=== PATIENT | male | born 1965 | race Caucasian/White ===

== ENCOUNTER 2016-10-07 22:48 | Inpatient (IN) | payer OTHER, MEDICAID ==
[~2016-10-07] VITALS: Ht 167.6 cm; Wt 69.9 kg
[2016-10-07 22:48] VITALS: BP 90/61; PULSE 90; RESP 20; TEMP 98; O2SAT 98
[~2016-10-07 22:48] MED LIST: ACET-2165 GT; ACET160O10 PO; ALBU2.5V7 INH; ARIP10TA14 PO; ASA81 GT; ASCO-339 GT; ASCO-339 PO; ASCO120G2 PO; BACL10TA GT; BACL10TA PO; BUDE0.5A IH; CARB-61 GT; CEL20 PO; COL250 PO; COLL100 GT; COPAXI20 SQ; CRAN1TAB5 GT; CRAN450C PO; CYAN100082 SQ; DOCU-144 GT; DULR10 RC; ENOX40DI8 SQ; ENOX80DI8 SQ; FER300L GT; FINA5TAB3 GT; GLAT20KI3 SQ; HYDR-1189 PO; IBUP-1479 GT; LACT-96 GT; LEVA1.2526 IH; LIP20 GT; LOVI40 SQ; MAGN400O4 GT; METO25TA6 GT; MULT-1117 GT; MULT1CAP34 PO; NA P118E RC; POTA20PA4 GT; SENN-153 GT; TAMS-11 PO; TYLL650 GT; UTI STAT GT; ZIN220 GT; [UNRECOGNIZED DRUG - CODE] PO
--- NOTE | 2016-10-07 22:48 | NUR ---
Patient to ER bed 4 to gown for evaluation. Side rails up.
--- NOTE | 2016-10-07 22:50 | NUR ---
PT BIB BLS AMBULANCE FROM [facility] C/O FEVER. PER FACILITY THE PT FEVER IS HIGH 102,6 AND THEY GIVE HIM IBUPROFEN. AT ER, PT BODY TEMP 98.6F. PT HAS G-TUBE AND YODER CATH IN PLACE.
--- NOTE | 2016-10-07 22:50 | NUR ---
ER at bedside examining patient.
--- NOTE | 2016-10-07 23:00 | NUR ---
DR GARZA AT BS EVALUATING PT
[2016-10-07] MEDS ORDERED: NS 1000 ML BAG IV ONE (23:30)
[2016-10-07] MEDS ORDERED: HEPA500014 SUBCUT (23:50)
[2016-10-07 23:56] LABS: BASOPHILS # (AUTO) 0.1 K/uL (0.0-0.2); BASOPHILS % (AUTO) 1.3 % (0.0-2.0); EOSINOPHILS # (AUTO) 0.6 K/uL (0.0-0.4); EOSINOPHILS % (AUTO) 5.3 % (0.0-4.0); HEMATOCRIT 43.7 % (36-54); HEMOGLOBIN 14.2 g/dL (14.0-18.0); LYMPHOCYTES # (AUTO) 2.9 K/uL (1.0-5.5); LYMPHOCYTES % (AUTO) 27.2 % (20.5-51.5); MEAN CORPUSCULAR HEMOGLOBIN 29 pg (27-31); MEAN CORPUSCULAR HGB CONC 33 % (32-36); MEAN CORPUSCULAR VOLUME 90 fL (79.0-98.0); MONOCYTES # (AUTO) 0.8 K/uL (0.0-1.0); MONOCYTES % (AUTO) 7.2 % (1.7-9.3); NEUTROPHILS # (AUTO) 6.3 K/uL (1.8-7.7); PLATELET COUNT (AUTO) 178 K/uL (130-430); RED BLOOD CELL COUNT(AUTO) 4.86 MIL/uL (4.2-6.2); WHITE BLOOD COUNT (AUTO) 10.7 K/uL (4.8-10.8)
[2016-10-08] VITALS (8 sets, daily range): BP systolic 95–130; BP diastolic 50–69; PULSE 76–99; RESP 16–20; TEMP 96.8–99; O2SAT 94–100
--- NOTE | 2016-10-08 | NUR ---
# 16 FR Villalobos catheter with use of sterile technique. Immediate return of 100 cc CLOUDY YELOW urine noted. Bedside drainage bag placed below level of bladder. Urine sample collected and sent to lab. Pt tolerated procedure WELL. Patient arrived with villalobos in place, changed due to standard of practice prior to admission. Patient unable to toilet self.
[2016-10-08 00:10] LABS: CALCIUM 9.4 mg/dL (8.4-11.0); POTASSIUM 4.3 mmol/L (3.5-5.1)
[2016-10-08 00:11] LABS: CREATININE 0.84 mg/dL (0.55-1.30)
[2016-10-08 00:17] LABS: TOTAL BILIRUBIN 0.6 mg/dL (0.0-1.0)
[2016-10-08 00:18] LABS: ALBUMIN 3.2 g/dL (3.4-4.8); TOTAL PROTEIN, SERUM 8.4 g/dL (6.4-8.3)
[2016-10-08] MEDS ORDERED: LEVOFLOXACIN 500 MG/D5W 100 ML IV ONE (00:30)
[2016-10-08 00:34] LABS: CLARITY/URINE CLOUDY (CLEAR); COLOR,URINE YELLOW (YELLOW)
[2016-10-08 00:35] LABS: BILIRUBIN,URINE NEGATIVE (NEGATIVE); BLOOD, URINE 3+ (NEGATIVE); GLUCOSE,URINE NEGATIVE (NEGATIVE); KETONES,URINE NEGATIVE (NEGATIVE); LEUKOCYTE ESTERASE ,URINE 3+ (NEGATIVE); NITRITE, URINE POSITIVE (NEGATIVE); PROTEIN URINE 2+ (NEGATIVE); UROBILINOGEN,URINE 0.2 (0.2-1.0)
[2016-10-08 00:39] LABS: BACTERIA,URINE MANY /HPF (None Seen); MUCUS,URINE None Seen /LPF (None Seen); RBC,URINE >100 /HPF (0-3); WBC,URINE >100 /HPF (0-3)
[2016-10-08 00:48] LABS: PROTHROMBIN TIME 11.2 SECS (9.5-12.5)
--- NOTE | 2016-10-08 00:50 | NUR ---
Patient will be admitted to care of DR FELIPE. Admitted to TELEMETRY unit. Will go to room 129-A. Belongings list completed. Summary report printed. Report given to RHETT BATISTA.
--- NOTE | 2016-10-08 00:55 | NUR ---
ADMISSION: The patient, IONA MCKINLEY, 51 y/o, M admitted by , was given written information regarding hospital policies, unit procedures and contact persons.
--- NOTE | 2016-10-08 01:00 | NUR ---
INITIAL ASSESSMENT PT. AWAKE, NON VERBAL, B/P 95/64, NO DISTRESS NOTED, O2 SAT. IS 95% WITH O2 2L NC, ORAL CARE AND SUCTIONING PROVIDED. NOTED WITH G-TUBE IN PLACE, G-TUBE IS CLAMPED. NOTED WITH YODER CATH IN PLACE, NOTED WITH SMALL AMOUNT OF BM, ASHLEY CARE DONE, Z-GUARD APPLIED, NOTED WITH OLD HEALING SCAR TO BUTTOCKS AREA, SEIZURE PADS IN PLACE, ISOLATION PRECAUTIONS MAINTAINED, AIR MATTRESS PLACED, REPOSITIONED WITH PILLOW SUPPORT, HEELS OFFLOADED. WILL CONTINUE TO MONITOR.
[2016-10-08] MEDS ORDERED: MEROPENEM 500 MG VIAL IV ONE (02:17)
[2016-10-08] MEDS: KCL 20 mEq in D5/0.45NS 1000mL 1,000 ML IV SCH ×3 (02:28→20:39)
[2016-10-08] MEDS: MEROPENEM 500 MG in NS 50 ML IV SCH ×3 (02:28→20:39)
--- NOTE | 2016-10-08 03:00 | NUR ---
RN ROUNDS PT. RESTING QUIETLY, VITAL SIGNS STABLE, NO DISTRESS NOTED, NO S/S OF PAIN OR DISCOMFORT, REPOSITIONED WITH PILLOW SUPPORT, NO SEIZURE ACTIVITY NOTED, WILL CONTINUE TO MONITOR.
[2016-10-08] MEDS ORDERED: FERROUS SULFATE 300 MG/5 ML UDC GT SCH (06:45)
[2016-10-08] MEDS ORDERED: BACLOFEN 10 MG TABLET GT PRN (06:45)
[2016-10-08] MEDS ORDERED: IBUPROFEN 400 MG TABLET GT PRN (06:45)
[2016-10-08] MEDS ORDERED: SENNOSIDES 8.6 MG TABLET GT PRN (06:45)
[2016-10-08] MEDS ORDERED: BUDESONIDE 0.5 MG/2 ML AMPUL.NEB IH PRN (06:45)
[2016-10-08] MEDS ORDERED: BISACODYL 10 MG/SUPPOSITORY RC PRN (06:45)
[2016-10-08] MEDS ORDERED: NA PHOS,M-B/NA PHOS,DI-BA 118 ML (FLEET ENEMA) RC PRN (06:45)
[2016-10-08] MEDS ORDERED: MILK OF MAGNESIA 30 ML UDC GT PRN (06:45)
--- NOTE | 2016-10-08 07:07 | NUR ---
CLOSING NOTES PT. RESTING QUIETLY, VITAL SIGNS STABLE, NO DISTRESS NOTED, NO S/S OF PAIN OR DISCOMFORT, REPOSITIONED WITH PILLOW SUPPORT, NO SEIZURE ACTIVITY NOTED, NO RESIDUALS TO G-TUBE FEEDING.
--- NOTE | 2016-10-08 07:25 | NUR ---
rn notes: patient is awake but non verbal. lungs bilaterally diminished at the bases. abdomen soft and distended but firm.active bowel sounds. has iv access on the rt hand. has bilateral scds on both legs. has villalobos catheter in placed and draining well. on seizure precaution. has g tube with fibersource 70cc/hr infusing on well. padded side rails in placed. call lights within reach. safety measures maintained. has oxygen 2lnc.no pain nor distress noted.
--- NOTE | 2016-10-08 08:11 | NUR ---
CONSULTATION WAS CALLED, SPOKE TO SHELLEY
[2016-10-08] MEDS ORDERED: [UNRECOGNIZED DRUG - OTHER] GT SCH (09:00)
[2016-10-08] MEDS: METOPROLOL TARTRATE 25 MG TABLET GT SCH ×2 (09:00→20:37)
--- NOTE | 2016-10-08 09:00 | NUR ---
oral care done and turn to sides. pillows on the back.
--- NOTE | 2016-10-08 09:34 | NUR ---
Nutrition Update Shane Scale 13 noted. Pt admitted for sepsis. Diet: Fibersource HN at 70 ml/hr, Free Water Flush: 200 via G-tube BMI: 25.1 kg/m2 RD to follow per nutrition care standards.
[2016-10-08] MEDS: POTASSIUM CHLORIDE 20 MEQ/PKT PACKET GT SCH (09:39)
[2016-10-08] MEDS: ASPIRIN 81 MG TAB.CHEW GT SCH (09:39)
[2016-10-08] MEDS: MULTIVITAMINS TAB 1 TABLET GT SCH (09:39)
[2016-10-08] MEDS: HEPARIN SODIUM,PORCINE 5000 UNITS/ML VIAL SUBCUT SCH ×2 (09:41→20:33)
--- NOTE | 2016-10-08 09:48 | NUR ---
due medication given at this time
--- NOTE | 2016-10-08 10:00 | NUR ---
tried to insert iv but failed. informed charge nurse Argelia BATISTA. azalia BATISTA tried and Alona charge Nurse.none.
--- NOTE | 2016-10-08 10:15 | NUR ---
Dr Rowland called for picc line procedure. ok to placed picc line
--- NOTE | 2016-10-08 11:47 | NUR ---
called at this time. juan moore son.awaiting to call back.
--- NOTE | 2016-10-08 12:05 | NUR ---
picc line order given to the supervisor product inspection Oswaldo BATISTA. awaiting to call back the family for consent
--- NOTE | 2016-10-08 13:14 | NUR ---
awaiting for picc line nurse to come
--- NOTE | 2016-10-08 14:43 | NUR ---
awaiting for the picc line nurse to come
--- NOTE | 2016-10-08 15:00 | NUR ---
repositioned to sides. with pillows on back.
--- NOTE | 2016-10-08 16:25 | NUR ---
awaiting for picc line nurse.
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
--- NOTE | 2016-10-08 18:23 | NUR ---
made comfortable. repositioned to sides. to right side.with pillows on the back. and okay to used the left upper picc line.
--- NOTE | 2016-10-08 19:30 | NUR ---
Initial Notes Pt is A/Ox1, to name, non verbal. Pt is able to track with eyes. Unable to discuss poc with pt due to physical and cognitive limitations. VSS. No acute distress or sob noted. Pt is afebrile, 97.2. Pt is on 2L N/C with O2 saturation at 95%. Pt is on g tube feeding with fibersource@70ml/hr, no residual noted, placement checked with 10cc of bolus air. Pt is sinus rhythm on tele monitor, with heart rate at 88bpm. F/C noted, draining well to gravity with yellow urine noted. YOSI picc line noted, with 1/2NS with 20MEQKCL@100ml/hr. Pt re positioned with pillows for comfort. Safety precautions in place, side rails up x3, with bed in lowest, locked position. Aspiration precautions in place, with suctioning at bedside. Head of bed elevated to high fowlers at all times. Pt is on contact isolation for HX of MRSA, precautions maintained. Seizure precautions in place. Call light in reach. Will continue to monitor.
--- NOTE | 2016-10-08 19:35 | NUR ---
sbar report given to incoming nurse Halle CONTRERAS
[2016-10-08] MEDS: ATORVASTATIN 20 MG TABLET GT SCH (20:36)
--- NOTE | 2016-10-08 20:37 | NUR ---
Scheduled medications/Hygiene care CHG Patient given total bed bath with CHG bath at this time. No open wounds noted, scar from old wound noted to sacral area. Z guard applied to sacral area. Pt tolerated well. Pt re positioned with pillows for comfort. All scheduled medications administered as ordered. Call light in reach. Will continue to monitor.
[2016-10-09] VITALS (7 sets, daily range): BP systolic 91–106; BP diastolic 46–70; PULSE 52–110; RESP 18–20; TEMP 96.9–99.2; O2SAT 92–100
--- NOTE | 2016-10-09 00:30 | NUR ---
PATIENT RESTING: Patient resting quietly. No acute distress noted. Vital signs within normal range. Call light in reach. Will continue to monitor.
--- NOTE | 2016-10-09 03:00 | NUR ---
Rounds Pt is sleeping comfortably at this time. No acute distress or sob noted. Call light in reach. Will continue to monitor.
--- NOTE | 2016-10-09 05:52 | NUR ---
Rounds Pt is sleeping comfortably at this time. Pt re positioned with pillows for comfort. All needs met. Call light in reach. Will continue to monitor.
--- NOTE | 2016-10-09 06:37 | NUR ---
Closing Notes Pt is resting comfortably in bed at this time. No acute distress or sob noted. VSS. PICC line intact. All needs met throughout shift. Call light in reach. Will endorse care to am nurse.
[2016-10-09 07:20] LABS: BASOPHILS # (AUTO) 0.1 K/uL (0.0-0.2); BASOPHILS % (AUTO) 0.9 % (0.0-2.0); EOSINOPHILS # (AUTO) 0.6 K/uL (0.0-0.4); EOSINOPHILS % (AUTO) 9.7 % (0.0-4.0); HEMOGLOBIN 11.2 g/dL (14.0-18.0); LYMPHOCYTES # (AUTO) 1.4 K/uL (1.0-5.5); LYMPHOCYTES % (AUTO) 22.4 % (20.5-51.5); MEAN CORPUSCULAR HEMOGLOBIN 30 pg (27-31); MEAN CORPUSCULAR HGB CONC 33 % (32-36); MEAN CORPUSCULAR VOLUME 90 fL (79.0-98.0); MONOCYTES # (AUTO) 0.4 K/uL (0.0-1.0); MONOCYTES % (AUTO) 6.9 % (1.7-9.3); NEUTROPHILS # (AUTO) 3.9 K/uL (1.8-7.7); NEUTROPHILS % (AUTO) 60.1 % (40.0-70.0); PLATELET COUNT (AUTO) 140 K/uL (130-430); RED BLOOD CELL COUNT(AUTO) 3.78 MIL/uL (4.2-6.2); RED CELL DISTRIBUTION WIDTH 16.1 % (9.0-15.0); WHITE BLOOD COUNT (AUTO) 6.4 K/uL (4.8-10.8)
--- NOTE | 2016-10-09 07:25 | NUR ---
rn notes: patient is awake but non verbal. has oxygen 2lnc of oxygen.lungs bilaterally with diminished breath sounds. abdomen soft bit distended but firm with positive bowel sounds. has gastrostomy tube in placed. dressing still intact. has fibersource hn at 70cc/hr infusing on well. has low air matress in placed. has villalobos catheter draining well. call lights within reach. maintained safety measures.
--- NOTE | 2016-10-09 08:00 | NUR ---
turn to sides. hob elevated. no pain nor distress noted.
[2016-10-09 08:08] LABS: CALCIUM 8.5 mg/dL (8.4-11.0); CREATININE 0.53 mg/dL (0.55-1.30); POTASSIUM 3.8 mmol/L (3.5-5.1)
[2016-10-09] MEDS: METOPROLOL TARTRATE 25 MG TABLET GT SCH ×2 (09:00→21:00)
[2016-10-09] MEDS: MULTIVITAMINS TAB 1 TABLET GT SCH (09:11)
[2016-10-09] MEDS: KCL 20 mEq in D5/0.45NS 1000mL 1,000 ML IV SCH (09:11)
[2016-10-09] MEDS: MEROPENEM 500 MG in NS 50 ML IV SCH ×2 (09:11→21:47)
[2016-10-09] MEDS: POTASSIUM CHLORIDE 20 MEQ/PKT PACKET GT SCH (09:11)
[2016-10-09] MEDS: ASPIRIN 81 MG TAB.CHEW GT SCH (09:12)
[2016-10-09] MEDS: HEPARIN SODIUM,PORCINE 5000 UNITS/ML VIAL SUBCUT SCH ×2 (09:14→21:24)
--- NOTE | 2016-10-09 09:16 | NUR ---
due medication given as scheduled. hob elevated.
--- NOTE | 2016-10-09 11:00 | NUR ---
hob of bed elevated. stable. afebrile
--- NOTE | 2016-10-09 12:00 | NUR ---
placed the machine for low air mattress in placed. oral care done.
--- NOTE | 2016-10-09 14:00 | NUR ---
turn to side.no pain nor distress noted.
--- NOTE | 2016-10-09 16:00 | NUR ---
hanged fibersource g tube feeding at this time. no residual noted. flushed 200cc of water.
--- NOTE | 2016-10-09 18:24 | NUR ---
turn to sides. no pain nor distress noted.
--- NOTE | 2016-10-09 19:20 | NUR ---
sbar report given to incoming nurse Halle CONTRERAS
--- NOTE | 2016-10-09 19:30 | NUR ---
Initial Notes Pt is A/Ox1, to name, non verbal. Pt is able to track with eyes. Unable to discuss poc with pt due to physical and cognitive limitations. VSS. No acute distress or sob noted. Pt is afebrile, 98.0. Pt is on 2L N/C with O2 saturation at 94%. Pt is on g tube feeding with fibersource@70ml/hr, no residual noted, placement checked with 10cc of bolus air. F/C noted, draining well to gravity with yellow urine noted. YOSI picc line noted, with 1/2NS with 20MEQKCL@100ml/hr. Pt re positioned with pillows for comfort. Safety precautions in place, side rails up x3, with bed in lowest, locked position. Aspiration precautions in place, with suctioning at bedside. Head of bed elevated to high fowlers at all times. Pt is on contact isolation for HX of MRSA, precautions maintained. Seizure precautions in place. Call light in reach. Will continue to monitor.
--- NOTE | 2016-10-09 20:00 | NUR ---
Opening note Report received from dayshift nurse. Patient is in supine position, sleeping, not signs of acute distress. Bed in low position, call light in reach, frequent visual checks to be made, continue to monitor
[2016-10-09] MEDS: ATORVASTATIN 20 MG TABLET GT SCH (21:20)
--- NOTE | 2016-10-09 22:00 | NUR ---
Rounds All 9 pm meds have been given. Patient continues to sleep comfortably, but he is arousible to verbal stimuli. Bed in low position, no signs of acute distress. Continue to monitor
--- NOTE | 2016-10-09 22:30 | NUR ---
Rounds Pt is resting comfortably in bed. No acute distress or sob noted. Call light in reach. Will continue to monitor.
--- NOTE | 2016-10-10 00:06 | NUR ---
Rounds Patient is in supine position, no pain behaviors noted, no signs of acute distress, bed in low position, call light in reach, urinal at bedside, patient is able to reposition self. frequent visual checks made, continue to monitor
[2016-10-10] MEDS: ACETAMINOPHEN 650 MG/20.3 ML UDC GT PRN (02:59)
--- NOTE | 2016-10-10 03:00 | NUR ---
Low grade fever Temperature checked, 99.4. Cooling measures provided, and Tylenol 650mg PO 650mg given via G tube. Will continue to monitor.
[2016-10-10 03:21] VITALS: BP 113/88; PULSE 119; RESP 20; TEMP 99.6; O2SAT 92
[2016-10-10 03:39] VITALS: PULSE 112; TEMP 98.8
--- NOTE | 2016-10-10 04:00 | NUR ---
Temp re checked Temp re checked, 98.8. Pt is afebrile. No acute distress or sob noted. Call light in reach. Will continue to monitor.
--- NOTE | 2016-10-10 05:28 | NUR ---
Hygiene care/Rounds Pt given jun care, new gown. Pt re positioned with pillows and heels floating for comfort. Pt tolerated well. Call light in reach. Pt is Sinus rhythm on tele monitor, with 97 bpm. All needs met at this time. Will continue to monitor.
[2016-10-10] MEDS: KCL 20 mEq in D5/0.45NS 1000mL 1,000 ML IV SCH ×3 (06:44→17:46)
--- NOTE | 2016-10-10 06:49 | NUR ---
Closing Notes Pt is resting comfortably in bed at this time. No acute distress or sob noted. New feeding tube bag hung as ordered, time and dated. VSS. PICC line intact. All needs met throughout shift. Call light in reach. Will endorse care to am nurse.
[2016-10-10 07:38] VITALS: BP 100/69; PULSE 93; RESP 18; TEMP 98.6; O2SAT 99
--- NOTE | 2016-10-10 07:45 | NUR ---
Initial Note Received pt in bed, no s/s of distress or sob noted, pt has no facial grimacing noted for pain, pt in stable condition, pt alert to name only, provided pt with reality orientation. Bed at lowest position, call light within reach, will continue to monitor pt for any changes, fall, aspiration, seizure and contact precautions in place. pt tolerating g tube feedings as ordered, placement verified, g tube patent, no residual, flushes, dressing clean and dry. Pt has a picc line on left upper arm, dressing non occluded, flushes and has blood return on both ports. F/C draining via gravity. Pt has bilateral scd's in place.
[2016-10-10] MEDS: METOPROLOL TARTRATE 25 MG TABLET GT SCH ×2 (08:13→20:44)
[2016-10-10] MEDS: MULTIVITAMINS TAB 1 TABLET GT SCH (08:20)
[2016-10-10] MEDS: MEROPENEM 500 MG in NS 50 ML IV SCH (08:20)
[2016-10-10] MEDS: POTASSIUM CHLORIDE 20 MEQ/PKT PACKET GT SCH (08:20)
[2016-10-10] MEDS: ASPIRIN 81 MG TAB.CHEW GT SCH (08:20)
[2016-10-10] MEDS: HEPARIN SODIUM,PORCINE 5000 UNITS/ML VIAL SUBCUT SCH ×2 (08:22→20:45)
--- NOTE | 2016-10-10 10:31 | NUR ---
ROUNDS Pt in bed, no s/s of distress or sob noted, pt has no facial grimacing noted for pain, pt in stable condition, pt resting comfortably, will continue to monitor pt for any changes.
--- NOTE | 2016-10-10 12:43 | NUR ---
Wound Evaluation: Wound Consult ordered for low Shane score. Patient evaluated for a low Shane score of 13. Patient was awake, oriented x 1, and received in a [place] [facility] bed with a low air-loss mattress. Patient needs to be turned in bed. Skin is fair (-); Sacral-Coccygeal area has scar tissue; G-Tube jun-site has redness from moisture; Dry scabs on abdomen; Closed bullae on chest. Bilateral lower extremities have dry abrasions. Recommend: Reposition patient side to side only every two hours with pillow support, and off-load heels and pressure areas with pillows for pressure re-distribution. Perform skin care and monitor skin integrity q shift. Use moisture barrier cream on, buttocks, and other moisture susceptible areas qid and as needed for soiling. Maintain patient on a low air-loss mattress. Will continue to follow as a Shane.
--- NOTE | 2016-10-10 12:45 | NUR ---
Consent Attempted to reach brother for consent, left message to call back.
[2016-10-10 12:46] VITALS: BP 118/58; PULSE 109; RESP 20; TEMP 98.5; O2SAT 94
[2016-10-10] MEDS: NS IV SCH (12:54)
[2016-10-10] MEDS: GENTAMICIN SULFATE IV SCH (12:54)
--- NOTE | 2016-10-10 14:18 | NUR ---
Consult: for Dr. Mercedes, regarding poor lines. Dr. Mercedes is here at nurses station, he is aware of consult.
[2016-10-10 15:53] VITALS: Ht 167.6 cm; Wt 69.9 kg
[2016-10-10 16:23] VITALS: BP 106/66; PULSE 99; RESP 18; TEMP 98; O2SAT 93
--- NOTE | 2016-10-10 18:14 | NUR ---
Closing Note Pt in bed, no s/s of distress or sob noted, pt has no facial grimacing noted for pain, pt in stable condition, pt alert to name only, provided pt with reality orientation. Bed at lowest position, call light within reach, will endorse care of pt to incoming nurse, fall, aspiration, seizure and contact precautions in place. Pt tolerating g tube feedings as ordered, dressing clean and dry. Pt has a picc line on left upper arm, dressing non occluded, flushes and has blood return on both ports. F/C draining via gravity. Pt has bilateral scd's in place.
[2016-10-10 20:00] VITALS: BP 104/72; PULSE 105; RESP 18; TEMP 98.2; O2SAT 93
--- NOTE | 2016-10-10 20:00 | NUR ---
OPENING ASSESSMENT PATIENT ALERT. NONVERBAL. NO MOVEMENT TO COMMAND. TRACKS WITH EYES. NO PAIN NOTED. ISOLATION MDRO, ESBL URINE. LUNGS CLEAR BILATERALLY. TELE. SHOWS ST. G-TUBE ISOSOURCE. NO RESIDUAL. HAS YOSI PICC LINE PATENT X2 PORTS AND DRESSING DRY AND INTACT. F.CATH. DRAINING CLEAR YELLOW URINE. CALL LIGHT WITHIN EASY ACCESS. FALL PRECAUTION, ASPIRATION PRECAUTION. SEIZURE PRECAUTIONS, SIDE RAILS PADDED.
[2016-10-10] MEDS: ATORVASTATIN 20 MG TABLET GT SCH (20:43)
--- NOTE | 2016-10-10 22:15 | NUR ---
ROUNDS PATIENT. RESTING QUIETLY WITHOUT DISTRESS.
[2016-10-11] VITALS (7 sets, daily range): BP systolic 108–154; BP diastolic 51–83; PULSE 66–116; RESP 18–20; TEMP 97.8–99.7; O2SAT 93–99
--- NOTE | 2016-10-11 | NUR ---
G-TUBE G-TUBE FEEDINGS OFF @ THIS TIME.
[2016-10-11] MEDS: NS IV SCH ×2 (00:26→13:52)
[2016-10-11] MEDS: GENTAMICIN SULFATE IV SCH ×2 (00:26→13:52)
--- NOTE | 2016-10-11 02:15 | NUR ---
ROUNDS PATIENT IS AWAKE. NO DISTRESS NOTED @ THIS TIME.
--- NOTE | 2016-10-11 04:05 | NUR ---
CHG BATH CHG BATH GIVEN. HAD LARGE BM. LINEN CHANGED. ASHLEY-CARE GIVEN.
[2016-10-11] MEDS: KCL 20 mEq in D5/0.45NS 1000mL 1,000 ML IV SCH ×2 (04:28→13:52)
--- NOTE | 2016-10-11 06:31 | NUR ---
CLOSING NOTES PATIENT NPO FOR PORT-A-CATH PLACEMENT. HAS LT. UPPER ARM PICC LINE 2 LUMEN PATENT. SITE IS CLEAR. G-TUBE CLAMPED @ THIS TIME. F.CATH DRAINING CLEAR YELLOW URINE. HX. OF MDRO AND ESBL URINE, CONTACT ISOLATION. CALL LIGHT WITHIN EASY ACCESS. NONVERBAL, NO RESPONSE TO COMMAND.
[2016-10-11 06:45] LABS: BASOPHILS # (AUTO) 0.1 K/uL (0.0-0.2); BASOPHILS % (AUTO) 0.8 % (0.0-2.0); EOSINOPHILS # (AUTO) 0.6 K/uL (0.0-0.4); EOSINOPHILS % (AUTO) 8.2 % (0.0-4.0); HEMATOCRIT 37.3 % (36-54); HEMOGLOBIN 12.3 g/dL (14.0-18.0); LYMPHOCYTES # (AUTO) 1.7 K/uL (1.0-5.5); LYMPHOCYTES % (AUTO) 23.4 % (20.5-51.5); MEAN CORPUSCULAR HEMOGLOBIN 30 pg (27-31); MEAN CORPUSCULAR HGB CONC 33 % (32-36); MEAN CORPUSCULAR VOLUME 90 fL (79.0-98.0); MONOCYTES # (AUTO) 0.6 K/uL (0.0-1.0); MONOCYTES % (AUTO) 8.3 % (1.7-9.3); NEUTROPHILS # (AUTO) 4.3 K/uL (1.8-7.7); NEUTROPHILS % (AUTO) 59.3 % (40.0-70.0); RED BLOOD CELL COUNT(AUTO) 4.13 MIL/uL (4.2-6.2); RED CELL DISTRIBUTION WIDTH 16.3 % (9.0-15.0); WHITE BLOOD COUNT (AUTO) 7.3 K/uL (4.8-10.8)
--- NOTE | 2016-10-11 07:45 | NUR ---
Initial Note Received pt in bed, no s/s of distress or sob noted, pt has no facial grimacing noted for pain, pt in stable condition, pt alert to name only, provided pt with reality orientation. Bed at lowest position, call light within reach, will continue to monitor pt for any changes, fall, aspiration, seizure and contact precautions in place. G tube placement verified, g tube patent, no residual, flushes, dressing clean and dry, pt npo at this time for procedure this am. Pt has a picc line on left upper arm, dressing non occluded, flushes and has blood return on both ports. F/C draining via gravity. Pt has bilateral scd's in place.
--- NOTE | 2016-10-11 07:45 | NUR ---
Consent Received telephone consent from brother, Jacob Matute for placement of portacath, dr garcia spoke with him and explained the risks and benefits, brother gave consent and it was verified by another RN, charge nurse. Brother had no further questions.
[2016-10-11 08:26] LABS: CALCIUM 8.8 mg/dL (8.4-11.0); CREATININE 0.6 mg/dL (0.55-1.30); POTASSIUM 4.2 mmol/L (3.5-5.1)
[2016-10-11] MEDS: HEPARIN SODIUM,PORCINE 5000 UNITS/ML VIAL SUBCUT SCH ×2 (08:28→21:24)
[2016-10-11 08:29] LABS: PLATELET COUNT (AUTO) 178 K/uL (130-430)
[2016-10-11] MEDS: METOPROLOL TARTRATE 25 MG TABLET GT SCH ×2 (08:35→21:23)
--- NOTE | 2016-10-11 08:40 | NUR ---
Report Report given to Richard from OR, she called and asked for report over the phone, made her aware that we received telephone consent from brother in am and that dr galan came in and signed anesthesia consent witnessed by [facility] shift lead nurse. Dr Jacobson signed consent for pt yesterday because we were unable to reach brother and placed a note for this procedure to be done under progress notes, charge nurse aware. Dr Galan made aware of all this in am.
--- NOTE | 2016-10-11 08:45 | NUR ---
OR Pt left for OR, pt in stable condition, no s/s of distress or sob noted, pt has no facial grimacing noted for pain.
[2016-10-11] MEDS: MULTIVITAMINS TAB 1 TABLET GT SCH (09:00)
[2016-10-11] MEDS: ASPIRIN 81 MG TAB.CHEW GT SCH (09:00)
[2016-10-11] MEDS: POTASSIUM CHLORIDE 20 MEQ/PKT PACKET GT SCH (09:00)
[2016-10-11] MEDS ORDERED: LR 1,000 ML IV SCH (09:36)
--- NOTE | 2016-10-11 10:06 | NUR ---
CALL Spoke with dr Mercedes in regards to pt, gave order to for pt to be on tele and continue feedings as ordered upon arrival to unit from pacu.
--- NOTE | 2016-10-11 10:45 | NUR ---
Back From OR Pt back from OR, no s/s of distress or sob noted, pt has no facial grimacing noted for pain, pt in stable condition, vss, 126/70, 93, 95% on 2 liters via nasal cannula, 18, 98.6. Will continue to monitor pt for any changes. Pt has a portacath on right chest, with dressing clean and dry.
--- NOTE | 2016-10-11 12:00 | NUR ---
G Tube Feedings Started g tube feedings as ordered, placement verified, g tube patent, no residual, flushes, dressing clean and dry. Aspiration precautions in place.
[2016-10-11] MEDS ORDERED: LR 1,000 ML IV.SOLN IV ONE (14:00)
[2016-10-11] MEDS ORDERED: PROPOFOL 200MG/ 20ML VIAL (DIPRIVAN) IV ONE (14:00)
[2016-10-11] MEDS ORDERED: NS 250 ML BAG IV ONE (14:00)
--- NOTE | 2016-10-11 18:21 | NUR ---
Closing Note Pt in bed, no s/s of distress or sob noted, pt has no facial grimacing noted for pain, pt in stable condition, pt alert to name only, provided pt with reality orientation. Bed at lowest position, call light within reach, will endorse care of pt to incoming nurse, fall, aspiration, seizure and contact precautions in place. G tube patent, tolerating feedings as ordered. Pt has a picc line on left upper arm, dressing non occluded, flushes and has blood return on both ports. F/C draining via gravity. Pt has bilateral scd's in place.Pt has a portacath on right chest, dressing clean and dry.
--- NOTE | 2016-10-11 19:50 | NUR ---
INITIAL NOTE Patient resting on the bed. No acute distress. No facial grimacing noted at this time. Skin warn and dry to touch. PICC line intact to YOSI, no redness, no swelling, no drainage. On D5 1/2NS with KCl 20mEq at 100ml/hr, infusing well. F/C intact, drain gravity with yellow urine. SCD and DMITRY mattress in placed. On contact isolation for MDRO and ESBL of urine. Safety measure maintained. Call light within reached. Bed in low position, padded side rails up. Will continue to monitor.
[2016-10-11] MEDS: ATORVASTATIN 20 MG TABLET GT SCH (21:23)
--- NOTE | 2016-10-11 21:30 | NUR ---
ROUND Patient resting on the bed. No acute distress. Continue on O2 2L/min via NC. Safety measure maintained. Call light within reached. Bed in low position, padded side rails up. Continue to monitor.
--- NOTE | 2016-10-11 23:19 | NUR ---
HELPED COTTAGE ATTENDANT TO CLEAN PATIENT Helped COTTAGE ATTENDANT to clean the patient, CHG bath given turned and repositioned with good body alignment. No acute distress. Safety measure maintained. Call light within reached. Continue to monitor.
[2016-10-12 00:38] VITALS: BP 102/67; PULSE 99; RESP 20; TEMP 99.7; O2SAT 95
--- NOTE | 2016-10-12 01:00 | NUR ---
ROUND Patient resting on the bed with eyes closed. No acute distress. Safety measure maintained. Call light within reached. Bed in low position, side rails up. Continue to monitor.
[2016-10-12] MEDS: KCL 20 mEq in D5/0.45NS 1000mL 1,000 ML IV SCH ×2 (01:28→14:23)
[2016-10-12] MEDS: GENTAMICIN SULFATE IV SCH ×2 (01:29→14:22)
[2016-10-12] MEDS: NS IV SCH ×2 (01:29→14:22)
--- NOTE | 2016-10-12 03:25 | NUR ---
ROUND Patient resting on the bed with eyes closed. No acute distress. Continue on O2 via NC. Safety measure maintained. Call light within reached. Bed in low position, side rails up. Continue to monitor.
[2016-10-12 04:17] VITALS: BP 114/68; PULSE 84; RESP 20; TEMP 99.8; O2SAT 95
--- NOTE | 2016-10-12 04:53 | NUR ---
ROUND Patient sleeping in the bed comfortable. No acute distress. HOB elevated. On O2 via NC. Safety measure maintained. Padded side rails up, bed in low position. Continue to monitor.
--- NOTE | 2016-10-12 06:36 | NUR ---
CLOSING NOTE Patient resting on the bed comfortable. No acute distress. Continue on O2 2L/min via NC. No facial grimacing noted at this time. Skin warm and dry to touch. PICC line intact to YOSI, no redness, no swelling, no drainage. On D5 1/2NS with KCl 20mEq at 100ml/hr, infusing well. HOB elevated. On GT feeding of Fibersource at 70ml/hr tolerated well. No N/V or aspiration noted. F/C intact, drain gravity with yellow urine. SCD and DMITRY mattress in placed. On contact isolation for MDRO and ESBL of urine. All needs met. Hourly rounding during shift. No seizure activity noted during shift. Safety measure maintained. Call light within reached. Bed in low position, padded side rails up. Will endorse to morning shift nurse.
--- NOTE | 2016-10-12 08:00 | NUR ---
Patient A/ox1, no s/s of distress or sob noted, no facial grimacing noted at this time. Bed at lowest position, call light within reach, will continue to monitor pt. Pt tolerating g tube feedings, 20ml of residual noted, placement verified, g tube patent Picc line on left upper arm, dressing non occluded, flushes and has blood return on both ports. F/C draining via gravity. Pt has bilateral scd's in place.
[2016-10-12] MEDS: ASPIRIN 81 MG TAB.CHEW GT SCH (09:27)
[2016-10-12] MEDS: POTASSIUM CHLORIDE 20 MEQ/PKT PACKET GT SCH (09:27)
[2016-10-12] MEDS: MULTIVITAMINS TAB 1 TABLET GT SCH (09:27)
[2016-10-12] MEDS: METOPROLOL TARTRATE 25 MG TABLET GT SCH ×2 (09:28→21:56)
[2016-10-12] MEDS: HEPARIN SODIUM,PORCINE 5000 UNITS/ML VIAL SUBCUT SCH ×2 (09:29→21:57)
--- NOTE | 2016-10-12 10:00 | NUR ---
Patient is at rest, turned and repositioned for comfort.
[2016-10-12 12:00] VITALS: BP 119/67; PULSE 107; RESP 21; TEMP 99.1; O2SAT 96
--- NOTE | 2016-10-12 12:16 | NUR ---
DISCHARGE PLANNING Faxed SNF referral to [facility] for possible discharge back. Will follow up on bed availability. Addendum: 10/12/16 at 1736 by Nadia Feliz DP Patient assigned to room 5B at [facility] RN to report , bed available anytime. Any transport can be arranged.
--- NOTE | 2016-10-12 14:42 | NUR ---
Discharge Planning Called Dr Jacobson to discuss POC and he stated that Urine CX needed to be repeated d/t possible contamination.
--- NOTE | 2016-10-12 15:38 | NUR ---
Wound Re-Evaluation: Wound Consult ordered for low Shane score. Patient evaluated for a low Shane score of 13. Patient was awake, oriented x 1, and received in a [facility] bed with a low air-loss mattress. Patient needs to be turned in bed. Skin is fair (-); Sacral-Coccygeal area has scar tissue; G-Tube jun-site has redness from moisture; Dry scabs on abdomen; Closed bullae on chest. Bilateral lower extremities have dry abrasions. Recommend continue: Reposition patient side to side only every two hours with pillow support, and off-load heels and pressure areas with pillows for pressure re-distribution. Perform skin care and monitor skin integrity q shift. Use moisture barrier cream on, buttocks, and other moisture susceptible areas qid and as needed for soiling. Maintain patient on a low air-loss mattress. Will continue to follow as a Shane.
[2016-10-12 16:00] VITALS: BP 109/71; PULSE 105; RESP 21; TEMP 99.1; O2SAT 94
--- NOTE | 2016-10-12 16:28 | NUR ---
patient at rest, no facial grimacing nor SOB nor distress noted. Breathing even and unlabored, will continue to monitor.
--- NOTE | 2016-10-12 18:43 | NUR ---
Dr. Jacobson is called and informed about redness and swelling at the site of flakito-cath, and Dr. Jacobson orders not to access the portacath until further notice.
[2016-10-12 19:45] VITALS: BP 114/77; PULSE 106; RESP 20; TEMP 99.2; O2SAT 96
--- NOTE | 2016-10-12 19:45 | NUR ---
INITIAL NOTE Patient resting on the bed. No acute distress. No facial grimacing noted at this time. On O2 2L/min via NC. Skin warm and dry to touch. PICC line intact to YOSI, no redness, no swelling, no drainage. On D5 1/2NS with KCl 20mEq at 100ml/hr, infusing well. HOB elevated. On GT feeding of Fibersource HN at 70ml/hr, tolerated well. GT intact, patent, no residual. F/C intact, drain gravity with yellow urine. SCD and DMITRY mattress in placed. On contact isolation for MDRO and ESBL of urine. Safety measure maintained. Bed in low position, padded side rails up. Call light within reached. Will continue to monitor.
--- NOTE | 2016-10-12 21:40 | NUR ---
ROUND Patient resting on the bed comfortable. No acute distress. Continue on O2 2L/min via NC. HOB elevated. Safety measure maintained. Call light within reached. Continue to monitor.
[2016-10-12] MEDS: ATORVASTATIN 20 MG TABLET GT SCH (21:55)
--- NOTE | 2016-10-12 23:41 | NUR ---
ROUND Patient resting on the bed comfortable. No acute distress. Safety measure maintained. Call light within reached. HOB elevated. Continue to monitor.
[2016-10-13] VITALS (7 sets, daily range): BP systolic 100–117; BP diastolic 58–73; PULSE 63–105; RESP 15–18; TEMP 97.2–99.1; O2SAT 92–98
[2016-10-13] MEDS: NS IV SCH ×2 (01:05→12:46)
[2016-10-13] MEDS: GENTAMICIN SULFATE IV SCH ×2 (01:05→12:46)
[2016-10-13] MEDS: KCL 20 mEq in D5/0.45NS 1000mL 1,000 ML IV SCH ×3 (01:09→18:01)
--- NOTE | 2016-10-13 01:39 | NUR ---
ROUND Patient sleeping at this time. No acute distress. Respiration even and unlabored noted. On O2 via NC. HOB elevated. Call light within reached. Padded side rails up, bed in low position. Safety measure maintained. Continue to monitor.
--- NOTE | 2016-10-13 03:10 | NUR ---
ROUND Patient resting on the bed with eyes closed. Respiration even and unlabored noted. No acute distress. Continue on O2 2L/min via NC. HOB elevated. Safety measure maintained. Bed in low position, padded side rails up. Call light within reached. Continue to monitor.
--- NOTE | 2016-10-13 05:00 | NUR ---
ASSISTED WEB COMMUNICATIONS SPECIALIST TO CLEAN THE PATIENT Assisted WEB COMMUNICATIONS SPECIALIST to give bed bath to patient. No acute distress. Respiration even and unlabored. Continue on O2 2L/min via NC. Safaety measure maintained. Call light within reached. Continue to monitor.
--- NOTE | 2016-10-13 06:46 | NUR ---
CLOSING NOTE Patient resting on the bed. No acute distress. Respiration even and unlabored noted. On O2 2L/min via NC. PICC line intact to YOSI, no redness, no swelling, no drainage. On D5 1/2NS with KCl 20mEq at 100ml/hr, infusing well. HOB elevated all the time. On GT feeding of Fibersource HN at 70ml/hr, tolerated well. F/C intact, drain gravity with yellow urine. SCD and DMITRY mattress in placed. On contact isolation for MDRO and ESBL of urine. All needs met. Hourly rounding during shift. Safety measure maintained. Bed in low position, padded side rails up. Call light within reached. Will endorse to morning shift nurse.
--- NOTE | 2016-10-13 08:00 | NUR ---
INITIAL NOTE PATIENT LYING IN BED, TRACKS MOVEMENT WITH EYES, NONVERBAL, NO S/S OF DISTRESS OR S/S OF PAIN. NASAL CANULA NOTED AT 2L O2, VSS, PICC NOTED TO YOSI DRESSING CLEAN DRY AND INTACT AND INFUSING, NO S/S OF INFILTRATION NOTED. NOTED PORTACATH ACCESS TO RIGHT UPPER CHEST, WITH BLISTERS AT SURROUNDING AREA, ACCORDING TO PREVIOUS SHIFT, MD AWARE, WILL FOLLOW UP. G TUBE NOTED WITH FIBERSOURCE INFUSING AT 70ML, NO RESIDUAL NOTED, AND FLUSHED WITH 100ML WATER. YODER CATHETER IN PLACE AND DRAINING CLEAR YELLOW URINE. ISOLATION PRECAUTIONS IN PLACE, SAFETY MEASURES IN PLACE, WILL FOLLOW UP.
[2016-10-13] MEDS: POTASSIUM CHLORIDE 20 MEQ/PKT PACKET GT SCH (08:58)
[2016-10-13] MEDS: MULTIVITAMINS TAB 1 TABLET GT SCH (08:58)
[2016-10-13] MEDS: ASPIRIN 81 MG TAB.CHEW GT SCH (08:58)
[2016-10-13] MEDS: HEPARIN SODIUM,PORCINE 5000 UNITS/ML VIAL SUBCUT SCH ×2 (09:02→20:52)
[2016-10-13] MEDS: METOPROLOL TARTRATE 25 MG TABLET GT SCH ×2 (09:05→20:43)
--- NOTE | 2016-10-13 10:00 | NUR ---
ROUNDS PT LYING IN BED, NO S/S OF DISTRESS NOTED, NO S/S OF PAIN, PT CLEANED, LINEN CHANGED, GOWN CHANGED, AND REPOSITIONED WITH PILLOW SUPPORT. SAFETY MEASURES IN PLACE, BED IN LOW POSITION, CALL LIGHT WITHIN REACH, WILL FOLLOW UP.
[2016-10-13] MEDS: ACETAMINOPHEN 650 MG/20.3 ML UDC GT PRN (11:14)
--- NOTE | 2016-10-13 11:19 | NUR ---
DR RUSSELL AT BEDSIDE, AWARE OF BLISTERS SURROUNDING RIGHT CHEST PORTACATH STATED IT IS A REACTION TO TAPE, SHOULD GO AWAY ON ITS OWN.
--- NOTE | 2016-10-13 13:00 | NUR ---
ROUNDS PT LYING IN BED, NO S/S OF DISTRESS NOTED, PT REPOSITIONED WITH PILLOW SUPPORT, SAFETY MEASURES IN PLACE, BED IN LOW POSITION, WILL FOLLOW UP
--- NOTE | 2016-10-13 15:00 | NUR ---
ROUNDS PT REPOSITIONED WITH PILLOW SUPPORT, SO S/S OF DISTRESS NOTED, SAFETY MEASURES IN PLACE, BED IN LOW POSITION, WILL FOLLOW UP.
--- NOTE | 2016-10-13 17:00 | NUR ---
ROUNDS PT LYING IN BED, AWAKE, TRACKS MOVEMENT WITH EYES, NO S/S OF DISTRESS NOTED, EVEN UNLABORED BREATHING NOTED, BED IN LOW POSITION, CALL LIGHT WITHIN REACH, WILL FOLLOW UP.
--- NOTE | 2016-10-13 18:30 | NUR ---
CLOSING NOTE PT LYING IN BED, AWAKE, TRACKS MOVEMENT, NO S/S OF DISTRESS OR PAIN NOTED, IV INFUSING TO LEFT UPPER ARM PICC, PATENT, NO S/S OF INFILTRATION NOTED. G TUBE INFUSING FIBERSOURCE AT 70ML/ HR. YODER CATHETER DRAINING TO GRAVITY CLEAR YELLOW URINE. ISOLATION, SEIZURE AND SAFETY PRECAUTIONS IN PLACE THROUGH SHIFT, BED IN LOW POSITION, CALL LIGHT WITHIN REACH, WILL GIVE REPORT TO ONCOMING SHIFT.
--- NOTE | 2016-10-13 20:00 | NUR ---
PM ASSESSMENT PT. AWAKE, NON VERBAL, MAKES EYE CONTACT TO NAME. VITAL SIGNS STABLE, NO DISTRESS NOTED, NO S/S OF PAIN OR DISCOMFORT, NO S/S OF SEIZURE ACTIVITY. NOTED WITH BLISTERS TO RIGHT CHEST AREA AND SMALL DRESSING IN PLACE TO R. PORT-A-CATH. WITH G-TUBE FEEDING FIBERSOURCE @ 70 CC/HR, NO RESIDUALS NOTED, FLUSHED WITH 200 ML H2O. YODER CATHETER IN PLACE, BILATERAL SCD'S IN PLACE. REPOSITIONED WITH PILLOW SUPPORT, SEIZURE PADS IN PLACE, ISOLATION PRECAUTIONS MAINTAINED. WILL CONTINUE TO MONITOR.
[2016-10-13] MEDS: ATORVASTATIN 20 MG TABLET GT SCH (20:42)
--- NOTE | 2016-10-13 22:00 | NUR ---
RN ROUNDS PT. RESTING QUIETLY, VITAL SIGNS STABLE, NO DISTRESS NOTED, NO SEIZURE ACTIVITY NOTED, REPOSITIONED WITH PILLOW SUPPORT, WILL CONTINUE TO MONITOR.
--- NOTE | 2016-10-14 | NUR ---
RN ROUNDS PT. RESTING QUIETLY, VITAL SIGNS STABLE, NO DISTRESS NOTED, NO SEIZURE ACTIVITY NOTED, REPOSITIONED WITH PILLOW SUPPORT, WILL CONTINUE TO MONITOR.
[2016-10-14 00:18] VITALS: BP 110/70; PULSE 80; RESP 17; TEMP 97.9; O2SAT 96
[2016-10-14] MEDS: NS IV SCH ×2 (01:00→14:32)
[2016-10-14] MEDS: GENTAMICIN SULFATE IV SCH ×2 (01:00→14:32)
--- NOTE | 2016-10-14 02:00 | NUR ---
RN ROUNDS PT. RESTING QUIETLY, VITAL SIGNS STABLE, NO DISTRESS NOTED, NO SEIZURE ACTIVITY NOTED, REPOSITIONED WITH PILLOW SUPPORT, WILL CONTINUE TO MONITOR.
[2016-10-14 04:00] VITALS: BP 115/68; PULSE 76; RESP 17; TEMP 97.6; O2SAT 95
--- NOTE | 2016-10-14 04:00 | NUR ---
RN ROUNDS PT. RESTING QUIETLY, VITAL SIGNS STABLE, NO DISTRESS NOTED, NO SEIZURE ACTIVITY NOTED, REPOSITIONED WITH PILLOW SUPPORT, WILL CONTINUE TO MONITOR.
[2016-10-14] MEDS: KCL 20 mEq in D5/0.45NS 1000mL 1,000 ML IV SCH (05:01)
--- NOTE | 2016-10-14 06:25 | NUR ---
CLOSING NOTES PT. RESTING QUIETLY, VITAL SIGNS STABLE, NO DISTRESS NOTED, NO S/S OF PAIN OR DISCOMFORT. NO SEIZURE ACTIVITY NOTED THROUGHOUT THE NIGHT. KEPT COMFORTABLE.
--- NOTE | 2016-10-14 07:53 | NUR ---
INITIAL ASSESSMENT PT AWAKE, NONVERBAL, TRACKS MOVEMENT, MAKES EYE CONTACT, VSS, NO S/S OF DISTRESS OR PAIN, NASAL CANULA IN [place] WITH O2 AT 2L, IV INFUSING TO LEFT ARM PICC, NO S/S OF INFILTRATION NOTED, SMALL DRESSING OVER RIGHT CHEST PORTCATH WITH SMALL INTACT BLISTERS NOTED. GTUBE FEEDING WITH FIBERSOURCE AT 70CC/HR, NO RESIDUAL NOTED, FLUSHED WITH 200CC WATER. YODER CATHETER IN PLACE DRAINING TO GRAVITY WITH CLEAR YELLOW URINE NOTED. BILATERAL SCDS IN PLACE. ISOLATION, SEIZURE, AND SAFETY MEASURES IN PLACE, BED IN LOW POSITION, CALL LIGHT WITHIN REACH, WILL FOLLOW UP.
[2016-10-14 08:08] VITALS: BP 113/74; PULSE 119; RESP 18; TEMP 99
[2016-10-14 08:14] LABS: BASOPHILS # (AUTO) 0.1 K/uL (0.0-0.2); BASOPHILS % (AUTO) 0.7 % (0.0-2.0); EOSINOPHILS # (AUTO) 0.7 K/uL (0.0-0.4); EOSINOPHILS % (AUTO) 7.5 % (0.0-4.0); HEMATOCRIT 40.2 % (36-54); HEMOGLOBIN 13.2 g/dL (14.0-18.0); LYMPHOCYTES # (AUTO) 1.9 K/uL (1.0-5.5); MEAN CORPUSCULAR HEMOGLOBIN 29 pg (27-31); MEAN CORPUSCULAR HGB CONC 33 % (32-36); MEAN CORPUSCULAR VOLUME 89 fL (79.0-98.0); MONOCYTES # (AUTO) 0.7 K/uL (0.0-1.0); MONOCYTES % (AUTO) 7.8 % (1.7-9.3); NEUTROPHILS # (AUTO) 5.4 K/uL (1.8-7.7); PLATELET COUNT (AUTO) 237 K/uL (130-430); RED BLOOD CELL COUNT(AUTO) 4.54 MIL/uL (4.2-6.2); RED CELL DISTRIBUTION WIDTH 16.5 % (9.0-15.0); WHITE BLOOD COUNT (AUTO) 8.8 K/uL (4.8-10.8)
[2016-10-14 08:29] LABS: CREATININE 0.61 mg/dL (0.55-1.30); POTASSIUM 4.4 mmol/L (3.5-5.1)
[2016-10-14] MEDS: POTASSIUM CHLORIDE 20 MEQ/PKT PACKET GT SCH (09:55)
[2016-10-14] MEDS: MULTIVITAMINS TAB 1 TABLET GT SCH (09:55)
[2016-10-14] MEDS: ASPIRIN 81 MG TAB.CHEW GT SCH (09:55)
[2016-10-14] MEDS: METOPROLOL TARTRATE 25 MG TABLET GT SCH (09:56)
[2016-10-14] MEDS: HEPARIN SODIUM,PORCINE 5000 UNITS/ML VIAL SUBCUT SCH (09:57)
--- NOTE | 2016-10-14 11:20 | NUR ---
DISCHARGE PLANNING Spoke with Mingo in admitting at [facility] room 5B still available for patient discharge. Will follow up with
--- NOTE | 2016-10-14 11:33 | NUR ---
Wound Re-Evaluation: Wound Consult ordered for low Shane score. Patient evaluated for a low Shane score of 12. Patient was awake, oriented x 1, and received in a [facility] bed with a low air-loss mattress. Patient needs to be turned in bed. Skin is fair (-); Sacral-Coccygeal area has scar tissue; G-Tube jun-site has decreased redness from moisture; Dry scabs on abdomen; Closed bullae on right chest. Bilateral lower extremities have dry abrasions. Recommend continue: Reposition patient side to side only every two hours with pillow support, and off-load heels and pressure areas with pillows for pressure re-distribution. Perform skin care and monitor skin integrity q shift. Use moisture barrier cream on, buttocks, and other moisture susceptible areas qid and as needed for soiling. Maintain patient on a low air-loss mattress. Will continue to follow as a Shane.
[2016-10-14 12:43] VITALS: BP 104/76; PULSE 97; RESP 18; TEMP 98.9; O2SAT 96
--- NOTE | 2016-10-14 14:43 | NUR ---
DISCHARGE PLANNING NOTE: Per request of Neuro Psych Sales Specialist, [employer] arranged transportation for pt to return to [facility], room 5B. [employer] called [facility] ( ) and arranged transport for 1700. [employer] updated pt's Nurse, Leandra. Pt's packet is at the nurses station.
[2016-10-14 16:15] VITALS: BP 104/76; PULSE 97; RESP 18; TEMP 98.9; O2SAT 96
--- NOTE | 2016-10-14 16:20 | NUR ---
CALLED FAMILY MEMBER, HUNTER MCKINLEY TO UPDATE ON TRANSFER OF PATIENT BACK TO [facility] AND ROOM PLACEMENT.
--- NOTE | 2016-10-14 16:30 | NUR ---
GAVE REPORT TO RECEIVING NURSE, KALANI, AT [facility]. ANTICIPATED CHIEF CLINICAL OFFICER TIME 1700.
[2016-10-14 17:04] VITALS: BP 110/67; PULSE 57; RESP 17; TEMP 99.4; O2SAT 93
--- NOTE | 2016-10-14 17:30 | NUR ---
PT TRANSFERRED Report given to Pascale at [facility]. Transfer packet with Transfer Orders and Medication Reconciliation form given to EMT with report. Exitcare provided. [facility] ID band removed, replaced with ID band with pt's name and . PICC line to left upper arm intact. Patient left floor via gurney escorted by EMT in no distress.
[2017-03-04] MEDS ORDERED: DOCU-144 GT (23:28)
[2017-03-04] MEDS ORDERED: LEVA1.25 NEB ×2 (23:29→23:30)
[2017-03-04] MEDS ORDERED: MULT-1184 GT (23:31)
[2017-03-04] MEDS ORDERED: PRO40 GT (23:32)
[2017-03-04] MEDS ORDERED: Uti-stat GT (23:38)
[2017-03-08] MEDS ORDERED: CEFE1FRO IV (15:19)
[2017-03-08] MEDS ORDERED: COLI150V10 IV (15:20)
== END 2016-10-14 17:30 | DRG 689 ==
LOC: SED 22:48 → STU 10-08 00:39 → SMU 10-11 16:08
PROVIDERS: ADMIT Family Medicine; ATTEND Family Medicine
PROC: B548ZZA Ultrasonography of Superior Vena Cava, Guidance (ICD-10-PCS; 2016-10-11)
PROC: B5181ZA Fluoroscopy of Superior Vena Cava using Low Osmolar Contrast, Guidance (ICD-10-PCS; 2016-10-11)
PROC: 02HV33Z Insertion of Infusion Device into Superior Vena Cava, Percutaneous Approach (ICD-10-PCS; principal; 2016-10-11 07:30)
DX: N39.0 Urinary tract infection, site not specified (principal); G93.40 Encephalopathy, unspecified; J90 Pleural effusion, not elsewhere classified; I10 Essential (primary) hypertension; G35 Multiple sclerosis; G20 Parkinson's disease; E78.5 Hyperlipidemia, unspecified; K59.09 Other constipation; G83.9 Paralytic syndrome, unspecified; N40.0 Benign prostatic hyperplasia without lower urinary tract symptoms; F02.80 Dementia in other diseases classified elsewhere, unspecified severity, without behavioral disturbance, psychotic disturbance, mood disturbance, and anxiety; Z74.01 Bed confinement status; Z88.0 Allergy status to penicillin; Z93.1 Gastrostomy status; Z78.9 Other specified health status; Z79.82 Long term (current) use of aspirin; Z79.899 Other long term (current) drug therapy
CPT/HCPCS: 36415; 71010; 76000; 80048; 80053; 80170-TC; 81000-TC; 83605; 84484; 85025; 85610-TC; 85730-TC; 87040-TC; 87081; 87086; 93005; 94760; 96361; 96365; 99285; C1751; C1769; C1788; J1580; J1644; J1956; J2185; J2704; J7030; J7050; J7120

== ENCOUNTER 2016-12-03 21:30 | Inpatient (IN) | payer OTHER, MEDICAID ==
[~2016-12-03] VITALS: Ht 177.8 cm; Wt 73.0 kg
[2016-12-03 21:30] VITALS: BP 93/69; PULSE 110; RESP 22; TEMP 98.4; O2SAT 95
[~2016-12-03 21:30] MED LIST changes: +HEPA500014 SUBCUT
--- NOTE | 2016-12-03 21:31 | NUR ---
Patient to ER bed 02 to gown for evaluation. Side rails up. Report given to Rachna.
[2016-12-03] MEDS ORDERED: NACL 0.9% 1,000 ML IV ONE ×3 (21:35→23:15)
--- NOTE | 2016-12-03 21:36 | NUR ---
Patient BIB ALS from [facility], per report, patient was having SOB the en day with oxygen saturation in the 70s. Patient awake but non-verbal, does not follow commands, opens eyes sponstaneously. O2 at 98% in room air. No acute distress or SOB noted at this time.
--- NOTE | 2016-12-03 21:45 | NUR ---
ER Dr. Clemons at bedside examining patient.
[2016-12-03] MEDS ORDERED: MEROPENEM 1 GM in NS 100 ML IV ONE (22:30)
[2016-12-03] MEDS ORDERED: VANCOMYCIN HCL 1,000 MG in NS 250 ML IV ONE (22:30)
[2016-12-03 22:45] LABS: HEMATOCRIT 39.9 % (36-54); HEMOGLOBIN 13.1 g/dL (14.0-18.0); MEAN CORPUSCULAR HEMOGLOBIN 30 pg (27-31); MEAN CORPUSCULAR HGB CONC 33 % (32-36); MEAN CORPUSCULAR VOLUME 93 fL (79.0-98.0); PLATELET COUNT (AUTO) 362 K/uL (130-430); RED BLOOD CELL COUNT(AUTO) 4.31 MIL/uL (4.2-6.2); RED CELL DISTRIBUTION WIDTH 14.6 % (9.0-15.0); WHITE BLOOD COUNT (AUTO) 15.9 K/uL (4.8-10.8)
[2016-12-03 22:53] LABS: CALCIUM 9.2 mg/dL (8.4-11.0); CREATININE 1.33 mg/dL (0.55-1.30); POTASSIUM 3.9 mmol/L (3.5-5.1)
[2016-12-03 22:58] LABS: ALBUMIN 3.2 g/dL (3.4-4.8); TOTAL BILIRUBIN 0.4 mg/dL (0.0-1.0); TOTAL PROTEIN, SERUM 8.6 g/dL (6.4-8.3)
[2016-12-03] MEDS ORDERED: VANCOMYCIN HCL 1000 MG/VIAL IV ONE (23:03)
[2016-12-03 23:11] LABS: BAND % (MANUAL) 1 % (0-6); BASOPHILS % (MANUAL) 0 % (0-2); EOSINOPHILS % (MANUAL) 1 % (0-7); LYMPHOCYTES % (MANUAL) 23 % (20-46); MONOCYTES % (MANUAL) 8 % (0-11)
[2016-12-03] MEDS ORDERED: MEROPENEM 500 MG VIAL IV ONE (23:37)
[2016-12-03 23:38] LABS: BILIRUBIN,URINE NEGATIVE (NEGATIVE); BLOOD, URINE 3+ (NEGATIVE); CLARITY/URINE CLOUDY (CLEAR); COLOR,URINE YELLOW (YELLOW); GLUCOSE,URINE NEGATIVE (NEGATIVE); KETONES,URINE NEGATIVE (NEGATIVE); LEUKOCYTE ESTERASE ,URINE 3+ (NEGATIVE); NITRITE, URINE NEGATIVE (NEGATIVE); PROTEIN URINE 2+ (NEGATIVE)
[2016-12-04] VITALS (14 sets, daily range): BP systolic 107–131; BP diastolic 57–75; PULSE 63–137; RESP 16–22; TEMP 97.2–100.5; O2SAT 90–96
[2016-12-04 00:03] LABS: BACTERIA,URINE MODERATE /HPF (None Seen); MUCUS,URINE None Seen /LPF (None Seen); RBC,URINE 50-80 /HPF (0-3); WBC,URINE >100 /HPF (0-3)
[2016-12-04] MEDS ORDERED: cefTRIAXone 1 GM IVPB PREMIX 50 ML IV ONE (00:15)
[2016-12-04] MEDS ORDERED: ASCO500T20 GT (00:45)
--- NOTE | 2016-12-04 01:05 | NUR ---
ADMISSION NOTE Received patient from ER via [facility], received report from maria a BATISTA. Patient admitted with diagnosis of uti and sepsis. Patient oriented to hospital routine, call light, toileting and safety-patient is confused.
--- NOTE | 2016-12-04 01:06 | NUR ---
INITIAL NOTE PT. RECEIVED AWAKE, NONVERBAL. NO S/S OF SOB OR DISTRESS NOTED. VSS. ON 2LNC. TWO IV ACCESS NOTED, ONE ON LEFT HAND, THE OTHER ON RIGHT HAND. NO REDNESS OR SWELLING TO SITE. G TUBE NOTED. NO REDNESS TO THE SURROUNDING SKIN NOTED. PT HANDS ARE CONTRACTED BILATERALLY, ALONG WITH FEET. SKIN IS INTACT. NOT ABLE TO DISCUSS THE PLAN OF CARE AT THIS TIME, WILL NEED TO FOLLOW UP WITH FAMILY/ CAREGIVER. WILL CARRY OUT ORDERS. SAFETY AND FALL PRECAUTIONS IN PLACE. CALL LIGHT IN REACH, BED IN THE LOWEST LOCKED POSITION WITH THE ALARM ON.
[2016-12-04] MEDS ORDERED: NA PHOS,M-B/NA PHOS,DI-BA 118 ML (FLEET ENEMA) RC PRN (01:15)
[2016-12-04] MEDS ORDERED: SENNOSIDES 8.6 MG TABLET GT PRN (01:15)
[2016-12-04] MEDS ORDERED: MILK OF MAGNESIA 30 ML UDC GT PRN (01:15)
[2016-12-04] MEDS ORDERED: FERROUS SULFATE 300 MG/5 ML UDC GT SCH (01:15)
--- NOTE | 2016-12-04 01:15 | NUR ---
Patient will be admitted under the care of Dr. Rowland . Admitted to Telemetry unit. Will go to room 105B. Transported patient via gurney with 2 RNs without any incident. Summary report printed. Report given to Andrea.
--- NOTE | 2016-12-04 01:21 | NUR ---
Consult Called Reason for consultation: urosepsis Was consult called: yes Person who was notified: Maryse Consulting Physician: Mildred Cartagena MD (Dr. Melvin mason apprentice) Biomedical Scientist Specialty Id: Infectious Disease Biomedical Scientist Order by Danilo Rowland MD
[2016-12-04] MEDS: NACL 0.9% 1,000 ML IV SCH ×3 (01:34→21:26)
--- NOTE | 2016-12-04 02:00 | NUR ---
ROUNDS IV CATHETER ON THE RIGHT HAND IS LEAKING, NO LONGER IN VEIN. REMOVED CATHETER, INTACT. IV ACCESS REMAINS IN PLACE TO LEFT HAND WHERE IV FLUIDS ARE NOW INFUSING WELL ORDERED. G TUBE FEEDING INFUSING WELL ORDERED, HOB IN UPRIGHT POSITION AT ALL TIMES WHILE FEEDING IS INFUSING. YODER CATHETER DRAINING TO GRAVITY. WILL CONTINUE TO MONITOR FOR CHANGES. SAFETY AND FALL PRECAUTIONS IN PLACE. CALL LIGHT IN REACH, ALARM ON.
--- NOTE | 2016-12-04 04:22 | NUR ---
ROUNDS PT. RESTING IN BED WITH EYES CLOSED, CHEST RISE AND FALL NOTED. NO S/S OF SOB OR DISTRESS. NO FACIAL GRIMACING FOR PAIN. IV FLUIDS AND GTUBE FEEDING INFUSING WELL ORDERED. WILL CONTINUE TO MONITOR. SAFETY AND FALL PRECAUTIONS IN PLACE, CALL LIGHT IN REACH.
[2016-12-04] MEDS: ALBUTEROL SULFATE 0.083% 2.5 MG/3 ML VIAL.NEB INH SCH ×6 (05:08→23:06)
--- NOTE | 2016-12-04 07:00 | NUR ---
CLOSING NOTE PT. RESTING QUIETLY IN BED. NO S/S OF SOB OR DISTRESS. NO FACIAL GRIMACING INDICATING PAIN. IV FLUIDS AND G TUBE FEEDING INFUSING WELL. ALL NECESSARY NEEDS WERE MET. SAFETY, FALL AND ASPIRATION PRECAUTIONS MAINTAINED. WILL ENDORSE CARE TO AM NURSE. CALL LIGHT IN REACH, BED ALARM ON.
[2016-12-04 07:04] LABS: BASOPHILS # (AUTO) 0.1 K/uL (0.0-0.2); HEMOGLOBIN 10.7 g/dL (14.0-18.0)
[2016-12-04 07:24] LABS: BASOPHILS % (AUTO) 0.6 % (0.0-2.0); EOSINOPHILS # (AUTO) 0.5 K/uL (0.0-0.4); EOSINOPHILS % (AUTO) 3.5 % (0.0-4.0); HEMATOCRIT 32.2 % (36-54); LYMPHOCYTES # (AUTO) 2.3 K/uL (1.0-5.5); LYMPHOCYTES % (AUTO) 16.7 % (20.5-51.5); MEAN CORPUSCULAR HEMOGLOBIN 31 pg (27-31); MEAN CORPUSCULAR HGB CONC 33 % (32-36); MEAN CORPUSCULAR VOLUME 93 fL (79.0-98.0); MONOCYTES # (AUTO) 1.5 K/uL (0.0-1.0); MONOCYTES % (AUTO) 10.9 % (1.7-9.3); NEUTROPHILS # (AUTO) 9.4 K/uL (1.8-7.7); NEUTROPHILS % (AUTO) 68.3 % (40.0-70.0); PLATELET COUNT (AUTO) 268 K/uL (130-430); RED BLOOD CELL COUNT(AUTO) 3.45 MIL/uL (4.2-6.2); RED CELL DISTRIBUTION WIDTH 14.3 % (9.0-15.0); WHITE BLOOD COUNT (AUTO) 13.8 K/uL (4.8-10.8)
--- NOTE | 2016-12-04 07:25 | NUR ---
RN notes/assessment Patient is nonverbal and awake, stares when spoken to. afebrile vss stable. lungs bilaterally with crackles and diminished at the bases. abdomen is soft and non distended with GT with isosource feeding at 70cc/hr infusing on well. oxygen at 2L via nc. oxygen sat 96%. call light within reach. safety measures maintained. bed at low position. hob elevated. repositioned patient every 2 hours.
[2016-12-04 07:34] LABS: CREATININE 0.99 mg/dL (0.55-1.30); POTASSIUM 3.8 mmol/L (3.5-5.1)
[2016-12-04] MEDS ORDERED: MULTIVITAMINS,THERAPEUTIC 5 ML UDC GT SCH (09:00)
[2016-12-04] MEDS ORDERED: [UNRECOGNIZED DRUG - OTHER] GT SCH (09:00)
[2016-12-04] MEDS: BACLOFEN 10 MG TABLET GT SCH ×3 (09:27→21:24)
[2016-12-04] MEDS: POTASSIUM CHLORIDE 20 MEQ/PKT PACKET GT SCH (09:28)
[2016-12-04] MEDS: MEROPENEM 1 GM IVPB PREMIX 50 ML IV SCH ×3 (09:28→21:25)
[2016-12-04] MEDS: ASCORBIC ACID 500 MG TABLET GT SCH (09:29)
[2016-12-04] MEDS: METOPROLOL TARTRATE 25 MG TABLET GT SCH ×2 (09:29→21:32)
[2016-12-04] MEDS: HEPARIN SODIUM,PORCINE 5000 UNITS/ML VIAL SUBCUT SCH ×2 (09:34→21:27)
--- NOTE | 2016-12-04 09:40 | NUR ---
Due medications given via GT tube with residual of 10cc. made comfortable. hob elevated
--- NOTE | 2016-12-04 10:00 | NUR ---
hob elevated. no pain, sob or distress noted.
--- NOTE | 2016-12-04 11:08 | NUR ---
Turn to side with pillows on the back. hob elevated. no skin breakdown noted.
--- NOTE | 2016-12-04 12:00 | NUR ---
CALLED DR CARMICHAEL FOR MARVA CATH ACCESS. SAID ITS OKAY
--- NOTE | 2016-12-04 12:37 | NUR ---
ABLE TO ACCESS MARVA CATH WITH STUDENT WITH THE INSTRUCTOR AMAYA BATISTA ON THE RIGHT CHEST WALL.
[2016-12-04] MEDS: ACETAMINOPHEN 650 MG/20.3 ML UDC GT PRN (14:31)
[2016-12-04] MEDS: BISACODYL 10 MG/SUPPOSITORY RC PRN (15:04)
--- NOTE | 2016-12-04 15:14 | NUR ---
due medication given as ordered. made comfortable.
--- NOTE | 2016-12-04 15:15 | NUR ---
denise givrn iv
--- NOTE | 2016-12-04 15:30 | NUR ---
HEART RATE IS 120. HOB ELEVATED.
--- NOTE | 2016-12-04 16:00 | NUR ---
LATEST TEMPERATURE 99.1
[2016-12-04] MEDS ORDERED: NS 500 ML IV ONE (16:45)
--- NOTE | 2016-12-04 17:46 | NUR ---
turn to sides. made comfortable. suction x 4. hob elevated.
--- NOTE | 2016-12-04 17:52 | NUR ---
latest temp is 98.6 heart rate is 137. no other ectopy noted. patient is stable.
--- NOTE | 2016-12-04 17:53 | NUR ---
dr yuan is aware of the heart rate increasing.
--- NOTE | 2016-12-04 18:10 | NUR ---
heart rate is 113 noted. temp 98.8. made comfortable. suction at this time.
--- NOTE | 2016-12-04 19:00 | NUR ---
latest HR 108 temp latest 98.6
--- NOTE | 2016-12-04 19:21 | NUR ---
sbar report given to incoming nurse Ching BATISTA
--- NOTE | 2016-12-04 19:40 | NUR ---
OPENING NOTE Pt. and bedside report received from day shift nurse. Pt. is resting quietly in bed with eyes closed, respirations are even and unlabored on 2L o2 nasal cannula. Right chest portacath as access infusing IVF as ordered. Tubefeeding to GT infusing as ordered. Air mattress is present and working well. Safety measures in place. Bed alarm on. Room near nurses station. Call light to right hand. Will continue to monitor. Addendum: 12/05/16 at 0536 by Ching Roberts RN OPENING NOTE Pt. and bedside report received from day shift nurse. Pt. is resting quietly in bed with eyes closed, respirations are even and unlabored on 2L o2 nasal cannula. Right chest portacath as access infusing IVF as ordered. Tubefeeding to GT infusing as ordered. Safety measures in place. Bed alarm on. Room near nurses station. Call light to right hand. Will continue to monitor.
[2016-12-04] MEDS: ATORVASTATIN 20 MG TABLET GT SCH (21:24)
--- NOTE | 2016-12-04 22:00 | NUR ---
DUE MEDS Due meds administered as ordered. Pt. tolerated tubefeeding well as ordered with zero residuals noted. No s/s of acute distress. Safety measures in place. Bed alarm on. Room near nurses station. Will continue to monitor.
--- NOTE | 2016-12-04 23:46 | NUR ---
PATIENT RESTING: Patient resting quietly. No acute distress noted. Safety measures in place. Bed alarm on. Room near nurses station. Call light placed to right hand. Will continue to monitor.
[2016-12-05 00:08] VITALS: BP 114/64; PULSE 103; RESP 16; TEMP 99; O2SAT 99
[2016-12-05 00:25] VITALS: BP 114/64; PULSE 103; RESP 16; TEMP 99; O2SAT 99
[2016-12-05] MEDS: NACL 0.9% 1,000 ML IV SCH ×2 (01:59→13:31)
[2016-12-05] MEDS: ALBUTEROL SULFATE 0.083% 2.5 MG/3 ML VIAL.NEB INH SCH ×5 (02:00→19:37)
--- NOTE | 2016-12-05 02:05 | NUR ---
IVF/TUBEFEEDING IVF infusing as ordered. Tubefeeding bag and tubing changed. Pt. tolerating TF well with 10mls of residual. No s/s of acute distress. Repositioned with pillows as support. Safety measures in place. Bed alarm on. Room near nurses station. Call light to right hand. Will continue to monitor.
[2016-12-05] MEDS: ACETAMINOPHEN 650 MG/20.3 ML UDC GT PRN ×2 (02:43→21:01)
--- NOTE | 2016-12-05 03:00 | NUR ---
PORTACATH DRESSING/TYLENOL Cooling measures implemented. Ice packs applied to bilateral axila and behind pt.'s neck; pt. given tylenol as ordered PRN for fever; temp at 101F temporal artery scan. Dressing to right upper chest portacath changed due to soiling. Sterile technique used. Pt. tolerated well. IVF infusing as ordered. Tubefeeding infusing as ordered. Safety measures in place. Bed alarm on. Will continue to monitor.
[2016-12-05 04:25] VITALS: BP 100/72; PULSE 114; RESP 22; TEMP 98.5; O2SAT 96
--- NOTE | 2016-12-05 04:25 | NUR ---
TEMPERATURE RECHECK Pt. is awake, resting quietly in bed with no s/s of acute distress. Temperature currently 98.5F temporal artery scan. Safety measures in place. Call light to right hand. Bed alarm on. Will continue to monitor.
[2016-12-05] MEDS: MEROPENEM 1 GM IVPB PREMIX 50 ML IV SCH (05:00)
[2016-12-05] MEDS: BACLOFEN 10 MG TABLET GT SCH ×3 (05:00→21:47)
--- NOTE | 2016-12-05 05:42 | NUR ---
Consult Follow-Up Reason for consultation: Urosepsis Was consult called: Yes Person who was notified: Maryse Consulting Physician: Mildred Lu will receive the consult today (12/05/2016) Scientist Immunology Specialty Id: Infectious Disease Scientist Immunology
--- NOTE | 2016-12-05 05:46 | NUR ---
DR. RUSSELL CONSULT Dr. Russell consult was paged for consult follow up per Mohit, manager unit.
--- NOTE | 2016-12-05 06:05 | NUR ---
CLOSING NOTE All needs met throughout shift. Pt. is awake, resting quietly in bed with no s/s of acute distress. Safety precautions in place. Bed alarm on. Repositioned with pillows as support. Call light to right hand. Will endorse care to oncoming day shift nurse.
--- NOTE | 2016-12-05 08:00 | NUR ---
initial notes rec patient awake but non verbally responsive . ivf infusing well on the r flakito cath line. no infiltration noted. resp easy and unlabored.with crackles noted but no sob noted. with gt intact and no residual noted. bed in low position and side rails up and locked. pt is close to the nurses station.will continue to monitor patient.
[2016-12-05] MEDS: POTASSIUM CHLORIDE 20 MEQ/PKT PACKET GT SCH (09:14)
[2016-12-05] MEDS: ASCORBIC ACID 500 MG TABLET GT SCH (09:15)
[2016-12-05] MEDS: METOPROLOL TARTRATE 25 MG TABLET GT SCH ×2 (09:15→21:02)
[2016-12-05] MEDS: HEPARIN SODIUM,PORCINE 5000 UNITS/ML VIAL SUBCUT SCH ×2 (09:18→21:06)
--- NOTE | 2016-12-05 09:20 | NUR ---
Nutrition Update Shane Scale 13 noted. Pt admitted for UTI, sepsis. Diet: Isosource 1.5 at 70 ml/hr, Free Water Flush: 100 via GT BMI: 23.2 kg/m2 RD to follow per nutrition care standards.
--- NOTE | 2016-12-05 10:00 | NUR ---
rounds due meds given as ordered. pt was suctioned with small amount whitish phlegm at intervals done.
[2016-12-05] MEDS ORDERED: MULTIVITAMINS TAB 1 TABLET GT ONE (10:15)
[2016-12-05 12:52] VITALS: BP 116/76; PULSE 110; RESP 30; TEMP 99.2; O2SAT 94
[2016-12-05] MEDS: ERTAPENEM SODIUM 1 GM in NS 50 ML IV SCH (13:30)
--- NOTE | 2016-12-05 13:40 | NUR ---
rounds due meds given . no acute distress noted.
--- NOTE | 2016-12-05 14:00 | NUR ---
rounds seen by dr quispe . no acute distress noted.
[2016-12-05 14:22] LABS: BASOPHILS # (AUTO) 0.3 K/uL (0.0-0.2); BASOPHILS % (AUTO) 2.6 % (0.0-2.0); EOSINOPHILS # (AUTO) 0.6 K/uL (0.0-0.4); EOSINOPHILS % (AUTO) 4.9 % (0.0-4.0); HEMATOCRIT 34.3 % (36-54); HEMOGLOBIN 11.4 g/dL (14.0-18.0); LYMPHOCYTES # (AUTO) 1.5 K/uL (1.0-5.5); LYMPHOCYTES % (AUTO) 11.4 % (20.5-51.5); MEAN CORPUSCULAR HEMOGLOBIN 31 pg (27-31); MEAN CORPUSCULAR HGB CONC 33 % (32-36); MEAN CORPUSCULAR VOLUME 93 fL (79.0-98.0); MONOCYTES % (AUTO) 7.9 % (1.7-9.3); NEUTROPHILS # (AUTO) 9.7 K/uL (1.8-7.7); NEUTROPHILS % (AUTO) 73.2 % (40.0-70.0); RED CELL DISTRIBUTION WIDTH 14.3 % (9.0-15.0); WHITE BLOOD COUNT (AUTO) 13.1 K/uL (4.8-10.8)
[2016-12-05 14:59] LABS: CALCIUM 8.4 mg/dL (8.4-11.0); CREATININE 0.94 mg/dL (0.55-1.30); POTASSIUM 4.3 mmol/L (3.5-5.1)
[2016-12-05 15:18] LABS: PLATELET COUNT (AUTO) 273 K/uL (130-430)
--- NOTE | 2016-12-05 16:30 | NUR ---
rounds dr quispe was called re mrsa of the nares and awaiting to call back. turned repositioned for comfort.
[2016-12-05 18:06] VITALS: BP 138/77; PULSE 127; RESP 26; TEMP 101.7; O2SAT 92
--- NOTE | 2016-12-05 18:30 | NUR ---
closing notes resting quietly. no sob noted. turned repositioned for comfort. bed in low position and side rails up and locked. needs attended and stable.
--- NOTE | 2016-12-05 19:30 | NUR ---
INITIAL NOTE Patient resting on the bed comfortable. Respiration even and unlabored. No acute distress. On O2 2L/min via NC. Skin warm and dry to touch. Ansley cath intact to right upper chest, no redness, no swelling, no drainage. On NS at 100ml/hr, infusing well. HOB elevated. GT intact, patent, no residual. On GT feeding of Isosource at 70ml/hr, tolerated well. F/C intact, drain gravity with yellow urine. On contact isolation for MRSA of nares. Safety measure maintained. Call light within reached. Bed in low position, side rails up,bed alarm on. Will continue to monitor.
[2016-12-05] MEDS: BUDESONIDE 0.5 MG/2 ML AMPUL.NEB IH PRN (19:37)
--- NOTE | 2016-12-05 19:37 | NUR ---
Shane Scale Evaluation: Patient evaluated for a low Shane score of 13. Patient was awake, oriented x 1, non-verbal, and received in a [place] bed with an IsoFlex DMITRY mattress, low air-loss therapy was initiated. Patient needs to be turned in bed. Skin is fair (-); Sacral-Coccygeal area has scar tissue; Right Dorsal hand has a skin tear. Recommend: Reposition patient side to side only every two hours with pillow support, and off-load heels and pressure areas with pillows for pressure re-distribution. Elevate, offload and float heels with pillows at all times. Perform skin care and monitor skin integrity q shift. Use moisture barrier cream on, buttocks, and other moisture susceptible areas qid and as needed for soiling. Maintain patient on a low air-loss mattress.
[2016-12-05 20:00] VITALS: BP 129/82; PULSE 122; RESP 20; TEMP 99.8; O2SAT 98
[2016-12-05] MEDS: ATORVASTATIN 20 MG TABLET GT SCH (21:01)
[2016-12-05] MEDS: LACTOBACILLUS RHAMNOSUS GG 1 CAP CAPSULE PO SCH (21:01)
--- NOTE | 2016-12-05 21:01 | NUR ---
RECHECKED TEMP Nsxp=366.8, cooling measure maintained. No acute distress. On O2 2L/min. HOB elevated. bed in low position, side rails up, bed alarm on. Call light within reached. Will continue to monitor.
--- NOTE | 2016-12-05 21:01 | NUR ---
TYLENOL GIVEN Patient with jcui=786.5, Tylenol 650mg via GT given as ordered. No acute distress. Continue on O2 via NC. Cooling measure maintained. Call light within reached. Bed in low position, side rails up, bed alarm on. Continue to monitor.
[2016-12-05] MEDS: MUPIROCIN 2% TOPICAL OINTMENT 22 GM TP SCH (21:04)
--- NOTE | 2016-12-05 23:26 | NUR ---
ROUND Patient resting on bed. Respiration even and unlabored. No acute distress. On O2 2L/min via NC. Ljeh=991.1, cooling measure maintained. Call light within reached. Bed alarm on, bed in low position, side rails up. Continue to monitor.
[2016-12-06] VITALS: BP 108/75; PULSE 113; RESP 17; TEMP 100; O2SAT 97
[2016-12-06] MEDS: ALBUTEROL SULFATE 0.083% 2.5 MG/3 ML VIAL.NEB INH SCH ×7 (00:37→23:40)
--- NOTE | 2016-12-06 01:10 | NUR ---
ROUND Patient resting on the bed comfortable. No acute distress. Respiration even and unlabored. Continue on O2 via NC. Temp=99.8 at this time. Cooling measure maintained. Call light within reached. Bed in low position, side rails up, bed alarm on. Continue to monitor.
[2016-12-06] MEDS: NACL 0.9% 1,000 ML IV SCH ×2 (01:45→11:20)
[2016-12-06] MEDS: ACETAMINOPHEN 650 MG/20.3 ML UDC GT PRN ×3 (03:27→19:47)
--- NOTE | 2016-12-06 03:28 | NUR ---
TYLENOL GIVEN Dhml=753.9, Tylenol 650mg via GT given as ordered. No acute distress. Cooling measure maintained. Call light within reached. Safety measure maintained. Will continue to monitor.
[2016-12-06 04:00] VITALS: BP 141/97; PULSE 131; RESP 18; TEMP 99.4; O2SAT 97
--- NOTE | 2016-12-06 04:29 | NUR ---
RECHECKED TEMP Awds=879.0, cooling measure maintained. No acute distress. Patient resting on the bed with eyes closed. Bed in low position, bed alarm on, side rails up. Call light within reached. Continue to monitor.
[2016-12-06] MEDS: BACLOFEN 10 MG TABLET GT SCH ×3 (05:52→22:25)
--- NOTE | 2016-12-06 06:37 | NUR ---
CLOSING NOTE Patient resting on the bed comfortable. Respiration even and unlabored. No acute distress. On O2 2L/min via NC. Temp=99.4 at this time. Cooling measure maintained. Skin warm and dry to touch. Ansley cath intact to right upper chest, no redness, no swelling, no drainage. On NS at 100ml/hr, infusing well. HOB elevated all the time. GT intact, patent, no residual. On GT feeding tolerated well. No nausea/vomiting or s/s of aspiration. F/C intact, drain gravity with yellow urine. On contact isolation for MRSA of nares. All needs met. Hourly rounding during shift. Safety measure maintained. Call light within reached. Bed in low position, side rails up,bed alarm on. Will endorse to morning shift nurse.
[2016-12-06 08:00] VITALS: BP 145/90; PULSE 145; RESP 18; TEMP 100.9; O2SAT 100
--- NOTE | 2016-12-06 08:00 | NUR ---
initial notes rec patient awake opens eyes but non verbally responsive with hob elevated.with o2 at 2 liters via nasal cannula. no sob noted. flakito cath to the r upper chest intact and no infiltration noted. bed in low position and side rails up and locked. pt is close to the nurses station and will continue to monitor patient.
[2016-12-06] MEDS: METOPROLOL TARTRATE 25 MG TABLET GT SCH ×2 (09:06→21:16)
[2016-12-06] MEDS: MULTIVITAMINS TAB 1 TABLET GT SCH (09:06)
[2016-12-06] MEDS: ASCORBIC ACID 500 MG TABLET GT SCH (09:06)
[2016-12-06] MEDS: MUPIROCIN 2% TOPICAL OINTMENT 22 GM TP SCH ×2 (09:07→21:18)
[2016-12-06] MEDS: LACTOBACILLUS RHAMNOSUS GG 1 CAP CAPSULE PO SCH ×2 (09:07→21:16)
[2016-12-06] MEDS: POTASSIUM CHLORIDE 20 MEQ/PKT PACKET GT SCH (09:08)
[2016-12-06] MEDS: HEPARIN SODIUM,PORCINE 5000 UNITS/ML VIAL SUBCUT SCH ×2 (09:10→21:20)
--- NOTE | 2016-12-06 10:00 | NUR ---
rounds due meds given as ordered , gt is intact and no residual noted. flushed with 100 cc h2o and orion well. suctioned and obtained small amount of whitish phlegm.
--- NOTE | 2016-12-06 11:17 | NUR ---
edna nieto was made aware of the urine culture result.
[2016-12-06] MEDS: ERTAPENEM SODIUM 1 GM in NS 50 ML IV SCH (11:19)
[2016-12-06] MEDS: BUDESONIDE 0.5 MG/2 ML AMPUL.NEB IH PRN (11:29)
[2016-12-06 12:41] VITALS: BP 98/49; PULSE 127; RESP 17; TEMP 100.4; O2SAT 98
[2016-12-06 13:30] VITALS: Ht 177.8 cm; Wt 73.0 kg
--- NOTE | 2016-12-06 13:30 | NUR ---
rounds dr quispe came and notified re urine culture report and elevated heart rate/
[2016-12-06] MEDS ORDERED: POTASSIUM CHLORIDE 10 MEQ in NACL 0.9% 1,000 ML IV SCH (14:00)
--- NOTE | 2016-12-06 14:00 | NUR ---
rounds suctioned otaining small amount of whitsh phlegm. flushed gt with a 100 of h20 and orion well.
--- NOTE | 2016-12-06 16:00 | NUR ---
rounds sleeps at intervals. turned repositioned for comfort. no acte distress noted.
[2016-12-06 17:13] VITALS: BP 86/46; PULSE 123; RESP 16; TEMP 98.4; O2SAT 98
[2016-12-06] MEDS: POTASSIUM CHLORIDE 10 MEQ in NACL 0.9% 1,000 ML IV SCH (18:47)
[2016-12-06 19:40] VITALS: BP 129/79; PULSE 144; RESP 20; TEMP 101.1; O2SAT 96
--- NOTE | 2016-12-06 19:40 | NUR ---
INITIAL NOTE Patient resting on the bed. Respiration even and unlabored. No acute distress. On O2 2L/min via NC. Gosi=182.1, will give Tylenol as ordered. Skin warm and dry to touch. Ansley cath intact to right upper chest, no redness, no swelling, no drainage. On KCl 10mEq with NS at 150ml/hr, infusing well. HOB elevated. GT intact, patent, no residual. On GT feeding of Isosource at 70ml/hr, tolerated well. F/C intact, drain gravity with yellow urine. On contact isolation for MRSA of nares and MDRO of urine. DMITRY mattress in placed. Safety measure maintained. Call light within reached. Bed in low position, side rails up, bed alarm on. Will continue to monitor.
--- NOTE | 2016-12-06 20:47 | NUR ---
RECHECKED TEMP Frtr=141.5 at this time. Cooling measure maintained. No acute distress. Safety measure maintained. Call light within reached. Will continue to monitor.
[2016-12-06] MEDS: ATORVASTATIN 20 MG TABLET GT SCH (21:15)
--- NOTE | 2016-12-06 21:45 | NUR ---
ROUND Patient resting on the bed. No acute distress. Continue on O2 via NC. Temp=99.4. Cooling measure maintained. Bed in low position, side rails up, bed alarm on. Call light within reached. Continue to monitor.
--- NOTE | 2016-12-06 23:40 | NUR ---
ROUND Patient resting on the bed with eyes closed. Respiration even and unlabored. No acute distress. Continue on O2 2L/min via NC. HOB elevated. Bed in low position, side rails up, bed alarm on. Call light within reached. Will continue to monitor.
[2016-12-07] VITALS (7 sets, daily range): BP systolic 91–118; BP diastolic 55–74; PULSE 64–153; RESP 17–22; TEMP 97.8–100.4; O2SAT 92–98
--- NOTE | 2016-12-07 02:02 | NUR ---
ROUND Patient sleeping comfortable. No acute distress. Continue on O2 via NC. Bed in low position, bed alarm on, side rails up. Call light within reached. Continue to monitor.
[2016-12-07] MEDS: POTASSIUM CHLORIDE 10 MEQ in NACL 0.9% 1,000 ML IV SCH ×3 (02:17→18:30)
--- NOTE | 2016-12-07 03:24 | NUR ---
ROUND Patient sleeping comfortable. Respiration even and unlabored. On O2 2L/min via NC. Safety measure maintained. Bed in low position, side rails up, bed alarm on. Call light within reached. Continue to monitor.
[2016-12-07] MEDS: ALBUTEROL SULFATE 0.083% 2.5 MG/3 ML VIAL.NEB INH SCH ×5 (03:27→19:51)
--- NOTE | 2016-12-07 04:45 | NUR ---
ASSISTED NURSE EDUCATOR TO CLEAN PATIENT Assisted NURSE EDUCATOR to give CHG bath to patient. Linen and hospital gown changed. No acute distress. Safety measure maintained. Call light within reached. Continue to monitor.
[2016-12-07] MEDS: BACLOFEN 10 MG TABLET GT SCH ×3 (05:56→22:04)
--- NOTE | 2016-12-07 06:52 | NUR ---
CLOSING NOTE Patient resting on the bed. Respiration even and unlabored. No acute distress. On O2 2L/min via NC. Temp=98.9 at this time. Skin warm and dry to touch. Ansley cath intact to right upper chest, no redness, no swelling, no drainage. On KCl 10mEq with NS at 150ml/hr, infusing well. HOB elevated. On GT feeding tolerated well. F/C intact, drain gravity with yellowish/orange color urine. On contact isolation for MRSA of nares and MDRO of urine. DMITRY mattress in placed. Safety measure maintained. Call light within reached. Bed in low position, side rails up, bed alarm on. Will endorse to morning shift nurse.
[2016-12-07 07:19] LABS: BASOPHILS # (AUTO) 0.1 K/uL (0.0-0.2); BASOPHILS % (AUTO) 0.3 % (0.0-2.0); EOSINOPHILS % (AUTO) 0.2 % (0.0-4.0); HEMATOCRIT 29.7 % (36-54); HEMOGLOBIN 9.6 g/dL (14.0-18.0); LYMPHOCYTES # (AUTO) 1.7 K/uL (1.0-5.5); LYMPHOCYTES % (AUTO) 8.7 % (20.5-51.5); MEAN CORPUSCULAR HEMOGLOBIN 30 pg (27-31); MEAN CORPUSCULAR HGB CONC 33 % (32-36); MEAN CORPUSCULAR VOLUME 93 fL (79.0-98.0); MONOCYTES # (AUTO) 0.9 K/uL (0.0-1.0); MONOCYTES % (AUTO) 4.8 % (1.7-9.3); NEUTROPHILS # (AUTO) 16.6 K/uL (1.8-7.7); PLATELET COUNT (AUTO) 167 K/uL (130-430); RED BLOOD CELL COUNT(AUTO) 3.19 MIL/uL (4.2-6.2); RED CELL DISTRIBUTION WIDTH 14.5 % (9.0-15.0); WHITE BLOOD COUNT (AUTO) 19.3 K/uL (4.8-10.8)
[2016-12-07] MEDS: BUDESONIDE 0.5 MG/2 ML AMPUL.NEB IH PRN (07:33)
[2016-12-07 07:47] LABS: CALCIUM 8.2 mg/dL (8.4-11.0); CREATININE 0.93 mg/dL (0.55-1.30); POTASSIUM 3.8 mmol/L (3.5-5.1)
--- NOTE | 2016-12-07 08:00 | NUR ---
NOTE PT RESTING IN BED, HAVING A BREATHING TREATMENT AT THIS TIME. NO SOB/RESP DISTRESS OR PAIN/DISCOMFORT NOTED AT THIS TIME. IV IN LEFT HAND INTACT AND INFUSING IVF'S AT THIS TIME. TELE UNIT ATTACHED AND TRANSMITTING WELL. PT HAS TEMP OF 100.1' AT THIS TIME. TYLENOL PO THROUGH GT TO BE GIVEN AT THIS TIME WELL. PT NEXT TO NURSES'S STATION FOR CLOSE OBSERVATION. PT'S GT INFUSING FEEDINGS WELL AT THIS TIME WELL. CALL LIGHT WITHIN REACH.
[2016-12-07] MEDS: METOPROLOL TARTRATE 25 MG TABLET GT SCH ×2 (08:14→22:03)
[2016-12-07] MEDS: ASCORBIC ACID 500 MG TABLET GT SCH (08:16)
[2016-12-07] MEDS: POTASSIUM CHLORIDE 20 MEQ/PKT PACKET GT SCH (08:16)
[2016-12-07] MEDS: LACTOBACILLUS RHAMNOSUS GG 1 CAP CAPSULE PO SCH ×2 (08:16→22:09)
[2016-12-07] MEDS: MULTIVITAMINS TAB 1 TABLET GT SCH (08:16)
[2016-12-07] MEDS: ACETAMINOPHEN 650 MG/20.3 ML UDC GT PRN ×2 (08:16→14:49)
[2016-12-07] MEDS: HEPARIN SODIUM,PORCINE 5000 UNITS/ML VIAL SUBCUT SCH ×2 (08:18→22:07)
[2016-12-07] MEDS: MUPIROCIN 2% TOPICAL OINTMENT 22 GM TP SCH ×2 (08:18→22:02)
--- NOTE | 2016-12-07 10:05 | NUR ---
NOTE TEMP DOWN TO 99.2' WITH TYLENOL PO GIVEN AND COOL WASHCLOTHS ON FOREHEAD AND NECK REGION. DR GARZA ON THE FLOOR AND UPDATE ON PT'S STATUS GIVEN. NO NEEDS NOTED. CALL LIGHT WITHIN REACH.
[2016-12-07] MEDS: ERTAPENEM SODIUM 1 GM in NS 50 ML IV SCH (10:45)
--- NOTE | 2016-12-07 12:00 | NUR ---
NOTE PT WAS SEEN AND ASSESSED BY DR RUSSELL AND ORDERS WRITTEN AND CARRIED OUT AT THIS TIME. PT RESTING IN BED WITH O2 ON AT THIS TIME. CALL LIGHT WITHIN REACH.
[2016-12-07] MEDS: VANCOMYCIN HCL 1,250 MG in NS 250 ML IV SCH (13:59)
--- NOTE | 2016-12-07 15:10 | NUR ---
NOTE PT RESTING IN BED. HYGIENE AND BED BATH GIVEN TO PT AT THIS TIME. GT FEEDINGS INFUSING WELL AT THIS TIME. PT WAS ALSO GIVEN TYLENOL LIQUID THROUGH GT FEEDING TUBE AT THIS TIME WELL FOR TEMP OF 10.5. O2 AT 2L/NC STILL ON AND RIGHT SHERRON CATH INFUSING IVF'S ALL SHIFT. CALL LIGHT WITHIN REACH.
--- NOTE | 2016-12-07 18:00 | NUR ---
NOTE PT RESTING IN BED. NO SOB/RESP DISTRESS OR PAIN/DISCOMFORT NOTED. IVF'S INFUSING WELL THROUGH RIGHT SHERRON CATH ALL SHIFT. GT FEEDINGS INFUSING WELL. GT SITE CDI AT THIS TIME. NO REDNESS OR DRAINAGE NOTED AT THIS TIME. TELE UNIT INTACT. PT WAS CHECKED Q1' AND PRN FOR NEEDS AND CARE. PT WAS MAINTAINED WITH SAFETY PRECAUTIONS ALL SHIFT. PT HAS FAN TO KEEP COOL AND TEMPERATURE HAS BEEN 98'-99' AFTER FAN BROUGHT IN FOR PT'S COMFORT. CALL LIGHT WITHIN REACH.
--- NOTE | 2016-12-07 19:30 | NUR ---
INITIAL NOTE PT. RECEIVED RESTING IN BED WITH EYES CLOSED. EASILY AWAKENS TO NAME. NONVERBAL. NO S/S OF SOB OR DISTRESS. NO FACIAL GRIMACING INDICATING PAIN. VSS. SATING WELL ON 2L NC. COOLING MEASURES ARE IN PLACE, TEMPERATURE STABLE. R CHEST PORTACATH NOTED, NO REDNESS OR SWELLING SURROUNDING THE ACCESS SITE. IV FLUIDS INFUSING WELL ORDERED. G TUBE NOTED, WITH DRESSING DRY AND INTACT. FEEDING INFUSING WELL. HOB ELEVATED AT ALL TIMES TO PREVENT ASPIRATION. YODER CATHETER DRAINING TO GRAVITY. YELLOW OUTPUT NOTED. PT. ON AIRLOSS MATTRESS. WILL TURN AND REPOSITION Q2 THIS SHIFT TO PREVENT SKIN BREAKDOWN. NOT ABLE TO DISCUSS PLAN OF CARE DUE TO MENTAL STATE, BUT WILL FREQUENTLY MONITOR PATIENT FOR ANY CHANGES. SAFETY AND FALL PRECAUTIONS IN PLACE, CALL LIGHT IN REACH. BED ALARM ON.
--- NOTE | 2016-12-07 19:30 | NUR ---
NOTE REGARDING SEPSIS SCREEN PT. MEETS SEPSIS CRITERIA DUE TO ELEVATED HEART RATE AND WBC. MD WAS NOTIFIED ON 12/03 AND SEPSIS PROTOCOL WAS FOLLOWED. ORDERS WERE CARRIED OUT AND BOLUS OF FLUIDS WERE GIVEN. BLOOD CULTURES CAME BACK NEGATIVE. CURRENTLY PT. TEMPERATURE IS STABLE. WILL CONTINUE TO MONITOR FOR ANY CHANGES AND FOLLOW UP IF NECESSARY.
--- NOTE | 2016-12-07 22:00 | NUR ---
ROUNDS PT. RESTING IN BED WITH EYES OPEN. NO S/S OF SOB OR DISTRESS NOTED. NO FACIAL GRIMACING INDICATING PAIN. G TUBE FLUSHED WITH 100 CC FREE WATER, NO RESISTANCE NOTED. PT. REPOSITIONED AND SUPPORTED WELL WITH PILLOWS FOR COMFORT AND TO REDUCE PRESSURE ON BONY PROMINENCES. HOB IN UPRIGHT POSITION TO PREVENT ASPIRATION. FEEDING INFUSING WELL ORDERED. WILL CONTINUE TO MONITOR FOR ANY CHANGES. SAFETY AND FALL PRECAUTIONS IN PLACE. CALL LIGHT IN REACH, BED ALARM ON.
[2016-12-07] MEDS: ATORVASTATIN 20 MG TABLET GT SCH (22:03)
--- NOTE | 2016-12-08 00:05 | NUR ---
ROUNDS PT. RESTING IN BED WITH EYES OPEN. NO S/S OF SOB OR DISTRESS NOTED. NO FACIAL GRIMACING INDICATING PAIN. IV FLUIDS INFUSING WELL. G TUBE FEEDING INFUSING ORDERED. WILL CONTINUE TO MONITOR FOR CHANGES. SAFETY, FALL, AND CONTACT PRECAUTIONS IN PLACE. CALL LIGHT IN REACH.
[2016-12-08 01:04] VITALS: BP 124/76; PULSE 94; RESP 19; TEMP 98.8; O2SAT 91
[2016-12-08] MEDS: VANCOMYCIN HCL 1,250 MG in NS 250 ML IV SCH ×2 (01:21→13:54)
--- NOTE | 2016-12-08 02:30 | NUR ---
ROUNDS PT. RESTING IN BED WITH EYES OPEN. NO FACIAL GRIMACING INDICATING PAIN. IV ANTIBIOTIC INFUSING WELL WITH NO ADVERSE REACTIONS NOTED. PT. REPOSITIONED AND SUPPORTED WELL WITH PILLOWS. WILL CONTINUE TO MONITOR FOR CHANGES. CALL LIGHT IN REACH, BED ALARM ON.
[2016-12-08] MEDS: ALBUTEROL SULFATE 0.083% 2.5 MG/3 ML VIAL.NEB INH SCH ×6 (03:19→21:09)
--- NOTE | 2016-12-08 04:00 | NUR ---
ROUNDS PT. JUST FINISHED BREATHING TX. PROVIDED PT. WITH BED BATH, HE HAD ONE BM. WAS CLEANED, CHANGED, AND REPOSITIONED. SUPPORTED WELL WITH PILLOWS. G TUBE FEEDING RE STARTED ONCE PT. WAS BACK IN UPRIGHT POSITION. INFUSING WELL ORDERED. WILL CONTINUE TO MONITOR FOR ANY CHANGES. SAFETY, FALL, AND CONTACT PRECAUTIONS IN PLACE. CALL LIGHT IN REACH, BED ALARM ON.
[2016-12-08 04:06] VITALS: BP 113/71; PULSE 60; RESP 17; TEMP 98.2; O2SAT 96
[2016-12-08] MEDS: POTASSIUM CHLORIDE 10 MEQ in NACL 0.9% 1,000 ML IV SCH ×4 (04:18→20:47)
[2016-12-08] MEDS: BACLOFEN 10 MG TABLET GT SCH ×3 (05:50→21:45)
--- NOTE | 2016-12-08 06:32 | NUR ---
CLOSING NOTE PT. RESTING WITH EYES OPEN. NO S/S OF SOB OR DISTRESS. NO FACIAL GRIMACING INDICATING ANY PAIN. IV FLUIDS AND G TUBE FEEDING INFUSING WELL. PT. REPOSITIONED FOR COMFORT AND SUPPORTED WELL WITH PILLOWS. ALL NECESSARY NEEDS WERE MET. SAFETY AND FALL PRECAUTIONS WERE MAINTAINED. WILL ENDORSE CARE TO AM NURSE. CALL LIGHT IN REACH, BED ALARM ON.
[2016-12-08 07:03] LABS: BASOPHILS % (AUTO) 0.4 % (0.0-2.0); EOSINOPHILS # (AUTO) 0.3 K/uL (0.0-0.4); EOSINOPHILS % (AUTO) 2.4 % (0.0-4.0); HEMATOCRIT 27.8 % (36-54); HEMOGLOBIN 9.5 g/dL (14.0-18.0); LYMPHOCYTES # (AUTO) 1.2 K/uL (1.0-5.5); LYMPHOCYTES % (AUTO) 9.3 % (20.5-51.5); MEAN CORPUSCULAR HEMOGLOBIN 31 pg (27-31); MEAN CORPUSCULAR HGB CONC 34 % (32-36); MEAN CORPUSCULAR VOLUME 89 fL (79.0-98.0); MONOCYTES # (AUTO) 0.8 K/uL (0.0-1.0); MONOCYTES % (AUTO) 6.5 % (1.7-9.3); NEUTROPHILS # (AUTO) 10.2 K/uL (1.8-7.7); NEUTROPHILS % (AUTO) 81.4 % (40.0-70.0); PLATELET COUNT (AUTO) 170 K/uL (130-430); RED BLOOD CELL COUNT(AUTO) 3.12 MIL/uL (4.2-6.2); RED CELL DISTRIBUTION WIDTH 14.5 % (9.0-15.0); WHITE BLOOD COUNT (AUTO) 12.5 K/uL (4.8-10.8)
[2016-12-08 07:17] LABS: CREATININE 0.85 mg/dL (0.55-1.30); POTASSIUM 3.7 mmol/L (3.5-5.1)
[2016-12-08 07:55] VITALS: BP 117/71; PULSE 116; RESP 18; TEMP 97.2; O2SAT 95
--- NOTE | 2016-12-08 08:00 | NUR ---
NOTE PT RESTING IN BED WITH HIS EYES OPEN AT THIS TIME. NO SOB/RESP DISTRESS OR PAIN/DISCOMFORT NOTED AT THIS TIME. PT HAS HIS O2 ON AT 2L/NC. IV IN RIGHT SHERRON CATH INTACT, PATENT AND INFUSING IVF'S WELL AT THIS TIME. TELE UNIT ATTACHED AND TRANSMITTING. YODER CATHETER INTACT AND DRAINING WELL. CALL LIGHT WITHIN REACH.
[2016-12-08] MEDS: METOPROLOL TARTRATE 25 MG TABLET GT SCH ×2 (09:00→20:46)
[2016-12-08] MEDS: POTASSIUM CHLORIDE 20 MEQ/PKT PACKET GT SCH (09:49)
[2016-12-08] MEDS: MULTIVITAMINS TAB 1 TABLET GT SCH (09:50)
[2016-12-08] MEDS: LACTOBACILLUS RHAMNOSUS GG 1 CAP CAPSULE PO SCH ×2 (09:50→20:46)
[2016-12-08] MEDS: ASCORBIC ACID 500 MG TABLET GT SCH (09:50)
[2016-12-08] MEDS: MUPIROCIN 2% TOPICAL OINTMENT 22 GM TP SCH ×2 (09:51→20:46)
[2016-12-08] MEDS: HEPARIN SODIUM,PORCINE 5000 UNITS/ML VIAL SUBCUT SCH ×2 (09:52→20:45)
--- NOTE | 2016-12-08 10:00 | NUR ---
NOTE PT RESTING IN BED. NO NEEDS NOTED.
[2016-12-08 12:20] VITALS: BP 143/91; PULSE 116; RESP 20; TEMP 98.1; O2SAT 96
--- NOTE | 2016-12-08 12:30 | NUR ---
NOTE REC'D CALL FROM LAB, SPUTUM SPECIMEN SENT TO LAB 12/07/16 IS NOT ACCEPTABLE, NEEDS NEW SAMPLE - DR GARZA AND DR RUSSELL TO BE NOTIFIED. PT RESTING IN BED. NO NEEDS NOTED. PT HAS FAN NEAR BEDSIDE TO KEEP HIM COOL/COMFORTABLE AND KEEP TEMPERATURE NORMAL AT THIS TIME. PT CHECKED ON Q1' AND PRN FOR NEEDS AND CARE. PT NEXT TO NURSES' STATION.
--- NOTE | 2016-12-08 14:15 | NUR ---
note pt turned q2' for comfort and promotion of circulation for back and coccyx. no needs noted at this time. pt quiet and calm at this time. call light within reach.
[2016-12-08 16:12] VITALS: BP 121/77; PULSE 113; RESP 20; TEMP 97.2; O2SAT 99
--- NOTE | 2016-12-08 18:15 | NUR ---
NOTE PT HAS BEEN CHECKED ON Q1' AND PRN FOR NEEDS AND CARE. NO SOB/RESP DISTRESS OR PAIN/DISCOMFORT NOTED. PT IS NEXT TO NURSES' STATION. GT FEEDINGS AND IVF'S INFUSING WELL. PT WAS MAINTAINED WITH SAFETY PRECAUTIONS ALL SHIFT. NO NEEDS NOTED AT THIS TIME. VS HAVE BEEN STABLE ALL SHIFT.
[2016-12-08 19:41] VITALS: BP 145/79; PULSE 123; RESP 21; TEMP 98.6; O2SAT 92
--- NOTE | 2016-12-08 19:45 | NUR ---
PM SHIFT ASSESSMENT Received patient awake in bed, no sob noted, on 02 2l NC. Vitals stable, no temperature noted. Ansley cath to right upper chest noted with IVF infusing at 150 ml/hr. Patient has bilateral upper extremity rash, will monitor for any changes. G tube feeding infusing at 70 ml/hr. No residual noted. Patient has villalobos catheter secured and draining yellow urine to gravity. Patient repositioned and turned with pillow support. Seizure pads in place. Fall and isolation precautions maintained. Will closely monitor.
[2016-12-08] MEDS: ATORVASTATIN 20 MG TABLET GT SCH (20:46)
--- NOTE | 2016-12-08 21:29 | NUR ---
RN ROUNDS Patient awake, no sob noted, remains on 02 2l NC, due medications administered via g tube. No residual noted. Hob up at 45 degrees. Safety measures in place, will closely monitor.
--- NOTE | 2016-12-08 22:12 | NUR ---
RN ROUNDS Patient resting quietly, due medications administered via GT. Repositioned and turned with pillow support, bilateral heels elevated with pillow support. Safety measures in place, will closely monitor.
[2016-12-09] VITALS (7 sets, daily range): BP systolic 108–137; BP diastolic 73–82; PULSE 105–120; RESP 16–20; TEMP 96.2–98; O2SAT 95–97
[2016-12-09] MEDS: ALBUTEROL SULFATE 0.083% 2.5 MG/3 ML VIAL.NEB INH SCH ×7 (00:03→22:53)
--- NOTE | 2016-12-09 00:07 | NUR ---
RN ROUNDS Patient resting quietly, in no distress, vital signs stable. Repositioned and turned with pillow support, bilateral heels elevated with pillow support. Safety measures in place, will closely monitor.
[2016-12-09] MEDS: VANCOMYCIN HCL 1,250 MG in NS 250 ML IV SCH ×2 (00:20→13:39)
[2016-12-09] MEDS: POTASSIUM CHLORIDE 10 MEQ in NACL 0.9% 1,000 ML IV SCH ×5 (00:21→22:09)
--- NOTE | 2016-12-09 02:02 | NUR ---
RN ROUNDS Patient resting quietly, in no distress, remains on 02 2l NC. Repositioned and turned with pillow support, bilateral heels elevated with pillow support. Safety measures maintained, will closely monitor.
--- NOTE | 2016-12-09 04:13 | NUR ---
RN ROUNDS Patient asleep, respirations even and unlabored. Vitals stable. Repositioned and turned with pillow support, bilateral heels elevated with pillow support. Safety measures maintained, will closely monitor.
[2016-12-09] MEDS: BACLOFEN 10 MG TABLET GT SCH ×3 (05:11→21:56)
--- NOTE | 2016-12-09 06:18 | NUR ---
RN ROUNDS Patient resting quietly, respirations even and unlabored. Remains on 02 2l NC. IVF and GT feeding ongoing. Repositioned patient and turned with pillow support, bilateral heels elevated with pillow support. Safety and isolation measures maintained through out shift. Will continue to monitor until report given to am nurse.
--- NOTE | 2016-12-09 08:28 | NUR ---
OPENING ROUNDS RECEIVED REPORT FROM CONCRETE FOREMAN NURSE. PATIENT RESTING AT THIS TIME. PATIENT HAS NO NOTABLE SIGNS OF DISTRESS AT THIS TIME. PATIENT REPOSITIONED, HEELS FLOATED. PATIENTS BED IS IN LOWEST POSITION, CALL LIGHT WITHIN REACH, AND BED ALARM IS ON. WILL CONTINUE TO MONITOR FOR CHANGES IN STATUS.
[2016-12-09] MEDS: POTASSIUM CHLORIDE 20 MEQ/PKT PACKET GT SCH (09:47)
[2016-12-09] MEDS: LACTOBACILLUS RHAMNOSUS GG 1 CAP CAPSULE PO SCH ×2 (09:47→20:42)
[2016-12-09] MEDS: MULTIVITAMINS TAB 1 TABLET GT SCH (09:47)
[2016-12-09] MEDS: METOPROLOL TARTRATE 25 MG TABLET GT SCH ×2 (09:48→20:42)
[2016-12-09] MEDS: ASCORBIC ACID 500 MG TABLET GT SCH (09:49)
[2016-12-09] MEDS: HEPARIN SODIUM,PORCINE 5000 UNITS/ML VIAL SUBCUT SCH ×2 (09:52→20:44)
[2016-12-09] MEDS: MUPIROCIN 2% TOPICAL OINTMENT 22 GM TP SCH ×2 (09:54→20:43)
--- NOTE | 2016-12-09 10:00 | NUR ---
PATIENT RESTING AT THIS TIME. PATIENT HAS NO NOTABLE SIGNS OF DISTRESS AT THIS TIME. PATIENT REPOSITIONED, HEELS FLOATED. PATIENTS BED IS IN LOWEST POSITION, CALL LIGHT WITHIN REACH, AND BED ALARM IS ON. WILL CONTINUE TO MONITOR FOR CHANGES IN STATUS. Addendum: 12/09/16 at 1459 by Mariana Cyr RN 1000 ROUNDS
--- NOTE | 2016-12-09 12:00 | NUR ---
1200 ROUNDS PATIENT RESTING AT THIS TIME. PATIENT HAS NO NOTABLE SIGNS OF DISTRESS AT THIS TIME. PATIENT REPOSITIONED, HEELS FLOATED. PATIENTS BED IS IN LOWEST POSITION, CALL LIGHT WITHIN REACH, AND BED ALARM IS ON. WILL CONTINUE TO MONITOR FOR CHANGES IN STATUS.
--- NOTE | 2016-12-09 14:37 | NUR ---
Shane Re-Evaluation: Patient re-evaluated for a low Shane score of now a 15. Patient was awake, oriented x 1, non-verbal, and received in a Aure bed with an IsoFlex DMITRY mattress with low air-loss therapy. Patient needs to be turned in bed. Skin is fair (-); Sacral-Coccygeal area has scar tissue; Right Dorsal hand has a skin tear; [place] discoloration to all extremities. Recommend: Reposition patient side to side only every two hours with pillow support, and off-load heels and pressure areas with pillows for pressure re-distribution. Elevate, offload and float heels with pillows at all times. Perform skin care and monitor skin integrity q shift. Use moisture barrier cream on, buttocks, and other moisture susceptible areas qid and as needed for soiling. Maintain patient on low air-loss therapy.
--- NOTE | 2016-12-09 15:34 | NUR ---
TEMPERATURE/FREE WATER PATIENT GIVEN FREE WATER VIA G TUBE. PATIENT HAD A SMALL AMOUNT OF SWEAT AND WAS LOOKING MORE FLUSHED. PATIENT TEMPERATURE WAS 99.3F, ICE PACKS WERE PLACED IN BILATERAL AXILLA. WILL CONTINUE TO MONITOR.
--- NOTE | 2016-12-09 16:00 | NUR ---
TEMPERATURE RECHECKED TEMPERATURE, 97.7. WILL CONTINUE TO MONITOR FOR CHANGES IN STATUS.
--- NOTE | 2016-12-09 16:00 | NUR ---
1600 ROUNDS PATIENT RESTING COMFORTABLY, TURNED, REPOSITIONED, AND HEELS FLOATED. NO SIGNS OF DISTRESS NOTED. PATIENTS BED IN LOWEST POSITION, SIDE RAILS UP, SEIZURE PADS APPLIED TO RAILS, AND CALL LIGHT WITHIN REACH. WILL CONTINUE TO MONITOR FOR CHANGES IN STATUS.
--- NOTE | 2016-12-09 18:24 | NUR ---
1800 ROUNDS PATIENT TEMPERATURE RECHECKED 98.1. PATIENT RESTING COMFORTABLY, HEELS FLOATED, AND REPOSITIONED ON PILLOWS. PATIENT CALL LIGHT WITHIN REACH, BED IN LOWEST POSITION, AND BED ALARM IS ON. SEIZURE PADS APPLIED TO 2 SIDE RAILS. PATIENT IS AAOX0, NON VERBAL. WAITING TO GIVE NIGHT NURSE REPORT ON PATIENT.
--- NOTE | 2016-12-09 18:35 | NUR ---
FREE WATER FLUSH FREE WATER FLUSH OF 100ML GIVEN, 10ML RESIDUAL. PATIENT TOLERATED WELL.
--- NOTE | 2016-12-09 19:15 | NUR ---
change of shift.initial pt.assessment.pt.presents awake;calm,affect,non-verbal:eyes track nsg. g-tube:patent,iv fluids infusing via flakito cath:location:rt.svc.pt.suctioned;oral.villalobos cath patent. call light w/in pt's reach.
[2016-12-09] MEDS: BUDESONIDE 0.5 MG/2 ML AMPUL.NEB IH PRN (19:46)
--- NOTE | 2016-12-09 20:00 | NUR ---
pt.assessed.v/s assessed.values w/in normal limits:exc:hr:s.tach:110.pt.suctioned;oral. no temp manifested.villalobos cath patent;functional.iv fluids infusing via flakito cath;location: rt.svc.dsg dry/intact clean.pt.repositioned.call light placed w/in pt's reach.
[2016-12-09] MEDS: ATORVASTATIN 20 MG TABLET GT SCH (20:40)
--- NOTE | 2016-12-09 21:00 | NUR ---
2100p medications administered via g-tube:patent.iv fluids infusing.villalobos cath emptied. pt.suctioned;oral.call light w/in pt's reach.
--- NOTE | 2016-12-09 22:00 | NUR ---
pt.assessed.pt.repositioned.pt.suctioned;oral,g-tube assessed. call ligth placed w/in pt's reach.
[2016-12-10] VITALS (8 sets, daily range): BP systolic 101–147; BP diastolic 51–84; PULSE 110–128; RESP 16–18; TEMP 98.2–100.7; O2SAT 91–98
--- NOTE | 2016-12-10 | NUR ---
pt.assessed.v/s assessed:values w/in normal limits.ex:hr:s.tach:105bpm.pt.repositioned. pt.suctioned,g-tube flushed;100ml.villalobos cath emtied.
[2016-12-10] MEDS: VANCOMYCIN HCL 1,250 MG in NS 250 ML IV SCH ×2 (01:08→16:24)
--- NOTE | 2016-12-10 02:00 | NUR ---
pt.assessed.pt.repositioned.g-tube assessed.pt.suctioned;oral. call light placed w/in pt's reach.
[2016-12-10] MEDS: ALBUTEROL SULFATE 0.083% 2.5 MG/3 ML VIAL.NEB INH SCH ×5 (03:51→20:15)
--- NOTE | 2016-12-10 04:00 | NUR ---
pt.assess,v/s assessed:values w/in normal limits:ex:hr;s.tach.pt.suctioned;oral.g-tube assessed. pt.repositioned.call light placed w/in pt's reach.
--- NOTE | 2016-12-10 06:00 | NUR ---
pt.assessed.pt.repositioned.g-tube flushed;100ml,villalobos cath emptied.pt.suctioned;oral, call light placed w/in pt's reach.
[2016-12-10] MEDS: BACLOFEN 10 MG TABLET GT SCH ×3 (06:12→22:15)
--- NOTE | 2016-12-10 07:25 | NUR ---
HANDOFF ROUNDS WITH [facility] NURSE. IV ALARMING. NOTED TO [facility] NURSE GAS SYSTEM OPERATOR WILL CHANGE TUBING. PATIENT HISTORY OF CEREBRAL PALSY REVIEWED. SEIZURE PADS IN PLACE. DOWN TRENDING WBC. TEMPERATURE 100.4 2 DAYS AGO.
--- NOTE | 2016-12-10 07:56 | NUR ---
ASSESSMENT. IVF TUBING CHANGE. ALARM RESOLVED. RUNNING FLUIDS ORDERED ON RIGHT UPPER CHEST PORTACATH. REPOSITIONED PATIENT. SAFETY OF BED AND SKIN CHECK. NO AREAS OF CONCERN. RASH PATTERN NOTED ON PATIENT BODY DURING PREVIOUS ADMISSION.
--- NOTE | 2016-12-10 08:50 | NUR ---
CALL FROM CAMP GUARD FOR REPOSITION ASSISTANCE.
[2016-12-10] MEDS: LACTOBACILLUS RHAMNOSUS GG 1 CAP CAPSULE PO SCH ×2 (09:26→21:25)
[2016-12-10] MEDS: MULTIVITAMINS TAB 1 TABLET GT SCH (09:26)
[2016-12-10] MEDS: ASCORBIC ACID 500 MG TABLET GT SCH (09:26)
[2016-12-10] MEDS: POTASSIUM CHLORIDE 20 MEQ/PKT PACKET GT SCH (09:26)
[2016-12-10] MEDS: METOPROLOL TARTRATE 25 MG TABLET GT SCH ×2 (09:27→21:25)
[2016-12-10] MEDS: MUPIROCIN 2% TOPICAL OINTMENT 22 GM TP SCH ×2 (09:27→21:26)
[2016-12-10] MEDS: HEPARIN SODIUM,PORCINE 5000 UNITS/ML VIAL SUBCUT SCH ×2 (09:29→21:29)
--- NOTE | 2016-12-10 09:30 | NUR ---
AM MED PASS. GTUBE RESIDUAL CHECK. H20 FLUSHING WELL. IV FLUID AND TUBE FEEDING REPLACEMENT.
[2016-12-10] MEDS: POTASSIUM CHLORIDE 10 MEQ in NACL 0.9% 1,000 ML IV SCH ×2 (09:31→17:00)
--- NOTE | 2016-12-10 10:32 | NUR ---
REQUEST FAUSTINA CLEMENTE, TO NOTIFY BUZZSAW OPERATOR NEED FOR DISPOSABLE STETHOSCOPE. PUT URINARY CATHETER SECUREMENT DEVICE ON RIGHT UPPER LEG. SECURED YODER CATHETER.
--- NOTE | 2016-12-10 11:22 | NUR ---
PROVIDED ORAL CARE FOR PATIENT. REPOSITIONED. CHECK OF RESIDUAL ON G-TUBE NOT MORE THAN 10ML. PATIENT HEART MONITOR CHECK. FEET ELEVATED OFF OF BED. SUCTIONED PATIENT MOUTH. LIPS ARE MOIST.
--- NOTE | 2016-12-10 12:57 | NUR ---
ROUNDS AND REPOSITION. YODER CATHETER 1400ML OUT. NO BM. WILL ADMIN FLEET ENEMA/SUPPOSITORY.
--- NOTE | 2016-12-10 16:16 | NUR ---
PATIENT REPOSITION WITH HEELS FLOATING AND TUBE FEEDING CHECK. PATIENT ORAL CARE PROVIDED.
--- NOTE | 2016-12-10 16:37 | NUR ---
MD FOWLERIUM AWARE OF SEPSIS RISK. WILL DRAW LABS IN AM.
--- NOTE | 2016-12-10 17:33 | NUR ---
REPLACED BATTERIES IN TELEMETRY BOX.
--- NOTE | 2016-12-10 19:34 | NUR ---
HANDOFF REPORT WITH NOC NURSE AT BEDSIDE. PATIENT LABS FOR AM. NURSE AWARE OF ISOLATION PRECAUTION.
--- NOTE | 2016-12-10 19:50 | NUR ---
INITIAL NOTE Patient resting on the bed. Respiration even and unlabored. No acute distress. On O2 2L/min via NC. Skin warm and dry to touch. Ansley cath intact to right upper chest, no redness, no swelling, no drainage. On KCl 10mEq with NS at 150ml/hr, infusing well. HOB elevated. GT intact, patent, no residual. On GT feeding of Isosource at 70ml/hr, tolerated well. F/C intact, drain gravity with yellow urine. On contact isolation for MRSA of nares and MDRO of urine. DMITRY mattress in placed. Safety measure maintained. Call light within reached. Bed in low position, side rails up, bed alarm on. Will continue to monitor.
[2016-12-10] MEDS: ATORVASTATIN 20 MG TABLET GT SCH (21:25)
--- NOTE | 2016-12-10 21:35 | NUR ---
ROUND Patient resting on the bed. Respiration even and unlabored. No acute distress. On O2 2L/min via NC. Safety measure maintained. Call light within reached. Will continue to monitor.
--- NOTE | 2016-12-10 23:43 | NUR ---
ROUND Patient sleeping comfortable. No acute distress. Respiration even and unlabored. Bed in low position, bed alarm on, side rails up. Call light within reached. Will continue to monitor.
[2016-12-11 00:07] VITALS: BP 127/69; PULSE 74; RESP 20; TEMP 97.9; O2SAT 98
[2016-12-11] MEDS: ALBUTEROL SULFATE 0.083% 2.5 MG/3 ML VIAL.NEB INH SCH ×6 (00:47→23:38)
--- NOTE | 2016-12-11 01:18 | NUR ---
ROUND Patient sleeping comfortable. No acute distress. Continue on O2 via NC. Safety measure maintained. Call light within reached. Will continue to monitor.
[2016-12-11] MEDS: POTASSIUM CHLORIDE 10 MEQ in NACL 0.9% 1,000 ML IV SCH ×3 (01:50→17:37)
[2016-12-11] MEDS: VANCOMYCIN HCL 1,250 MG in NS 250 ML IV SCH ×2 (01:50→17:36)
--- NOTE | 2016-12-11 03:00 | NUR ---
ROUND Patient sleeping comfortable. No acute distress. Continue on O2 via NC. Safety measure maintained. Bed in low position, side rails up, bed alarm on. Call light within reached. Will continue to monitor.
--- NOTE | 2016-12-11 04:50 | NUR ---
ROUND Patient resting on the bed comfortable. No acute distress. Respiration even and unlabored. Continue on O2 2L/min via NC. HOB elevated. Call light within reached. Bed in low position, side rails up, bed alarm on. Will continue to monitor.
[2016-12-11 04:58] VITALS: BP 125/62; PULSE 60; RESP 18; TEMP 98.4; O2SAT 96
[2016-12-11] MEDS: BACLOFEN 10 MG TABLET GT SCH ×3 (05:07→22:21)
--- NOTE | 2016-12-11 06:50 | NUR ---
CLOSING NOTE Patient resting on the bed. Respiration even and unlabored. No acute distress. On O2 2L/min via NC. Skin warm and dry to touch. Ansley cath intact to right upper chest, no redness, no swelling, no drainage. IVF infusing well. HOB elevated. On GT feeding tolerated well. F/C intact, drain gravity with yellow urine. On contact isolation for MRSA of nares and MDRO of urine. DMITRY mattress in placed. Safety measure maintained. Call light within reached. Bed in low position, side rails up, bed alarm on. Will endorse to morning shift nurse.
--- NOTE | 2016-12-11 07:10 | NUR ---
Handoff rounds from noc nurse. Patient had uneventful noc shift.
[2016-12-11 07:25] LABS: CALCIUM 8.5 mg/dL (8.4-11.0); CREATININE 0.91 mg/dL (0.55-1.30); POTASSIUM 4.4 mmol/L (3.5-5.1)
[2016-12-11 07:45] LABS: BASOPHILS % (AUTO) 0.6 % (0.0-2.0); EOSINOPHILS # (AUTO) 0.3 K/uL (0.0-0.4); EOSINOPHILS % (AUTO) 4.2 % (0.0-4.0); HEMOGLOBIN 11.3 g/dL (14.0-18.0); LYMPHOCYTES # (AUTO) 1.6 K/uL (1.0-5.5); LYMPHOCYTES % (AUTO) 21.6 % (20.5-51.5); MEAN CORPUSCULAR HEMOGLOBIN 30 pg (27-31); MEAN CORPUSCULAR HGB CONC 33 % (32-36); MEAN CORPUSCULAR VOLUME 92 fL (79.0-98.0); MONOCYTES # (AUTO) 0.8 K/uL (0.0-1.0); NEUTROPHILS # (AUTO) 4.7 K/uL (1.8-7.7); NEUTROPHILS % (AUTO) 62.6 % (40.0-70.0); PLATELET COUNT (AUTO) 265 K/uL (130-430); RED CELL DISTRIBUTION WIDTH 13.9 % (9.0-15.0); WHITE BLOOD COUNT (AUTO) 7.4 K/uL (4.8-10.8)
[2016-12-11 08:20] VITALS: BP 122/75; PULSE 113; RESP 20; TEMP 97.7; O2SAT 91
--- NOTE | 2016-12-11 08:21 | NUR ---
Suppository placed for patient. Vital signs and assessment complete.
[2016-12-11] MEDS: ASCORBIC ACID 500 MG TABLET GT SCH (10:17)
[2016-12-11] MEDS: LACTOBACILLUS RHAMNOSUS GG 1 CAP CAPSULE PO SCH ×2 (10:17→20:35)
[2016-12-11] MEDS: HEPARIN SODIUM,PORCINE 5000 UNITS/ML VIAL SUBCUT SCH ×2 (10:20→20:37)
[2016-12-11] MEDS: BISACODYL 10 MG/SUPPOSITORY RC PRN (10:21)
[2016-12-11] MEDS: MULTIVITAMINS TAB 1 TABLET GT SCH (10:23)
[2016-12-11] MEDS: POTASSIUM CHLORIDE 20 MEQ/PKT PACKET GT SCH (10:23)
[2016-12-11] MEDS: METOPROLOL TARTRATE 25 MG TABLET GT SCH ×2 (10:24→20:35)
--- NOTE | 2016-12-11 10:24 | NUR ---
CENTRAL OFFICE EQUIPMENT ENGINEER present for adl's with patient. Med pass complete. Patient tolerated g-tube feeding. Residual 0. Flushing with h20 100ml well. No bm. Will put enema.
[2016-12-11] MEDS: MUPIROCIN 2% TOPICAL OINTMENT 22 GM TP SCH ×2 (10:26→20:35)
[2016-12-11 12:47] VITALS: BP 119/82; PULSE 58; RESP 19; TEMP 98.3; O2SAT 87
--- NOTE | 2016-12-11 12:54 | NUR ---
Assist of RESIDENTIAL BUILDER to clean up patient large bowel movement at this time. Patient repositioning. Heels floating. Tube feeding resumed.
--- NOTE | 2016-12-11 14:37 | NUR ---
Med pass. Check on patient sleeping at this time.
--- NOTE | 2016-12-11 14:59 | NUR ---
DC PLANNING: RECEIVED A DC ORDER FROM DR. GARZA TO DC PT BACK TO SNF . CALLED/FAXED TO [facility] T[facility]# [phone]; FAX# [phone]. S/W NITESH RN RADIO NEWS ANCHOR, HE SAID HE HAS TO ASK THE CURING ROOM WORKER FIRST AND REQUEST CM TO CALL [facility]-ADMISSION COORDINATOR. TO F/U. CALLED AND LEFT A VOICE MAIL MESSAGE TO [facility] REGARDING DISCHARGE.
--- NOTE | 2016-12-11 16:40 | NUR ---
IV ANTIBIOTIC RUNNING WELL. SAFETY CHECK ON PATIENT AT THIS TIME.
[2016-12-11 17:13] VITALS: BP 128/91; PULSE 122; RESP 21; TEMP 100.5; O2SAT 96
--- NOTE | 2016-12-11 19:20 | NUR ---
INITIAL NOTE Patient resting on the bed. Respiration even and unlabored. No acute distress. On O2 2L/min via NC. Skin warm and dry to touch. Ansley cath intact to right upper chest, no redness, no swelling, no drainage. On KCl 10mEq with NS at 150ml/hr, infusing well. GT intact, patent, no residual. On GT feeding of Isosource at 70ml/hr, tolerated well. HOB elevated. F/C intact, drain gravity with yellow urine. On contact isolation for MRSA of nares and Proteus Mirabilis/MDRO of urine. SCD and DMITRY mattress in placed. Safety measure maintained. Call light within reached. Bed in low position, padded side rails up, bed alarm on. Will continue to monitor.
--- NOTE | 2016-12-11 19:28 | NUR ---
HANDOFF REPORT WITH NOC NURSE.
[2016-12-11 19:54] VITALS: BP 130/84; PULSE 110; RESP 20; TEMP 99.1; O2SAT 94
[2016-12-11] MEDS: ATORVASTATIN 20 MG TABLET GT SCH (20:35)
--- NOTE | 2016-12-11 21:15 | NUR ---
ROUND Patient resting on the bed comfortable. Respiration even and unlabored. No acute distress. Continue on O2 2L/min via NC. Safety measure maintained. Call light within reached. Will continue to monitor.
--- NOTE | 2016-12-11 23:05 | NUR ---
ROUND Patient resting on the bed with eyes closed. Respiration even and unlabored. No acute distress. Continue on O2 2L/min via NC. Safety measure maintained. Bed n low position, padded side rails up, bed alarm on. Call light within reached. Will continue to monitor.
[2016-12-12 00:10] VITALS: BP 107/74; PULSE 95; RESP 16; TEMP 97.3; O2SAT 94
[2016-12-12] MEDS: POTASSIUM CHLORIDE 10 MEQ in NACL 0.9% 1,000 ML IV SCH ×4 (00:42→17:59)
--- NOTE | 2016-12-12 01:15 | NUR ---
ROUND Patient sleeping at this time. Respiration even and unlabored. No acute distress. Continue on O2 2L/min via NC. Safety measure maintained. Call light within reached. Will continue to monitor.
[2016-12-12] MEDS: VANCOMYCIN HCL 1,250 MG in NS 250 ML IV SCH ×2 (01:59→12:49)
--- NOTE | 2016-12-12 03:24 | NUR ---
ROUND Patient resting on the bed with eyes closed. Respiration even and unlabored. No acute distress. Continue on O2 2L/min via NC. Safety measure maintained. Call light within reached. Bed n low position, padded side rails up, bed alarm on. Will continue to monitor.
[2016-12-12 04:41] VITALS: BP 102/61; PULSE 77; RESP 18; TEMP 97.6; O2SAT 93
[2016-12-12] MEDS: ALBUTEROL SULFATE 0.083% 2.5 MG/3 ML VIAL.NEB INH SCH ×5 (05:12→23:24)
--- NOTE | 2016-12-12 05:12 | NUR ---
SHERRON CATH DRESSING CHANGED Sherron cath dressing changed using aseptic technique. No redness or swelling noted on the site. Procedure tolerated well. Will continue to monitor.
[2016-12-12] MEDS: BACLOFEN 10 MG TABLET GT SCH ×3 (06:19→22:04)
--- NOTE | 2016-12-12 06:40 | NUR ---
CLOSING NOTE Patient resting on the bed. Respiration even and unlabored. No acute distress. On O2 2L/min via NC. Skin warm and dry to touch. Ansley cath intact to right upper chest, no redness, no swelling, no drainage. IVF infusing well. HOB elevated. On GT feeding tolerated well. HOB elevated all time. No s/s of aspiration. F/C intact, drain gravity with yellow urine. On contact isolation for MRSA of nares and MDRO of urine. SCD and DMITRY mattress in placed. Safety measure maintained. Call light within reached. Bed in low position, side rails up, bed alarm on. Will endorse to morning shift nurse.
--- NOTE | 2016-12-12 07:05 | NUR ---
Handoff rounds with noc nurse. No change in patient status per noc nurse.
[2016-12-12 08:09] VITALS: BP 119/76; PULSE 111; RESP 18; TEMP 98.1; O2SAT 94
--- NOTE | 2016-12-12 08:10 | NUR ---
Repositioned during patient rounds. BM last shift. Will monitor for bowel regimen. BM yesterday required suppository and enema. Assessment complete. Dressing of portacath change last shift intact, clean, and dry. Sediments noted in urine.
[2016-12-12] MEDS: METOPROLOL TARTRATE 25 MG TABLET GT SCH ×2 (10:03→21:00)
[2016-12-12] MEDS: POTASSIUM CHLORIDE 20 MEQ/PKT PACKET GT SCH (10:04)
[2016-12-12] MEDS: HEPARIN SODIUM,PORCINE 5000 UNITS/ML VIAL SUBCUT SCH ×2 (10:04→22:05)
[2016-12-12] MEDS: MULTIVITAMINS TAB 1 TABLET GT SCH (10:04)
[2016-12-12] MEDS: LACTOBACILLUS RHAMNOSUS GG 1 CAP CAPSULE PO SCH ×2 (10:04→22:04)
[2016-12-12] MEDS: ASCORBIC ACID 500 MG TABLET GT SCH (10:04)
[2016-12-12] MEDS: MUPIROCIN 2% TOPICAL OINTMENT 22 GM TP SCH ×2 (10:08→22:14)
--- NOTE | 2016-12-12 10:30 | NUR ---
Rounds with reposition and med pass. Needs met at this time.
[2016-12-12 12:13] VITALS: BP 113/74; PULSE 109; RESP 18; TEMP 99.8; O2SAT 98
--- NOTE | 2016-12-12 15:40 | NUR ---
DISCHARGE PLANNING DC Planning order for [facility] evaluation and transfer. Faxed DC Planning order to [place] [facility] [phone]. Notified [facility] Liaison Will follow up.
[2016-12-12 16:10] VITALS: BP 110/75; PULSE 115; RESP 18; TEMP 98.5; O2SAT 91
--- NOTE | 2016-12-12 17:47 | NUR ---
PATIENT ROUNDS. IV BAG CHANGE. G-TUBE FEEDING VERIFIED. NEW BAG OF FEEDING UP. NEW GTUBE FEEDING. PATIENT NEEDS MET.
--- NOTE | 2016-12-12 19:29 | NUR ---
Handoff rounds with noc nurse.
[2016-12-12] MEDS: BUDESONIDE 0.5 MG/2 ML AMPUL.NEB IH PRN (19:42)
--- NOTE | 2016-12-12 20:00 | NUR ---
Initial note A/O x 1, no SOB, no chest pain, no grimacing. Fast heart rate 115. Diminished breathing sounds lower lobes. Continued 2 L O2 via NC. Skin warm to touch, Port-A-cath at R upper check. GT at Upper ABD, continued Isosource 1.5 @ 70 ml/hr, 0 ml residual. F/C in place, about 50 ml clear yellow urine in the collecting bag. SCD in place. Reposition patient Q2H. Bed at lowest, call light within reach, will continue to monitor patient.
[2016-12-12 20:28] VITALS: BP 99/63; PULSE 115; RESP 20; TEMP 99
--- NOTE | 2016-12-12 22:00 | NUR ---
Initial note resting/sleeping in bed. No SOB, no chest pain, no grimacing. 2 L O2 via NC. Isosource 1.5 @ 70 ml/hr via GT. F/C in place. SCD in place. Reposition patient Q2H. Bed at lowest, call light within reach, will continue to monitor patient.
[2016-12-12] MEDS: ATORVASTATIN 20 MG TABLET GT SCH (22:04)
[2016-12-13] VITALS: BP 124/77; PULSE 115; RESP 17; TEMP 99.4; O2SAT 93
--- NOTE | 2016-12-13 | NUR ---
Rounds Resting/sleeping in bed. No SOB, no chest pain, no grimacing. 2 L O2 via NC. Isosource 1.5 @ 70 ml/hr via GT. F/C in place. SCD in place. Reposition patient Q2H. Bed at lowest, call light within reach, will continue to monitor patient.
[2016-12-13] MEDS: POTASSIUM CHLORIDE 10 MEQ in NACL 0.9% 1,000 ML IV SCH ×4 (01:16→14:01)
[2016-12-13] MEDS: VANCOMYCIN HCL 1,250 MG in NS 250 ML IV SCH ×2 (01:16→14:01)
--- NOTE | 2016-12-13 02:00 | NUR ---
Rounds Resting/sleeping in bed. No SOB, no chest pain, no grimacing. IV Vanco ongoing via Port-A-Cath. 2 L O2 via NC. Isosource 1.5 @ 70 ml/hr via GT. F/C in place. SCD in place. Reposition patient Q2H. Bed at lowest, call light within reach, will continue to monitor patient.
[2016-12-13] MEDS: ALBUTEROL SULFATE 0.083% 2.5 MG/3 ML VIAL.NEB INH SCH ×4 (02:37→15:07)
[2016-12-13 04:00] VITALS: BP 116/78; PULSE 108; RESP 17; TEMP 98.8; O2SAT 97
[2016-12-13] MEDS: BACLOFEN 10 MG TABLET GT SCH ×2 (06:18→14:01)
--- NOTE | 2016-12-13 06:30 | NUR ---
Closing note Resting in bed. No SOB, no chest pain, no grimacing. 2 L O2 via NC. Isosource 1.5 @ 70 ml/hr via GT. F/C in place. SCD in place. Reposition patient Q2H. Continued IVF. Bed at lowest, call light within reach, will give report to incoming nurse.
--- NOTE | 2016-12-13 07:20 | NUR ---
Initial Note Received patient from gauge inspector nurse, patient is currently resting in bed, no signs of distress or discomfort noted, patient is alert and oriented x 1, assessment complete, patient is currently on 2l of o2, sating at 97%, patient has a right chest port-a-cath, g-tube noted with feedings running, 0ml residual, patient also has villalobos catheter in place draining clear yellow urine, patient also has scds in place, skin tear noted on patient's right hand, call martin is within reach of patient's hand, bed in lowest position, bed alarm on, hob elevated, fall, aspiration precautions in place, will continue to monitor patient.
[2016-12-13] MEDS: BUDESONIDE 0.5 MG/2 ML AMPUL.NEB IH PRN (07:37)
[2016-12-13 08:00] VITALS: BP 140/90; PULSE 110; RESP 16; TEMP 98; O2SAT 96
[2016-12-13] MEDS: POTASSIUM CHLORIDE 20 MEQ/PKT PACKET GT SCH (08:26)
[2016-12-13] MEDS: MULTIVITAMINS TAB 1 TABLET GT SCH (08:27)
[2016-12-13] MEDS: METOPROLOL TARTRATE 25 MG TABLET GT SCH (08:27)
[2016-12-13] MEDS: ASCORBIC ACID 500 MG TABLET GT SCH (08:27)
[2016-12-13] MEDS: LACTOBACILLUS RHAMNOSUS GG 1 CAP CAPSULE PO SCH (08:27)
[2016-12-13] MEDS: MUPIROCIN 2% TOPICAL OINTMENT 22 GM TP SCH (08:28)
[2016-12-13] MEDS: HEPARIN SODIUM,PORCINE 5000 UNITS/ML VIAL SUBCUT SCH (08:29)
--- NOTE | 2016-12-13 08:30 | NUR ---
Medications Morning medications was given to patient; patient tolerated well, 0ml residuals; no other needs at this time, will continue to monitor patient
--- NOTE | 2016-12-13 09:55 | NUR ---
DISCHARGE PLANNING Faxed order was faxed to [facility]. Called and left voice message for Mingo to return call with [facility] bed assignment for patient discharge back to [facility] today. DCP will follow up. Placed transportation packet in nurses station. Pending bed assignment. Addendum: 12/13/16 at 1256 by Nadia Feliz DP Spoke with Mingo at [facility] patient assigned to [facility] room 5B RN to report [phone] bed available anytime. LESTER Peck made aware. Called [facility] [phone] spoke with Lamin davila BLS (O2) transport cotton picker 3:30pm. Called patient brother Jacob Matute [phone] recording stated voice mailbox not set up.
--- NOTE | 2016-12-13 10:45 | NUR ---
RN ROUNDS PATIENT IS CURRENTLY RESTING IN BED WITH EYES CLOSED, NO SIGNS OF DISTRESS NOTED, BREATHING IS EVEN AND UNLABORED, WILL CONTINUE TO MONITOR PATIENT, FALL, ASPIRATION AND SEIZURE PRECAUTIONS IN PLACE.
[2016-12-13 12:31] VITALS: BP 120/95; PULSE 108; RESP 18; TEMP 98.6; O2SAT 98
--- NOTE | 2016-12-13 12:40 | NUR ---
RN ROUNDS PATIENT IS CURRENTLY RESTING IN BED, NO SIGNS OF DISTRESS OR DISCOMFORT, CHANGED PATIENT'S TUBE FEEDINGS FOR A NEW BAG, PATIENT IS TOLERATING WELL, 0ML OF RESIDUAL AT THIS TIME, WILL CONTINUE TO MONITOR PATIENT. FALL, ASPIRATION, SEIZURE PRECAUTIONS IN PLACE.
--- NOTE | 2016-12-13 14:02 | NUR ---
RN ROUNDS PATIENT IS CURRENTLY LYING IN BED WITH EYES CLOSED, AFTERNOON MEDICATIONS GIVEN TO PATIENT; PATIENT TOLERATED WELL, NO OTHER NEEDS AT THIS TIME, WILL CONTINUE TO MONITOR PATIENT, FALL, ASPIRATION,SEIZURE PRECAUTIONS IN PLACE.
--- NOTE | 2016-12-13 14:27 | NUR ---
Nutrition F/U Admitting Diagnosis UTI, sepsis, ARF likely 2/2 acute tubular necrosis Reviewed Pertinent Medical/Surgical Hx Medical Record Medical History Comment: MS, BPH w/ recurrent UTI, Parkinson's Dz, dysphagia s/p GT placement, HLD, chronic constipation, malnutrition per MD notes Subjective Information Pt seen resting in bed w/ TF infusing as per MD orders. Per MD orders, D/C planning for [place] eval and transfer if bed available. Per EMR, TF Intakes: 1300 ml 12/12/16. Residuals: 0 ml 12/12/16. I/O: 2300/1800 (+500 ml) per 12 hours. Current diet is appropriate at this time. Pt is not appropriate for nutrition education. Current Diet Order/Nutrition Support Isosource 1.5 at 70 ml/hr, Free Water Flush: 100 q 4hours via GT x7 days Patient/Significant Other Unable To Verbalize Education Provided Not Indicated Pertinent Medications Reviewed ceftriaxone/D5% IV at 200 ml/hr, vancomycin/NaCl IV, MVI, culturelle, lipitor, lopressor, VIT C, senna, fleet enema, MOM, dulcolax suppository Pertinent Labs 12/11/16: WBC 7.4 WNL (improved), Lactic acid 2.3 H (12/04/16) Height (Feet) 5 feet Height (Inches) 10.00 inches Weight (Pounds) 161 pounds (admission) BEDSCALE WT: 165 lb, 75 kg (12/13/16) Weight (Calculated Kilograms) 73.445274 kilograms Patient Weight 73.028 kg Body Mass Index 23.10 kg/m2 Usual Weight 156 lbs %UBW 103 %IBW 97 [place]/Adjusted Body Weight IBW: 166 lb, 75 kg Recent Weight Change No Weight Status Appropriate Gastrointestinal Symptoms None Last BM Dec 11, 2016 Difficulty With: Swallowing Chewing Food Allergies Unknown Skin Integrity Comment: Shane scale: 13; per Billing Auditor note 12/09/16: skin is fair (-); Sacral-Coccygeal area has scar tissue; Right Dorsal hand has a skin tear; [place] discoloration to all extremities Estimated Energy Expenditure (kcals/day) 4840-9371 kcal/day (BEE x 1-1.2 CBW for maintenance) Estimated Protein Required (g/day) 73-88 gm/day (1-1.2 gm/kg CBW for maintenance) Estimated Fluid Required (l/day) 1.6-2 L/day (1 ml/kcal/day for maintenance) Problem/Etiology/Signs/Symptoms Increased nutritional needs related to metabolic demands as evidenced by estimated nutritional requirements, and elevated WBC and lactic acid lab values. *ongoing Expected Outcomes/Goals - Monitor tolerance of EN w/ goal of pt meeting at least 100% of estimated nutritional needs, labs trending WNL, normal GI function, and skin integrity/wt maintenance Dietitian Recommendations * Recommend continuing Isosource 1.5 at 70 ml/hr, Free Water Flush: 100 q 4hours via GT Provides: 2520 kcal/day, 114 gm protein/day, and 1884 ml free water/day Meets: 129% of upper end of estimated caloric needs and 130% of lower end of estimated protein needs * Consider decreasing TF regimen if pt has s/s of intolerance Follow Up Mod Risk: F/U in 3-5 days
[2016-12-13 14:59] VITALS: BP 120/95; PULSE 108; RESP 18; TEMP 98.6; O2SAT 96
--- NOTE | 2016-12-13 15:37 | NUR ---
PT TRANSFERRED Report given to Jeannette at [facility]. Transfer packet with Transfer Orders and Medication Reconciliation form given to EMT with report. Exitcare provided. [facility] ID band removed, replaced with ID band with pt's name and . Port-a-cath is intact, kept in to use for iv antibiotics. All belongings sent with patient. Patient left floor via gurney escorted by EMT in no distress.
[2016-12-13 16:34] VITALS: BP 141/88; PULSE 115; RESP 19; TEMP 98.5; O2SAT 96
[2017-03-04] MEDS ORDERED: DOCU-144 GT (23:28)
[2017-03-04] MEDS ORDERED: LEVA1.25 NEB ×2 (23:29→23:30)
[2017-03-04] MEDS ORDERED: MULT-1184 GT (23:31)
[2017-03-04] MEDS ORDERED: PRO40 GT (23:32)
[2017-03-04] MEDS ORDERED: Uti-stat GT (23:38)
[2017-03-08] MEDS ORDERED: CEFE1FRO IV (15:19)
[2017-03-08] MEDS ORDERED: COLI150V10 IV (15:20)
== END 2016-12-13 15:37 | DRG 871 ==
LOC: SED 21:30 → STU 12-04 00:42 → SMU 12-12 17:43
PROVIDERS: ADMIT Family Medicine; ATTEND Family Medicine
DX: A41.9 Sepsis, unspecified organism (principal); N17.0 Acute kidney failure with tubular necrosis; J69.0 Pneumonitis due to inhalation of food and vomit; N39.0 Urinary tract infection, site not specified; E44.0 Moderate protein-calorie malnutrition; G35 Multiple sclerosis; N40.0 Benign prostatic hyperplasia without lower urinary tract symptoms; E78.5 Hyperlipidemia, unspecified; G20 Parkinson's disease; Z16.24 Resistance to multiple antibiotics; F02.80 Dementia in other diseases classified elsewhere, unspecified severity, without behavioral disturbance, psychotic disturbance, mood disturbance, and anxiety; B96.4 Proteus (mirabilis) (morganii) as the cause of diseases classified elsewhere; G40.909 Epilepsy, unspecified, not intractable, without status epilepticus; Z93.1 Gastrostomy status; Z79.899 Other long term (current) drug therapy; Z88.0 Allergy status to penicillin; Z68.23 Body mass index [BMI] 23.0-23.9, adult
CPT/HCPCS: 36415; 71010; 80048; 80053; 80202-TC; 81000-TC; 83605; 85007; 85025; 85027; 87040-TC; 87081; 87086; 87186-TC; 87205-TC; 93005; 94640; 94760; 99285; J0696; J1335; J1644; J2185; J3370; J3480; J7030; J7040; J7050; J7060

== ENCOUNTER 2016-12-26 19:33 | Inpatient (IN) | payer OTHER, MEDICAID ==
[~2016-12-26] VITALS: Ht 160 cm; Wt 72.6 kg
[~2016-12-26 19:33] MED LIST changes: +ASCO500T20 GT
--- NOTE | 2016-12-26 19:35 | NUR ---
Placed in room 01 . Placed on personnel monitor, blood pressure machine and pulse oximeter. To gown for exam. Side rails up. Report given to Rachna Solomon
[2016-12-26 19:36] VITALS: BP 129/75; PULSE 121; RESP 18; TEMP 98.8; O2SAT 95
--- NOTE | 2016-12-26 19:48 | NUR ---
Patient BIB ambulance from [facility] with a complaint of fever 100.1 degrees Fahrenheit. Patient's temp at this time is 98.8 degrees F. No n/v/d reported. No acute distress or SOB noted. Pt has reji cath on the right upper chest, no blood return noted. Patient on G-tube. Extremities contracted. On villalobos cath draining cloudy pinkish yellow urine.
--- NOTE | 2016-12-26 19:50 | NUR ---
bright red urine noted inside villalobos catheter drainage tube. MD Graff aware.
--- NOTE | 2016-12-26 19:56 | NUR ---
Pt was brought to ED with catheter in place from senior living facility. During change of villalobos catheter per standard policy, balloon was deflated and obtained 10 cc of fluid, catheter was noted to be extracted from penis without any force, and oozing of blood occurred. Catheter tip and balloon appeared intact, however balloon was not flat and appeared with a sharp edge, bleeding from the tip of penis noted. electromechanical technologist morgan and notified for evaluation
--- NOTE | 2016-12-26 20:02 | NUR ---
MD Graff at bedside for evaluation
--- NOTE | 2016-12-26 20:05 | NUR ---
MD Graff stated pt will need a villalobos catheter in place
[2016-12-26] MEDS ORDERED: NS 500 ML IV SCH (20:20)
--- NOTE | 2016-12-26 20:20 | NUR ---
MD Graff at bedside performing villalobos catheter with Rachna BATISTA assistance
--- NOTE | 2016-12-26 20:30 | NUR ---
XR taken at bedside by radiologist
[2016-12-26 21:15] LABS: MEAN CORPUSCULAR HEMOGLOBIN 30 pg (27-31); MEAN CORPUSCULAR HGB CONC 32 % (32-36); MEAN CORPUSCULAR VOLUME 92 fL (79.0-98.0)
[2016-12-26 21:24] LABS: BASOPHILS % (AUTO) 1.5 % (0.0-2.0); EOSINOPHILS % (AUTO) 2.3 % (0.0-4.0); HEMATOCRIT 39.1 % (36-54); HEMOGLOBIN 12.6 g/dL (14.0-18.0); LYMPHOCYTES % (AUTO) 11.5 % (20.5-51.5); MONOCYTES % (AUTO) 5.7 % (1.7-9.3); NEUTROPHILS # (AUTO) 17.4 K/uL (1.8-7.7); PLATELET COUNT (AUTO) 269 K/uL (130-430); RED BLOOD CELL COUNT(AUTO) 4.26 MIL/uL (4.2-6.2); RED CELL DISTRIBUTION WIDTH 14.5 % (9.0-15.0)
[2016-12-26 21:25] LABS: BASOPHILS # (AUTO) 0.3 K/uL (0.0-0.2); EOSINOPHILS # (AUTO) 0.5 K/uL (0.0-0.4); LYMPHOCYTES # (AUTO) 2.5 K/uL (1.0-5.5); MONOCYTES # (AUTO) 1.3 K/uL (0.0-1.0)
[2016-12-26 21:26] LABS: PROTHROMBIN TIME 10.6 SECS (9.5-12.5)
[2016-12-26 21:27] LABS: ALBUMIN 2.9 g/dL (3.4-4.8); CALCIUM 8.9 mg/dL (8.4-11.0); CREATININE 1.38 mg/dL (0.55-1.30); POTASSIUM 4.3 mmol/L (3.5-5.1); TOTAL BILIRUBIN 0.5 mg/dL (0.0-1.0); TOTAL PROTEIN, SERUM 8.4 g/dL (6.4-8.3)
[2016-12-26] MEDS ORDERED: ALBU1.256 IH (21:50)
[2016-12-26] MEDS ORDERED: HEPA500014 SUBCUT (21:50)
[2016-12-26] MEDS ORDERED: LACT1CAP61 GT (21:50)
[2016-12-26] MEDS ORDERED: IBUP-1479 PO (21:51)
[2016-12-26] MEDS ORDERED: BUDE180A3 INH (21:51)
[2016-12-26] MEDS ORDERED: ACET-73 PO (21:53)
[2016-12-26] MEDS ORDERED: DULR10 RC (21:53)
[2016-12-26] MEDS ORDERED: ACET325T53 PO (21:53)
[2016-12-26] MEDS ORDERED: ZIN220 GT (21:56)
--- NOTE | 2016-12-26 21:59 | NUR ---
Medication reconciliation completed with information provided by facility. Any prior medication reconciliation on file was reviewed and corrected. Pt did not come to ED with bag of medication
[2016-12-26] MEDS ORDERED: LEVOFLOXACIN 500 MG/D5W 100 ML IV ONE (22:00)
[2016-12-26] MEDS ORDERED: LIDOCAINE VISCOUS 2%, 15 ML UDC MM ONE ×2 (22:15→22:30)
[2016-12-26] MEDS ORDERED: D5/0.45 NS 1,000 ML IV SCH (22:30)
--- NOTE | 2016-12-26 22:45 | NUR ---
Patient will be admitted under the care of Dr. Jacobson. Admitted to telemetry unit. Will go to room 132. Summary report printed. Report will be given at bedside.
[2016-12-26] MEDS: cefTRIAXone 1 GM in D5W 50 ML IV SCH (23:00)
[2016-12-26] MEDS ORDERED: LevALBUTEROL HCL 1.25 MG/0.5 ML *CONC.* VIAL.NEB (XOPENEX CONC.) INH PRN (23:00)
[2016-12-26] MEDS ORDERED: HYDROmorphone 1 MG INJ. 1 MG/ML AMPUL IVP PRN (23:00)
[2016-12-26 23:10] VITALS: BP 123/80; PULSE 127; RESP 20; TEMP 99.5; O2SAT 91
--- NOTE | 2016-12-26 23:12 | NUR ---
ADMISSION NOTE Received patient from ER via [facility], received report from ANTONIA BATISTA. Patient admitted with diagnosis of UTI WITH SEPSIS. Patient oriented to hospital routine, call light, toileting and safety-patient. PT IS CONFUSED.
--- NOTE | 2016-12-26 23:20 | NUR ---
Patient was transported to tele unit via gurney accompanied by 1 RN and 1 EMT without incident. Report given to LESTER Mendez.
--- NOTE | 2016-12-26 23:26 | NUR ---
CONSULTATION PAGED REASON FOR CONSULTATION:HEMATURIA, DIFFICULT CATH WAS CONSULT CALLED?Y PERSON WHO WAS NOTIFIED:RENETTA CONSULTING PHYSICIAN:DUNIA CARDOZO [employer] MARKER SPECIALTY:UROLOGY COMPANY MARKER PHONE NUMBER:[phone]
--- NOTE | 2016-12-26 23:30 | NUR ---
No urine sample obtained. Dr. Graff tried inserting coude x [address] Jacobson at bedside and aware. Addendum: 12/27/16 at 0028 by ORTEGANSAHARAJ Time of note is 2230 not 2330.
[2016-12-27] VITALS (8 sets, daily range): BP systolic 116–132; BP diastolic 77–86; PULSE 109–130; RESP 16–20; TEMP 97.6–100.3; O2SAT 91–97; Ht 160 cm; Wt 72.6 kg
[2016-12-27] MEDS ORDERED: VANCOMYCIN HCL 1 GM/NS PREMIX 250 ML IV ONE
[2016-12-27] MEDS: VANCOMYCIN HCL 1,250 MG in NS 250 ML IV SCH ×2
[2016-12-27] MEDS: cefTRIAXone 1 GM in D5W 50 ML IV SCH ×2
[2016-12-27] MEDS ORDERED: cefTRIAXone 1 GM IVPB PREMIX 50 ML IV ONE (00:36)
[2016-12-27] MEDS ORDERED: VANCOMYCIN HCL 1000 MG/VIAL IV ONE (00:36)
--- NOTE | 2016-12-27 02:28 | NUR ---
PAGED: PAGED DR. GARZA 8 TIMES THIS MORNING 0228, 0230, 0235, 0240, [id number], 0350, [id number], WE ALWAYS PAGED ON HIS PAGER [phone]. NO ANSWER, SO GODFREY CALLED EXCHANGE @ [phone] # [phone] THEN LESTER SU FINALLY SPOKE WITH DR. GARZA
--- NOTE | 2016-12-27 02:41 | NUR ---
BLADDER SCAN-[id number], NO YODER CATH ACCESS. CLAYTON LOMELI MD.
--- NOTE | 2016-12-27 02:42 | NUR ---
INITIAL NOTES FOR 2330 PT IS AWAKE, ALERT. EYES AND HEAD FOLLOW WITH CALLED BY NAME. NOT DISTRESS. NO SIGN OF PAIN. VITAL SIGN ARE WITH NORMAL LIMIT. NO SKIN BREAKDOWN AT THE BACK. PT HAS PORTHA CATH ACCESS TO LEFT CHEST WITH ONGOING D5 1/2 NS AT 100CC/HR.PT HAS GTUBE CLAMPED. PT HAS BLOOD AND BLOOD CLOTS ON HIS PENIS DUE TO ATTEMPT INSERTION OF YODER. PCP IS AWARE UNSUCCESSFUL YODER INSERTION. CLEAN PT. CHANGE GOWN. REPOSITION. NEEDS ATTENDED. SAFETY ON. WILL MONITOR.
--- NOTE | 2016-12-27 02:46 | NUR ---
ROUND NOTES: PT IS STILL AWAKE, NO SIGN OF DISTRESS. PT IS CLEAN AND DRY. NO SIGN OF URINE INCONTINENCE.NEEDS ATTENDED. WILL MONITOR.
--- NOTE | 2016-12-27 03:48 | NUR ---
PAGE DR. GARZA 6X NO CALL BACK YET. WILL ASK MD IF HE WANTS TO LOWER DOWN IVF AND HOLD TUBE FEEDING UNTIL UROLOGIST INSERT THE YODER CATHETER.
--- NOTE | 2016-12-27 04:06 | NUR ---
DR. FOWLERIUM CALL BACK- REPORT TO PT BLADDER SCAN RESULT. MD ORDER TO HOLD GTUBE FEEDING AND IVF FLUIDS AT 50 CC/HR.
--- NOTE | 2016-12-27 04:07 | NUR ---
ROUND NOTES: PT IS AWAKE, NO PAIN. NOT DISTRESS. SAFETY ON. WILL MONITOR.
[2016-12-27] MEDS ORDERED: D5/0.45 NS 1,000 ML IV SCH (04:15)
[2016-12-27] MEDS: ACETAMINOPHEN 325 MG TABLET PO PRN ×2 (05:39→14:43)
--- NOTE | 2016-12-27 06:44 | NUR ---
CLOSING: PT IS NOW RESTING, EYES CLOSE. NO FERNANDEZ,NOT DISTRESS. TEMP-98.4. IVF INFUSING WELL. NEEDS ATTENDED. SAFETY ON. WILL GIVE BEDSIDE REPORT TO AM RN.
[2016-12-27] MEDS: LevALBUTEROL HCL 1.25 MG/0.5 ML *CONC.* VIAL.NEB (XOPENEX CONC.) INH SCH ×3 (07:00→23:45)
[2016-12-27 07:43] LABS: BASOPHILS # (AUTO) 0.1 K/uL (0.0-0.2); BASOPHILS % (AUTO) 0.6 % (0.0-2.0); EOSINOPHILS # (AUTO) 0.5 K/uL (0.0-0.4); EOSINOPHILS % (AUTO) 2.4 % (0.0-4.0); HEMATOCRIT 35.2 % (36-54); HEMOGLOBIN 11.7 g/dL (14.0-18.0); LYMPHOCYTES # (AUTO) 1.7 K/uL (1.0-5.5); LYMPHOCYTES % (AUTO) 8.4 % (20.5-51.5); MEAN CORPUSCULAR HEMOGLOBIN 31 pg (27-31); MEAN CORPUSCULAR HGB CONC 33 % (32-36); MEAN CORPUSCULAR VOLUME 92 fL (79.0-98.0); MONOCYTES # (AUTO) 1.4 K/uL (0.0-1.0); NEUTROPHILS # (AUTO) 16.6 K/uL (1.8-7.7); NEUTROPHILS % (AUTO) 81.6 % (40.0-70.0); PLATELET COUNT (AUTO) 228 K/uL (130-430); RED BLOOD CELL COUNT(AUTO) 3.81 MIL/uL (4.2-6.2); RED CELL DISTRIBUTION WIDTH 14.5 % (9.0-15.0); WHITE BLOOD COUNT (AUTO) 20.3 K/uL (4.8-10.8)
[2016-12-27 07:50] LABS: CALCIUM 8.7 mg/dL (8.4-11.0); CREATININE 1.26 mg/dL (0.55-1.30); POTASSIUM 3.7 mmol/L (3.5-5.1)
--- NOTE | 2016-12-27 09:00 | NUR ---
OPENING NOTE PT CONTRACTED, DIPHASIC, AND UNABLE TO SLEEP. PT VOIDED, HEMATURIA PRESENT AND A SMALL AMOUNT OF URINE CONSTANTLY DRAINING. FEEDING IS CURRENTLY STOPPED PER DR GUZMAN AND DR MAUREEN JONES'S MEDICAID NURSE, STATED HE WILL COME IN AND ASSESS AND INSERT A NEW YODER. GTUBE PLACEMENT CONFIRMED, LESS THAN 10 mL RESIDUAL
[2016-12-27] MEDS: PANTOPRAZOLE GRANULES PACKET 40 MG GT SCH (09:13)
[2016-12-27] MEDS: BACLOFEN 10 MG TABLET GT SCH ×3 (09:13→21:25)
[2016-12-27] MEDS: METOPROLOL SUCCINATE 25 MG TAB.SR.24H (TOPROL XL) PO SCH ×2 (09:13→21:26)
--- NOTE | 2016-12-27 09:46 | NUR ---
Nutrition Update Shane Scale 14 noted. Pt admitted for UTI w/ sepsis. Diet: Fibersource HN at 100 Q6 HRS via GT BMI: 31.2 kg/m2 RD to follow per nutrition care standards.
--- NOTE | 2016-12-27 10:00 | NUR ---
PATIENT CLEANED AND REPOSITIONED, AIR MATTRESS INITIATED, HEELS ELEVATED ON PILLOW AND SCD'S TO LALA CALF. PATIENT NOTED WITH HEMATURIA, AND CONSTANTLY LEAKING URINE. PLACED AN INCONTINENCE PAD TO MONITOR THE URINE AND COLOR WELL APPROX AMOUNT. ABDOMEN IS DISTENDED WELL.
--- NOTE | 2016-12-27 10:51 | NUR ---
ROUNDS PT SLEEPING IN BED AND APPEARS COMFORTABLE.
--- NOTE | 2016-12-27 13:30 | NUR ---
Bladder Scan 977ml highest amount noted. Shaquille RESENDEZ notified.
--- NOTE | 2016-12-27 14:00 | NUR ---
Shaquille hernandez Urology PA at bedside Unable to insert the catheter, he stated he is going to meet dr Wong and will inform him, to see the next plan of action. He suggest to change the fluids to TKO if ok with dr Jacobson. Dr Jacobson paged.
--- NOTE | 2016-12-27 14:02 | NUR ---
MD HORTON SPOKE WITH TAYLOR TO PAGE DR GARZA PER LESTER MCCALL.
--- NOTE | 2016-12-27 14:07 | NUR ---
Dr Jacobson called back, I informed him that MAL Patiño had tried to insert Luna and was unable to, and that he is going to speak to dr Wong immediately to notify him. Dr Jacobson asked me to call dr Wong myself and tell him its an emergency to come see the patient stat. Also asked Dr Jacobson if we should TKO the IV fluids since bladder scan is at [address] Jacobson stated to continue the fluids and call dr Wong immediately.
--- NOTE | 2016-12-27 14:13 | NUR ---
Dr Marvin steve
--- NOTE | 2016-12-27 14:22 | NUR ---
Shane Scale Evaluation: Patient evaluated for a low Shane score of 14. Patient was awake, non-verbal, nods to "yes/no" questions, and received in a Aure bed with an IsoFlex DMITRY mattress with low air-loss therapy. Patient needs to be turned in bed. Skin is fair (-); Sacral-Coccygeal area has scar tissue; Dry scabs present on chest and Abdomen; G-Tube jun-site pink. Recommend: Reposition patient side to side only every two hours with pillow support, and off-load heels and pressure areas with pillows for pressure re-distribution. Elevate, offload and float heels with pillows at all times. Perform skin care and monitor skin integrity q shift. Use moisture barrier cream on, buttocks, and other moisture susceptible areas qid and as needed for soiling. Maintain patient on a low air-loss mattress.
--- NOTE | 2016-12-27 15:36 | NUR ---
Patient resting eyes closed but wakes up to touch. Temp is 99.8 at this time, placed some new ice packs
--- NOTE | 2016-12-27 17:21 | NUR ---
call from MAL montalvo Scheduled surgery (cystoscopy, with suprapubic tube placement)for today, orders placed
--- NOTE | 2016-12-27 18:15 | NUR ---
Gave [place] sup order for surgery, also Paged Shaquille RESENDEZ, per [place] sup advise to have him speak to the warehouse distribution associate to schedule the rn production staff.
--- NOTE | 2016-12-27 18:30 | NUR ---
Call from Dr Jacobson Asked if Dr Wong had seen patient yet, informed him not yet, but that the PA, Shaquille Patiño had called and ordered for Cystoscopy with suprapubic tube placement consent and Labs for today.
--- NOTE | 2016-12-27 19:00 | NUR ---
closing note pt prepped for surgery, checklist completed and in chart. report provided at bedside
--- NOTE | 2016-12-27 19:13 | NUR ---
PAGED DR MAUREEN MONDRAGON, KAREN RESENDEZ COVERING. LEFT A MESSAGE WITH EXCHANGE FOR HIM TO CALL JERO PARKER TO COMMUNICATE WITH [place] KE[facility] RE SCHEDULING OF THE PROCEDURE.
--- NOTE | 2016-12-27 19:45 | NUR ---
opening note received report from LESTER Saavedra. pt resting in bed. alert non- verbal. awaiting call back from dr romero for surgery time. pt has been npo. gt feeding has been held. no villalobos cath after multiple attempts today.blood noted on penis. no drainage or leakage at this time. pt with right chest portacath. d5 1/2ns at tko. scds in place. contact isolation mrsa nares.pt is sinus tach at 110. air mattress and scds noted. safety precautions in place.
--- NOTE | 2016-12-27 22:01 | NUR ---
SPOKE WITH DR REDDY'S PA DR REDDY WILL BE COMING TONIGHT FOR FOELY CATH INSERTION. WILL HAVE UROLOGY TRAY READY FOR HIM. HOUSE SUP AWARE.
--- NOTE | 2016-12-27 23:30 | NUR ---
DR REDDY AT BEDSIDE
[2016-12-28] VITALS (8 sets, daily range): BP systolic 99–143; BP diastolic 68–84; PULSE 94–110; RESP 18–24; TEMP 97–99.2; O2SAT 93–100
--- NOTE | 2016-12-28 | NUR ---
PT TO GO TO OR CONSENT AND OR CHECKLIST COMPLETED
[2016-12-28] MEDS ORDERED: PROPOFOL 200MG/ 20ML VIAL (DIPRIVAN) IV ONE (00:16)
[2016-12-28] MEDS ORDERED: NS 1000 ML BAG IV ONE (00:16)
[2016-12-28] MEDS ORDERED: NS IRRIG SOLN 1000 ML IR ONE (00:16)
[2016-12-28] MEDS ORDERED: SEVOFLURANE 15 MIN GAS INH ONE (00:16)
[2016-12-28] MEDS ORDERED: WATER FOR IRRIGATION,STERILE 1,000 ML IRRIG.SOLN IR ONE (00:16)
[2016-12-28] MEDS ORDERED: fentaNYL CITRATE/PF 100 MCG/2 ML AMP IVP ONE (00:16)
[2016-12-28] MEDS ORDERED: ONDANSETRON HCL 4 MG/2 ML VIAL IVP ONE (00:16)
[2016-12-28] MEDS ORDERED: LR 1,000 ML IV ONE (01:11)
[2016-12-28] MEDS ORDERED: NALOXONE HCL 0.4 MG/ML AMP (NARCAN) IVP PRN (01:15)
[2016-12-28] MEDS ORDERED: fentaNYL CITRATE/PF 100 MCG/2 ML AMP IVP PRN (01:15)
[2016-12-28] MEDS ORDERED: DIPHENHYDRAMINE INJ 50 MG/ML VIAL IVP PRN (01:15)
[2016-12-28] MEDS ORDERED: NALBUPHINE HCL 10 MG/ML AMP IVP PRN (01:15)
[2016-12-28] MEDS ORDERED: ePHEDrine sulfate 50 MG/ML VIAL IVP PRN (01:15)
[2016-12-28] MEDS ORDERED: ONDANSETRON HCL 4 MG/2 ML VIAL IVP PRN ×2 (01:15)
--- NOTE | 2016-12-28 02:35 | NUR ---
Transfer from PACU Received from PACU on hospital bed. Awake, alert, non-verbal. Vital signs BP 122/87, Temp 98.9, HR 101, RR 18. O2 sat 100% on O2 5l via facemask. 16 fr urethral catheter in place capped with slight amount of blood around meatus noted. Suprapubic cath [address] with bloody urine draining. Dressing clean, dry and intact.
--- NOTE | 2016-12-28 03:00 | NUR ---
NOTES PT RETURNED FROM PACU AT 0240 RECEIVED BY JHONATHAN GONZALEZ WHILE I WAS AT LUNCH. PT RESTING WITH EYES OPEN. NO MOANING OR FACIAL GRIMACING NOTED FOR PAIN. SUPRAPUBIC TUBE TO GRAVITY WITH YODER IN PENIS CAPPED. RED URINE OUTPUT. PT WITH FACE MASK AT 5L.O2 SAT 100%
--- NOTE | 2016-12-28 03:30 | NUR ---
NOTES PT CONTINUES TO REST COMFORTABLY. NO S/S DISTRESS. VS STABLE. REPOSITIONED FOR COMFORT AND SAFETY.
--- NOTE | 2016-12-28 05:30 | NUR ---
NOTES PT RESTING WITH EYES CLOSED . APPEARS TO BE SLEEPING. RESPIRATIONS EVEN AND UNLABORED. WILL CONTINUE TO MONITOR FOR ANY CHANGES.
--- NOTE | 2016-12-28 06:30 | NUR ---
NOTES PT CONTINUES TO REST. SUPRAPUBIC DRESSING CLEAN,DRY AND INTACT. DRAINING BLOOD TINGED URINE. YODER IN PENIS REMAINS CAPPED. PT SHOWING NO S/S DISTRESS. VS HAVE BEEN STABLE. WILL ENDORSE CARE TO MORNING NURSE.
[2016-12-28 07:34] LABS: HEMOGLOBIN 10.6 g/dL (14.0-18.0); MEAN CORPUSCULAR HEMOGLOBIN 31 pg (27-31); MEAN CORPUSCULAR HGB CONC 33 % (32-36); MEAN CORPUSCULAR VOLUME 93 fL (79.0-98.0); PLATELET COUNT (AUTO) 213 K/uL (130-430); RED BLOOD CELL COUNT(AUTO) 3.47 MIL/uL (4.2-6.2); RED CELL DISTRIBUTION WIDTH 14.3 % (9.0-15.0)
[2016-12-28 07:47] LABS: WHITE BLOOD COUNT (AUTO) 15.9 K/uL (4.8-10.8)
--- NOTE | 2016-12-28 08:00 | NUR ---
AWAKE, GTUBE HELD. SUPRAPUBIC CATHETER NOTED, DRAINING RED URINE. NO LEAKAGE AT THIS TIME. DR GARZA CALLED ABOUT RESUMING DIET ORDER. ON SCDS. CALL LIGHT IN PLACE, BED LOCKED AT LOWEST POSITION, WILL CONTINUE TO MONITOR.
[2016-12-28 08:01] LABS: CALCIUM 8.2 mg/dL (8.4-11.0); CREATININE 1.11 mg/dL (0.55-1.30); POTASSIUM 3.6 mmol/L (3.5-5.1)
[2016-12-28] MEDS: LevALBUTEROL HCL 1.25 MG/0.5 ML *CONC.* VIAL.NEB (XOPENEX CONC.) INH SCH ×3 (08:10→23:54)
[2016-12-28] MEDS: PANTOPRAZOLE GRANULES PACKET 40 MG GT SCH (09:09)
[2016-12-28] MEDS: BACLOFEN 10 MG TABLET GT SCH ×3 (09:09→21:32)
[2016-12-28] MEDS: METOPROLOL SUCCINATE 25 MG TAB.SR.24H (TOPROL XL) PO SCH ×2 (09:10→21:32)
[2016-12-28 10:50] LABS: ATYPICAL LYMPHOCYTES % 0 % (0-0); BAND % (MANUAL) 0 % (0-6); BASOPHILS % (MANUAL) 0 % (0-2); EOSINOPHILS % (MANUAL) 5 % (0-7); LYMPHOCYTES % (MANUAL) 11 % (20-46); MONOCYTES % (MANUAL) 7 % (0-11)
--- NOTE | 2016-12-28 11:00 | NUR ---
RT NOTES Pt cont. to tolerate 2L NC. SPO2 97%. No SOB noted.
--- NOTE | 2016-12-28 13:30 | NUR ---
PATIENT TRANSFERRED TO ROOM 134A
--- NOTE | 2016-12-28 15:58 | NUR ---
PATIENT IS RESTING, NO SIGNS OF DISTRESS NOTED. WILL CONTINUE MONITOR.
--- NOTE | 2016-12-28 18:15 | NUR ---
PATIENT IS TURNED AND REPOSITIONED . STILL DRAINING RED URINE. ST ON MONITOR. WILL CONTINUE TO MONITOR.
--- NOTE | 2016-12-28 19:30 | NUR ---
Initial Notes Pt is alert to name, non verbal and unable to make needs known. No acute distress or sob noted. Pt is able to track with eyes. Unable to fully discuss plan of care with pt due to physical and cognitive limitations. Suprapubic catheter noted to lower abdomen with tea colored urine, draining well to gravity. G tube noted, patent, flushed well with 100cc of free water, infusing well with Fibersource@75ml/hr. Port a cath noted to right upper chest, with no s/s of infection noted. Pt is on contact isolation precautions, precautions maintained. Pt is afebrile. Sinus Tachy at 107 on monitor. Blood pressure stable, 143/69. Bilateral scd's in place for dvt prophylaxis. Safety precautions in place, side rails up x3 with bed in lowest, locked position. All needs met at this time. Will continue to monitor.
[2016-12-28] MEDS: cefTRIAXone 1 GM in D5W 50 ML IV SCH (23:22)
[2016-12-29] MEDS: VANCOMYCIN HCL 1,250 MG in NS 250 ML IV SCH (00:11)
[2016-12-29 00:25] VITALS: BP 123/60; PULSE 109; RESP 20; TEMP 97.2; O2SAT 95
--- NOTE | 2016-12-29 00:30 | NUR ---
Rounds Pt is sleeping comfortably at this time. VSS. No acute distress or sob noted. Call light in reach. Will continue to monitor.
--- NOTE | 2016-12-29 02:01 | NUR ---
Hygiene care Pt given total bed bath with CHG bath at this time. Skin and oral care provided. Pt provided with oral suctioning. Z guard applied to buttocks, no skin breakdown noted. Some redness noted to left leg. Pt repositioned with pillows for comfort and heels floating. Pt is on air mattress. Pt in stable condition. No acute distress noted. Call light in reach. Will continue to monitor.
[2016-12-29 04:22] VITALS: BP 119/63; PULSE 108; RESP 20; TEMP 98.6; O2SAT 95
--- NOTE | 2016-12-29 04:35 | NUR ---
Rounds Pt is resting in bed. No acute distress or sob noted. Aspiration precautions in place. Call light in reach. Will continue to monitor.
--- NOTE | 2016-12-29 06:31 | NUR ---
Closing Notes Pt is resting in bed with no acute distress or sob noted. Port a cath in place, with no s/s of infection noted. G tube intact. Suprapubic cath in place, patent with dk yellow urine noted in collection bag. F/C in place, clamped as ordered. Dressing to suprapubic, cdi, no active bleeding noted. VSS. Aspiration precautions in place, with head of bed elevated to 35 degrees at all times. All needs met throughout shift. Will endorse care to am nurse. Call light in reach. Will continue to monitor.
[2016-12-29] MEDS: LevALBUTEROL HCL 1.25 MG/0.5 ML *CONC.* VIAL.NEB (XOPENEX CONC.) INH SCH ×2 (07:17→17:27)
[2016-12-29 07:23] LABS: BASOPHILS % (AUTO) 0.6 % (0.0-2.0); EOSINOPHILS # (AUTO) 0.7 K/uL (0.0-0.4); EOSINOPHILS % (AUTO) 8.6 % (0.0-4.0); HEMATOCRIT 29.4 % (36-54); HEMOGLOBIN 9.7 g/dL (14.0-18.0); LYMPHOCYTES # (AUTO) 1.4 K/uL (1.0-5.5); LYMPHOCYTES % (AUTO) 17.4 % (20.5-51.5); MEAN CORPUSCULAR HEMOGLOBIN 30 pg (27-31); MEAN CORPUSCULAR HGB CONC 33 % (32-36); MEAN CORPUSCULAR VOLUME 91 fL (79.0-98.0); MONOCYTES % (AUTO) 11.9 % (1.7-9.3); NEUTROPHILS # (AUTO) 5.1 K/uL (1.8-7.7); NEUTROPHILS % (AUTO) 61.5 % (40.0-70.0); PLATELET COUNT (AUTO) 179 K/uL (130-430); RED BLOOD CELL COUNT(AUTO) 3.22 MIL/uL (4.2-6.2); RED CELL DISTRIBUTION WIDTH 14.4 % (9.0-15.0); WHITE BLOOD COUNT (AUTO) 8.2 K/uL (4.8-10.8)
--- NOTE | 2016-12-29 07:47 | NUR ---
AWAKE, GTUBE HELD. SUPRAPUBIC CATHETER NOTED, DRAINING STRAW COLOR URINE. NO LEAKAGE AT THIS TIME. ST ON MONITOR. ON SCDS. CALL LIGHT IN PLACE, BED LOCKED AT LOWEST POSITION, WILL CONTINUE TO MONITOR.
[2016-12-29 07:53] LABS: CALCIUM 8.2 mg/dL (8.4-11.0); CREATININE 0.96 mg/dL (0.55-1.30); PHOSPHORUS 3.2 mg/dL (2.7-4.5); POTASSIUM 3.3 mmol/L (3.5-5.1)
[2016-12-29 08:00] VITALS: BP 121/77; PULSE 110; RESP 16; TEMP 98.2; O2SAT 96
[2016-12-29] MEDS: BACLOFEN 10 MG TABLET GT SCH ×3 (08:16→21:06)
[2016-12-29] MEDS: PANTOPRAZOLE GRANULES PACKET 40 MG GT SCH (08:16)
[2016-12-29] MEDS: METOPROLOL SUCCINATE 25 MG TAB.SR.24H (TOPROL XL) PO SCH ×2 (08:18→21:06)
--- NOTE | 2016-12-29 10:00 | NUR ---
PATIENT IS AT REST, NO SIGNS OF DISTRESS NOTED. ST ON MONITOR.
[2016-12-29 12:08] VITALS: BP 114/77; PULSE 108; RESP 16; TEMP 98; O2SAT 96
--- NOTE | 2016-12-29 12:25 | NUR ---
DR. REDDY ASSESSED PATIENT. NO NEW ORDERS GIVEN.
--- NOTE | 2016-12-29 15:00 | NUR ---
PATIENT IS TURNED AND REPOSITIONED FOR COMFORT. NO SIGNS OF DISTRESS NOTED. F/C DRAINING YELLOW CLOUDY URINE, WITH NO CLOTS VISIBLE
[2016-12-29 16:53] VITALS: BP 110/70; PULSE 101; RESP 17; TEMP 97.8; O2SAT 97
--- NOTE | 2016-12-29 17:20 | NUR ---
PATIENT IS AT REST, TURNED AND REPOSITIONED FOR COMFORT. NO SIGNS OF DISTRESS NOTED.
[2016-12-29 19:30] VITALS: BP 127/86; PULSE 108; RESP 19; TEMP 99.3; O2SAT 95
--- NOTE | 2016-12-29 19:30 | NUR ---
INITIAL NOTE Patient resting on the bed. No acute distress. Respiration even and unlabored. On O2 2L/min via NC. Skin warm and dry to touch. [place] cath intact to right upper chest, cover with dressing. HOB is elevated. On GTF of Fibersource HN at 75ml/hr, tolerated well. No s/s of aspiration. Suprapubic catheter intact, drain gravity with polly color of urine. On contact isolation for ESBL of urine. Safety measure maintained. Call light within reached. Bed in low position, side rails up, bed alarm on. DMITRY mattress and SCD in placed. Will continue to monitor.
--- NOTE | 2016-12-29 21:25 | NUR ---
ROUND Patient resting on the bed comfortable. No acute distress. Continue on O2 via NC. Safety measure maintained. Call light within reached. Will continue to monitor.
--- NOTE | 2016-12-29 23:15 | NUR ---
ROUND Patient resting on the bed comfortable. No acute distress. Continue on O2 via NC. Safety measure maintained. Bed in low position, side rails up, bed alarm on. Call light within reached. Continue to monitor.
[2016-12-30 00:57] VITALS: BP 127/81; PULSE 73; RESP 19; TEMP 98.7; O2SAT 90
[2016-12-30] MEDS: cefTRIAXone 1 GM in D5W 50 ML IV SCH (01:18)
--- NOTE | 2016-12-30 01:24 | NUR ---
ROUND Patient receiving breathing treatment at this time. No acute distress. Safety measure maintained. Call light within reached. Continue to monitor.
[2016-12-30] MEDS: VANCOMYCIN HCL 1,250 MG in NS 250 ML IV SCH (01:36)
[2016-12-30] MEDS: LevALBUTEROL HCL 1.25 MG/0.5 ML *CONC.* VIAL.NEB (XOPENEX CONC.) INH SCH ×3 (01:53→15:57)
--- NOTE | 2016-12-30 03:40 | NUR ---
ROUND Patient sleeping at this time. No acute distress. Continue on O2 2L/min via NC. Safety measure maintained. Call light within reached. Will continue to monitor.
[2016-12-30 04:45] VITALS: BP 135/89; PULSE 106; RESP 20; TEMP 98.3; O2SAT 96
--- NOTE | 2016-12-30 05:12 | NUR ---
ROUND Patient resting on the bed with eyes closed. No acute distress. Respiration even and unlabored. Continue on O2 2L/min via NC. Safety measure maintained. Call light within reached. Will continue to monitor.
--- NOTE | 2016-12-30 06:40 | NUR ---
CLOSING NOTE Patient resting on the bed. No acute distress. Respiration even and unlabored. On O2 2L/min via NC. Skin warm and dry to touch. Ansley cath intact to right upper chest, cover with dressing. HOB is elevated. On GTF of Fibersource HN at 75ml/hr, tolerated well. No s/s of aspiration. Suprapubic catheter intact, drain gravity with polly color of urine. On contact isolation for ESBL of urine. All needs met. Hourly rounding during shift. Safety measure maintained. Call light within reached. Bed in low position, side rails up, bed alarm on. DMITRY mattress and SCD in placed. Will endorse to morning shift nurse
[2016-12-30] MEDS: METOPROLOL SUCCINATE 25 MG TAB.SR.24H (TOPROL XL) PO SCH (09:52)
[2016-12-30] MEDS: BACLOFEN 10 MG TABLET GT SCH ×2 (09:52→16:36)
[2016-12-30] MEDS: PANTOPRAZOLE GRANULES PACKET 40 MG GT SCH (09:52)
--- NOTE | 2016-12-30 10:03 | NUR ---
Rounds to patient. Reposition. site of left hand and leg have open skin wound and irritation, respectively. Put gauze cover on hand.
--- NOTE | 2016-12-30 11:23 | NUR ---
DISCHARGE PLANNING Faxed referral to [phone] for possible discharge back to [facility] today. Will follow up on bed availability. Addendum: 12/30/16 at 1419 by Nadia Feliz DP spoke with Asim in admitting at [facility] patient assigned to room 5B RN to report [phone] bed available anytime. Asim requested to be notified time ambulance will be arranged. [place] Workman made aware. Placed transportation packet in nurses station. Any ambulance can be arranged.
[2016-12-30 11:24] VITALS: BP 114/77; PULSE 105; RESP 18; TEMP 98.8; O2SAT 92
--- NOTE | 2016-12-30 12:28 | NUR ---
REPOSITIONED PATIENT. NEW FEEDING UP AT THIS TIME WITH TUBING CHANGE.
--- NOTE | 2016-12-30 14:57 | NUR ---
Rounds with students at this time. Reposition and needs met at this time. Oral moisture kit at bedside.
[2016-12-30 16:13] VITALS: BP 116/78; PULSE 109; RESP 22; TEMP 98.2; O2SAT 91
--- NOTE | 2016-12-30 16:14 | NUR ---
Nutrition F/U Admitting Diagnosis Urinary tract infection, sepsis, moderate malnutrition Reviewed Pertinent Medical/Surgical Hx Medical Record Medical History Comment: MS, BPH, recurrent urinary tract infection, dementia per MD notes Subjective Information Pt seen resting in bed, +aphasic w/ TF infusing as per MD orders. Per most recent MD progress notes, plan is to continue current IV Abx and meds. Per nursing report, possible D/C to SNF. RN also reported that pt has been tolerating TF well w/ no residuals. Per EMR, TF Intakes: 875 ml 12/30/16. Abd is soft w/ active bowel sounds, Last BM x1 12/27/16. I/O: 0/450 (-450 ml) per 12 hours. Current TF regimen is appropriate and adequate. Pt is not appropriate for nutrition education. Current Diet Order/Nutrition Support Fibersource HN at 75 ml/hr, Free Water Flush: 100 ml Q6 HRS via GT x3 days Patient/Significant Other Unable To Verbalize Education Provided Not Indicated Pertinent Medications dextrose/NaCl at 50 ml/hr (204 kcal/day), vancomycin/NaCl IV, zinc sulfate Pertinent Labs 12/29/16: WBC 8.2 WNL, 12/26/16: ALB 2.9 H Height (Feet) 5 feet Height (Inches) 3.00 inches Weight (Pounds) 160 pounds (admission) Weight (Calculated Kilograms) 72.434271 kilograms Patient Weight 72.575 kg Body Mass Index 28.34 kg/m2 %IBW 129 [place]/Adjusted Body Weight IBW: 124 lb/56 kg; Adjusted IBW (obesity class I): 133 lb/60 kg Recent Weight Change No - Per past admission records up until August 2016 Weight Status Obese Gastrointestinal Symptoms None Last BM Dec 27, 2016 -- RN denied any BM during his shift today Difficulty With: Swallowing Chewing Food Allergies No - Per past admission records Usual Diet At Home [facility]: Jevity 1.2 at 70 cc/hr x20 hrs; free water flush: 200 cc q6h via GT Skin Integrity Comment: Shane scale: 15; per Director Equipment note 12/27/16: Skin is fair (-); Sacral-Coccygeal area has scar tissue; Dry scabs present on chest and Abdomen; G-Tube jun-site pink. Current % PO N/A Estimated Energy Expenditure (kcals/day) 0277-7775 kcal/day (BEE x 1.2-1.5 for sepsis) Estimated Protein Required (g/day) 84-112 gm/day (1.5-2 gm/kg IBW for sepsis) Estimated Fluid Required (l/day) 1.4-1.7 L/day (25-30 ml/kg IBW for maintenance) Problem/Etiology/Signs/Symptoms Inadequate nutritional intakes related to MD order to hold feedings d/t excessive fluid retention as evidenced by tube feedings seen not infusing. *resolved, pt now meeting optimal nutritional needs Expected Outcomes/Goals 1. Meet at least 75% of estimated needs with acceptable tolerance 2. Labs trending within normal limits 3. Maintain weight status 4. Improved skin integrity, improved Shane score 5. Maintain normal GI function Dietitian Recommendations * Recommend continuing Fibersource HN at 75 ml/hr, Free Water Flush: 100 Q6 HRS via GT Provides: 2364 kcal/day, 97 gm protein/day, and 1854 ml free water/day Meets: 106% of upper end of estimated caloric needs and 87% of upper end of estimated protein needs Follow Up Moderate Risk: F/U in 3-5 days
--- NOTE | 2016-12-30 16:46 | NUR ---
No residual in g-tube, provide oral care with Yankauer suction, and repositioned patient with heels floating off mattress.
[2016-12-30 17:38] VITALS: BP 116/78; PULSE 108
--- NOTE | 2016-12-30 19:42 | NUR ---
DR FOWLERIUM here to see patient New orders obtained for discharge back to [facility] ROOM 5 , B .
[2016-12-30 19:58] VITALS: BP 119/71; PULSE 102; RESP 20; TEMP 97.8; O2SAT 94
--- NOTE | 2016-12-30 20:00 | NUR ---
Phoned YOLANDA Whitten Report via Telephone given to LESTER DOWLING regarding Transfer orders from DR Indira RIOS ,Medication Report printed out & put in packet for transfer , patient awake this hour skin dry warm procedures explained respirations regular also unlabored villalobos catheter intact & clamp , supra pubic catheter intact to BSDB with clear yellow urine out put no blood clots noted / .
--- NOTE | 2016-12-30 21:00 | NUR ---
Photo of blister to Right chest wall taken & put in medical Record .
--- NOTE | 2016-12-30 21:01 | NUR ---
Photo of open skin area to left anterior hand taken & put in medical Record .
--- NOTE | 2016-12-30 21:01 | NUR ---
notes: call pt's brother juan [phone], spoke to garrett, inform her that pt will be transfer tonight to [facility]. will rely to his juan.
--- NOTE | 2016-12-30 21:02 | NUR ---
Photo of redness to left lateral thigh / leg area taken & put in medical Record .
--- NOTE | 2016-12-30 21:50 | NUR ---
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
[2017-03-04] MEDS ORDERED: DOCU-144 GT (23:28)
[2017-03-04] MEDS ORDERED: LEVA1.25 NEB ×2 (23:29→23:30)
[2017-03-04] MEDS ORDERED: MULT-1184 GT (23:31)
[2017-03-04] MEDS ORDERED: PRO40 GT (23:32)
[2017-03-04] MEDS ORDERED: Uti-stat GT (23:38)
[2017-03-08] MEDS ORDERED: CEFE1FRO IV (15:19)
[2017-03-08] MEDS ORDERED: COLI150V10 IV (15:20)
== END 2016-12-30 22:22 | DRG 853 ==
LOC: SED 19:33 → STU 22:30
PROVIDERS: ADMIT Family Medicine; ATTEND Family Medicine
PROC: 0T9B00Z Drainage of Bladder with Drainage Device, Open Approach (ICD-10-PCS; 2016-12-28)
PROC: 0TJB8ZZ Inspection of Bladder, Via Natural or Artificial Opening Endoscopic (ICD-10-PCS; principal; 2016-12-28 01:00)
DX: A41.9 Sepsis, unspecified organism (principal); G82.50 Quadriplegia, unspecified; N39.0 Urinary tract infection, site not specified; E44.0 Moderate protein-calorie malnutrition; R31.0 Gross hematuria; G35 Multiple sclerosis; E86.0 Dehydration; F03.90 Unspecified dementia, unspecified severity, without behavioral disturbance, psychotic disturbance, mood disturbance, and anxiety; N40.1 Benign prostatic hyperplasia with lower urinary tract symptoms; N31.9 Neuromuscular dysfunction of bladder, unspecified; N35.8 Other urethral stricture; F32.9 Major depressive disorder, single episode, unspecified; I10 Essential (primary) hypertension; D64.9 Anemia, unspecified; Z88.0 Allergy status to penicillin; Z87.440 Personal history of urinary (tract) infections; Z74.01 Bed confinement status
CPT/HCPCS: 36415; 71010; 76857; 80048; 80053; 83605; 83735-TC; 84100-TC; 85007; 85025; 85027; 85610-TC; 85730-TC; 87040-TC; 87081; 93005; 94640; 94760; 99285; C1769; J0696; J1170; J1956; J2001; J2405; J2704; J3010; J3370; J7030; J7040; J7050; J7060

== ENCOUNTER 2017-01-27 16:20 | Emergency (ER) | payer OTHER, MEDICAID ==
[2016-12-27 12:31] VITALS: Ht 167.6 cm; Wt 81.6 kg
[~2017-01-27] VITALS: Ht 167.6 cm; Wt 81.6 kg
[~2017-01-27 16:20] MED LIST changes: +ACET-73 PO; +ACET325T53 PO; +ALBU1.256 IH; +BUDE180A3 INH; +IBUP-1479 PO; +LACT1CAP61 GT
[2017-01-27 17:03] LABS: BILIRUBIN,URINE NEGATIVE (NEGATIVE); BLOOD, URINE 3+ (NEGATIVE); CLARITY/URINE CLOUDY (CLEAR); COLOR,URINE YELLOW (YELLOW); GLUCOSE,URINE NEGATIVE (NEGATIVE); KETONES,URINE NEGATIVE (NEGATIVE); LEUKOCYTE ESTERASE ,URINE 3+ (NEGATIVE); NITRITE, URINE NEGATIVE (NEGATIVE); PROTEIN URINE 3+ (NEGATIVE)
[2017-01-27 17:11] LABS: BACTERIA,URINE MANY /HPF (None Seen); MUCUS,URINE None Seen /LPF (None Seen); WBC,URINE >100 /HPF (0-3)
[2017-01-27 17:14] VITALS: BP 111/70; PULSE 70; RESP 18; TEMP 97.9; O2SAT 99
--- NOTE | 2017-01-27 17:14 | NUR ---
Pt BIB BLS, placed to ER bed 02. Pt from Tamir Sommer r/t clogged and leaking suprapubic cath. Gauze dsg to site soaked in yellow urine. Dsg removed, area cleaned with NS.
[2017-01-27 17:22] LABS: HEMATOCRIT 40.1 % (36-54); HEMOGLOBIN 12.6 g/dL (14.0-18.0); MEAN CORPUSCULAR HEMOGLOBIN 28 pg (27-31); MEAN CORPUSCULAR HGB CONC 31 % (32-36); MEAN CORPUSCULAR VOLUME 88 fL (79.0-98.0); PLATELET COUNT (AUTO) 647 K/uL (130-430); RED BLOOD CELL COUNT(AUTO) 4.56 MIL/uL (4.2-6.2); WHITE BLOOD COUNT (AUTO) 16.3 K/uL (4.8-10.8)
--- NOTE | 2017-01-27 17:25 | NUR ---
Dr. Catherine at bedside, Old suprapubic cath removed. 18 FR. Luna cath inserted, yellow and sedimented urine, approx 100mL to bag.
[2017-01-27 17:26] LABS: CALCIUM 9.7 mg/dL (8.4-11.0); CREATININE 1.06 mg/dL (0.55-1.30); POTASSIUM 4.8 mmol/L (3.5-5.1)
[2017-01-27 17:32] LABS: ALBUMIN 2.9 g/dL (3.4-4.8); TOTAL BILIRUBIN 0.4 mg/dL (0.0-1.0); TOTAL PROTEIN, SERUM 10.1 g/dL (6.4-8.3)
[2017-01-27 17:39] LABS: BAND % (MANUAL) 1 % (0-6); BASOPHILS % (MANUAL) 0 % (0-2); EOSINOPHILS % (MANUAL) 2 % (0-7); LYMPHOCYTES % (MANUAL) 11 % (20-46); METAMYELOCYTES % 1 % (0-0); MONOCYTES % (MANUAL) 3 % (0-11)
--- NOTE | 2017-01-27 17:42 | NUR ---
Pt report given to LESTER Daniels.
--- NOTE | 2017-01-27 17:45 | NUR ---
PT RESTING IN BED. NONVERBAL. NO SIGN OF PAIN. ON 2L OXYGEN VIA NASAL CANULA. NO SOB. WILL CONTINUE TO MONITOR.
[2017-01-27] MEDS ORDERED: cefTRIAXone 1 GM in LIDOCAINE 1%, 20 ML MDV 2.1 ML IM ONE (18:15)
[2017-01-27] MEDS ORDERED: DIPHENHYDRAMINE HCL 25 MG CAPSULE PO ONE (18:15)
--- NOTE | 2017-01-27 19:12 | NUR ---
REPORT GIVEN TO LESTER VARELA AND ENDORSED ALL CARE.
--- NOTE | 2017-01-27 19:22 | NUR ---
Called Tamir Sommer and gave report to Pascale BATISTA who was made aware of the care received, abnormal labs and prescriptions.
[2017-01-27 19:32] VITALS: BP 115/71; PULSE 72; RESP 18; TEMP 98.2; O2SAT 99
--- NOTE | 2017-01-27 19:32 | NUR ---
Patient given written and verbal discharge instructions and verbalizes understanding. ER MD Catherine discussed results and treatment provided. Patient in stable condition. ID arm band removed. Rx of tylenol & keflex given. Patient educated on pain management and to follow up with PMD. Pain Scale 0/10. Opportunity for questions provided and answered. Transport back to [facility] by ambulance.
--- NOTE | 2017-01-30 14:22 | NUR ---
Final C & S report reviewed, shows a multi-drug resistant organism. Culture report faxed to [facility], they will follow up with Dr. Jacobson.
[2017-03-04] MEDS ORDERED: DOCU-144 GT (23:28)
[2017-03-04] MEDS ORDERED: LEVA1.25 NEB ×2 (23:29→23:30)
[2017-03-04] MEDS ORDERED: MULT-1184 GT (23:31)
[2017-03-04] MEDS ORDERED: PRO40 GT (23:32)
[2017-03-04] MEDS ORDERED: Uti-stat GT (23:38)
[2017-03-08] MEDS ORDERED: CEFE1FRO IV (15:19)
[2017-03-08] MEDS ORDERED: COLI150V10 IV (15:20)
== END 2017-01-27 19:32 ==
LOC: SED 16:20
DX: Z46.6 Encounter for fitting and adjustment of urinary device (principal); N30.90 Cystitis, unspecified without hematuria; I10 Essential (primary) hypertension; G20 Parkinson's disease; F02.80 Dementia in other diseases classified elsewhere, unspecified severity, without behavioral disturbance, psychotic disturbance, mood disturbance, and anxiety; N40.0 Benign prostatic hyperplasia without lower urinary tract symptoms; Z88.0 Allergy status to penicillin; Z79.899 Other long term (current) drug therapy
CPT/HCPCS: 36415; 51702; 80053; 81000; 85007; 85027; 87086; 87186; 96372; 99284; J0696; J2001

== ENCOUNTER 2017-05-30 22:52 | Inpatient (IN) | payer OTHER, MEDICAID ==
[~2017-05-30] VITALS: Ht 167.6 cm; Wt 80.7 kg
[~2017-05-30 22:52] MED LIST changes: +CEFE1FRO IV; +COLI150V10 IV; +LACT1CAP GT; +LEVA1.25 NEB; +MULT-1184 GT; +PRO40 GT; +Uti-stat GT
[2017-05-30 22:53] VITALS: BP 100/58; PULSE 129; RESP 25; TEMP 100.4; O2SAT 96
--- NOTE | 2017-05-30 22:56 | NUR ---
Placed in room 06 . Placed on cardiac exercise specialist, blood pressure machine and pulse oximeter. To gown for exam. Side rails up. Report given to LESTER Goldstein.
[2017-05-30] MEDS ORDERED: NACL 0.9% 1,000 ML IV ONE (23:00)
--- NOTE | 2017-05-30 23:00 | NUR ---
ER Dr. Catherine at bedside examining patient.
--- NOTE | 2017-05-30 23:00 | NUR ---
Pt was brought in by BLS. EMS states that patient has had low urine output, fever, and tachycardia. Pt is non verbal and unable to move extremities. This is the patient's baseline per EMS. Upon assessment, pt is hot, normal, and diaphoretic. Pt has existing suprapubic catheter with no urine output. Pt is alert and oriented times zero. Will continue to monitor via manager social. No other injuries or complaints mentioned/noted.
[2017-05-30] MEDS ORDERED: LOVI40 SQ (23:14)
[2017-05-30] MEDS ORDERED: CRAN450C GT (23:14)
[2017-05-30] MEDS ORDERED: DOXY100T2 GT (23:14)
[2017-05-30] MEDS ORDERED: MICA100V IV (23:14)
--- NOTE | 2017-05-30 23:14 | NUR ---
Medication reconciliation completed with information provided by [facility]. Any prior medication reconciliation on file was reviewed and corrected.
[2017-05-30] MEDS ORDERED: ACETAMINOPHEN 120 MG SUPP.RECT RC ONE (23:15)
--- NOTE | 2017-05-30 23:15 | NUR ---
Note undone in EDM - 05/31/17 at 0427 by JAVI # 22 gauge angiocath placed to R foot. Use of asceptic technique. Opsite placed over site. Blood return noted. Blood for lab drawn from site. Flushed with 10 cc of normal saline. No evidence of infiltration noted. Patient tolerated well. Dr. Florin rinaldied IV access in foot.
--- NOTE | 2017-05-30 23:15 | NUR ---
Medication would not scan. Full name, , and allergies confirmed before administration.
[2017-05-30 23:28] LABS: HEMATOCRIT 43.3 % (36-54); HEMOGLOBIN 13.5 g/dL (14.0-18.0); MEAN CORPUSCULAR HEMOGLOBIN 26 pg (27-31); MEAN CORPUSCULAR HGB CONC 31 % (32-36); MEAN CORPUSCULAR VOLUME 82 fL (79.0-98.0); RED BLOOD CELL COUNT(AUTO) 5.26 MIL/uL (4.2-6.2); RED CELL DISTRIBUTION WIDTH 17.3 % (9.0-15.0); WHITE BLOOD COUNT (AUTO) 20.3 K/uL (4.8-10.8)
[2017-05-30] MEDS ORDERED: ACETAMINOPHEN 650 MG SUPP.RECT RC ONE (23:31)
[2017-05-30 23:39] LABS: ANION GAP 11 (5-15); CALCIUM 9.7 mg/dL (8.4-11.0); CHLORIDE 100 mmol/L (98-107); CREATININE 1.66 mg/dL (0.55-1.30); GFR AFRICAN AMERICAN 57 mL/min (>90); GLUCOSE 147 mg/dL (70-99); POTASSIUM 4.1 mmol/L (3.5-5.1); SODIUM SERUM 137 mmol/L (136-145); UREA NITROGEN, BLOOD 32 mg/dL (8-21)
--- NOTE | 2017-05-30 23:40 | NUR ---
# 22 gauge angiocath placed to R foot. Use of asceptic technique. Opsite placed over site. Blood return noted. Blood for lab drawn from site. Flushed with 10 cc of normal saline. No evidence of infiltration noted. Patient tolerated well. Dr. Florin rinaldied IV access in foot.
[2017-05-30 23:43] LABS: ALANINE AMINOTRANSFERASE 74 U/L (12-78); ALBUMIN 3.3 g/dL (3.4-4.8); ASPARTATE AMINOTRANSFERASE 41 U/L (10-37); TOTAL BILIRUBIN 0.7 mg/dL (0.0-1.0)
[2017-05-30 23:45] LABS: ACETAMINOPHEN < 1 ug/mL (1-30); ALCOHOL, BLOOD < 3 mg/dL (<10); PROTHROMBIN TIME 10.9 SECS (9.5-12.5)
--- NOTE | 2017-05-30 23:53 | NUR ---
Medication would not scan. Full name, , and allergies confirmed before administration.
[2017-05-31] VITALS (21 sets, daily range): BP systolic 90–160; BP diastolic 52–97; PULSE 98–147; RESP 18–30; TEMP 97.4–100.2; O2SAT 9–99
[2017-05-31] LABS: ATYPICAL LYMPHOCYTES % 0 % (0-0); BAND % (MANUAL) 4 % (0-6); BASOPHILS % (MANUAL) 0 % (0-2); EOSINOPHILS % (MANUAL) 0 % (0-7); LYMPHOCYTES % (MANUAL) 8 % (20-46); MONOCYTES % (MANUAL) 3 % (0-11); PLATELET COUNT (AUTO) 276 K/uL (130-430)
[2017-05-31] MEDS ORDERED: ACETAMINOPHEN 650 MG SUPP.RECT RC ONE (00:15)
[2017-05-31] MEDS ORDERED: CEFEPIME 1 GM in D5W 50 ML IV ONE (00:30)
[2017-05-31] MEDS ORDERED: NACL 0.9% 1,000 ML IV ONE (00:30)
[2017-05-31 00:49] LABS: BILIRUBIN,URINE NEGATIVE (NEGATIVE); BLOOD, URINE 3+ (NEGATIVE); CLARITY/URINE CLOUDY (CLEAR); COLOR,URINE YELLOW (YELLOW); GLUCOSE,URINE NEGATIVE (NEGATIVE); KETONES,URINE NEGATIVE (NEGATIVE); LEUKOCYTE ESTERASE ,URINE 3+ (NEGATIVE); NITRITE, URINE POSITIVE (NEGATIVE); PH,URINE 7.5 (5.0-8.0); PROTEIN URINE 2+ (NEGATIVE); UROBILINOGEN,URINE 0.2 (0.2-1.0)
[2017-05-31 00:50] LABS: WBC,URINE >100 /HPF (0-3)
[2017-05-31 00:51] LABS: BACTERIA,URINE MANY /HPF (None Seen)
[2017-05-31 00:52] LABS: BARBITURATE, URINE NEGATIVE (NEG <=200); BENZODIAZEPINE, URINE NEGATIVE (NEG <=150); CANNABINOID, URINE NEGATIVE (NEG <=50); COCAINE, URINE NEGATIVE (NEG <=150); METHAMPHETAMINES SCREEN,URINE NEGATIVE (NEG <=500); OPIATE, URINE NEGATIVE (NEG <=100); PHENCYCLIDINE SCREEN,URINE NEGATIVE (NEG <=25); UR TRICYCLIC ANTIDEPRESSANTS NEGATIVE (NEG <=300); URINE AMPHETAMINE NEGATIVE (NEG <=500); URINE METHADONE NEGATIVE (NEG <=200); URINE OXYCODONE SCREEN NEGATIVE (NEG <=100); URINE PROPOXYPHENE SCREEN NEGATIVE (NEG <=300)
[2017-05-31] MEDS ORDERED: LEVOFLOXACIN 500 MG/D5W 100 ML IV ONE (01:15)
--- NOTE | 2017-05-31 01:29 | NUR ---
Medication would not scan. Full name, , and allergies confirmed before administration.
[2017-05-31] MEDS ORDERED: MEROPENEM 500 MG in NS 50 ML IV ONE (01:30)
[2017-05-31] MEDS ORDERED: MEROPENEM 500 MG VIAL IV ONE (01:33)
--- NOTE | 2017-05-31 01:45 | NUR ---
Admission Pt eye open, nonverbal. Pt on o2 nasal cannula tolerating well. spo2 98%. Breathing symmetrically. IV on the right foot. Was infusing Merrem antibiotic when transferred from emergency room. patent. Old scar noted on the sacrum. will reposition every two hours. small scratches/ scabs. noted on the lower extrimites. Safety precaution in place. Bed in the lowest positioned, locked. HOB aspiration precaution, side rails padded for seizure precaution. call light with in reach. will continue to monitor Addendum: 05/31/17 at 0648 by Ghassan Noel RN Pt under the care of Dr. huertas, Dx of sepsis and pneumonia. Pt was transferred via gurney. to room ICU 8. Report received by Triston BATISTA at bedside.
--- NOTE | 2017-05-31 01:45 | NUR ---
Patient will be admitted to care of Dr. Jacobson. Admitted to ICU unit. Will go to room ICU 8. Belongings list completed. Summary report printed. Report will be given at bedside. No adverse reaction noted.
[2017-05-31] MEDS: KCL 20 mEq in D5NS 1000 mL 1,000 ML IV SCH ×5 (02:43→17:22)
--- NOTE | 2017-05-31 06:49 | NUR ---
closing note will endorse to the day shift nurse to administer 0600 merrem IV antibiotic. Per nursing shift supervisor film processing too early to administer the second dose. Repositioned pt every two hours. oral care provided for comfort. will endorse to the shift nurse to continue care.
--- NOTE | 2017-05-31 08:00 | NUR ---
AWAKE AND ALERT, NON VERBAL, NOT IN ACUTE DISTRESS, O2 AT 2L/MIN VIA NC. SCOPE SHOWS SINUS TACHYCARDIA. IV FLUID INFUSING VIA SHERRON CATH ON THE SUBCLAVIAN AREA. WITH SUPRAPUBIC CATHETER INTACT, CLEAR YELLOW URINE OUTPUT NOTED, CATHETER IRRIGATED ORDERED.
--- NOTE | 2017-05-31 08:15 | NUR ---
FEBRILE, TEMP 100.2, COOLING MEASURES DONE, MEDICATED FOR COMFORT.
--- NOTE | 2017-05-31 08:23 | NUR ---
Nutrition Update Shane Scale 11 noted. Pt admitted for sepsis, pneumonia. Diet: Fibersource HN at 50 ml/hr via GT BMI: 29 kg/m2 RD to follow per nutrition care standards.
[2017-05-31] MEDS: MEROPENEM 500 MG in NS 50 ML IV SCH ×3 (09:08→21:19)
[2017-05-31] MEDS: ACETAMINOPHEN 650 MG/20.3 ML UDC GT PRN ×2 (09:08→14:42)
--- NOTE | 2017-05-31 10:00 | NUR ---
AM CARE DONE, PATIENT REPOSITIONED FOR COMFORT. ORAL CARE RENDERED.
--- NOTE | 2017-05-31 10:10 | NUR ---
FIBERSOURCE FEEDING STARTED AT 50 ML/HR, HOB UP TO PREVENT ASPIRATION,
--- NOTE | 2017-05-31 13:50 | NUR ---
MD ROUNDS: DR. GREG GARZA HERE TO SEE PATIENT, MADE AWARE OF PATIENT'S ADEQUATE URINE OUTPUT. WILL RE SEND URINE SPECIMEN FOR CULTURE.
--- NOTE | 2017-05-31 14:09 | NUR ---
CONSULTATION CALLED REASON FOR CONSULTATION: SEPSIS WAS CONSULT CALLED? Y PERSON WHO WAS NOTIFIED: DEVEN CONSULTING PHYSICIAN: ROSEMARY EDWARDS CONSULTING SPECIALTY: INFECTIOUS DISEASE MEDICAL RECORDS ASSISTANT PHONE NUMBER: [phone] ORDERING PHYSICIAN: RICKY SAAVEDRA
[2017-05-31] MEDS ORDERED: DILTIAZEM HCL 25 MG/5 ML VIAL IVP ONE (14:30)
[2017-05-31] MEDS ORDERED: METOPROLOL SUCCINATE 25 MG TAB.SR.24H (TOPROL XL) PO SCH (14:30)
[2017-05-31] MEDS ORDERED: DILTIAZEM HCL 25 MG/5 ML VIAL ONE (14:30)
[2017-05-31] MEDS ORDERED: METOPROLOL TARTRATE 25 MG TABLET GT ONE (14:45)
--- NOTE | 2017-05-31 15:00 | NUR ---
COOLING MEASURES DONE.
--- NOTE | 2017-05-31 18:28 | NUR ---
MD ROUNDS: DR. GREG GARZA HERE TO SEE PATIENT, KUB RESULTS RELAYED, WITH ORDERS.
[2017-05-31] MEDS ORDERED: MILK OF MAGNESIA 30 ML UDC PO PRN ×2 (18:30)
[2017-05-31] MEDS ORDERED: ACETAMINOPHEN 650 MG/20.3 ML UDC PO PRN (18:30)
[2017-05-31] MEDS ORDERED: MINERAL OIL 133 ML ENEMA RC ONE (18:45)
--- NOTE | 2017-05-31 19:35 | NUR ---
Start of shift assessment Received patient asleep. Sinus tachy on cardiac exercise specialist. IV site: subclavian port-a-cath, infusing Potassium CHL D5NS at 75cc/hr, no redness or infection noted. Diminished anterior lung sounds heard upon auscultation. Pt. on 2L nasal cannula. Patient on tube feeding via GTube, tolerating well. Patient on villalobos, urine draining to gravity. Bed locked, HOB elevated to 45 degrees, side rails up. Will continue to monitor.
[2017-05-31] MEDS: DOXYCYCLINE HYCLATE 100 MG CAPSULE GT SCH (20:43)
[2017-05-31] MEDS: BACLOFEN 10 MG TABLET GT SCH (20:43)
[2017-05-31] MEDS: METOPROLOL TARTRATE 25 MG TABLET GT SCH (20:43)
[2017-05-31] MEDS: LUBIPROSTONE 8 MCG CAPSULE PO SCH (20:43)
[2017-05-31] MEDS ORDERED: METOPROLOL TARTRATE 25 MG TABLET GT SCH (21:00)
[2017-06-01] VITALS (24 sets, daily range): BP systolic 92–147; BP diastolic 49–94; PULSE 100–132; RESP 18–30; TEMP 97.2–101.1; O2SAT 87–100
--- NOTE | 2017-06-01 | NUR ---
RN Rounds: Patient is sinus tachy on drum maker. Febrile, cooling measures done. Will continue to monitor
--- NOTE | 2017-06-01 00:15 | NUR ---
RN Rounds: Patient asleep, sinus tachy on the monitor. Bed locked, villalobos draining to gravity, padded side rails x 2 up. Will continue to monitor.
[2017-06-01] MEDS: ACETAMINOPHEN 650 MG/20.3 ML UDC GT PRN (01:17)
--- NOTE | 2017-06-01 04:00 | NUR ---
CHG bath done. Patient tolerated procedure. VSS. Will continue to monitor.
[2017-06-01] MEDS: MEROPENEM 500 MG in NS 50 ML IV SCH ×3 (05:41→21:33)
[2017-06-01] MEDS: KCL 20 mEq in D5NS 1000 mL 1,000 ML IV SCH ×2 (05:41→18:01)
[2017-06-01 06:53] LABS: CALCIUM 9.3 mg/dL (8.4-11.0); CREATININE 1.94 mg/dL (0.55-1.30); POTASSIUM 4.2 mmol/L (3.5-5.1)
--- NOTE | 2017-06-01 07:30 | NUR ---
End of shift Patient's needs met. Endorsed care to day shift nurse including changing of port-a-cath dressing. RN acknowledged.
--- NOTE | 2017-06-01 07:32 | NUR ---
RECEIVED PATIENT ON BED ASLEEP.BREATHING EVEN AND UNLABORED WITH 02 AT 2L/M VIA NASAL CANNULA.IVF INFUSING WELL;GTF INFUSING WELL;TOLERATING WELL.NO SIGNS AND SYMPTOMS OF ACUTE DISTRESS.SAFETY AND FALL PRECAUTIONS IN PLACE.CALL LIGHT WITHIN REACH
[2017-06-01 07:58] LABS: BASOPHILS # (AUTO) 0.1 K/uL (0.0-0.2); BASOPHILS % (AUTO) 0.4 % (0.0-2.0); EOSINOPHILS # (AUTO) 0.1 K/uL (0.0-0.4); EOSINOPHILS % (AUTO) 0.7 % (0.0-4.0); HEMATOCRIT 35.8 % (36-54); HEMOGLOBIN 11.5 g/dL (14.0-18.0); LYMPHOCYTES # (AUTO) 1.6 K/uL (1.0-5.5); MEAN CORPUSCULAR HEMOGLOBIN 27 pg (27-31); MEAN CORPUSCULAR HGB CONC 32 % (32-36); MEAN CORPUSCULAR VOLUME 83 fL (79.0-98.0); MONOCYTES # (AUTO) 1.2 K/uL (0.0-1.0); MONOCYTES % (AUTO) 6.2 % (1.7-9.3); NEUTROPHILS # (AUTO) 16.5 K/uL (1.8-7.7); PLATELET COUNT (AUTO) 210 K/uL (130-430); RED BLOOD CELL COUNT(AUTO) 4.31 MIL/uL (4.2-6.2); RED CELL DISTRIBUTION WIDTH 17.5 % (9.0-15.0); WHITE BLOOD COUNT (AUTO) 19.5 K/uL (4.8-10.8)
[2017-06-01] MEDS: LACTOBACILLUS RHAMNOSUS GG 1 CAP CAPSULE GT SCH (08:29)
[2017-06-01] MEDS: METOPROLOL TARTRATE 25 MG TABLET GT SCH ×2 (08:29→21:33)
[2017-06-01] MEDS: DOXYCYCLINE HYCLATE 100 MG CAPSULE GT SCH (08:29)
[2017-06-01] MEDS: BACLOFEN 10 MG TABLET GT SCH ×3 (08:29→21:33)
[2017-06-01] MEDS: PANTOPRAZOLE GRANULES PACKET 40 MG GT SCH (08:29)
[2017-06-01] MEDS: LUBIPROSTONE 8 MCG CAPSULE PO SCH ×2 (08:29→21:32)
[2017-06-01] MEDS: DOCUSATE SODIUM 100 MG CAPSULE PO SCH (08:29)
[2017-06-01] MEDS: ASCORBIC ACID 500 MG TABLET GT SCH (08:29)
[2017-06-01] MEDS: ENOXAPARIN SODIUM 40 MG/0.4 ML SYRINGE SUBCUT SCH (08:30)
--- NOTE | 2017-06-01 10:00 | NUR ---
CHECKED PATIENT;REPOSITIONED AND KEPT COMFORTABLE IN BED
[2017-06-01 11:09] LABS: NEUTROPHILS % (AUTO) 84.7 % (40.0-70.0)
--- NOTE | 2017-06-01 12:30 | NUR ---
PATIENT ON BED AWAKE;NO ACUTE DISTRESS
--- NOTE | 2017-06-01 15:22 | NUR ---
Wound Evaluation: Wound Consult ordered for Low Shane Score. Patient evaluated for a low Shane score of 10. Patient was awake, alert, non verbal and received in a [place] Bed with an IsoFlex DMITRY mattress with low air-loss therapy initiated. Patient needs to be turned in bed. Skin is fair (-). Bilateral lower extremities have contractures; Sacral and buttocks areas have pink scar tissue; G-tube jun-site is pink, intact. Also recommend reposition patient side to side only every 2 hours with pillow support. Elevate, off-load and float bilateral heels with pillows lengthwise at all times. Offload pressure areas with pillows for pressure re-distribution. Perform skin care and monitor skin integrity Q shift. Use moisture barrier cream on moisture susceptible areas QID and PRN for soiling. Place moisture barrier cream on G-tube jun-site followed by drain sponge daily, and PRN. Maintain patient on a low air-loss mattress. Skin assessment: 1. Right medial ankle: Wound, possibly skin tear, present on admission. Wound bed is 100% red tissue. No odor, scant serous drainage. Periwound intact. Measures 2.5 cm x 3.0 cm. Recommend: Cleanse wound with normal saline. Pat dry around wound. Apply sure prep to periwound. Place oil emulsion dressing onto wound bed, then foam dressing. Form wound care daily, and as needed for dressing soiling or dislodgment. Will continue to follow as a Shane.
--- NOTE | 2017-06-01 17:00 | NUR ---
CENTRAL LINE DRESSING CHANGED;ASEPTIC TECHNIQUE USED;TOLERATED PROCEDURE WELL
[2017-06-01] MEDS ORDERED: MINERAL OIL 133 ML ENEMA RC ONE (18:30)
--- NOTE | 2017-06-01 18:31 | NUR ---
DR. GARZA CAME AND EXAMINED THE PATIENT;WAITING FOR ORDERS
--- NOTE | 2017-06-01 18:44 | NUR ---
PATIENT ON BED ASLEEP.BREATHING EVEN AND UNLABORED WITH O2 AT 2L/M VIA NASAL CANNULA.NO SIGNS AND SYMPTOMS OF ACUTE DISTRESS.IVF INFUSING WELL AT 75 ML/HR;GTF INFUSING WELL AT 50 ML/HR;TOLERATING WELL.SUPRAPUBIC CATHETER INTACT AND PATENT DRAINING YELLOW URINE WITH SEDIMENTS.SAFETY AND FALL PRECAUTIONS IN PLACE.CALL LIGHT WITHIN REACH.WILL ENDORSE TO NEXT SHIFT ACCORDINGLY
--- NOTE | 2017-06-01 19:30 | NUR ---
PM SHIFT ASSESSMENT Pt nonverbal and unable to make needs known. NC @ 2L, SPO2 above 94%. No signs of acute distress noted. ST on monitor. Port-a-cath to right subclavian, IVF infusing no signs of infiltration noted. Supra pubic catheter intact and draining to gravity. Gtube noted, auscultated to verify correct placement, tube feeding noted at 50ml/hr, residual of 3ml. Dressing in place to right interior side of foot. Safety precautions in place, will continue to monitor.
--- NOTE | 2017-06-01 20:00 | NUR ---
Fleet mineral enema given. Pt tolerated care well. Will continue to monitor.
[2017-06-01] MEDS: MUPIROCIN 2% TOPICAL OINTMENT 22 GM NS SCH (21:32)
[2017-06-01] MEDS: LACTULOSE 20 GM/30 ML UDC GT SCH (21:34)
[2017-06-01] MEDS ORDERED: LACTULOSE 20 GM/30 ML UDC ONE (22:15)
--- NOTE | 2017-06-01 22:40 | NUR ---
Pt resting in bed. VS stable. No BM from fleet enema. Will continue to monitor.
[2017-06-02] VITALS (20 sets, daily range): BP systolic 90–161; BP diastolic 54–94; PULSE 97–125; RESP 20–27; TEMP 98.8–101.3; O2SAT 98–100; Ht 167.6 cm; Wt 80.7 kg
--- NOTE | 2017-06-02 03:00 | NUR ---
Temp of 100.4 PRN fever medication to be given per MD order. Will continue to monitor.
[2017-06-02] MEDS: ACETAMINOPHEN 650 MG/20.3 ML UDC GT PRN ×2 (03:02→20:49)
--- NOTE | 2017-06-02 04:00 | NUR ---
Temp 99.1 F VS stable. Will continue to monitor.
[2017-06-02] MEDS: MEROPENEM 500 MG in NS 50 ML IV SCH ×3 (06:05→21:04)
[2017-06-02 06:39] LABS: CALCIUM 9.3 mg/dL (8.4-11.0); CREATININE 1.97 mg/dL (0.55-1.30); POTASSIUM 4.2 mmol/L (3.5-5.1)
[2017-06-02 06:40] LABS: BASOPHILS # (AUTO) 0.1 K/uL (0.0-0.2); BASOPHILS % (AUTO) 0.4 % (0.0-2.0); EOSINOPHILS # (AUTO) 0.3 K/uL (0.0-0.4); EOSINOPHILS % (AUTO) 2.2 % (0.0-4.0); HEMATOCRIT 33.4 % (36-54); HEMOGLOBIN 10.6 g/dL (14.0-18.0); LYMPHOCYTES # (AUTO) 1.4 K/uL (1.0-5.5); LYMPHOCYTES % (AUTO) 10.4 % (20.5-51.5); MEAN CORPUSCULAR HEMOGLOBIN 27 pg (27-31); MEAN CORPUSCULAR HGB CONC 32 % (32-36); MEAN CORPUSCULAR VOLUME 84 fL (79.0-98.0); MONOCYTES # (AUTO) 0.8 K/uL (0.0-1.0); NEUTROPHILS # (AUTO) 11.2 K/uL (1.8-7.7); PLATELET COUNT (AUTO) 227 K/uL (130-430); RED BLOOD CELL COUNT(AUTO) 3.98 MIL/uL (4.2-6.2); RED CELL DISTRIBUTION WIDTH 17.8 % (9.0-15.0); WHITE BLOOD COUNT (AUTO) 13.8 K/uL (4.8-10.8)
--- NOTE | 2017-06-02 07:25 | NUR ---
ENDORSEMENT Pt care endorsed to LESTER Olivas at bedside using nursing sbar.
--- NOTE | 2017-06-02 07:30 | NUR ---
OPENING NOTE: RECEIVED REPORT FROM NIGHT NURSE. PATIENT IS RESTING COMFORTABLY IN BED. NO S/S OF DISTRESS OR SOB. PATIENT IS AWAKE BUT NOT ALERT AND NOT RESPONSIVE. IV IS PATENT AND INFUSING. G-TUBE DRESSING INTACT. TUBE-FEEDING IN PLACE. YODER IS DRAINING TO GRAVITY. BED IN LOWEST POSITION, AND WILL CONTINUE TO MONITOR.
[2017-06-02] MEDS: KCL 20 mEq in D5NS 1000 mL 1,000 ML IV SCH (08:51)
[2017-06-02] MEDS: BACLOFEN 10 MG TABLET GT SCH ×3 (08:52→20:47)
[2017-06-02] MEDS: LACTULOSE 20 GM/30 ML UDC GT SCH (08:52)
[2017-06-02] MEDS: DOCUSATE SODIUM 100 MG CAPSULE PO SCH (08:52)
[2017-06-02] MEDS: ENOXAPARIN SODIUM 40 MG/0.4 ML SYRINGE SUBCUT SCH (08:52)
[2017-06-02] MEDS: ASCORBIC ACID 500 MG TABLET GT SCH (08:52)
[2017-06-02] MEDS: LACTOBACILLUS RHAMNOSUS GG 1 CAP CAPSULE GT SCH (08:52)
[2017-06-02] MEDS: LUBIPROSTONE 8 MCG CAPSULE PO SCH (08:53)
[2017-06-02] MEDS: PANTOPRAZOLE GRANULES PACKET 40 MG GT SCH (08:53)
[2017-06-02] MEDS: MUPIROCIN 2% TOPICAL OINTMENT 22 GM NS SCH ×2 (08:54→20:48)
[2017-06-02] MEDS: METOPROLOL TARTRATE 25 MG TABLET GT SCH ×2 (08:54→20:48)
--- NOTE | 2017-06-02 12:00 | NUR ---
NOTE: PATIENT IS RESTING COMFORTABLY IN BED. NO S/S OF DISTRESS OR SOB. PATIENT ON 2L 02. SATURATING WELL. ALL NEEDS BEING MET. WILL CONTINUE TO MONITOR.
--- NOTE | 2017-06-02 13:23 | NUR ---
Dietitian Recommendations * Recommend Fibersource HN at 65 ml/hr, Prosource TID, Free Water Flush: 200 ml Q6h via GT Provides: 2052 kcal/day, 129 gm protein/day, and 2064 ml free water/day Meets: 102% of lower end of estimated caloric needs and 99% of upper end of estimated protein needs LP, RD Please refer to Nutrition Assessment for details.
--- NOTE | 2017-06-02 15:00 | NUR ---
CHG GIVEN AND WOUND CARE DONE. DRESSING REMOVED, CLEANED WITH NORMAL SALINE. OIL EMULSION DRESSING PLACED AND COVERED WITH FOAM DRESSING. WILL CONTINUE TO MONITOR.
--- NOTE | 2017-06-02 18:30 | NUR ---
TRANSFER REPORT GIVEN TO LESTER HASKINS. PATIENT TRANSFERRED TO ROOM 119 A. PATIENT TRANSFERRED IN STABLE CONDITIONS. ALL MEDICATIONS TAKEN. PATIENT CONNECTED TO TELEMETRY BOX AND OXYGEN 2 L.
--- NOTE | 2017-06-02 18:45 | NUR ---
RECEIVED PT FROM ICU: RECEIVED REPORT FROM LUPE/ RN.
--- NOTE | 2017-06-02 19:15 | NUR ---
CLOSING: PT WAS TRANSFERRED FROM ICU, STILL HAVING FEVER, AND HR 128/MINT. ENDORSED TO MUSIC COMPOSITION TEACHER RN/RACHEL.FOR CONTINUE CARE.
--- NOTE | 2017-06-02 20:00 | NUR ---
Opening Notes Received patient lying in bed awake. Patient is non verbal and does not respond to his name. Transfered from ICU for monitoring. On GT feeding, Fibersource and is patent. Dressing is dry and clean. Right upper chest portacath with D5 NS with 20KCL infusing. No s/s of infection or infiltration. Right inner heal wound covered with dressing dry and clean. Temperature elevated at 101.3 and Pulse 125. Call light within reach and safety and seizure precaution in place. Will give medication and monitor.
[2017-06-02] MEDS: LUBIPROSTONE 24 MCG CAPSULE PO SCH (21:37)
--- NOTE | 2017-06-02 22:00 | NUR ---
Rounds Patient lying in bed with eyes open. HR at 105 and temperature at 98.6. No signs of pain or respiratory distress. O2 Saturation at 99% on 2L NC. Call light within reach. Seizure precautions in place and safety precautions being observed. Will continue to monitor.
[2017-06-03] VITALS (8 sets, daily range): BP systolic 105–152; BP diastolic 64–93; PULSE 73–115; RESP 18–20; TEMP 98.6–101; O2SAT 95–100
--- NOTE | 2017-06-03 00:26 | NUR ---
Patient lying in bed sleeping. Eyes are closed with no signs of pain or acute respiratory distress. Call light within reach and safety precautions are being observed. Will continue to monitor.
[2017-06-03] MEDS: KCL 20 mEq in D5NS 1000 mL 1,000 ML IV SCH ×3 (01:23→17:28)
--- NOTE | 2017-06-03 02:18 | NUR ---
Rounds Patient is asleep in bed. No change in condition from previous rounds. Call light within reach and safety precautions are being observed. Will continue to monitor.
--- NOTE | 2017-06-03 04:30 | NUR ---
Rounds Patient asleep in bed. no change in condition. Will continue to monitor.
[2017-06-03] MEDS: ACETAMINOPHEN 650 MG/20.3 ML UDC GT PRN ×4 (05:29→20:58)
[2017-06-03] MEDS: MEROPENEM 500 MG in NS 50 ML IV SCH ×3 (05:48→20:57)
[2017-06-03 06:51] LABS: BASOPHILS # (AUTO) 0.1 K/uL (0.0-0.2); BASOPHILS % (AUTO) 0.5 % (0.0-2.0); EOSINOPHILS # (AUTO) 0.4 K/uL (0.0-0.4); EOSINOPHILS % (AUTO) 3.3 % (0.0-4.0); HEMATOCRIT 32.8 % (36-54); HEMOGLOBIN 10.1 g/dL (14.0-18.0); LYMPHOCYTES % (AUTO) 7.9 % (20.5-51.5); MEAN CORPUSCULAR HEMOGLOBIN 26 pg (27-31); MEAN CORPUSCULAR HGB CONC 31 % (32-36); MEAN CORPUSCULAR VOLUME 84 fL (79.0-98.0); MONOCYTES # (AUTO) 0.9 K/uL (0.0-1.0); MONOCYTES % (AUTO) 6.8 % (1.7-9.3); NEUTROPHILS # (AUTO) 10.2 K/uL (1.8-7.7); NEUTROPHILS % (AUTO) 81.5 % (40.0-70.0); PLATELET COUNT (AUTO) 238 K/uL (130-430); RED CELL DISTRIBUTION WIDTH 17.7 % (9.0-15.0); WHITE BLOOD COUNT (AUTO) 12.6 K/uL (4.8-10.8)
--- NOTE | 2017-06-03 07:05 | NUR ---
Closing Notes Patient is resting in bed. No pain or distress noted. Patient is clean and dry. Gtube is patent, clean and dry. Temp is 99.6 from last reading. HR at 102. call light within reach and will endorse to morning shift.
[2017-06-03 07:11] LABS: CALCIUM 9.1 mg/dL (8.4-11.0); CREATININE 2.08 mg/dL (0.55-1.30); POTASSIUM 4.2 mmol/L (3.5-5.1)
--- NOTE | 2017-06-03 08:00 | NUR ---
Am notes- pt in bed awake, non verbal. no signs and sypmtoms of pain or discomfort. ivf infusing well on the rt chest flakito cath. tolerating feeding at 65cc/hr. temperature at 99.5. ice compress applied. safety precaution observed. repositioned. will monitor.
[2017-06-03] MEDS: ENOXAPARIN SODIUM 40 MG/0.4 ML SYRINGE SUBCUT SCH (09:33)
[2017-06-03] MEDS: LACTULOSE 20 GM/30 ML UDC GT SCH (09:33)
[2017-06-03] MEDS: MUPIROCIN 2% TOPICAL OINTMENT 22 GM NS SCH ×2 (09:33→22:55)
[2017-06-03] MEDS: PANTOPRAZOLE GRANULES PACKET 40 MG GT SCH (09:34)
[2017-06-03] MEDS: BACLOFEN 10 MG TABLET GT SCH ×3 (09:34→20:58)
[2017-06-03] MEDS: LUBIPROSTONE 24 MCG CAPSULE PO SCH ×2 (09:34→20:58)
[2017-06-03] MEDS: LACTOBACILLUS RHAMNOSUS GG 1 CAP CAPSULE GT SCH (09:34)
[2017-06-03] MEDS: METOPROLOL TARTRATE 25 MG TABLET GT SCH ×2 (09:35→20:58)
[2017-06-03] MEDS: ASCORBIC ACID 500 MG TABLET GT SCH (09:35)
[2017-06-03] MEDS ORDERED: COMMUNICATION ORDER XX ONE (09:45)
--- NOTE | 2017-06-03 09:45 | NUR ---
notes- morning meds given. pt tolerating feeding, with 5cc residual. repositioned for comfort. will continue to monitor.
[2017-06-03] MEDS ORDERED: FLUCONAZOLE 400 mg/ NS 200 ML IV ONE (11:30)
[2017-06-03] MEDS: DOCUSATE SODIUM 100 MG/10 ML UDC GT SCH (11:52)
--- NOTE | 2017-06-03 11:59 | NUR ---
notes- in bed awake, repositioned. no acute distress noted. will monitor.
--- NOTE | 2017-06-03 13:58 | NUR ---
notes- tried to do oral care but patient keep closing her mouth. refused sunctioning also. will try again later.
--- NOTE | 2017-06-03 16:03 | NUR ---
NOTES- turned and repositioned. temperature 101.0 mild distress noted. will give tylenol.
--- NOTE | 2017-06-03 18:23 | NUR ---
closing notes Resting at this time. no signs and symptoms of pain or discomfort. Temp. went down to 99.7 . cold compress continue at this time. tolerating feeding. dressing change done on the right foot. will endorse
--- NOTE | 2017-06-03 20:00 | NUR ---
Initial note: Received pt awake, O2 2L via NC satting at 96%, Temp 99.9. Replaced ice packs and Tyelenol given via GT. Sinus Tach on the monitor. Residual checked 5ml. R. portacath in place, dressing C/D/I. Suprapubic cathether in place with clear dark yellow urine. Pt on low air loss mattress. Dressing to R. ankle abrasion C/D/I. Seizure precaution and contact isolation in place. Will continue to monitor.
--- NOTE | 2017-06-03 23:00 | NUR ---
Rounding Pt asleep, no s/s of acute distress noted. HOB elevated. Continuous GT feeding running at 65cc/hr. Will continue to monitor.
[2017-06-04] VITALS (9 sets, daily range): BP systolic 130–153; BP diastolic 71–97; PULSE 101–118; RESP 16–20; TEMP 98.6–101.6; O2SAT 93–97
[2017-06-04] MEDS: ACETAMINOPHEN 650 MG/20.3 ML UDC GT PRN ×3 (01:17→14:42)
--- NOTE | 2017-06-04 01:20 | NUR ---
Rounding Pt asleep. No s/s of distress noted. Tylenol 650mg given via GT as needed for fever. Cooling measures in place. Repositioning. Will continue to monitor.
[2017-06-04] MEDS ORDERED: FLU VACC QS 2017-18(36MOS+)/PF 0.5 ML/SYR SYRINGE I.M. PRN (04:30)
--- NOTE | 2017-06-04 05:00 | NUR ---
Rounding Pt asleep, arousable. Pt had a small BM. Pericare provided with RESEARCH SCHOLAR assist. Repositioned. To monitor.
[2017-06-04] MEDS: MEROPENEM 500 MG in NS 50 ML IV SCH ×3 (06:38→21:03)
[2017-06-04] MEDS: KCL 20 mEq in D5NS 1000 mL 1,000 ML IV SCH ×2 (06:39→22:59)
--- NOTE | 2017-06-04 06:45 | NUR ---
Closing notes: Pt asleep. No s/s of distress noted. IV abx infusing on R. Portacath. GT feeding Fibersourse infusing at 65cc/hr. HOB elevated, repositioning. Safety measures in place. To endorse to am nurse.
--- NOTE | 2017-06-04 08:00 | NUR ---
AM NOTES- IN BED AWAKE, TURNED AND REPOSITIONED. PT HAS A LOT OF SECRETIONS. CALLED RESPIRATORY AND DO OROPHARYNGEAL SUNCTIONING. PT TOLERATED WELL. PT DOES NOT HAVE BREATHING TREATMENT ORDERED. WILL ASK MD. SAFETY PRECAUTION OBSERVED. WILL MONITOR.
[2017-06-04] MEDS: ASCORBIC ACID 500 MG TABLET GT SCH (10:06)
[2017-06-04] MEDS: LACTULOSE 20 GM/30 ML UDC GT SCH (10:06)
[2017-06-04] MEDS: METOPROLOL TARTRATE 25 MG TABLET GT SCH ×2 (10:06→21:04)
[2017-06-04] MEDS: DOCUSATE SODIUM 100 MG/10 ML UDC GT SCH (10:06)
[2017-06-04] MEDS: BACLOFEN 10 MG TABLET GT SCH ×3 (10:06→21:03)
[2017-06-04] MEDS: PANTOPRAZOLE GRANULES PACKET 40 MG GT SCH (10:06)
[2017-06-04] MEDS: ENOXAPARIN SODIUM 40 MG/0.4 ML SYRINGE SUBCUT SCH (10:06)
[2017-06-04] MEDS: LACTOBACILLUS RHAMNOSUS GG 1 CAP CAPSULE GT SCH (10:06)
[2017-06-04] MEDS: LUBIPROSTONE 24 MCG CAPSULE PO SCH ×2 (10:06→21:03)
[2017-06-04] MEDS: MUPIROCIN 2% TOPICAL OINTMENT 22 GM NS SCH ×2 (10:07→21:04)
--- NOTE | 2017-06-04 11:00 | NUR ---
notes- turned and repositioned. no signs of distress noted. still has low grade fever. cold compress applied. will continue to monitor.
--- NOTE | 2017-06-04 11:12 | NUR ---
MO DC PLANNING: RE DC TO [facility] SPOKE WITH DEBRA SOLO TO DISCUSS WITH ABOUT WHETHER Pt IS STABLE FOR DC RETURN BACK TO [facility]. 1140: SPOKE WITH EVETTE AT [facility] WHO WILL CHECK ON BED AVAILABILITY IF Pt IS STABLE FOR DC BACK TODAY; PROVIDED WITH [facility] CM CONTACT #.
--- NOTE | 2017-06-04 11:40 | NUR ---
CM DC PLANNING: [facility] ASCERTAIN BED AVAILABILITY TODAY IF Pt WERE TO DC BACK TO FACILITY. PER EVETTE, Pt's BED REMAINS AVAILABLE PENDING MD DECISION. 1345: PER RN/JOEY, Pt HAD A FEVER TODAY AND IS NOT STABLE TO TRANSFER TODAY. T-MAX AT 101.4.
--- NOTE | 2017-06-04 12:38 | NUR ---
ROUNDS SEEN BY DR. FELIX AND MADE AWARE OF PATIENTS HAVING ON AND OFF FEVER. MD OKAYED TO REPEAT CHEST XRAY.
--- NOTE | 2017-06-04 14:45 | NUR ---
notes- temp. 101.4. tylenol given. cooling measures in place.no distress noted. repositioned for comfort. will monitor.
--- NOTE | 2017-06-04 16:40 | NUR ---
notes- spoke to DR. yuan and informed him that Patient does not have order for breathing treatment.
[2017-06-04] MEDS ORDERED: ALBUTEROL SULFATE 0.083% 2.5 MG/3 ML VIAL.NEB INH PRN (16:45)
--- NOTE | 2017-06-04 18:48 | NUR ---
closing notes resting comfortably in bed. no distress noted. tolerated feeding. will endorse
--- NOTE | 2017-06-04 21:45 | NUR ---
Initial note Pt awake, non verbal. O2 2L on via NC. Pt temp 99.8. CHG bath given and suctioned pt, large thick beige secretions noted. Pt tolerated well. Repositioned. IV fluids to R. subclavian portacath infusing as orders. GT feeding at 65cc, no residual noted. Pt on low air loss mattress. Contact and seizure precaution in place. To monitor.
--- NOTE | 2017-06-05 01:00 | NUR ---
Fever Pt had a fever 101.6, medicated with Tylenol 650mg via GT, cooling measures provided. Repositioned. To monitor.
[2017-06-05] MEDS: ACETAMINOPHEN 650 MG/20.3 ML UDC GT PRN ×2 (01:01→20:30)
[2017-06-05 03:32] VITALS: BP 133/87; PULSE 114; RESP 20; TEMP 100.6; O2SAT 94
[2017-06-05] MEDS: MEROPENEM 500 MG in NS 50 ML IV SCH (05:32)
--- NOTE | 2017-06-05 05:45 | NUR ---
Closing notes Dressing change to R. medial ankle per order and changed suprapubic cath dressing. Water flush of 200 cc given this am. Temp is 99.7. Tolerating feeding well. To endorse to am nurse.
[2017-06-05 06:45] LABS: BASOPHILS # (AUTO) 0.1 K/uL (0.0-0.2); BASOPHILS % (AUTO) 0.9 % (0.0-2.0); EOSINOPHILS # (AUTO) 0.4 K/uL (0.0-0.4); EOSINOPHILS % (AUTO) 3.1 % (0.0-4.0); HEMOGLOBIN 10.6 g/dL (14.0-18.0); LYMPHOCYTES # (AUTO) 1.9 K/uL (1.0-5.5); LYMPHOCYTES % (AUTO) 16.8 % (20.5-51.5); MEAN CORPUSCULAR HEMOGLOBIN 26 pg (27-31); MEAN CORPUSCULAR HGB CONC 31 % (32-36); MEAN CORPUSCULAR VOLUME 83 fL (79.0-98.0); MONOCYTES # (AUTO) 0.8 K/uL (0.0-1.0); MONOCYTES % (AUTO) 6.9 % (1.7-9.3); NEUTROPHILS # (AUTO) 8.2 K/uL (1.8-7.7); NEUTROPHILS % (AUTO) 72.3 % (40.0-70.0); PLATELET COUNT (AUTO) 274 K/uL (130-430); RED BLOOD CELL COUNT(AUTO) 4.07 MIL/uL (4.2-6.2); RED CELL DISTRIBUTION WIDTH 17.8 % (9.0-15.0); WHITE BLOOD COUNT (AUTO) 11.4 K/uL (4.8-10.8)
--- NOTE | 2017-06-05 07:55 | NUR ---
INITIAL NOTE RECEIVED PT IN BED, NO S/S OF DISTRESS OR SOB NOTED, PT HAS NO FACIAL GRIMACING NOTED FOR PAIN, PT IN STABLE CONDITION. PT AWAKE, ALERT ORIENTED X1, NONVERBAL, TRACKS WITH EYES. PT HAS A G TUBE, PATENT, FLUSHES, PLACEMENT VERIFIED, DRESSING CLEAN AND DRY, CHANGES, SKIN INTACT, PT TOLERATING FEEDINGS ORDERED. PT ON OXYGEN 2 LITERS VIA NASAL CANNULA. PT HAS A SUPRAPUBIC CATHETER DRAINING VIA GRAVITY. PT ON AIR MATTRESS, SEIZURE, FALL AND ASPIRATION PRECAUTIONS IN PLACE.
[2017-06-05 08:04] LABS: CALCIUM 9.3 mg/dL (8.4-11.0); CREATININE 2.22 mg/dL (0.55-1.30); POTASSIUM 4.6 mmol/L (3.5-5.1)
[2017-06-05] MEDS: PANTOPRAZOLE GRANULES PACKET 40 MG GT SCH (08:13)
[2017-06-05] MEDS: LACTULOSE 20 GM/30 ML UDC GT SCH (08:13)
[2017-06-05] MEDS: ASCORBIC ACID 500 MG TABLET GT SCH (08:14)
[2017-06-05] MEDS: ENOXAPARIN SODIUM 40 MG/0.4 ML SYRINGE SUBCUT SCH (08:14)
[2017-06-05] MEDS: BACLOFEN 10 MG TABLET GT SCH ×3 (08:14→20:29)
[2017-06-05] MEDS: DOCUSATE SODIUM 100 MG/10 ML UDC GT SCH (08:14)
[2017-06-05] MEDS: LACTOBACILLUS RHAMNOSUS GG 1 CAP CAPSULE GT SCH (08:14)
[2017-06-05] MEDS: LUBIPROSTONE 24 MCG CAPSULE PO SCH ×2 (08:15→20:29)
[2017-06-05] MEDS: MUPIROCIN 2% TOPICAL OINTMENT 22 GM NS SCH ×2 (08:15→20:31)
[2017-06-05] MEDS: METOPROLOL TARTRATE 25 MG TABLET GT SCH ×2 (08:18→20:30)
[2017-06-05 08:35] VITALS: BP 146/85; PULSE 115; RESP 19; TEMP 99.1; O2SAT 95
--- NOTE | 2017-06-05 08:35 | NUR ---
FEVER PT HAS A LOW GRADE TEMPERATURE OF 99.1, COOLING MEASURES IN PLACE, WILL CONTINUE TO MONITOR PT FOR ANY CHANGES.
--- NOTE | 2017-06-05 10:06 | NUR ---
ROUNDS PT IN BED, NO S/S OF DISTRESS OR SOB NOTED, PT HAS NO FACIAL GRIMACING NOTED FOR PAIN, PT IN STABLE CONDITION, WILL CONTINUE TO MONITOR PT FOR ANY CHANGES.
--- NOTE | 2017-06-05 11:49 | NUR ---
Wound Evaluation: Wound Consult ordered for Low Shane Score. Patient evaluated for a low Shane score of 10. Patient was awake, alert, non verbal and received in a [place] Bed with an IsoFlex DMITRY mattress with low air-loss therapy initiated. Patient needs to be turned in bed. Skin is fair (-). Bilateral lower extremities have contractures; Sacral and buttocks areas have pink scar tissue; G-tube jun-site is pink, intact. No open wounds other than right medial ankle, scar tissue areas still intact (assessment provided by LESTER Machado). Recommend continue: Reposition patient side to side only every 2 hours with pillow support. Elevate, off-load and float bilateral heels with pillows lengthwise at all times. Offload pressure areas with pillows for pressure re-distribution. Perform skin care and monitor skin integrity Q shift. Use moisture barrier cream on moisture susceptible areas QID and PRN for soiling. Place moisture barrier cream on G-tube jun-site followed by drain sponge daily, and PRN. Maintain patient on a low air-loss mattress. Skin assessment: 1. Right medial ankle: Wound, possibly skin tear, present on admission. Wound care performed by night patrol inspector nurse this morning. Dressing not removed for assessment secondary to doing so would decrease wound temperature and retard wound healing rate. Recommend continue: Cleanse wound with normal saline. Pat dry around wound. Apply sure prep to periwound. Place oil emulsion dressing onto wound bed, then foam dressing. Form wound care daily, and as needed for dressing soiling or dislodgment. Will continue to follow as a Shane.
--- NOTE | 2017-06-05 11:54 | NUR ---
Nutrition F/U Admitting Diagnosis Sepsis, pneumonia, mild protein malnutrition Reviewed Pertinent Medical/Surgical Hx Medical Record Primary RN Patient Medical History Comment: MS, neurogenic bladder per MD notes Subjective Information Pt seen resting in bed at time of RD visit. TF hung and infusing. Per RN, pt is tolerating TF well, no residual this morning. TF at 65 ml/hr. Pt had low grade fever this morning. Per EMR, TF intake: 780 ml, 0 residual (06/04/17), abd is soft and distended w/ active bowel sounds. I/O: 1680/1700 -20ml, IV total intake: 900ml per 12 hrs. Current TF prescription provides: 2052 kcal/day, 129 gm Protein/day and 2064 ml free water/day. Pt is meeting optimal nutrition w/ current TF prescription. Pt is not appropriate for nutrition education. Current Diet Order/Nutrition Support Fibersource HN at 65ml/hr, Prosource TID, FWF 200ml Q6H via GT Patient/Significant Other Unable To Verbalize Education Provided Not Indicated Pertinent Medications lactulose, culturelle, colace, VIT C, KCl/D5%/NaCl IV @ 75 ml/hr (306 kcal), lovenox Pertinent Labs BG 150 H, BUN 34 H, CRE 2.22 H, ALB 3.3 L (05/30/17), WBC 11.4 H, H/H 10.6 L/34 L, RBC 4.07 L, Na 146 H Height (Feet) 5 feet Height (Inches) 6.00 inches Weight (Pounds) 178 pounds Weight (Calculated Kilograms) 80.969702 kilograms Patient Weight 80.739 kg Body Mass Index 28.73 kg/m2 %IBW 125 Stafford/Adjusted Body Weight IBW: 142 lb, 65 kg. Adj IBW (obesity): 151 lb, 69 kg Weight Status Overweight Gastrointestinal Symptoms Constipation Last Bowel Movement Jun 04, 2017 x1 Skin Integrity Comment: Shane scale: 13; per nursing notes, lateral R ankle w/ abrasion. Estimated Energy Expenditure (kcals/day) 5690-1935 kcal/day (BEE x 1.2-1.5 CBW for sepsis) Estimated Protein Required (g/day) 98-130 gm/day (1.5-2 gmkg IBW for sepsis) Estimated Fluid Required (l/day) 2-2.5 L/day (1 ml/kcal/day for maintenance) Problem/Etiology/Signs/Symptoms Increased nutritional intakes related to metabolic demands as evidenced by elevated WBC lab value, and estimated nutritional requirements for sepsis. *ongoing Increased risk for malnutrition related to acute illness as evidenced by elevated WBC levels and fever. Expected Outcomes/Goals - Monitor tolerance of EN w/ goal of pt meeting at least 80% of estimated nutritional needs, labs trending WNL, normal GI function, and skin integrity/wt maintenance Dietitian Recommendations * Recommend continuing Fibersource HN at 65 ml/hr, Prosource TID, Free Water Flush: 200 ml Q6h via GT Provides: 2052 kcal/day, 129 gm protein/day, and 2064 ml free water/day Meets: 102% of lower end of estimated caloric needs and 99% of upper end of estimated protein needs Follow Up Mod Risk: F/U in 3-5 days
[2017-06-05 12:25] VITALS: BP 138/83; PULSE 110; RESP 20; TEMP 99.5; O2SAT 94
--- NOTE | 2017-06-05 12:30 | NUR ---
ROUNDS PT IN BED, NO S/S OF DISTRESS OR SOB NOTED, PT HAS NO FACIAL GRIMACING NOTED FOR PAIN, PT IN STABLE CONDITION, WILL CONTINUE TO MONITOR PT FOR ANY CHANGES. Addendum: 06/05/17 at 1321 by Jeannette Nunez RN PT HAS A LOW GRADE FEVER, COOLING MEASURES IN PLACE, WILL CONTINUE TO MONITOR PT FOR ANY CHANGES.
[2017-06-05] MEDS: KCL 20 mEq in D5NS 1000 mL 1,000 ML IV SCH (13:07)
[2017-06-05] MEDS: CEFEPIME 1 GM in D5W 50 ML IV SCH (13:07)
--- NOTE | 2017-06-05 13:46 | NUR ---
DISCHARGE PLANNING Faxed DC Planning order to [facility]a [place] office [phone]. Notified Faina Vera Will follow up. Meanwhile; Faxed referral to Tamir Sommer [facility] [phone]. Will follow up. Addendum: 06/05/17 at 1547 by Nadia WU Spoke with Faina Vera who stated pending central office financial clearance prior to evaluating patient. Jody will return call with update. IDP will follow up.
[2017-06-05] MEDS: metroNIDAZOLE 250 mg/NS 50 ML IV SCH ×2 (14:56→22:41)
[2017-06-05] MEDS ORDERED: MINERAL OIL 133 ML ENEMA RC ONE (15:00)
--- NOTE | 2017-06-05 15:00 | NUR ---
MD ROUNDS DR GARZA ROUNDING, AWARE OF PATIENTS CONDITION AND HEART RATE, LOW GRADE FEVERS AND PATIENT NOT ABLE TO HAVE A BOWEL MOVEMENT SINCE MONDAY.
[2017-06-05 17:34] VITALS: BP 135/72; PULSE 106; RESP 18; TEMP 99.8; O2SAT 99
--- NOTE | 2017-06-05 18:12 | NUR ---
CLOSING NOTE PT IN BED, NO S/S OF DISTRESS OR SOB NOTED, PT HAS NO FACIAL GRIMACING NOTED FOR PAIN, PT IN STABLE CONDITION. PT AWAKE, ALERT ORIENTED X1, NONVERBAL, TRACKS WITH EYES. PT HAS A G TUBE, PATENT, FLUSHES, PT TOLERATING FEEDINGS ORDERED. PT ON OXYGEN 2 LITERS VIA NASAL CANNULA. PT HAS A SUPRAPUBIC CATHETER DRAINING VIA GRAVITY. PT ON AIR MATTRESS, SEIZURE, FALL AND ASPIRATION PRECAUTIONS IN PLACE. BED AT LOWEST POSITION, CALL LIGHT WITHIN REACH, WILL ENDORSE CARE OF PT TO INCOMING NURSE.
[2017-06-05 20:00] VITALS: PULSE 124; RESP 18; TEMP 101.8; O2SAT 96
--- NOTE | 2017-06-05 20:00 | NUR ---
Opening Notes Received patient lying in bed. Patient responds to his name but is non verbal. Subclavian portacath infusing D5 NS KCL 20meq @ 75 ml/hr. Dressing is clean and dry. GT feeding fibersource at 65mL/hr and is patent, clean and dry. He is bed rest. Supra pubic catheter noted with yellow urine. No pain or acute respiratory distress noted. Temp at 101.1 and HR at 124. Cooling measures initiated with cold packs placed on back of neck and underarms. Wound noted on right inner foot. Seizure and isolation precautions in place. Call light within reach and safety measures will be monitored on rounds.
--- NOTE | 2017-06-05 22:11 | NUR ---
Rounds Patient is lying in bed asleep. No pain or distress noted. Call light within reach, seizure precautions in place, and bed alarm is active. Will continue to monitor.
[2017-06-06 00:05] VITALS: BP 115/75; PULSE 101; RESP 18; TEMP 99.3; O2SAT 96
--- NOTE | 2017-06-06 00:05 | NUR ---
Rounds Patient is asleep with eyes closed. Temperature at 99.7. Continued with Cooling measures. No pain or distress noted. Call light within reach and safety precautions are being observed.
--- NOTE | 2017-06-06 02:35 | NUR ---
Rounds No change in the patients status. No s/s of pain or distress. Will continue to monitor.
--- NOTE | 2017-06-06 04:40 | NUR ---
Rounds Patient is sleeping comfortably. Temperature is at 99.1. Replaced with new ice packs to continue cooling measures. call light within reach and seizure precautions in place. Will continue to monitor.
[2017-06-06 04:49] VITALS: BP 144/93; PULSE 107; RESP 18; TEMP 101.1; O2SAT 99
[2017-06-06] MEDS: metroNIDAZOLE 250 mg/NS 50 ML IV SCH ×3 (05:22→21:29)
[2017-06-06] MEDS: KCL 20 mEq in D5NS 1000 mL 1,000 ML IV SCH (05:51)
--- NOTE | 2017-06-06 06:53 | NUR ---
Closing Notes Patient is lying in bed with eyes. Temperature is at 98.9 and heart rate at 108. No s/s of pain or respiratory distress. All needs have been met this shift. call light within reach and safety precautions are being observed. Will endorse to the morning shift.
[2017-06-06 08:00] VITALS: BP 128/82; PULSE 111; RESP 18; TEMP 99.8; O2SAT 96
--- NOTE | 2017-06-06 08:00 | NUR ---
Opening Note Pt received from [facility] shift nurse, reports of fluctuating temperature requiring monitoring and cooling methods overnight. Pt current Temp of 99.8, Rt subclavian portocath present/infusing, GTube feeding at 65ml/hr and suprapubic cateter in place and draining to gravity. Pt has no signs of SOB or distress, no grimacing or indications of pain or discomfort. Pt ALOC x1 and responds to voice. O2 administered at 2L via NC. Safety, fall and seizure precautions are in place with the bed at the lowest position, bed alarm and padding applied to side rails
[2017-06-06] MEDS: LACTULOSE 20 GM/30 ML UDC GT SCH (09:00)
[2017-06-06] MEDS: PANTOPRAZOLE GRANULES PACKET 40 MG GT SCH (09:44)
[2017-06-06] MEDS: LACTOBACILLUS RHAMNOSUS GG 1 CAP CAPSULE GT SCH (09:44)
[2017-06-06] MEDS: BACLOFEN 10 MG TABLET GT SCH ×3 (09:44→21:29)
[2017-06-06] MEDS: LUBIPROSTONE 24 MCG CAPSULE PO SCH ×2 (09:44→21:29)
[2017-06-06] MEDS: DOCUSATE SODIUM 100 MG/10 ML UDC GT SCH (09:45)
[2017-06-06] MEDS: ASCORBIC ACID 500 MG TABLET GT SCH (09:45)
[2017-06-06] MEDS: ENOXAPARIN SODIUM 40 MG/0.4 ML SYRINGE SUBCUT SCH (09:45)
[2017-06-06] MEDS: METOPROLOL TARTRATE 25 MG TABLET GT SCH ×2 (09:45→21:29)
--- NOTE | 2017-06-06 09:53 | NUR ---
DISCHARGE PLANNING Spoke with Faina Vera who stated still pending central office financial approval. Once approved will come and evaluate patient. Meanwhile; Called Tamir Sommer [facility] who stated are able to accept patient back should patient be denied by LTAC. DCP will follow up. Addendum: 06/06/17 at 1158 by Nadia Feliz DP Spoke with Faina Vera who stated central office financially approved and will come evaluate patient for bed assignment. DCP will continue to follow up.
--- NOTE | 2017-06-06 10:05 | NUR ---
Rounding note Pt turned and found to have elevated temp of 101.5, cooling measures applied, no s/s of SOB or distress, no pain indicated or grimacing present. Safety, fall and seizure precautions in place will reassess temperature.
[2017-06-06] MEDS: MUPIROCIN 2% TOPICAL OINTMENT 22 GM NS SCH ×2 (11:25→21:30)
[2017-06-06 11:35] VITALS: BP 135/90; PULSE 111; RESP 16; TEMP 99.5; O2SAT 97
--- NOTE | 2017-06-06 11:56 | NUR ---
Social Service Note: LIQUOR RUNNER placed call to pt's brother, Jacob ([phone]); Jacob states that pt has been a assisted resident at [facility]; pt's brother would like pt to return to [facility] unless pt needs LTAC at [place]. Pt's brother is open to either DC plans; [facility] vs LTAC. Pt's brother states that he has not yet spoken to the physician about current plan of care. Pt's brother states that he is currently happy with the plan of care. LIQUOR RUNNER will follow up as needed.
[2017-06-06] MEDS: CEFEPIME 1 GM in D5W 50 ML IV SCH (12:01)
--- NOTE | 2017-06-06 12:05 | NUR ---
Rounding note Pt resting in bed with no s/s of SOB or distress, no facial grimacing or pain noted. Pt had slight cough and I suctioned thick clear sputum from his oral cavity. Safety, fall, aspiration and seizure precautions left in place.
[2017-06-06] MEDS: ACETAMINOPHEN 650 MG/20.3 ML UDC GT PRN (13:38)
--- NOTE | 2017-06-06 13:46 | NUR ---
Pt Care/Rounding Note Pt cleaned, turned and changed, tylenol administered for fever. Will reassess. PASTRY SOUS CHEF found pt to have copious secretions so I suctioned his oral cavity removing clear thick secretions. Safety, fall and aspiration precautions left in place with HOB elevated, bed in lowest position and bed alarm on. Addendum: 06/06/17 at 1601 by Rafia Salas RN Pt Temp was reassessed 45 minutes later and was 99.0
[2017-06-06 15:09] VITALS: BP 141/87; PULSE 107; RESP 16; TEMP 99.3; O2SAT 96
--- NOTE | 2017-06-06 15:58 | NUR ---
Rounding note Pt resting in bed, no s/s of SOB or distress, no grimacing or pain indicated. Pt arousable to voice. HOB elevated, bed in lowest position, bed alarm on.
--- NOTE | 2017-06-06 17:53 | NUR ---
Rounding Note/Temperature Check Pt found resting in bed, aroused by voice, temp of 99.4. No s/s of SOB or distress, no signs of pain or grimacing. IVF fluids infusing via portacath and tube feedings continue at 65ml/hr. Safety, fall, aspiration and seizure precautions in place.
--- NOTE | 2017-06-06 18:54 | NUR ---
Closing note pt aloc x 1, aroused by voice but unable to follow commands and nonverbal. Pt has intermittent low grade fevers which can be controlled by administration of tylenol and cooling measures. G tube is patent and running at 65 ml/hr, IV fluids infusing at 75ml/hr and suprapubic catheter draining to gravity. Aspiration, safety, fall and seizure precautions are in place with the bed left in the lowest position, and bed alarm on. HOB is elevated. Will endorse care to NOC shift nurse
[2017-06-06 20:00] VITALS: BP 141/97; PULSE 119; RESP 20; TEMP 99.5; O2SAT 96
--- NOTE | 2017-06-06 20:00 | NUR ---
Initial PM Notes Pt was received lying in bed awake and non-verbal. No eye tracking or acute distress or seizure activity noted. Side rails are padded. media monitor is showing ST with HR ranging between 117 and 119. IVF of D5NS + 20meq KCL is infusing well via Rt Subclavian Cath at 75ml/hr with the subclavian site dressing dry and intact. GT Feeding of FiberSource HN is in progress at 65ml/hr with residual of 5ml. HOB is elevated 45 degrees to prevent aspiration. Suprapubic cath to gravity drainage is draining clear yellowish urine. Fall and safety precautions are in place. Three side rails are up, bed alarm is on and bed is in the lowest and locked positions. Will continue to monitor pt.
--- NOTE | 2017-06-06 21:30 | NUR ---
HS Medications HS medications given. Pt's condition remains unchanged. Pt is tolerating GT feeding well. Will continue to monitor pt.
--- NOTE | 2017-06-06 23:00 | NUR ---
New G Tube feeding Bag New G Tube feeding bag hung with new G Tube feeding tubing. Pt is tolerating GT Feeding well. HOB remains elevated 45 degrees. G Tube Residual 5ml. No acute distress or seizure activity noted. IVF is infusing well via right Subclavian line. Will continue to monitor pt.
[2017-06-07] VITALS (7 sets, daily range): BP systolic 136–148; BP diastolic 88–98; PULSE 111–119; RESP 18–21; TEMP 97.6–99.3; O2SAT 96–98
[2017-06-07] MEDS: KCL 20 mEq in D5NS 1000 mL 1,000 ML IV SCH ×2 (00:39→18:41)
--- NOTE | 2017-06-07 01:00 | NUR ---
Rounds Pt is sleeping without any distress noted. Pt is tolerating GT Feeding well. IVF is infusing well via right Subclavian central line.Fall and safety precautions are in place. Will continue to monitor pt.
--- NOTE | 2017-06-07 03:00 | NUR ---
Rounds Pt is sleeping comfortably in bed. IVF and GT feeding are infusing well. Will continue to monitor pt.
--- NOTE | 2017-06-07 05:00 | NUR ---
Rounds Pt is tolerating GT feeding well. No acute distress noted at this time. IVF is infusing well.
[2017-06-07] MEDS: metroNIDAZOLE 250 mg/NS 50 ML IV SCH ×3 (05:22→22:39)
--- NOTE | 2017-06-07 06:00 | NUR ---
Wound Care Rt ankle wound was cleansed with normal saline and pat dried around the wound. Sure prep was applied to periwound. Oil emulsion dressing was applied onto wound bed, followed by foam dressing. No drainage or odor noted.
--- NOTE | 2017-06-07 07:00 | NUR ---
Closing Note Pt is awake and resting comfortably in bed. No acute distress noted at this time. All pt's needs were attended to. No fall or injury noted this shift. Will endorse to day shift nurse.
--- NOTE | 2017-06-07 08:00 | NUR ---
AM Initial Notes Pt aaox1, non verbal and sometimes follows with eyes. No signs of facial grimacing for pain or discomfort. No sob, difficulty breathing or distress noted. O2 via nasal canula @ 2L in place. solution analyst in place. Left subclavian flakito cath with IV fluid infusing noted. G-tube in place with no residual noted. Tube feeding Fibersource @ 65ml/hr infusing. Supra pubic catheter in place with clear yellow urine draining to bag. Healing wound to right ankle covered with dressing. Seizure, fall and safety precautions enforced with padded rails, bed alarm armed, 3 rails up and close to nurse's station. Repositioned and kept comfortable. Will monitor.
--- NOTE | 2017-06-07 09:35 | NUR ---
Wound Re-Evaluation: Wound Consult ordered for Low Shane Score. Patient re-evaluated for a low Shane score of 11. Patient was awake, alert, non verbal and received in a [place] Bed with an IsoFlex DMITRY mattress with low air-loss therapy initiated. Patient needs to be turned in bed. Skin is fair (-). Bilateral lower extremities have contractures; Sacral and buttocks areas have pink scar tissue; G-tube jun-site is pink, intact. No open wounds other than right medial ankle, scar tissue areas still intact. Recommend continue: Reposition patient side to side only every 2 hours with pillow support. Elevate, off-load and float bilateral heels with pillows lengthwise at all times. Offload pressure areas with pillows for pressure re-distribution. Perform skin care and monitor skin integrity Q shift. Use moisture barrier cream on moisture susceptible areas QID and PRN for soiling. Place moisture barrier cream on G-tube jun-site followed by drain sponge daily, and PRN. Maintain patient on a low air-loss mattress. Skin assessment: 1. Right medial ankle: Wound, possibly skin tear, present on admission. Wound care performed by shift boss nurse this morning. Dressing not removed for assessment secondary to doing so would decrease wound temperature and retard wound healing rate. Recommend continue: Cleanse wound with normal saline. Pat dry around wound. Apply sure prep to periwound. Apply Hydrogel onto wound bed. Place foam dressing onto wound bed. Form wound care daily, and as needed for dressing soiling or dislodgment. Will continue to follow as a Shane.
--- NOTE | 2017-06-07 10:03 | NUR ---
DISCHARGE PLANNING Called [facility] Vera liaison left voice message requesting return call back with update. DCP will follow up. Addendum: 06/07/17 at 1353 by Ji Yu RN >> Per Faina Gold denied acceptance after Ltac evaluation. Dr. Jacobson made aware.
[2017-06-07] MEDS: LACTULOSE 20 GM/30 ML UDC GT SCH (10:18)
[2017-06-07] MEDS: DOCUSATE SODIUM 100 MG/10 ML UDC GT SCH (10:18)
[2017-06-07] MEDS: METOPROLOL TARTRATE 25 MG TABLET GT SCH ×2 (10:22→22:40)
[2017-06-07] MEDS: LACTOBACILLUS RHAMNOSUS GG 1 CAP CAPSULE GT SCH (10:23)
[2017-06-07] MEDS: ASCORBIC ACID 500 MG TABLET GT SCH (10:23)
[2017-06-07] MEDS: PANTOPRAZOLE GRANULES PACKET 40 MG GT SCH (10:23)
[2017-06-07] MEDS: BACLOFEN 10 MG TABLET GT SCH ×3 (10:23→22:40)
[2017-06-07] MEDS: LUBIPROSTONE 24 MCG CAPSULE PO SCH ×2 (10:23→22:40)
[2017-06-07] MEDS: MUPIROCIN 2% TOPICAL OINTMENT 22 GM NS SCH ×2 (10:24→22:40)
[2017-06-07] MEDS: ENOXAPARIN SODIUM 40 MG/0.4 ML SYRINGE SUBCUT SCH (10:24)
--- NOTE | 2017-06-07 11:00 | NUR ---
Rounds Pt awake with no signs of facial grimacing for pain or discomfort. No distress noted. Repositioned and kept comfortable. Will monitor.
[2017-06-07] MEDS: CEFEPIME 1 GM in D5W 50 ML IV SCH (12:58)
--- NOTE | 2017-06-07 13:30 | NUR ---
Rounds Pt asleep. No signs of facial grimacing for pain or discomfort. No sob, difficulty breathing or distress noted. Repositioned and kept comfortable. Will continue to monitor.
--- NOTE | 2017-06-07 13:35 | NUR ---
Dr. Indira RIOS doing rounds.
--- NOTE | 2017-06-07 13:45 | NUR ---
DC Planning: Notified dr. Jacobson that [facility] denied acceptance and also asking dcplanning for pt. returning to [facility]. stated " to call [facility] for bed and to call dr. Cornell for IV ABX. He will come back later to dc pt. if there is bed at [facility]" -- Meghann, Charge nurse made aware.
--- NOTE | 2017-06-07 14:42 | NUR ---
DISCHARGE PLANNING Spoke with Asim in admitting at [facility] patient assigned to room 5C RN to report [phone] bed available anytime. Any ambulance can be arranged. Placed transportation packet in nurse station. Pending DC order. Addendum: 06/07/17 at 1605 by Ji Yu RN >> Late entry: Notified dr. Jacobson that pt. has bed available at [facility] room # 5C and Meghann, charge nurse is calling dr. Cornell for iv ABX.
--- NOTE | 2017-06-07 15:30 | NUR ---
Rounds Pt asleep. No significant changes noted. Repositioned and kept comfortable. Will monitor.
--- NOTE | 2017-06-07 17:37 | NUR ---
Rounds Pt asleep. No signs of facial grimacing for pain or discomfort. No distress noted. Vital signs stable. Repositioned and will continue to monitor.
--- NOTE | 2017-06-07 18:30 | NUR ---
Closing notes Pt asleep. No significant changes noted. Kept comfortable. Will endorse care to incoming nurse.
--- NOTE | 2017-06-07 20:00 | NUR ---
Initial PM Notes Pt was received lying in bed awake and non-verbal. No eye tracking or acute distress or seizure activity noted. Side rails are padded. library monitor is showing ST. IVF of D5NS + 20meq KCL is infusing well via Rt Subclavian Cath at 75ml/hr with the subclavian site dressing dry and intact. GT Feeding of FiberSource HN is in progress at 65ml/hr with residual of 0ml. HOB is elevated 45 degrees to prevent aspiration. Suprapubic cath to gravity drainage is draining clear yellowish urine. Fall and safety precautions are in place. Three side rails are up, bed alarm is on and bed is in the lowest and locked positions. Will continue to monitor pt.
--- NOTE | 2017-06-07 20:35 | NUR ---
Report RN called [facility] to give report and spoke with Val. Per Val, [facility] does not have Isolation Room and room 5C that was previously assigned to pt is not an Isolation Room. Val stated she would call their chick sexer and then call back. Charge Nurse Hemal was notified.
--- NOTE | 2017-06-07 20:50 | NUR ---
Report Val called back from [facility] to obtain report. While giving her report, she placed RN on hold to verify with her DON why pt needs to continue IV antibiotic until 06/12/17. After informing Val the IV antibiotics order is per Infectious Disease MD, she obtained report and stated pt has been assigned to Room 27A.
--- NOTE | 2017-06-07 23:21 | NUR ---
Discharge Note Pt was transferred to [facility] via [facility] in stable condition. Prior to discharge, the following were performed: 1. Picture of Rt Ankle wound was taken by Admitting Nurse Teresa and given to Store Administrator for MD to review and sign. 2. Skin Audit tool was updated. 3. Receptionist Scheduler was removed and given to unit educator. 4. GT Feeding was stopped. G Tube was flushed with 50ml water and clamped. 5. Wrist ID band was removed and placed in the shredder. Plain wrist ID band with pt's name and was placed on pt's wrist. 6. IVF was discontinued and Rt Subclavian Portacath was flushed with 10ml Normal Saline and saline locked. 7. Suprapubic Catheter's drainage bag was emptied.
== END 2017-06-07 23:21 | DRG 871 ==
LOC: SED 22:52 → SIC 05-31 00:45 → STU 06-02 19:06
PROVIDERS: ADMIT Family Medicine; ATTEND Family Medicine
PROC: 0T2BX0Z Change Drainage Device in Bladder, External Approach (ICD-10-PCS; principal; 2017-05-31)
DX: A41.9 Sepsis, unspecified organism (principal); R65.21 Severe sepsis with septic shock; N17.9 Acute kidney failure, unspecified; E44.1 Mild protein-calorie malnutrition; N39.0 Urinary tract infection, site not specified; T83.090A Other mechanical complication of cystostomy catheter, initial encounter; G20 Parkinson's disease; K59.00 Constipation, unspecified; E86.0 Dehydration; F03.90 Unspecified dementia, unspecified severity, without behavioral disturbance, psychotic disturbance, mood disturbance, and anxiety; I10 Essential (primary) hypertension; G35 Multiple sclerosis; N31.9 Neuromuscular dysfunction of bladder, unspecified; E11.9 Type 2 diabetes mellitus without complications; N40.0 Benign prostatic hyperplasia without lower urinary tract symptoms; Z16.24 Resistance to multiple antibiotics; Z78.9 Other specified health status; Z87.440 Personal history of urinary (tract) infections; Z74.01 Bed confinement status; Z22.322 Carrier or suspected carrier of Methicillin resistant Staphylococcus aureus; Z88.0 Allergy status to penicillin; Z88.1 Allergy status to other antibiotic agents; Z93.1 Gastrostomy status; Z68.28 Body mass index [BMI] 28.0-28.9, adult; Z79.899 Other long term (current) drug therapy; Y83.8 Other surgical procedures as the cause of abnormal reaction of the patient, or of later complication, without mention of misadventure at the time of the procedure; Y92.89 Other specified places as the place of occurrence of the external cause
CPT/HCPCS: 36415; 71010; 74000-TC; 76770; 80048; 80053; 80307; 81000-TC; 82550-TC; 83605; 84484; 85007; 85025; 85027; 85610-TC; 85730-TC; 86710; 87040-TC; 87081; 87086; 93005; 94760; 96361; 96365; 96367; 99291; A6209; G0480; G0481; G0482; J0692; J1450; J1650; J1956; J2185; J3490; J7030; J7060

== ENCOUNTER 2018-04-20 18:09 | Inpatient (IN) | payer MEDICAID, OTHER ==
[~2018-04-20] VITALS: Ht 167.6 cm; Wt 69.9 kg
[~2018-04-20 18:09] MED LIST changes: -ACET-2165 GT; -ACET-73 PO; -ACET160O10 PO; +ACET325T53 GT; -ACET325T53 PO; +ACIDOPHILUS PROB1 MG GT; -ALBU1.256 IH; -ALBU2.5V7 INH; -ARIP10TA14 PO; -ASA81 GT; -ASCO-339 GT; -ASCO-339 PO; -ASCO120G2 PO; -BACL10TA PO; -BUDE0.5A IH; -BUDE180A3 INH; -CARB-61 GT; -CEFE1FRO IV; -CEL20 PO; -COL250 PO; -COLI150V10 IV; -COLL100 GT; -COPAXI20 SQ; -CRAN1TAB5 GT; +CRAN450C GT; -CRAN450C PO; -CYAN100082 SQ; -DULR10 RC; -ENOX40DI8 SQ; -ENOX80DI8 SQ; -FER300L GT; -FINA5TAB3 GT; -GLAT20KI3 SQ; -HEPA500014 SUBCUT; -HYDR-1189 PO; -IBUP-1479 GT; -IBUP-1479 PO; -LACT-96 GT; -LACT1CAP GT; -LACT1CAP61 GT; -LEVA1.25 NEB; -LEVA1.2526 IH; +LEVA1.2527 NEB; -LIP20 GT; -MAGN400O4 GT; -MULT-1117 GT; -MULT1CAP34 PO; -NA P118E RC; -POTA20PA4 GT; -SENN-153 GT; -TAMS-11 PO; -TYLL650 GT; -UTI STAT GT; -ZIN220 GT; -[UNRECOGNIZED DRUG - CODE] PO
--- NOTE | 2018-04-20 18:16 | NUR ---
Pt was brought in by ALS from [facility]. Placed in room 6 . Placed on chief librarian branch, blood pressure machine and pulse oximeter. To gown for exam. Side rails up. Pt came in via vent, and villalobos in place.
[2018-04-20 18:17] VITALS: BP_SYST 105
--- NOTE | 2018-04-20 18:22 | NUR ---
Pt was brought in by ALS from [facility], complaining of altered mental status from baseline and fever. Per paramedics, last normal baseline mentation was yesterday. Per facility, pt "usually bites down when being suctioned, but today pt did not bite down." Pt also had fever of 101 and was given Tylenol 640mg. Upon arrival, temperature was at 99.0. Pt came in with ventilation and has villalobos in place. Pt is Full code. No other injuries/complaints per patient or noted.
--- NOTE | 2018-04-20 18:29 | NUR ---
ER Dr. Becker at bedside examining patient.
--- NOTE | 2018-04-20 19:00 | NUR ---
Verbal order received from Dr. Becker to access port-a-cath. Site is intact, skin is warm to touch no drainage noted. Cleansed site with betadine using sterile technique, no bleeding, erythema, or infiltration. Flushed with 5cc for patency, wasted 15cc of blood obtained bloodwork. Flushed with 10cc. Pt tolerated well.
[2018-04-20 19:01] LABS: BILIRUBIN,URINE 1+ (NEGATIVE); BLOOD, URINE 2+ (NEGATIVE); CLARITY/URINE CLOUDY (CLEAR); COLOR,URINE YELLOW (YELLOW); GLUCOSE,URINE NEGATIVE (NEGATIVE); KETONES,URINE NEGATIVE (NEGATIVE); LEUKOCYTE ESTERASE ,URINE 2+ (NEGATIVE); NITRITE, URINE POSITIVE (NEGATIVE); PROTEIN URINE 3+ (NEGATIVE)
[2018-04-20 19:03] LABS: BACTERIA,URINE MODERATE /HPF (None Seen); WBC,URINE >100 /HPF (0-3)
[2018-04-20 19:09] LABS: BARBITURATE, URINE POSITIVE (NEG <=200); BENZODIAZEPINE, URINE NEGATIVE (NEG <=150); CANNABINOID, URINE NEGATIVE (NEG <=50); COCAINE, URINE NEGATIVE (NEG <=150); METHAMPHETAMINES SCREEN,URINE NEGATIVE (NEG <=500); OPIATE, URINE NEGATIVE (NEG <=100); PHENCYCLIDINE SCREEN,URINE NEGATIVE (NEG <=25); UR TRICYCLIC ANTIDEPRESSANTS NEGATIVE (NEG <=300); URINE AMPHETAMINE NEGATIVE (NEG <=500); URINE METHADONE NEGATIVE (NEG <=200); URINE OXYCODONE SCREEN NEGATIVE (NEG <=100); URINE PROPOXYPHENE SCREEN NEGATIVE (NEG <=300)
[2018-04-20 19:12] LABS: BASOPHILS # (AUTO) 0.2 K/uL (0.0-0.2); BASOPHILS % (AUTO) 1.4 % (0.0-2.0); EOSINOPHILS # (AUTO) 0.1 K/uL (0.0-0.4); EOSINOPHILS % (AUTO) 0.7 % (0.0-4.0); HEMATOCRIT 32.9 % (36-54); HEMOGLOBIN 10.6 g/dL (14.0-18.0); LYMPHOCYTES # (AUTO) 0.8 K/uL (1.0-5.5); MEAN CORPUSCULAR HEMOGLOBIN 29 pg (27-31); MEAN CORPUSCULAR HGB CONC 32 % (32-36); MEAN CORPUSCULAR VOLUME 91 fL (79.0-98.0); MONOCYTES # (AUTO) 0.9 K/uL (0.0-1.0); MONOCYTES % (AUTO) 5.6 % (1.7-9.3); NEUTROPHILS # (AUTO) 13.3 K/uL (1.8-7.7); NEUTROPHILS % (AUTO) 87.3 % (40.0-70.0); PLATELET COUNT (AUTO) 239 K/uL (130-430); RED BLOOD CELL COUNT(AUTO) 3.62 MIL/uL (4.2-6.2); RED CELL DISTRIBUTION WIDTH 14.3 % (9.0-15.0); WHITE BLOOD COUNT (AUTO) 15.3 K/uL (4.8-10.8)
[2018-04-20] MEDS ORDERED: LEVOFLOXACIN 500 MG/D5W 100 ML IV ONE (19:15)
[2018-04-20 19:24] LABS: PROTHROMBIN TIME 9.9 SECS (9.5-12.5)
[2018-04-20 19:26] LABS: ANION GAP 9 (5-15); CALCIUM 8.8 mg/dL (8.4-11.0); CHLORIDE 102 mmol/L (98-107); CREATININE 1.73 mg/dL (0.55-1.30); GLUCOSE 177 mg/dL (70-99); POTASSIUM 3.7 mmol/L (3.5-5.1); SODIUM SERUM 137 mmol/L (136-145); UREA NITROGEN, BLOOD 42 mg/dL (8-21)
[2018-04-20 19:27] LABS: GFR AFRICAN AMERICAN 54 mL/min (>90)
[2018-04-20] MEDS ORDERED: ALBU2.5V7 INH ×2 (19:31→19:32)
[2018-04-20] MEDS ORDERED: ATRMDI INH ×2 (19:33→19:34)
[2018-04-20] MEDS ORDERED: PHEN125O3 GT (19:36)
[2018-04-20] MEDS ORDERED: LACO100T2 GT (19:37)
[2018-04-20] MEDS ORDERED: LANS30CA56 GT (19:38)
[2018-04-20] MEDS ORDERED: LEVE100S2 GT (19:39)
[2018-04-20] MEDS ORDERED: PHEN97.22 GT (19:41)
[2018-04-20 19:43] LABS: ALANINE AMINOTRANSFERASE 35 U/L (12-78); ALBUMIN 2.1 g/dL (3.4-4.8); ASPARTATE AMINOTRANSFERASE 17 U/L (10-37); FREE T4 (FREE THYROXINE) 0.4 ng/dL (0.6-1.6); TOTAL BILIRUBIN 1.2 mg/dL (0.0-1.0)
[2018-04-20] MEDS ORDERED: POTA20LI4 GT (19:43)
[2018-04-20 19:44] LABS: ALCOHOL, BLOOD < 3 mg/dL (<10)
[2018-04-20] MEDS ORDERED: CHOL100038 GT (19:45)
--- NOTE | 2018-04-20 19:47 | NUR ---
report given to LESTER Morrissey. All care endorsed
[2018-04-20] MEDS ORDERED: TYLL650 GT ×2 (19:48→19:54)
[2018-04-20] MEDS ORDERED: [UNRECOGNIZED DRUG - CODE] TP (19:49)
--- NOTE | 2018-04-20 19:55 | NUR ---
Medication reconciliation completed with information provided by [facility]. Any prior medication reconciliation on file was reviewed and corrected.
--- NOTE | 2018-04-20 20:42 | NUR ---
Pt returned from radiology via [facility] in stable condition
--- NOTE | 2018-04-20 21:31 | NUR ---
Pt resting comfortably in bed with no signs of distress
[2018-04-20] MEDS ORDERED: ACETAMINOPHEN 650 MG SUPP.RECT RC ONE (22:15)
[2018-04-20] MEDS ORDERED: NACL 0.9% 2,000 ML IV ONE (22:15)
[2018-04-20] MEDS ORDERED: VANCOMYCIN HCL 1 GM/NS PREMIX 250 ML IV ONE (22:15)
--- NOTE | 2018-04-20 22:33 | NUR ---
Patient will be admitted to [facility]. Admitted to ICU. Will go to room 4. Belongings list completed. Summary report printed. Report will be given at bedside.
[2018-04-20 23:10] VITALS: BP_SYST 98
--- NOTE | 2018-04-20 23:10 | NUR ---
ICU ADMIT Pt is obtunded, reacts only to painful stimuli. Pt is trached, Portex size 7. RR even and unlabored, SPO2 97%. ST noted on monitor. Supra pubic catheter in place/intact from Tamir oSmmer. Port-a-cath to right subclavian with IVF infusing. multiple scratches noted to bilateral lower extremities, and discoloration noted to sacrum. No belongings noted. Safety precautions in place. Will continue to monitor.
[2018-04-20 23:15] VITALS: BP_SYST 98
--- NOTE | 2018-04-20 23:20 | NUR ---
Dr. Jacobson at bedside examining patient.
[2018-04-20 23:30] VITALS: BP_SYST 98
[2018-04-20] MEDS ORDERED: ALBUTEROL SULFATE 0.083% 2.5 MG/3 ML VIAL.NEB INH PRN ×2 (23:30)
[2018-04-20] MEDS ORDERED: ACETAMINOPHEN 650 MG/20.3 ML UDC GT PRN ×2 (23:30)
[2018-04-20] MEDS ORDERED: IPRATROPIUM BROMIDE 17 mCg/ACTUATION, 12.9 GM AER.W.ADAP INH PRN (23:30)
--- NOTE | 2018-04-20 23:30 | NUR ---
Sepsis protocol in process per Dr. Jacobson. 3L of NS, broad spectrum ATBX, blood cultures and lactic acid in process. Will continue to monitor.
[2018-04-20] MEDS ORDERED: COMMUNICATION ORDER XX ONE (23:45)
[2018-04-21] VITALS (33 sets, daily range): BP systolic 85–147
[2018-04-21] MEDS ORDERED: NACL 0.9% 2,000 ML IV SCH
[2018-04-21] MEDS ORDERED: MEROPENEM 500 MG in NS 50 ML IV SCH ×2
[2018-04-21] MEDS ORDERED: IPRATROPIUM BROM 0.5 MG/2.5 ML VIAL.NEB (ATROVENT) INH PRN (00:15)
[2018-04-21] MEDS ORDERED: MEROPENEM 500 MG VIAL IV ONE ×2 (00:19→06:40)
[2018-04-21] MEDS: KCL 20 mEq in D5/0.45NS 1000mL 1,000 ML IV SCH ×2 (01:45→12:31)
[2018-04-21] MEDS: IPRATROPIUM BROM 0.5 MG/2.5 ML VIAL.NEB (ATROVENT) INH SCH ×6 (03:54→23:16)
[2018-04-21] MEDS: ALBUTEROL SULFATE 0.083% 2.5 MG/3 ML VIAL.NEB INH SCH ×6 (03:55→23:16)
--- NOTE | 2018-04-21 04:28 | NUR ---
Pt resting in bed. VSS. No signs of SOB or acute distress noted. Will continue to monitor.
--- NOTE | 2018-04-21 06:20 | NUR ---
DR LICEA EXCHANGE NOTIFIED OF CONSULT.TALKED TO SISI
[2018-04-21] MEDS: MEROPENEM 500 MG in NS 50 ML IV SCH ×3 (06:46→21:15)
--- NOTE | 2018-04-21 07:06 | NUR ---
DR SCHWARTZ EXCHANGE NOTIFIED OF CONSULT.TALKED TO BRENDA
--- NOTE | 2018-04-21 07:07 | NUR ---
RT NOTES Spare trach & ambubag at bedside. Alarms set and audible. Will monitor pt. Addendum: 04/21/18 at 0823 by Smiley Sims RT Amended: Links added.
[2018-04-21 07:13] LABS: CALCIUM 8.1 mg/dL (8.4-11.0); CREATININE 1.93 mg/dL (0.55-1.30); POTASSIUM 3.8 mmol/L (3.5-5.1)
--- NOTE | 2018-04-21 07:20 | NUR ---
ENDORSEMENT Pt care endorsed to LESTER Saavedra using nursing SBAR.
--- NOTE | 2018-04-21 07:32 | NUR ---
PAGE OUT FOR DR GARZA REGARDING PT'S LOW BP, SPOKE TO ORION, AWAITING RETURN CALL.
--- NOTE | 2018-04-21 07:59 | NUR ---
RN OPENING NOTE Pt presented with uro-sepsis and is a chronic trach to vent" Portex 7, AC 12, TV 550, FIO2 50%, Peep 05. RR even and unlabored, breath sounds clear, SPO2 99%. Pt is obtunded, only reacts only to painful stimuli. Supra-pubic catheter in place/intact from [place], draining to gravity, polly urine output noted. Port-a-cath to right subclavian with IVF infusing. No belongings noted. seizure and Fall precautions. Will continue to monitor.
--- NOTE | 2018-04-21 08:07 | NUR ---
SPOKE TO DR CARMICHAEL (DATA COMMUNICATIONS SOFTWARE CONSULTANT FOR DR GARZA) REGARDING PT'S DECREASED PT. MADE AWARE THAT CURRENT BP IS 91/51 W/ MAP 66 AND BP AT 0730 WAS 83/38 W/ MAP 56. ASKED IF HE WANTED TO ORDER PRN LEVOPHED DRIP BUT DECLINED, WANTS US TO CALL HIM BACK IF BP/MAP DECREASES AGAIN.
--- NOTE | 2018-04-21 08:45 | NUR ---
RT NOTES Vent changed to AC 14 500 40% by Dr Saul MD also aware no ABG order/drawn since admission. Addendum: 04/21/18 at 0900 by Smiley Sims RT Amended: Links added.
--- NOTE | 2018-04-21 08:48 | NUR ---
PT APPEARED TO HAVE 60 [address]ILE [address] SCHWARTZ AND RT WAS AT BEDSIDE. O2 SAT DECREASED TO 75% FOR APPROX 10 SECONDS, HR INCREASED TO 103/SINUS TACHYCARDIA. DR SCHWARTZ ORDERED TO GIVE 1MG IVP ATIVAN NOW. ORDERS CARRIED OUT.
[2018-04-21] MEDS ORDERED: LORazepam 2 MG/ML VIAL ONE (08:53)
[2018-04-21] MEDS: LORazepam 2 MG/ML VIAL IVP PRN ×2 (08:58→17:01)
[2018-04-21] MEDS: METOPROLOL TARTRATE 25 MG TABLET GT SCH ×2 (09:00→20:57)
--- NOTE | 2018-04-21 09:00 | NUR ---
0900 METOPROLOL HELD DUE TO HYPOTENSION: BP 91/41 PT REPOSITIONED AND AROUSED, MAP INCREASED TO 67. AKOSUA MONTEIRO NOTIFIED OF HYPOTENSION, WILL CONTINUE TO ADVISE DIRECTED BY
[2018-04-21] MEDS: LACOSAMIDE 100 MG TABLET GT SCH ×2 (09:31→20:56)
[2018-04-21] MEDS: DOCUSATE SODIUM 100 MG CAPSULE PO SCH (09:31)
[2018-04-21] MEDS: BACLOFEN 10 MG TABLET GT SCH ×3 (09:31→20:57)
[2018-04-21] MEDS: ASCORBIC ACID 500 MG TABLET GT SCH ×2 (09:31→20:56)
[2018-04-21] MEDS: ENOXAPARIN SODIUM 30 MG/0.3 ML SYRINGE SUBCUT SCH (09:32)
--- NOTE | 2018-04-21 09:40 | NUR ---
PAGE OUT FOR DR LICEA REGARDING POSITIVE BLOOD CULTURES, AWAITING RETURN CALL.
--- NOTE | 2018-04-21 09:45 | NUR ---
Nutrition Update Shane Scale 13 noted. Pt admitted for UTI, sepsis. Diet: Pivot 1.5 at 50 ml/hr, Free Water Flush: 150 Q8H via GT BMI: 25 kg/m2 RD to follow per nutrition care standards.
--- NOTE | 2018-04-21 09:50 | NUR ---
NEURO-DIAGNOSTIC TEAM AT BEDSIDE, PREFORMING EEG
--- NOTE | 2018-04-21 11:15 | NUR ---
SEIZURE OCCURRENCE: 15 SECONDS MILD SEIZURE NOTED. ONE RN MOVED TO [facility] TO RETRIEVE ATIVAN, BUT SEIZURE STOPPED BEFORE ATIVAN WAS ADMINISTERED. VS STABLE AND NEURO BACK TO BASELINE, NO S/S OF TRAUMA.
--- NOTE | 2018-04-21 11:25 | NUR ---
RT NOTES Sputum collected.Per LESTER Saavedra, previous sample was not enough. Sputum delivered and endorsed to LAB dept.
--- NOTE | 2018-04-21 11:39 | NUR ---
PAGE OUT FOR DR CARMICHAEL REGARDING DECREASED BP 80/42 MAP 55. SPOKE TO ORION. AWAITING RETURN CALL.
--- NOTE | 2018-04-21 13:00 | NUR ---
DR. GUO (HOSPITALIST) AT BEDSIDE NEW ORDERS RECEIVED, INCLUDING NEURO CONSULT REQUEST
--- NOTE | 2018-04-21 13:14 | NUR ---
CONSULT CALLED TO DR SEQUEIRA, SPOKE TO KALANI, AWAITING RETURN CALL.
[2018-04-21] MEDS ORDERED: NS 500 ML IV ONE (13:15)
--- NOTE | 2018-04-21 13:20 | NUR ---
DR. SEQUEIRA AGREED TO NEURO CONSULT, PLANS TO ASSESS PATIENT THIS AFTERNOON
--- NOTE | 2018-04-21 13:57 | NUR ---
Dietitian Recommendations * Recommend continuing Pivot 1.5 at 50 ml/hr, Free Water Flush: 150 Q8H via GT per MD Provides: 1800 kcal/day, 113 gm protein/day, and 1361 ml free water/day Meets: 86% of lower end of estimated caloric needs and 108% of lower end of estimated protein needs LP, RD Please refer to Nutrition Assessment for details.
[2018-04-21] MEDS: NACL 0.9% 1,000 ML IV SCH ×2 (14:08→22:22)
[2018-04-21] MEDS ORDERED: NOREPINEPHRINE 4 MG/4 ML VIAL IV ONE (14:51)
--- NOTE | 2018-04-21 15:00 | NUR ---
NIKOLAI GONZALEZ RN INITIATE LEVOPHED DRIP AT 2MCG/MIN.
[2018-04-21] MEDS: NOREPINEPHRINE BITARTRATE 4 MG in NS 246 ML IV PRN (15:08)
[2018-04-21] MEDS: GENTAMICIN 120 MG/ ISO-OSM 100 ML PREMIX IV SCH (15:08)
--- NOTE | 2018-04-21 15:42 | NUR ---
NIKOLAI GONZALEZ RN TITRATE LEVOPHED DRIP TO 4MCG/MIN.
[2018-04-21] MEDS ORDERED: CHLO473M5 MM (16:31)
--- NOTE | 2018-04-21 16:50 | NUR ---
SEIZURE OCCURRENCE, 45 SECONDS MILD SEIZURE LASTING 45 SECONDS. ATIVAN ADMINISTERED AT APPROXIMATELY 30 SECONDS. VS AND SPO2 REMAINED WNL DURING OCCURRENCE, PT RETURNED TO BASELINE WITH NO SIGN OF TRAUMA.
[2018-04-21 16:54] LABS: HEMATOCRIT 31.5 % (36-54); HEMOGLOBIN 10.4 g/dL (14.0-18.0); MEAN CORPUSCULAR HEMOGLOBIN 30 pg (27-31); MEAN CORPUSCULAR HGB CONC 33 % (32-36); MEAN CORPUSCULAR VOLUME 91 fL (79.0-98.0); PLATELET COUNT (AUTO) 187 K/uL (130-430); RED BLOOD CELL COUNT(AUTO) 3.46 MIL/uL (4.2-6.2); RED CELL DISTRIBUTION WIDTH 15.1 % (9.0-15.0); WHITE BLOOD COUNT (AUTO) 20.6 K/uL (4.8-10.8)
--- NOTE | 2018-04-21 17:17 | NUR ---
NIKOLAI GONZALEZ RN TITRATE LEVOPHED DRIP TO 2MCG/MIN.
[2018-04-21 18:10] LABS: BAND % (MANUAL) 1 % (0-6); BASOPHILS % (MANUAL) 0 % (0-2); EOSINOPHILS % (MANUAL) 0 % (0-7); LYMPHOCYTES % (MANUAL) 6 % (20-46); MONOCYTES % (MANUAL) 3 % (0-11)
--- NOTE | 2018-04-21 18:30 | NUR ---
FINAL PRESENTATION REPOSITIONED PT FOR COMFORT. PT IS CLEAN, DRY, WITH NO S/S OF DISCOMFORT.
--- NOTE | 2018-04-21 20:00 | NUR ---
OBTUNDED. OPENS EYES SPONTANEOUSLY, DOES NOT FOLLOW COMMANDS. TRACHE TO VENT. SUCTIONED WITH SMALL AMOUNT OF THIN WHITE MUCUS OBTAINED. ORAL CARE GIVEN. GT FEEDING WITH PIVOT 1.5 INFUSING AT 50CC/HR. RESIDUAL CHECK 0. HOB UP 30 DEGREES. EXTREMITIES SLIGHTLY CONTRACTED. RIGHT SUBCLAVIAN SHERRON-CATH DRSG D/I. LEVOPHED AT 2 MCG/MIN. SIDE RAILS PADDED. SUPRAPUBIC CATHETER WITH CLEAR YELLOW URINE WITH SEDIMENTS TO GRAVITY. SR. TURNED AND REPOSITIONED. CONTACT ISOLATION OBSERVED.
[2018-04-21] MEDS: PHENobarbital 30 MG TABLET GT SCH (20:58)
[2018-04-21] MEDS: levETIRAcetam 500 MG TABLET GT SCH (20:58)
[2018-04-21] MEDS: PHENYTOIN 100 MG/4 ML UDC (DILANTIN) GT SCH (20:59)
[2018-04-21] MEDS ORDERED: CHLORHEXIDINE GLUCONATE TP SCH (21:00)
[2018-04-21] MEDS: CHLORHEXIDINE GLUCONATE 15 ML/DOSE, 480 ML MM SCH (21:00)
--- NOTE | 2018-04-21 22:00 | NUR ---
HS CARE. MICKY WELL. SUCTIONED. TURNED. GT FLUSHED WITH 150CC H2O. UO GOOD.
[2018-04-22] VITALS (43 sets, daily range): BP systolic 62–151
--- NOTE | 2018-04-22 | NUR ---
DOZES ON AND OFF. GRIMACES ON NOXIOUS STIMULI. CLENCHES TEETH UPON ORAL CARE. SUCTIONED TRACHE WITH SAME RESULTS. RESIDUAL CHECK 0. BP 118/65, LEVOPHED TITRATED DOWN TO 1 MCG/MIN. TURNED.
--- NOTE | 2018-04-22 02:00 | NUR ---
SUCTIONED. REPOSITIONED.
--- NOTE | 2018-04-22 02:30 | NUR ---
1 MODERATE PASTY BROWN STOOL DEFECATED. ASHLEY-CARE GIVEN. CHG BATH RENDERED. BACK CARE, SUPRA-PUBIC CATHETER CARE, Z-GUARD APPLIED TO PERINEUM, SKIN CARE DONE. DOES NOT ASSIST WITH TURNING. MICKY PROC WELL.
--- NOTE | 2018-04-22 03:00 | NUR ---
BP 141/76, LEVOPHED OFF.
[2018-04-22] MEDS: IPRATROPIUM BROM 0.5 MG/2.5 ML VIAL.NEB (ATROVENT) INH SCH ×6 (03:03→23:14)
[2018-04-22] MEDS: ALBUTEROL SULFATE 0.083% 2.5 MG/3 ML VIAL.NEB INH SCH ×6 (03:03→23:14)
--- NOTE | 2018-04-22 04:00 | NUR ---
SUCTIONED WITH SAME RESULTS. ORAL CARE GIVEN. RESIDUAL CHECK 0. TYLENOL GR 10 GT GIVEN FOR TEMP 100.4, TEMPORAL ARTERY SCAN. REPOSITIONED.
[2018-04-22] MEDS: ACETAMINOPHEN 325 MG TABLET GT PRN ×3 (04:19→20:22)
--- NOTE | 2018-04-22 06:00 | NUR ---
SLEPT INTERMITTENTLY. TEMP 99.2 , TEMPORAL ARTERY SCAN. SUCTIONED. TURNED. UO 2000CC CLOUDY SOHA URINE WITH SEDIMENTS OUT. GT FLUSHED WITH 150CC H2O. NO SEIZURES NOTED. REMAINS IN GUARDED CONDITION.
[2018-04-22] MEDS: MEROPENEM 500 MG in NS 50 ML IV SCH ×2 (06:01→13:05)
[2018-04-22] MEDS: NACL 0.9% 1,000 ML IV SCH ×3 (06:02→18:56)
[2018-04-22 06:40] LABS: CALCIUM 8.2 mg/dL (8.4-11.0); CREATININE 1.68 mg/dL (0.55-1.30); POTASSIUM 3.4 mmol/L (3.5-5.1)
[2018-04-22 06:51] LABS: BASOPHILS % (AUTO) 0.3 % (0.0-2.0); EOSINOPHILS # (AUTO) 0.2 K/uL (0.0-0.4); EOSINOPHILS % (AUTO) 1.5 % (0.0-4.0); HEMATOCRIT 28.4 % (36-54); HEMOGLOBIN 9.4 g/dL (14.0-18.0); LYMPHOCYTES # (AUTO) 0.7 K/uL (1.0-5.5); LYMPHOCYTES % (AUTO) 6.9 % (20.5-51.5); MEAN CORPUSCULAR HEMOGLOBIN 30 pg (27-31); MEAN CORPUSCULAR HGB CONC 33 % (32-36); MEAN CORPUSCULAR VOLUME 91 fL (79.0-98.0); MONOCYTES # (AUTO) 0.6 K/uL (0.0-1.0); MONOCYTES % (AUTO) 6.1 % (1.7-9.3); NEUTROPHILS # (AUTO) 8.8 K/uL (1.8-7.7); NEUTROPHILS % (AUTO) 85.2 % (40.0-70.0); PLATELET COUNT (AUTO) 142 K/uL (130-430); RED BLOOD CELL COUNT(AUTO) 3.12 MIL/uL (4.2-6.2); RED CELL DISTRIBUTION WIDTH 14.9 % (9.0-15.0); WHITE BLOOD COUNT (AUTO) 10.3 K/uL (4.8-10.8)
--- NOTE | 2018-04-22 07:20 | NUR ---
Report Report received from slot shift manager nurse, LESTER Saavedra.
--- NOTE | 2018-04-22 08:10 | NUR ---
Opening note: Patient resting comfortably. No indications of pain, patient stable at this time, no notable signs of distress at this time. Patient on trach to vent, settings: AC 14; TV 500; FiO2 40%; PEEP 5. Patient tube feeding, pivot 1.5 at rate of 50ml/hr. Patient ST on monitor currently. IV access, portacath to right upper chest. IVF NS 125ml/hr. Patient to have breathing treatments Q4H. Patient has suprapubic catheter, cloudy, polly, sediments. Lovenox for DVT prophylaxis. Patient here for Sepsis, currently on Gentamycin and Merrem for antibiotic therapy. GI prophylaxis of Protonix via GT. Reported no seizure activity during PM shift, 3 seizures during AM shift 04/21/18. Will continue to monitor for changes in status, and changes in orders.
--- NOTE | 2018-04-22 08:40 | NUR ---
SPC/GT site/Wound care/BM/Linen Change/Oral Care Suprapubic catheter leaking, irrigated with sterile water 50ml, prior to irrigation output was 30ml, after irrigation returned 650ml of urine, yellow, cloudy, sediment. GT site has open excoriated area, measures: 0.6x0.7cm. Picture in chart. Cleansed with normal saline and gauze. Changed wound dressing and secured with paper tape. Wound care: blanchable redness to sacrum. Cleansed with normal saline and gauze. Applied z-guard, and covered with foam dressing for added protection. Patient turned q2h, patient on low air loss mattress. Patient already has dietary consult and wound consult. Blanchable redness noted to bilateral heels, floated upon pillow support. Patient has x1 BM, soft brown. Linen change and bath wipes completed. CHG bath completed during PM shift. Oral care provided with Peridex solution. Patient tolerated well. RT at bedside for tracheal suctioning and oral suctioning as well.
[2018-04-22] MEDS ORDERED: NON-FORMULARY MEDICATION (Lansoprazole 30 MG) GT SCH (09:00)
--- NOTE | 2018-04-22 09:10 | NUR ---
Pharmacy Called pharmacy regarding dilantin not available in [facility], will bring to ICU unit.
[2018-04-22] MEDS: ENOXAPARIN SODIUM 30 MG/0.3 ML SYRINGE SUBCUT SCH (09:35)
[2018-04-22] MEDS: MULTIVITS,CA,MINERALS/IRON/FA 1 TABLET GT SCH (09:36)
[2018-04-22] MEDS: levETIRAcetam 500 MG TABLET GT SCH ×2 (09:36→20:21)
[2018-04-22] MEDS: ASCORBIC ACID 500 MG TABLET GT SCH ×2 (09:36→20:20)
[2018-04-22] MEDS: DOCUSATE SODIUM 100 MG CAPSULE PO SCH (09:36)
[2018-04-22] MEDS: CHOLECALCIFEROL (VITAMIN D3) 2,000 UNIT TABLET GT SCH (09:36)
[2018-04-22] MEDS: LACOSAMIDE 100 MG TABLET GT SCH ×2 (09:36→20:20)
[2018-04-22] MEDS: PANTOPRAZOLE GRANULES PACKET 40 MG GT SCH (09:36)
[2018-04-22] MEDS: PHENobarbital 30 MG TABLET GT SCH ×2 (09:37→20:21)
[2018-04-22] MEDS: BACLOFEN 10 MG TABLET GT SCH ×3 (09:37→20:20)
[2018-04-22] MEDS: CHLORHEXIDINE GLUCONATE 15 ML/DOSE, 480 ML MM SCH ×2 (09:37→21:27)
[2018-04-22] MEDS: METOPROLOL TARTRATE 25 MG TABLET GT SCH ×2 (09:38→20:21)
--- NOTE | 2018-04-22 10:21 | NUR ---
Dr. Saul RIOS at bedside evaluating patient. Made aware of elevated glucose trend and potassium level of 3.4. Will follow up regarding changes in orders or additional orders.
[2018-04-22] MEDS ORDERED: GLUCOSE 15 GM GEL (in 37.5 GM TUBE) PO PRN ×2 (10:30)
[2018-04-22] MEDS ORDERED: DEXTROSE 50%-WATER 50 ML DISP.SYRIN IVP PRN ×2 (10:30)
--- NOTE | 2018-04-22 11:10 | NUR ---
ICU DIRECTOR JOSE MARX RN CONTACTED UNIT REGARDING PT CONDITION. MADE JOSE AWARE PT HAS BEEN OFF LEVOPHED SINCE 299, NO LONGER MEETS ICU CRITERIA, AND WILL CONTACT DR CARMICHAEL TO ASK IF PT IS STABLE FOR TRANSFER TO TELE.
--- NOTE | 2018-04-22 11:15 | NUR ---
Dr. Rowland Spoke with Dr. Rowland on unit regarding low potassium level, urine irrigation need, and request for transfer to the floor by director due to patient no longer meeting ICU criteria. Per MD patient's levophed was discontinued at 0300, and has only been discontinued for 8 hours. Informed of new order to decrease IVF from 125ml/hr to 50ml/hr. Per MD patient needs are for close monitoring of blood pressure and heart rate, see note. Patient unable to transfer to tele per MD. Order to be entered for potassium supplement.
[2018-04-22] MEDS ORDERED: POTASSIUM CHLORIDE 20 MEQ TAB.PRT.SR GT ONE (11:30)
[2018-04-22] MEDS: PHENYTOIN 100 MG/4 ML UDC (DILANTIN) GT SCH ×2 (11:32→20:20)
[2018-04-22] MEDS: INSULIN REGULAR, HUMAN 100 UNITS/ML, 10 ML VIAL (novoLIN R) SUBCUT PRN ×2 (11:35→17:11)
--- NOTE | 2018-04-22 12:40 | NUR ---
Oral care/Turn/Tylenol Tylenol given for temperature 101.6. Ice pack therapy to bilateral groin and bilateral axilla. Oral care given patient tolerated, patient trach suctioned, oral suctioning provided. Moderate amount of white sputum. Patient turned upon pillow support, heels floated upon pillow support.
[2018-04-22] MEDS: LORazepam 2 MG/ML VIAL IVP PRN (13:06)
--- NOTE | 2018-04-22 13:10 | NUR ---
Seizure Seizure activity reported, Ativan given. Patient sinus tachycardic, will continue to monitor and follow up with MD as needed.
--- NOTE | 2018-04-22 13:35 | NUR ---
Seizure Seizure activity reported, patient sinus tach on the monitor. Patient afebrile at this time 98.9 with temporal scan.
--- NOTE | 2018-04-22 13:39 | NUR ---
PAGE OUT FOR DR CARMICHAEL REGARDING PT'S HR IN 140s, SPOKE WITH TAYLOR, AWAITING CALL BACK.
[2018-04-22] MEDS ORDERED: ONDANSETRON HCL 4 MG/2 ML VIAL IVP PRN (14:00)
[2018-04-22] MEDS ORDERED: MORPHINE 2 MG/ML INJ. SYRINGE IVP PRN (14:00)
--- NOTE | 2018-04-22 14:35 | NUR ---
Change in status Patient febrile at 103.9 oral temperature, patient remains sinus tach at 148. Patient blood pressure has decreased 115/91 to 75/46. Patient covered with ice packs at bilateral axilla, bilateral groin, posterior neck, and cooling cloths applied to forehead. Patient dusky/pale. Warm to touch. Pale tongue and lips noted. Patient RR at 23. Patient receiving IVF at rate of 50ml/hr. Patient receiving merrem and gentamicin for antibiotic therapy. MD Cabrera paged regarding status. Spoke with Juany at answering service.
[2018-04-22] MEDS ORDERED: NOREPINEPHRINE 4 MG/4 ML VIAL IV ONE (14:48)
--- NOTE | 2018-04-22 14:48 | NUR ---
Levophed Levophed started at rate of 2mcg/min. LESTER Ibarra witnessed start of infusion.
--- NOTE | 2018-04-22 15:00 | NUR ---
NIKOLAI MEDINA RN TITRATE LEVOPHED DRIP TO 4MCG/MIN.
--- NOTE | 2018-04-22 15:01 | NUR ---
Dr. Deborah Cornell paged regarding change in status. Awaiting return call, spoke with:
--- NOTE | 2018-04-22 15:10 | NUR ---
NIKOLAI MEDINA RN TITRATE LEVOPHED DRIP TO 6MCG/MIN.
--- NOTE | 2018-04-22 15:20 | NUR ---
NIKOLAI MEDINA RN TITRATE LEVOPHED DRIP TO 8MCG/MIN.
--- NOTE | 2018-04-22 15:30 | NUR ---
NIKOLAI MEDINA RN TITRATE LEVOPHED DRIP TO 10MCG/MIN.
--- NOTE | 2018-04-22 15:40 | NUR ---
NIKOLAI MEDINA RN TITRATE LEVOPHED DRIP TO 12MCG/MIN.
--- NOTE | 2018-04-22 15:47 | NUR ---
Dr. Rowland Spoke with Dr. Rowland regarding patient status change. Will implement the sepsis protocol again. Orders to be entered: lab redraw, lactic acids, blood cultures, and 1L bolus x2. Levophed for blood pressure maintenance. Orders to be entered by RN.
--- NOTE | 2018-04-22 15:59 | NUR ---
Lab Lab at bedside to draw labs ordered by .
[2018-04-22] MEDS ORDERED: NACL 0.9% 1,000 ML IV ONE ×2 (16:00)
--- NOTE | 2018-04-22 16:00 | NUR ---
NIKOLAI MEDINA RN TITRATE LEVOPHED DRIP TO 14MCG/MIN.
--- NOTE | 2018-04-22 16:20 | NUR ---
Dr. Deborah Cornell returned call, no additional antibiotics at this time. Aware of sepsis protocol to begin today. Aware of patient status.
[2018-04-22] MEDS: GENTAMICIN 120 MG/ ISO-OSM 100 ML PREMIX IV SCH (16:37)
--- NOTE | 2018-04-22 16:41 | NUR ---
Forgotten save Patient given baclofen and gentamicin at 1525, forgotten save on medication administration.
[2018-04-22 16:47] LABS: MEAN CORPUSCULAR HEMOGLOBIN 30 pg (27-31); MEAN CORPUSCULAR HGB CONC 32 % (32-36); MEAN CORPUSCULAR VOLUME 91 fL (79.0-98.0); PLATELET COUNT (AUTO) 162 K/uL (130-430); RED BLOOD CELL COUNT(AUTO) 2.32 MIL/uL (4.2-6.2); RED CELL DISTRIBUTION WIDTH 14.6 % (9.0-15.0); WHITE BLOOD COUNT (AUTO) 20.7 K/uL (4.8-10.8)
[2018-04-22 16:55] LABS: CREATININE 1.88 mg/dL (0.55-1.30); POTASSIUM 4.3 mmol/L (3.5-5.1)
[2018-04-22 17:01] LABS: ALBUMIN 1.4 g/dL (3.4-4.8); TOTAL BILIRUBIN 1.5 mg/dL (0.0-1.0)
[2018-04-22 17:05] LABS: HEMATOCRIT 21.2 % (36-54); HEMOGLOBIN 6.9 g/dL (14.0-18.0)
--- NOTE | 2018-04-22 17:18 | NUR ---
PAGE OUT FOR DR CARMICHAEL REGARDING CRITICAL LAB RESULTS. SPOKE TO TAYLOR. AWAITING RETURN CALL.
[2018-04-22 17:33] LABS: BAND % (MANUAL) 7 % (0-6); BASOPHILS % (MANUAL) 0 % (0-2); EOSINOPHILS % (MANUAL) 1 % (0-7); LYMPHOCYTES % (MANUAL) 3 % (20-46); MONOCYTES % (MANUAL) 4 % (0-11)
--- NOTE | 2018-04-22 17:33 | NUR ---
Dr. Rowland Spoke with Dr. Rowland regarding critical values and update of status. Orders to transfuse 2 units of PRBC, premedicate with tylenol. Type and screen. Discontinue lovenox. Orders to be entered by nurse.
--- NOTE | 2018-04-22 18:03 | NUR ---
PAGE OUT FOR DR CARMICHAEL. SPOKE TO TAYLOR. AWAITING RETURN CALL.
--- NOTE | 2018-04-22 18:10 | NUR ---
Dr. Rowland Spoke with Dr. Rowland regarding findings of asymmetrical abdomen, more distended than this morning/afternoon, hypoactive bowel sounds present. Requested an abdomen and pelvis CT. Orders to be entered by nurse.
[2018-04-22] MEDS: NOREPINEPHRINE BITARTRATE 4 MG in NS 246 ML IV PRN (18:57)
--- NOTE | 2018-04-22 19:05 | NUR ---
Opening Note: Received patient A/O x 1. Pt nonverbal. Pt sinus tachy on monitor. Pt trached to vent, settings: AC 14, TV 500, FIO2 40%, PEEP 5, saturating @ 99%. RU chest port-a-cath infusing Levophed @ 14mcg/min, NS @ 125mls/hr. Patient on tube-feeding via G-Tube, Pivot 1.5 @ 50mls/hr, no residual noted. Asymmetrical ABD distention noted. Suprapubic catheter in place, urine draining to gravity. Heels floating. Seizure precautions in place. Safety, aspiration and isolation precautions in place. HOB elevated, call light within reach. Bed locked, in lowest position. Will continue to monitor.
--- NOTE | 2018-04-22 19:48 | NUR ---
Dr. Kashif Rowland on the phone. MD requested and notified that medical necessity should be indicated in the progress notes prior to blood transfusion in lieu of consent. stated "I have never heard of such thing before." MD is also made aware regarding pt's current condition. MD verbalized and agreed he will add the note for blood transfusion as medical necessity in the progress notes.
--- NOTE | 2018-04-22 21:15 | NUR ---
IV PLACEMENT: #22 gauge angiocath placed to L hand. Use of asceptic technique. Opsite placed over site. Blood return noted. Flushed with 10 cc of normal saline. No evidence of infiltration noted. Patient tolerated well.
--- NOTE | 2018-04-22 21:30 | NUR ---
BT INITIATION: Consent signed per Dr. Rowland agreeing to administration of blood. Blood has been type and crossmatched. Blood sent from blood bank. Information on unit of blood checked against patient wristband at bedside by two nurses. All information matches. Patient or responsible alliance party informed of potential complications associated with blood transfusion. Informed of possible transfusion reaction symptoms. Aware of need to notify nurse at once of itching, shortness of breath, flushing, feeling of impending doom, or other symptoms not previously present. Vital signs taken within 5 minutes prior to initiation of transfusion. RN will remain with patient for first 15 minutes of transfusion at which time vital signs will be re-assessed.
--- NOTE | 2018-04-22 23:30 | NUR ---
Patient off unit for CT scan.
--- NOTE | 2018-04-22 23:56 | NUR ---
Patient back to unit. Patient VSS. No distress noted. Will continue to monitor.
[2018-04-23] VITALS (25 sets, daily range): BP systolic 99–169
[2018-04-23] MEDS: MEROPENEM 500 MG in NS 50 ML IV SCH ×4 (00:02→22:34)
[2018-04-23] MEDS: INSULIN REGULAR, HUMAN 100 UNITS/ML, 10 ML VIAL (novoLIN R) SUBCUT PRN ×4 (00:10→17:36)
--- NOTE | 2018-04-23 01:01 | NUR ---
Dr. Rowland notified of CT scan results. New orders received.
[2018-04-23] MEDS: NOREPINEPHRINE BITARTRATE 4 MG in NS 246 ML IV PRN (01:06)
--- NOTE | 2018-04-23 01:10 | NUR ---
BT INITIATION: Consent signed per Dr. Rowland agreeing to administration of blood. Blood has been type and crossmatched. Blood sent from blood bank. Information on unit of blood checked against patient wristband at bedside by two nurses. All information matches. Patient or responsible green party informed of potential complications associated with blood transfusion. Informed of possible transfusion reaction symptoms. Aware of need to notify nurse at once of itching, shortness of breath, flushing, feeling of impending doom, or other symptoms not previously present. Vital signs taken within 5 minutes prior to initiation of transfusion. RN will remain with patient for first 15 minutes of transfusion at which time vital signs will be re-assessed.
--- NOTE | 2018-04-23 01:20 | NUR ---
CONSULT CALLED EXCHANGE TO REQUEST FOR DR. DUNIA REDDY FOR UROLOGY CONSULT. SPOKE WITH
--- NOTE | 2018-04-23 01:25 | NUR ---
DR. MARCUS CALLED EXCHANGE TO REQUEST FOR DR. MARCUS FOR NEPHRO CONSULT. SPOKE WITH YESSENIA.
[2018-04-23] MEDS: IPRATROPIUM BROM 0.5 MG/2.5 ML VIAL.NEB (ATROVENT) INH SCH ×6 (03:00→23:24)
[2018-04-23] MEDS: ALBUTEROL SULFATE 0.083% 2.5 MG/3 ML VIAL.NEB INH SCH ×6 (03:00→23:24)
--- NOTE | 2018-04-23 03:10 | NUR ---
CHG Bath CHG bath rendered. Patient tolerated care well. Will continue to monitor.
[2018-04-23] MEDS: NACL 0.9% 1,000 ML IV SCH (03:26)
[2018-04-23] MEDS: LORazepam 2 MG/ML VIAL IVP PRN (04:18)
[2018-04-23 05:22] LABS: ALBUMIN 1.4 g/dL (3.4-4.8); CALCIUM 7.4 mg/dL (8.4-11.0); CREATININE 1.8 mg/dL (0.55-1.30); TOTAL BILIRUBIN 2.5 mg/dL (0.0-1.0)
[2018-04-23 05:23] LABS: BASOPHILS % (AUTO) 0.2 % (0.0-2.0); EOSINOPHILS % (AUTO) 0.1 % (0.0-4.0); HEMATOCRIT 24.3 % (36-54); HEMOGLOBIN 8.1 g/dL (14.0-18.0); LYMPHOCYTES # (AUTO) 1.1 K/uL (1.0-5.5); LYMPHOCYTES % (AUTO) 4.8 % (20.5-51.5); MEAN CORPUSCULAR HEMOGLOBIN 30 pg (27-31); MEAN CORPUSCULAR HGB CONC 34 % (32-36); MEAN CORPUSCULAR VOLUME 89 fL (79.0-98.0); MONOCYTES # (AUTO) 1.2 K/uL (0.0-1.0); MONOCYTES % (AUTO) 5.6 % (1.7-9.3); NEUTROPHILS # (AUTO) 19.7 K/uL (1.8-7.7); NEUTROPHILS % (AUTO) 89.3 % (40.0-70.0); PLATELET COUNT (AUTO) 138 K/uL (130-430); RED BLOOD CELL COUNT(AUTO) 2.72 MIL/uL (4.2-6.2); RED CELL DISTRIBUTION WIDTH 14.4 % (9.0-15.0)
--- NOTE | 2018-04-23 07:10 | NUR ---
Closing Notes: Patient VSS. Report given at bedside.
--- NOTE | 2018-04-23 07:45 | NUR ---
AM ROUNDS: Report received from LESTER Givens for continuation of care. No s/s of distress noted.
[2018-04-23] MEDS ORDERED: ALBUMIN HUMAN 5% 500 ML IV ONE (08:15)
[2018-04-23] MEDS: METOPROLOL TARTRATE 25 MG TABLET GT SCH ×2 (09:00→22:33)
[2018-04-23] MEDS: CHOLECALCIFEROL (VITAMIN D3) 2,000 UNIT TABLET GT SCH (09:16)
[2018-04-23] MEDS: PHENYTOIN 100 MG/4 ML UDC (DILANTIN) GT SCH ×2 (09:16→22:30)
[2018-04-23] MEDS: PANTOPRAZOLE GRANULES PACKET 40 MG GT SCH (09:16)
[2018-04-23] MEDS: MULTIVITS,CA,MINERALS/IRON/FA 1 TABLET GT SCH (09:17)
[2018-04-23] MEDS: ASCORBIC ACID 500 MG TABLET GT SCH ×2 (09:17→22:33)
[2018-04-23] MEDS: BACLOFEN 10 MG TABLET GT SCH ×3 (09:17→22:32)
[2018-04-23] MEDS: PHENobarbital 30 MG TABLET GT SCH ×2 (09:17→22:31)
[2018-04-23] MEDS: levETIRAcetam 500 MG TABLET GT SCH ×2 (09:17→22:31)
[2018-04-23] MEDS: DOCUSATE SODIUM 100 MG CAPSULE PO SCH (09:17)
[2018-04-23] MEDS: LACOSAMIDE 100 MG TABLET GT SCH ×2 (09:17→22:31)
[2018-04-23] MEDS: CHLORHEXIDINE GLUCONATE 15 ML/DOSE, 480 ML MM SCH ×2 (09:18→22:34)
--- NOTE | 2018-04-23 10:00 | NUR ---
MD ROUNDS: Dr. Cartagena in to see patient.
--- NOTE | 2018-04-23 10:11 | NUR ---
Wound Evaluation: Late note for 101 secondary to patient care. Wound Consult ordered for Low Shane Score. Patient evaluated for a low Shane score of 13. Patient was awake, alert, non verbal, and received in a Aure Bed with an IsoFlex DMITRY mattress with low air-loss therapy initiated. Patient needs to be turned in bed. Skin is fair (-). Bilateral lower extremities have contractures. Recommend reposition patient side to side only every 2 hours with pillow support. Elevate, off-load and float bilateral heels with pillows lengthwise at all times. Offload pressure areas with pillows for pressure re-distribution. Perform skin care and monitor skin integrity Q shift. Use moisture barrier cream on moisture susceptible areas QID and PRN for soiling. Place moisture barrier cream on Suprapubic Catheter jun-site daily, and PRN. Maintain patient on a low air-loss mattress. Skin assessment: 1. Sacral and buttocks areas have pink scar tissue: 2. G-tube jun-site: Open area with 100% red, hypergranulated tissue. Measures 1.5 cm x 1.3 cm. Recommend: Cleanse with normal Saline. Place moisture barrier cream on G-tube jun-site followed by drain sponge daily, and PRN. 3. Right Dorsal Foot: Scar tissue over a bony prominence. Recommend: Cover with a foam dressing for protection. Change dressing and check site daily. Will continue to follow as a Shane.
[2018-04-23] MEDS ORDERED: NS 500 ML IV ONE (10:30)
--- NOTE | 2018-04-23 13:00 | NUR ---
MD ROUNDS: Dr. Woodium in to see patient.
--- NOTE | 2018-04-23 13:45 | NUR ---
PAGED: dr. Cartagena paged regarding positive micro results.
[2018-04-23] MEDS: SODIUM BICARBONATE 8.4% JECT 50 MEQ in 0.45% NACL 1,000 ML IV SCH (13:54)
[2018-04-23] MEDS: COLISTIMETHATE SODIUM 75 MG in NS 50 ML IV SCH (13:55)
--- NOTE | 2018-04-23 16:39 | NUR ---
PAGED: Dr. Jacobson paged for orders.
--- NOTE | 2018-04-23 16:56 | NUR ---
TELEMETRY: Patient is telemetry status. Spoke with Virgen, charge attendant, she states no nurses are available. Patient will have to be transferred at change of shift.
--- NOTE | 2018-04-23 19:02 | NUR ---
CLOSING NOTE: All needs met. No change in assessment. Will endorse to NOC shift nurse.
--- NOTE | 2018-04-23 19:30 | NUR ---
Initial Transfer note Received pt from ICU via bed. Pt obtunded. ST on the monitor HR 124, afebrile. Ventilator dependent Portex 7 setting at AC 14, FiO2 40%, TV 500, Peep 5. No acute resp distress noted. R. subclavian portacath dressing C/D/I. GT feeding Pivot 1.5 infusing at 50cc/hr no residual noted. Angel arms edema noted 2+ edema. Sacral wound scar noted, R. lower buttock wound noted, applied z-guard and optifoam, photos taken. R. leg scratch noted. Angel legs floated on pillows, pt on CARVALHO. HOB maintained elevated above 30 degrees. Suprapubic villalobos noted with yellow urine with sediments. Contact isolation maintained. Safety measures in place. Will continue to monitor pt.
--- NOTE | 2018-04-23 22:30 | NUR ---
Rounds/hygiene care/med pass Pt opens his eyes. Bed bath provided with BRASS ROLLER assist. Photos of wounds taken and placed in chart. Meds passed via GT. Tolerated well. HOB maintained elevated above 30 degrees. Repositioned. Will continue to monitor.
[2018-04-24] MEDS: SODIUM BICARBONATE 8.4% JECT 50 MEQ in 0.45% NACL 1,000 ML IV SCH ×3 (00:30→14:38)
[2018-04-24] MEDS: INSULIN REGULAR, HUMAN 100 UNITS/ML, 10 ML VIAL (novoLIN R) SUBCUT PRN ×4 (00:40→17:49)
--- NOTE | 2018-04-24 00:40 | NUR ---
Rounds/Blood sugar check Blood sugar check 335, 8 units Regular insulin administered per protocol. Continuous GT feeding infusing at 50cc ordered. HOB maintained elevated. Will continue to monitor.
--- NOTE | 2018-04-24 02:10 | NUR ---
Rounds Pt asleep. No s/s of respiratory distress. No change in vent settings. HOB maintained elevated. IV R. subclavian portacath infusing NaBicarb as ordered. Continuous GT feeding running at 50cc/hr as ordered. Repositioned. Safety measures in place. Will continue to monitor.
[2018-04-24] MEDS: IPRATROPIUM BROM 0.5 MG/2.5 ML VIAL.NEB (ATROVENT) INH SCH ×4 (04:06→15:00)
[2018-04-24] MEDS: ALBUTEROL SULFATE 0.083% 2.5 MG/3 ML VIAL.NEB INH SCH (04:07)
--- NOTE | 2018-04-24 04:35 | NUR ---
Oral Care Oral care and suction provided small thin secretions noted. HOB maintained elevated. Vent settings unchanged. Will continue to monitor pt.
--- NOTE | 2018-04-24 06:30 | NUR ---
Closing notes Pt obtunded. No changed in vent settings. ST on the monitor. Blood sugar checked 320, 8 units Regular insulin administered per protocol. IV Sodium Bicarb infusing as ordered R. subclavian portacath. Subprapubic catheter intact with good urine output. GT feeding Pivot infusing at 50cc/hr. HOB maintained elevated. Safety measure in place. To endorse to am nurse.
[2018-04-24] MEDS: MEROPENEM 500 MG in NS 50 ML IV SCH ×3 (06:37→21:48)
--- NOTE | 2018-04-24 07:25 | NUR ---
RT NOTES Received trach to vent pt. on settings stated on vent flow sheet. Pt. appears to be tolerating settings well. Alarms set & audible, spare trach tube and ambubag at bedside. T.T secure/patent. No wheezing, no respiratory distress noted. Withheld HHN tx due to H.R. Will notify RN.
--- NOTE | 2018-04-24 07:54 | NUR ---
Opening Note received report from night filler RN, pt resting in bed, A&Ox1, respirations even and unlabored on mechanical ventilator, pt nonverbal, no pain noted using FLACC pain scale, right subclavian port-a-cath clean, dry, intact, and infusing well, suprapubic catheter draining to gravity, g-tube intact, tube feeding Pivot 1.5 @ 50/ml/hr, no acute distress noted, CARVALHO in place, side rails padded, pt educated on use of call light and asked to call for assistance, call light in reach, bed in low position, bed alarm on, fall, aspiration, isolation, and seizure precautions in place.
--- NOTE | 2018-04-24 08:15 | NUR ---
RT NOTES Spoke to Dr Agarwal regarding pt's HR and to possibly change HHN tx to xopenex. MD agreed, 0.63mg xopenex Q6, discontinue atrovent. LESTER Vallecillo to confirm w/ .
[2018-04-24 08:19] LABS: BASOPHILS % (AUTO) 0.2 % (0.0-2.0); EOSINOPHILS # (AUTO) 0.1 K/uL (0.0-0.4); EOSINOPHILS % (AUTO) 0.5 % (0.0-4.0); MONOCYTES # (AUTO) 0.7 K/uL (0.0-1.0)
[2018-04-24 08:37] LABS: ALBUMIN 1.7 g/dL (3.4-4.8); CREATININE 1.62 mg/dL (0.55-1.30); POTASSIUM 3.1 mmol/L (3.5-5.1); TOTAL BILIRUBIN 1.3 mg/dL (0.0-1.0)
[2018-04-24 08:55] LABS: LYMPHOCYTES # (AUTO) 1.2 K/uL (1.0-5.5); LYMPHOCYTES % (AUTO) 7.8 % (20.5-51.5); MEAN CORPUSCULAR HEMOGLOBIN 30 pg (27-31); MEAN CORPUSCULAR HGB CONC 34 % (32-36); MEAN CORPUSCULAR VOLUME 88 fL (79.0-98.0); MONOCYTES % (AUTO) 4.5 % (1.7-9.3); PLATELET COUNT (AUTO) 162 K/uL (130-430); RED CELL DISTRIBUTION WIDTH 14.8 % (9.0-15.0)
[2018-04-24 08:57] LABS: RED BLOOD CELL COUNT(AUTO) 1.95 MIL/uL (4.2-6.2)
[2018-04-24 09:00] VITALS: BP_SYST 124
[2018-04-24] MEDS ORDERED: COMMUNICATION ORDER XX ONE (09:00)
[2018-04-24 09:02] LABS: HEMOGLOBIN 5.8 g/dL (14.0-18.0)
[2018-04-24 09:03] LABS: HEMATOCRIT 17.2 % (36-54)
[2018-04-24] MEDS: PHENYTOIN 100 MG/4 ML UDC (DILANTIN) GT SCH ×2 (09:03→21:17)
[2018-04-24] MEDS: levETIRAcetam 500 MG TABLET GT SCH ×2 (09:04→21:17)
[2018-04-24] MEDS: PANTOPRAZOLE GRANULES PACKET 40 MG GT SCH (09:04)
[2018-04-24] MEDS: CHOLECALCIFEROL (VITAMIN D3) 2,000 UNIT TABLET GT SCH (09:04)
[2018-04-24] MEDS: BACLOFEN 10 MG TABLET GT SCH ×3 (09:04→21:16)
[2018-04-24] MEDS: PHENobarbital 30 MG TABLET GT SCH ×2 (09:04→21:17)
[2018-04-24] MEDS: MULTIVITS,CA,MINERALS/IRON/FA 1 TABLET GT SCH (09:04)
--- NOTE | 2018-04-24 09:04 | NUR ---
PAGED Paged Dr. Jacobson in regards to critical lab results.
[2018-04-24] MEDS: LACOSAMIDE 100 MG TABLET GT SCH ×2 (09:05→21:49)
[2018-04-24] MEDS: ASCORBIC ACID 500 MG TABLET GT SCH ×2 (09:05→21:16)
[2018-04-24] MEDS: METOPROLOL TARTRATE 25 MG TABLET GT SCH ×2 (09:05→21:16)
[2018-04-24] MEDS: CHLORHEXIDINE GLUCONATE 15 ML/DOSE, 480 ML MM SCH ×2 (09:06→21:19)
--- NOTE | 2018-04-24 09:20 | NUR ---
Fever/Medication pt has temp of 101.2F, PRN tylenol indicated, cold packs in place, cooling measures implemented, pt educated on use and side effects of all medication, tolerated medication administration well, no acute distress noted, fall, aspiration, and seizure precautions in place. Addendum: 04/24/18 at 1004 by Ruth Ann Sunshine RN add: isolation precautions in place.
[2018-04-24] MEDS: ACETAMINOPHEN 325 MG TABLET GT PRN (09:33)
[2018-04-24] MEDS: DOCUSATE SODIUM 100 MG/10 ML UDC GT SCH (09:51)
--- NOTE | 2018-04-24 10:02 | NUR ---
Oral Care/Linen change oral care provided, pt tolerated well, linen changed, pt cleaned and repositioned, cool packs in place, heels floating, fall, aspiration, seizure, and isolation precautions in place.
--- NOTE | 2018-04-24 10:08 | NUR ---
PAGED Paged Dr. Jacobson for 2nd time via pager in regards to critical lab results
--- NOTE | 2018-04-24 10:19 | NUR ---
Spoke with spoke with Dr. Jacobson regarding critical lab of Hgb 5.8 and Hct 17.2, orders for 2 units of PRBCs, made MD aware of AM labs sodium 150, potassium 3.1, and temp 101.2.
--- NOTE | 2018-04-24 11:33 | NUR ---
Blood transfusion orders for 2 units PRBCs, consent signed and in chart, pt educated on purpose of blood transfusion and signs and symptoms of a transfusion reaction, pt nonverbal, no pain noted using FLACC scale, no acute distress noted, pre transfusion vital signs, BP 100/52, heart rate 119, O2sat 99% on mechanical ventilator, temp 99.3, peripheral IV site clean, dry, intact, no redness or swelling noted at IV site, first unit of PRBCs started at 1133, RN at bedside. Addendum: 04/24/18 at 1148 by Ruth Ann Sunshine RN add: unit of PRBCs and patient verified with LESTER Zavaleta.
--- NOTE | 2018-04-24 11:48 | NUR ---
Blood transfusion first 15 min of PRBC transfusion completed, no signs or symptoms of transfusion reaction noted, no pain noted using FLACC scale, no acute distress noted, respirations even and unlabored on mechanical ventilator, vital signs, BP 97/55, heart rate 115, O2Sat 99, temp 99.3, no redness or swelling noted at peripheral IV site, pt tolerating well, fall, aspiration, isolation, and seizure precautions in place.
[2018-04-24 12:00] VITALS: BP_SYST 112; BP_SYST 128
--- NOTE | 2018-04-24 12:27 | NUR ---
Tube Feeding/Notes new tube feeding and tubing hung at this time, pt tolerating tube feeding well, zero residual, pt tolerating blood transfusion well, no signs or symptoms of transfusion reaction, respirations even and unlabored on mechanical ventilator, no acute distress noted, fall, aspiration, seizure, and isolation precautions in place.
--- NOTE | 2018-04-24 13:25 | NUR ---
RN Rounds pt resting in bed, tolerating ventilator settings well, respirations even and unlabored, tolerating blood transfusion well, no transfusion reactions noted, no acute distress, fall, aspiration, isolation, and seizure precautions in place.
--- NOTE | 2018-04-24 13:30 | NUR ---
RT NOTES Unable to scan 0.63 xopenex "unknown NDC number", pharmacist John made aware.
[2018-04-24] MEDS: LEVALBUTEROL HCL 0.63 MG/3 ML VIAL.NEB INH SCH ×2 (13:31→19:38)
--- NOTE | 2018-04-24 14:30 | NUR ---
Called Pharmacy [facility] not able to mix medication, called pharmacy, per pharmacy a new one will be brought to the unit, will give as soon as med is available.
--- NOTE | 2018-04-24 14:30 | NUR ---
Medication pt educated on medication use and side effects, tolerating medication administration well, no redness or swelling noted at IV site, fall, aspiration, seizure, and isolation precautions in place.
[2018-04-24] MEDS: COLISTIMETHATE SODIUM 75 MG in NS 50 ML IV SCH (14:37)
--- NOTE | 2018-04-24 14:48 | NUR ---
Blood transfusion first unit of PRBCs completed at 1448, no adverse transfusion reaction noted, no pain noted using FLACC scale, respirations even and unlabored on mechanical ventilator, vital signs stable, no acute distress noted, fall, aspiration, isolation, and seizure precautions in place.
--- NOTE | 2018-04-24 14:55 | NUR ---
Nutrition F/U Admitting Diagnosis UTI, sepsis Reviewed Pertinent Medical/Surgical Hx Medical Record Medical History Comment: PMH: MS, neurogenic bladder, chronic respiratory failure per MD notes Pt also found w/ chronic respiratory failure, dehydration, AJ per MD notes Subjective Information Per nursing notes, pt has been tolerating TF well. Pt receiving 2 units of PRBC today. Per EMR, TD Intakes: 600 ml 04/24/18. Residuals: 0 ml 04/23/18. Abd is soft and non-distended w/ active bowel sounds. Last BM x1 04/22/18. I/O: 1975/0 (+1975 ml) per 12 hours. Current TF regimen is adequate and appropriate. Current Diet Order/Nutrition Support Pivot 1.5 at 50 ml/hr, Free Water Flush: 150 Q8H via GT x3 days Patient/Significant Other Able To Verbalize Unable To Verbalize Education Provided Not Indicated Pertinent Medications colace, VIT C, SSI, theragran, VIT D-3 Pertinent Labs BG 332 H, POCBG 280 H, BUN 46 H, CRE 1.62 H, Lactic acid 3.3 H, WBC 15 H, H/H 5.8 L/17.2 L, Na 150 H, K 3.1 L Height (Feet) 5 feet Height (Inches) 6.00 inches Weight (Pounds) 154 pounds Weight (Calculated Kilograms) 69.026533 kilograms Patient Weight 69.853 kg Body Mass Index 24.85 kg/m2 %IBW 108 [place]/Adjusted Body Weight IBW: 142 lb, 65 kg Weight Status Overweight Usual Diet At Home Pivot 1.5 at 50 cc/hr x18 hours per hard chart reivew Skin Integrity Comment: Shane scale: 10; per Crusher And Blender Operator note 04/23/18: skin is fair (-); 1. Sacral and buttocks areas have pink scar tissue: 2. G-tube jun-site: Open area with 100% red, hypergranulated tissue. 3. Right Dorsal Foot: Scar tissue over a bony prominence. Estimated Energy Expenditure (kcals/day) 3099-8640 kcal/day (30-35 kcal/kg CBW for sepsis) Estimated Protein Required (g/day) 105-140 gm/day (1.5-2 gm/kg CBW for sepsis) Estimated Fluid Required (l/day) 2-2.5 L/day (30-35 kcal/kg CBW for dehydration) Problem/Etiology/Signs/Symptoms Increased nutritional needs related to metabolic demands as evidenced by elevated lactic acid, and estimated nutritional requirements for sepsis. *ongoing Expected Outcomes/Goals - Monitor tolerance to EN support w/ goal of mt meeting at least 85% of estimated nutritional needs, labs trending WNL, normal GI function, and skin integrity/wt maintenance Dietitian Recommendations * Recommend continuing Pivot 1.5 at 50 ml/hr, Free Water Flush: 150 Q8H via GT per MD Provides: 1800 kcal/day, 113 gm protein/day, and 1361 ml free water/day Meets: 86% of lower end of estimated caloric needs and 108% of lower end of estimated protein needs Follow Up Moderate Risk: F/U in 3-5 days
--- NOTE | 2018-04-24 15:02 | NUR ---
Dietitian Recommendations * Recommend continuing Pivot 1.5 at 50 ml/hr, Free Water Flush: 150 Q8H via GT per MD Provides: 1800 kcal/day, 113 gm protein/day, and 1361 ml free water/day Meets: 86% of lower end of estimated caloric needs and 108% of lower end of estimated protein needs LP, RD Please refer to Nutrition F/U for details.
--- NOTE | 2018-04-24 15:13 | NUR ---
Blood transfusion consent for blood transfusion in chart, pt educated on purpose of transfusion and signs and symptoms of transfusion reaction, pre transfusion vital signs, blood pressure 124/75, heart rate 110, respirations 16, O2Sat 97%, temp 98.8, blood verified with LESTER Robertson, second unit of PRBCs started at 1513, no redness or swelling noted at peripheral IV site, no pain noted using FLACC scale, no acute distress noted, respirations even and unlabored on mechanical ventilator, pt tolerating well, RN at bedside.
--- NOTE | 2018-04-24 15:28 | NUR ---
Blood transfusion first 15 minutes of blood transfusion completed, no adverse transfusion reactions noted, respirations even and unlabored on mechanical ventilator, no pain noted using FLACC scale, no acute distress, vital signs stable, BP 129/74, heart rate 119, O2Sat 96%, temp 98.9, fall, aspiration, seizure, and isolation precautions in place.
[2018-04-24 16:00] VITALS: BP_SYST 135
--- NOTE | 2018-04-24 16:30 | NUR ---
Wound Care wound care completed as per wound care orders to sacrum, lower buttocks, and dorsal foot, pt tolerated well, heels floating, CARVALHO in place, fall, aspiration, seizure, and isolation precautions in place.
--- NOTE | 2018-04-24 17:40 | NUR ---
Blood transfusion 2nd unit of PRBCs completed at 1740, no signs of adverse transfusion reaction, no pain noted using FLACC scale, no acute distress noted, vital signs stable, no redness or swelling noted at peripheral IV site, fall, aspiration, isolation, and seizure precautions in place.
--- NOTE | 2018-04-24 17:57 | NUR ---
Medication pt educated on medication use and side effects, pt tolerated medication administration well, no acute distress noted, fall, aspiration, seizure, and isolation precautions in place.
--- NOTE | 2018-04-24 18:40 | NUR ---
MD Rounds Rounds with Dr. Wong, orders for 2 additional units of PRBCs, new orders received.
--- NOTE | 2018-04-24 18:41 | NUR ---
MD Rounds Rounds with Dr. Hartley, new orders received.
[2018-04-24] MEDS ORDERED: POTASSIUM CHLORIDE 20 MEQ/PKT PACKET GT ONE (18:45)
[2018-04-24] MEDS: 0.45% NACL 1,000 ML IV SCH (19:14)
--- NOTE | 2018-04-24 19:18 | NUR ---
Medication pt educated on medication use and side effects, tolerated medication administration well, fall and aspiration precautions in place.
--- NOTE | 2018-04-24 19:30 | NUR ---
Closing Note pt resting in bed, A&Ox1, respirations even and unlabored on mechanical ventilator, HOB elevated, right subclavian port-a-cath clean dry, and intact, peripheral IV clean, dry, and intact, g-tube intact, tube feeding Pivot 1.5 @ 50ml/hr, tolerating tube feeding well, wound care completed today, dressings clean, dry, and intact, suprapubic catheter draining to gravity, no pain noted using FLACC scale, no acute distress noted, orders for 2 units PRBCs endorsed to shift coordinator RN, side rails padded, pt educated on use of call light and asked to call for assistance, call light in reach, bed in low position, bed alarm on, fall, aspiration, seizure, and isolation precautions in place, care endorsed to shift coordinator RN.
[2018-04-24 20:05] VITALS: BP_SYST 139
--- NOTE | 2018-04-24 23:02 | NUR ---
Blood Transfusion started 1st unit of blood started via R. chest portacath. VSS, afebrile. BP 108/69 HR 101 Temp 98.0. Will continue to monitor.
--- NOTE | 2018-04-24 23:20 | NUR ---
Blood Transfusion No s/s of Blood transfusion rxn noted. VSS BP122/74 HR 109 T 97.8. Pt asleep no s/s distress noted. No change in Mechanical Vent setting. HOB maintained elated. Safety measures in place. Will continue to monitor.
--- NOTE | 2018-04-24 23:32 | NUR ---
[phone]
[2018-04-25] VITALS: BP_SYST 124
[2018-04-25] MEDS: INSULIN REGULAR, HUMAN 100 UNITS/ML, 10 ML VIAL (novoLIN R) SUBCUT PRN (00:14)
--- NOTE | 2018-04-25 00:15 | NUR ---
NPO after midnight/Blood sugar check Pt's GT feeding stopped at this time, for Cystoscopy procedure today. BS checked 223, 4 units of Regular insulin given SQ. Will continue to monitor.
[2018-04-25] MEDS: LEVALBUTEROL HCL 0.63 MG/3 ML VIAL.NEB INH SCH ×4 (01:06→19:43)
[2018-04-25] MEDS: 0.45% NACL 1,000 ML IV SCH ×2 (04:45→17:55)
--- NOTE | 2018-04-25 05:20 | NUR ---
Blood transfusion finished. No transfusion rxn noted. VSS, pt remained afebrile the whole night.
--- NOTE | 2018-04-25 05:35 | NUR ---
Oral care/Pericare/skin care provided. Pt repositioned with WRAP TURNER assist, sacral dressing optifoarm C/D/I. Seizure precaution in place. Tomonitor.
[2018-04-25] MEDS: MEROPENEM 500 MG in NS 50 ML IV SCH ×3 (07:01→21:41)
--- NOTE | 2018-04-25 07:06 | NUR ---
Closing note Blood sugar 116. PT NPO after midnight for cystoscopy, Gtube clamped. No change mechanical vent settings. No acute distress noted. Pt repositioned. Angel heels floated. To endorse to am nurse.
[2018-04-25 07:31] LABS: ALBUMIN 1.6 g/dL (3.4-4.8); CALCIUM 8.2 mg/dL (8.4-11.0); CREATININE 1.23 mg/dL (0.55-1.30); POTASSIUM 3.6 mmol/L (3.5-5.1); TOTAL BILIRUBIN 3.1 mg/dL (0.0-1.0)
[2018-04-25 07:44] LABS: HEMOGLOBIN 9.9 g/dL (14.0-18.0); MEAN CORPUSCULAR HEMOGLOBIN 32 pg (27-31); MEAN CORPUSCULAR HGB CONC 35 % (32-36); MEAN CORPUSCULAR VOLUME 90 fL (79.0-98.0); PLATELET COUNT (AUTO) 133 K/uL (130-430); RED BLOOD CELL COUNT(AUTO) 3.12 MIL/uL (4.2-6.2); RED CELL DISTRIBUTION WIDTH 14.6 % (9.0-15.0)
[2018-04-25 08:00] VITALS: BP_SYST 124
--- NOTE | 2018-04-25 08:00 | NUR ---
initial notes rec patient awake opens eyes but non verbally responsive. hob slightly elevated with a mechanical ventilator . no sob noted. with a gt but clamped at this time for sx today. with a supra pubic cath connected to a drainage bag. bed in low position and side rails up and locked. call light within reached. brother was called to get consent but was unavailable. spoke with son but stated dont have poa. stated will call his uncle and will call me back. awaiting to call back.
[2018-04-25 08:08] LABS: WHITE BLOOD COUNT (AUTO) 23.9 K/uL (4.8-10.8)
[2018-04-25] MEDS: PHENYTOIN 100 MG/4 ML UDC (DILANTIN) GT SCH ×2 (09:00→21:39)
[2018-04-25] MEDS: BACLOFEN 10 MG TABLET GT SCH ×3 (09:00→21:39)
[2018-04-25] MEDS: PHENobarbital 30 MG TABLET GT SCH ×2 (09:00→21:39)
[2018-04-25] MEDS: levETIRAcetam 500 MG TABLET GT SCH ×2 (09:00→21:40)
[2018-04-25] MEDS: CHOLECALCIFEROL (VITAMIN D3) 2,000 UNIT TABLET GT SCH (09:00)
[2018-04-25] MEDS: MULTIVITS,CA,MINERALS/IRON/FA 1 TABLET GT SCH (09:00)
[2018-04-25] MEDS: LACOSAMIDE 100 MG TABLET GT SCH ×2 (09:00→21:39)
[2018-04-25] MEDS: ASCORBIC ACID 500 MG TABLET GT SCH ×2 (09:00→21:39)
[2018-04-25] MEDS: PANTOPRAZOLE GRANULES PACKET 40 MG GT SCH (09:00)
[2018-04-25] MEDS: DOCUSATE SODIUM 100 MG/10 ML UDC GT SCH (09:00)
[2018-04-25] MEDS: METOPROLOL TARTRATE 25 MG TABLET GT SCH ×2 (09:00→21:41)
--- NOTE | 2018-04-25 10:00 | NUR ---
rounds spoke with patient's brother via jannie montilla who speaks faroese for the consent of the patient. npo maintained/gt clamped for the sx. no acute distress noted.
[2018-04-25] MEDS ORDERED: SEVOFLURANE 15 MIN GAS INH ONE (11:25)
[2018-04-25] MEDS ORDERED: ROCURONIUM BROMIDE 10 MG/ML (ZEMURON) IV ONE (11:25)
[2018-04-25] MEDS ORDERED: WATER FOR IRRIGATION,STERILE 4,000 ML IRRIG.SOLN IR ONE (11:25)
[2018-04-25] MEDS ORDERED: LR 1,000 ML IV.SOLN IV ONE (11:25)
[2018-04-25] MEDS ORDERED: PROPOFOL 200MG/ 20ML VIAL (DIPRIVAN) IV ONE (11:25)
[2018-04-25] MEDS ORDERED: DEXAMETHASONE SOD PHOSPHATE 4 MG/ML VIAL IVP ONE (11:25)
[2018-04-25] MEDS: CHLORHEXIDINE GLUCONATE 15 ML/DOSE, 480 ML MM SCH ×2 (11:45→21:42)
[2018-04-25 11:50] LABS: ATYPICAL LYMPHOCYTES % 0 % (0-0); BAND % (MANUAL) 2 % (0-6); BASOPHILS % (MANUAL) 0 % (0-2); EOSINOPHILS % (MANUAL) 0 % (0-7); LYMPHOCYTES % (MANUAL) 10 % (20-46); MONOCYTES % (MANUAL) 5 % (0-11)
[2018-04-25 12:00] VITALS: BP_SYST 111
--- NOTE | 2018-04-25 12:15 | NUR ---
rounds pt was taken to sx via bed. resp thearpist at bedside and accompanied patient to or. suctioned prior to tranfer to or
[2018-04-25] MEDS ORDERED: LR 1,000 ML IV SCH ×2 (12:59→13:06)
[2018-04-25] MEDS ORDERED: HYDROmorphone 2 MG/ML VIAL IVP PRN ×4 (13:00→13:15)
[2018-04-25] MEDS ORDERED: HYDROmorphone 1 MG INJ. 1 MG/ML AMPUL IVP PRN ×2 (13:00→13:15)
[2018-04-25] MEDS ORDERED: MEPERIDINE HCL/PF 25 MG/ML DISP.SYRIN IVP PRN ×2 (13:00→13:15)
--- NOTE | 2018-04-25 13:12 | NUR ---
@1230 TRANSFERRED PT TO OR. NO RESPIRATORY DISTRESS NOTED.
[2018-04-25] MEDS ORDERED: HYDROmorphone 1 MG INJ. 1 MG/ML AMPUL ONE (14:36)
--- NOTE | 2018-04-25 15:30 | NUR ---
rounds pt back from rr via bed with a portable ventilator and no sob noted. s/p cystoscopy and stent placement. nted with a new spc in placed. also noted a 4x4 dressing in between penile and scrotal area. dressing dry and intact at this time. will continue to observe for any bleeding.
[2018-04-25 16:00] VITALS: BP_SYST 108
[2018-04-25] MEDS: COLISTIMETHATE SODIUM 75 MG in NS 50 ML IV SCH (18:00)
--- NOTE | 2018-04-25 18:00 | NUR ---
rounds feeding was resumed no residual noted. gt site care done. noted with small amount of clear liquid for the gt site. keep area dry and clean.
--- NOTE | 2018-04-25 18:28 | NUR ---
paged paged doctor montaño
--- NOTE | 2018-04-25 18:40 | NUR ---
closing notes hob slightly elevated . gt feeding resumed and orion well. no residual noted. flakito cath no infiltration noted and infusing well. dressing on the scrotal area noted with serous drained noted. bed in low position and side rails up and locked. call light within reached..
--- NOTE | 2018-04-25 19:50 | NUR ---
PM SHIFT ASSESSMENT Recieved patient lying in bed, no distress noted, has trach with vent. Suctioned trach as needed. Vital signs stable. Patient has right subclavian port a cath, IVF of 1/2 NS infusing at 100 ml/hr. Gt feeding of Pivot 1.5 infusing at 50 cc/hr. No residual noted. Patient has dressing to scrotal area, patient turned with pillow support, on air mattress, isolation and safety precautions in place, will closely monitor.
[2018-04-25 20:00] VITALS: BP_SYST 133
[2018-04-25] MEDS ORDERED: BACITRACIN 1 GM OINT TP ONE (20:52)
--- NOTE | 2018-04-25 21:30 | NUR ---
MD DR. MAUREEN Romero at patient's bedside, assisted Dr. romero with repair of scrotal laceration. Patient tolerated well. New orders for bacitracin ointment BID carried out.
--- NOTE | 2018-04-25 22:00 | NUR ---
RN ROUNDS Patient resting quietly, due medications given GT, no residual noted, IV antibiotics administered. Patient turned and repositioned with pillow support.
[2018-04-26 00:36] VITALS: BP_SYST 135
[2018-04-26] MEDS: INSULIN REGULAR, HUMAN 100 UNITS/ML, 10 ML VIAL (novoLIN R) SUBCUT PRN ×5 (00:40→21:34)
--- NOTE | 2018-04-26 00:45 | NUR ---
RN ROUNDS Patient sleeping, vital signs stable. Blood sugar check, 162, covered with 2 units of regular insulin SQ. Patient turned and repositioned, oral care provided. Safety precautions in place, will closely monitor.
[2018-04-26] MEDS: LEVALBUTEROL HCL 0.63 MG/3 ML VIAL.NEB INH SCH ×3 (01:14→20:19)
--- NOTE | 2018-04-26 02:25 | NUR ---
RN ROUNDS Patient sleeping, respirations even and unlabored, Patient turned and repositioned, safety precautions in place, will closely monitor.
[2018-04-26] MEDS: 0.45% NACL 1,000 ML IV SCH ×3 (04:07→14:54)
--- NOTE | 2018-04-26 04:30 | NUR ---
RN ROUNDS Patient awake and in no distress, bed bath and incontinence care provided. Dressing changed to sacral area and right heel. Patient turned and repositioned with pillow support, safety precautions in place, will closely monitor.
[2018-04-26] MEDS: MEROPENEM 500 MG in NS 50 ML IV SCH (05:47)
--- NOTE | 2018-04-26 06:30 | NUR ---
RN ROUNDS Patient sleeping, respirations even and unlabored. Blood sugar check this am of 177, covered with 2 units of regular insulin SQ. Due antibiotics administered, patient turned and repositioned, oral care provided. Safety and isolation precautions in place, will continue to monitor until report given to am nurse.
--- NOTE | 2018-04-26 07:45 | NUR ---
OPENING NOTES, RECEIVED PT IN BED, EYES OPEN BUT NOT TACHING. PT IS NON VERBAL. ON TRACH TO VENT. SETTINGS AT AC 14, TV 500, FIO2 40, PEEP 5. NO S/S OF PAIN. PT HAS NO FEVER. IV ACCESS ON L. WRIST INTACT AND PATENT. SHERRON CATH ON R. SUBCLAVIAN ACCESSED WITH IV FLUIDS RUNNING. DRESSING IS CLEAN DRY AND INTACT. SUPRAPUBIC CATHETER NOTED WITH ORAGY/SOHA DRAINAGE. SECURED TO UPPER THIGH. PT HAS DRESSING IN THE AREA BETWEEN PENIS AND SCROTUM. IT IS CLEAN AND DRY AND INTACT. G-TUBE INFUSING WELL, NO RESIDUAL NOTED. SAFETY PRECAUTION KEPT IN PLACE. CALL LIGHT IN REACH. BED IN LOW POSITION. HOB AT 30 DEGREES. PT ENCOURAGED TO CALL FOR ASSIST AND PAIN MEDICATION. WILL CONTINUE TO MONITOR.
[2018-04-26 08:01] LABS: BASOPHILS % (AUTO) 0.1 % (0.0-2.0); EOSINOPHILS # (AUTO) 0.2 K/uL (0.0-0.4); EOSINOPHILS % (AUTO) 2.2 % (0.0-4.0); HEMATOCRIT 29.3 % (36-54); HEMOGLOBIN 10.4 g/dL (14.0-18.0); LYMPHOCYTES # (AUTO) 1.4 K/uL (1.0-5.5); LYMPHOCYTES % (AUTO) 12.4 % (20.5-51.5); MEAN CORPUSCULAR HEMOGLOBIN 32 pg (27-31); MEAN CORPUSCULAR HGB CONC 35 % (32-36); MEAN CORPUSCULAR VOLUME 90 fL (79.0-98.0); MONOCYTES # (AUTO) 0.5 K/uL (0.0-1.0); MONOCYTES % (AUTO) 4.4 % (1.7-9.3); NEUTROPHILS % (AUTO) 80.9 % (40.0-70.0); PLATELET COUNT (AUTO) 218 K/uL (130-430); RED BLOOD CELL COUNT(AUTO) 3.27 MIL/uL (4.2-6.2); RED CELL DISTRIBUTION WIDTH 14.9 % (9.0-15.0); WHITE BLOOD COUNT (AUTO) 11.1 K/uL (4.8-10.8)
[2018-04-26 08:04] VITALS: BP_SYST 119
[2018-04-26 08:04] LABS: CREATININE 1.11 mg/dL (0.55-1.30); POTASSIUM 3.3 mmol/L (3.5-5.1)
[2018-04-26 08:11] LABS: PHOSPHORUS 2.2 mg/dL (2.7-4.5)
[2018-04-26] MEDS: MULTIVITS,CA,MINERALS/IRON/FA 1 TABLET GT SCH (09:22)
[2018-04-26] MEDS: levETIRAcetam 500 MG TABLET GT SCH ×2 (09:22→21:25)
[2018-04-26] MEDS: BACLOFEN 10 MG TABLET GT SCH ×3 (09:23→21:25)
[2018-04-26] MEDS: ASCORBIC ACID 500 MG TABLET GT SCH ×2 (09:23→21:25)
[2018-04-26] MEDS: PANTOPRAZOLE GRANULES PACKET 40 MG GT SCH (09:23)
[2018-04-26] MEDS: PHENYTOIN 100 MG/4 ML UDC (DILANTIN) GT SCH ×2 (09:23→21:25)
[2018-04-26] MEDS: PHENobarbital 30 MG TABLET GT SCH ×2 (09:23→21:25)
[2018-04-26] MEDS: CHOLECALCIFEROL (VITAMIN D3) 2,000 UNIT TABLET GT SCH (09:23)
[2018-04-26] MEDS: LACOSAMIDE 100 MG TABLET GT SCH ×2 (09:23→21:25)
[2018-04-26] MEDS: DOCUSATE SODIUM 100 MG/10 ML UDC GT SCH (09:24)
[2018-04-26] MEDS: METOPROLOL TARTRATE 25 MG TABLET GT SCH ×2 (09:24→21:29)
[2018-04-26] MEDS ORDERED: POTASSIUM CHLORIDE 20 MEQ/PKT PACKET GT ONE ×2 (09:45→19:15)
[2018-04-26] MEDS: BACITRACIN 1 GM OINT TP SCH ×2 (10:47→22:12)
[2018-04-26] MEDS: CHLORHEXIDINE GLUCONATE 15 ML/DOSE, 480 ML MM SCH ×2 (10:48→21:28)
--- NOTE | 2018-04-26 10:58 | NUR ---
K LEVEL IS 3.3 , GIVEN KCL VIA G-TUBE.
--- NOTE | 2018-04-26 11:56 | NUR ---
BLOOD SUGAR IS 169, GIVEN UNITS OF REG INSULIN. INSULIN VERIFIED AND DOUBLE CHECKED WITH LESTER CHAVEZ.
[2018-04-26 12:00] VITALS: BP_SYST 129
[2018-04-26] MEDS: COLISTIMETHATE SODIUM 75 MG in NS 50 ML IV SCH (13:41)
[2018-04-26] MEDS: CEFTAZIDIME/AVIBACTAM 1.25 GM in NS 100 ML IV SCH ×2 (14:21→21:55)
[2018-04-26 16:20] VITALS: BP_SYST 122
--- NOTE | 2018-04-26 16:30 | NUR ---
WOUND CARE DONE AND PICTURES TAKEN WITH ASSIST FROM ANGELINA ORNELAS.
--- NOTE | 2018-04-26 19:00 | NUR ---
CLOSING NOTES,. PT HAS BEEN STABLE TODAY. NO SOB, NO DISTRESS. ALL MEDS AND ANTIBIOTICS GIVEN. PT TOLERATING TUBE FEEDING. CONTINUE TO BE ON VENT. NO CHANGE IN SETTINGS. WOUND CARE DONE AND DRESSING CHANGED ON SURGICAL WOUND. BLOOD SUGAR CHECK DONE, LATEST WAS 185. WILL ENDORSE TO NIGHT RN.
--- NOTE | 2018-04-26 19:30 | NUR ---
Initial Notes Received handoff report from offgoing nurse at the bedside. Patient is awake with eyes opened, but not tracking. No SOB, no acute distress, no signs of pain or facial grimacing. Tolerating trach to vent settings. Gtube feeding infusing at ordered rate. 1/2 NS running at 100ml/hr. Bed is locked, in the lowest position, 2x side rails up, bed alarm is on. Seizure precautions and contact precautions in place. Call light is within reach. Will continue with plan of care.
[2018-04-26 20:14] VITALS: BP_SYST 113
--- NOTE | 2018-04-26 22:35 | NUR ---
Patient is currently resting comfortably in bed with eyes opened. No SOB, no acute distress, no signs of pain or facial grimacing noted. Tolerating trach to vent settings. Call light is within reach. Bed is locked, in the lowest position, 3x side rails up, bed alarm is on.
[2018-04-27] MEDS: INSULIN REGULAR, HUMAN 100 UNITS/ML, 10 ML VIAL (novoLIN R) SUBCUT PRN ×2 (00:23→11:54)
--- NOTE | 2018-04-27 00:30 | NUR ---
Provided full bed bath for the patient. Even though the patient has a suprapubic catheter, patient still leaks a little bit of urine out of his penis. Provided incontinence care for urinary incontinence. Also provided tracheal suction and oral hygiene. Bed is locked, placed back in the lowest position, 2x side rails up, bed alarm is on. Call light within reach.
[2018-04-27 00:39] VITALS: BP_SYST 105
[2018-04-27] MEDS: LEVALBUTEROL HCL 0.63 MG/3 ML VIAL.NEB INH SCH ×4 (01:46→19:39)
--- NOTE | 2018-04-27 02:43 | NUR ---
Patient is resting comfortably in bed with eyes opened. No SOB, no acute distress, no signs of pain at this time. Tolerating trach to vent settings. Gtube feeding infusing at ordered rate. Bed is locked, in the lowest position, 2x side rails up, bed alarm is on. Call light within reach. Fall, safety, contact, and seizure precautions in place.
[2018-04-27] MEDS: 0.45% NACL 1,000 ML IV SCH ×2 (03:06→14:24)
--- NOTE | 2018-04-27 04:00 | NUR ---
Patient is resting comfortably in bed with eyes opened. Provided patient with gtube water flush per MD order. RT at the bedside to provide suction and oral care for the patient. IV fluids and gtube feeding running at ordered rate. Tolerating trach to vent settings. Bed is locked, placed back in the lowest position, 2x side rails up, bed alarm is on. Call light within reach.
[2018-04-27] MEDS: CEFTAZIDIME/AVIBACTAM 1.25 GM in NS 100 ML IV SCH ×3 (05:17→21:21)
--- NOTE | 2018-04-27 05:20 | NUR ---
Accu check performed, no insulin coverage needed at this time. Patient is resting comfortably in bed with eyes closed. Bed is locked, in the lowest position, 2x side rails up, bed alarm is on. Call light is within reach.
--- NOTE | 2018-04-27 07:16 | NUR ---
Closing Notes Handoff report given to oncoming dayshift nurse at the bedside. Patient is resting comfortably in bed with eyes closed. No SOB, no acute distress, no signs of pain at this time. Tolerating trach to vent settings, AC 12, TV 500, FiO2 40%, Peep 5. Tolerating Gtube feeding Pivot 1.5 @ 50ml/hr. IV fluid 1/2 NS infusing at 100ml/hr in the right subclavian port-a-cath. Luna catheter draining pink tinged / dark yellow urine. Bed is locked, in the lowest position, 2x side rails up, bed alarm is on. Call light is within reach. Fall and safety precautions maintained. All needs have been met during this shift.
--- NOTE | 2018-04-27 07:45 | NUR ---
OPENING NOTES, RECEIVED PT IN BED, EYES CLOSED, APPEARS SLEEPING. PT WOKEN FOR VITALS, NO S/S OF PAIN. NO RESP DISTRESS. PT IS NON VERBAL. ON TRACH TO VENT. SETTINGS AT AC 14, TV 500, FIO2 40, PEEP 5. NO S/S OF PAIN. PT HAS NO FEVER. IV ACCESS ON L. WRIST INTACT AND PATENT. SHERRON CATH ON R. SUBCLAVIAN ACCESSED WITH IV FLUIDS RUNNING. DRESSING IS CLEAN DRY AND INTACT. SUPRAPUBIC CATHETER NOTED WITH DARK YELLOW AND SOME CLOTS AND SEDIMENTS. SECURED TO UPPER THIGH. DRESSING IN THE AREA BETWEEN PENIS AND SCROTUM IS DRY AND INTACT. G-TUBE INFUSING WELL, NO RESIDUAL NOTED. SAFETY PRECAUTION KEPT IN PLACE. CALL LIGHT IN REACH. BED IN LOW POSITION. HOB AT >30 DEGREES. WILL CONTINUE TO MONITOR.
[2018-04-27 08:04] VITALS: BP_SYST 108
[2018-04-27 08:10] LABS: BASOPHILS % (AUTO) 0.1 % (0.0-2.0); EOSINOPHILS # (AUTO) 0.3 K/uL (0.0-0.4); HEMATOCRIT 27.3 % (36-54); HEMOGLOBIN 9.4 g/dL (14.0-18.0); LYMPHOCYTES # (AUTO) 1.6 K/uL (1.0-5.5); LYMPHOCYTES % (AUTO) 15.7 % (20.5-51.5); MEAN CORPUSCULAR HEMOGLOBIN 31 pg (27-31); MEAN CORPUSCULAR HGB CONC 35 % (32-36); MEAN CORPUSCULAR VOLUME 91 fL (79.0-98.0); MONOCYTES # (AUTO) 0.5 K/uL (0.0-1.0); MONOCYTES % (AUTO) 5.4 % (1.7-9.3); NEUTROPHILS # (AUTO) 7.8 K/uL (1.8-7.7); NEUTROPHILS % (AUTO) 75.8 % (40.0-70.0); PLATELET COUNT (AUTO) 246 K/uL (130-430); RED BLOOD CELL COUNT(AUTO) 3.01 MIL/uL (4.2-6.2); WHITE BLOOD COUNT (AUTO) 10.1 K/uL (4.8-10.8)
[2018-04-27 08:23] LABS: CALCIUM 7.9 mg/dL (8.4-11.0); CREATININE 1.11 mg/dL (0.55-1.30); POTASSIUM 3.7 mmol/L (3.5-5.1)
[2018-04-27] MEDS: levETIRAcetam 500 MG TABLET GT SCH ×2 (10:07→21:19)
[2018-04-27] MEDS: DOCUSATE SODIUM 100 MG/10 ML UDC GT SCH (10:07)
[2018-04-27] MEDS: PHENYTOIN 100 MG/4 ML UDC (DILANTIN) GT SCH ×2 (10:07→21:20)
[2018-04-27] MEDS: MULTIVITS,CA,MINERALS/IRON/FA 1 TABLET GT SCH (10:08)
[2018-04-27] MEDS: PHENobarbital 30 MG TABLET GT SCH ×2 (10:08→21:19)
[2018-04-27] MEDS: PANTOPRAZOLE GRANULES PACKET 40 MG GT SCH (10:08)
[2018-04-27] MEDS: CHOLECALCIFEROL (VITAMIN D3) 2,000 UNIT TABLET GT SCH (10:08)
[2018-04-27] MEDS: BACLOFEN 10 MG TABLET GT SCH ×3 (10:09→21:19)
[2018-04-27] MEDS: METOPROLOL TARTRATE 25 MG TABLET GT SCH ×2 (10:09→21:20)
[2018-04-27] MEDS: CHLORHEXIDINE GLUCONATE 15 ML/DOSE, 480 ML MM SCH ×2 (10:09→21:23)
[2018-04-27] MEDS: ASCORBIC ACID 500 MG TABLET GT SCH ×2 (10:09→21:20)
[2018-04-27] MEDS: LACOSAMIDE 100 MG TABLET GT SCH ×2 (10:09→21:20)
--- NOTE | 2018-04-27 10:10 | NUR ---
PT IN BED, NO S/S OF PAIN, NO RESP DISTRESS. G-TUBE FEEDING INFUSING WELL. SUPRA PUIBIC CATH DRAINING WELL. NO CHANGES IN VENT SETTING. WILL CONT TO MONITOR.
[2018-04-27] MEDS: BACITRACIN 1 GM OINT TP SCH ×2 (11:55→22:21)
[2018-04-27 12:18] VITALS: BP_SYST 123
[2018-04-27] MEDS: COLISTIMETHATE SODIUM 75 MG in NS 50 ML IV SCH (14:16)
--- NOTE | 2018-04-27 16:00 | NUR ---
PT IN BED, EYES CLOSED, WAKEN UP FOR WOUND CARE, WOUND CARE DONE WITH WRAPPER STEMMER OPERATOR FRANCIS, TURNED AND REPOSITIONED. BED IN LOW POSITION. WILL CONT TO MONITOR.
[2018-04-27 16:40] VITALS: BP_SYST 121
--- NOTE | 2018-04-27 17:22 | NUR ---
YODER DISCONTINUED ORDERED. PT TOLERATED WELL. ALL NEW PM ABX GIVEN. BS =96.
--- NOTE | 2018-04-27 19:20 | NUR ---
CLOSING NOTES, PT HAS BEEN STABLE THE WHOLE SHIFT, NEW IV AND PO ANTIBIOTICS GIVEN ORDERED. IV FLUIDS INFUSING WELL. PT PLACED IN ISOLATION, CONTACT FOR MRSA URINE. ENDORSED TO NIGHT RN. Addendum: 04/27/18 at 2021 by Alverto Flood RN PLEASE DISREGARD THIS PT'S NOTE, THIS BELONGS TO ANOTHER PT.
--- NOTE | 2018-04-27 19:21 | NUR ---
CLOSING NOTES, PT HAS BEEN STABLE, NO CHANGE IN VENT SETTINGS, NO FEVER, NO RESIDUAL NOTED, IV ABX GIVEN. WOUND CARE DONE, TURNED AND REPOSITIONED Q2 HOURS. ENDORSED TO NIGHT RN.
--- NOTE | 2018-04-27 19:30 | NUR ---
OPENING NOTE RECEIVED PT AND REPORT FROM DAY SHIFT NURSE. PT IS SLEEPING IN BED. PT IS NON VERBAL. TRACH TO VENT, PT TOLERATING WELL. IV IS INTACT AND PATENT RUNNING IVF PER ORDERS. SUPRAPUBIC CATHETER IN PLACE AND DRAINING CLOUDY URINE. G TUBE IS IN PLACE RUNNING TUBE FEEDING PER ORDERS. PT ON CONTACT PRECAUTIONS. FALL AND SAFETY PRECAUTIONS IN PLACE. BED LOCKED IN LOWEST POSITION. BED ALARM ON. CALL LIGHT WITH PT WILL CONTINUE TO MONITOR.
[2018-04-27 20:00] VITALS: BP_SYST 112; BP_SYST 136
--- NOTE | 2018-04-27 21:19 | NUR ---
MEDICATION ADMINISTRATION ADMINISTERED MEDICATION PER ORDERS. PT RESTING AT THIS TIME. NO S/S OF DISTRESS OR DISCOMFORT.
--- NOTE | 2018-04-27 23:20 | NUR ---
ROUNDING NOTE PT IS RESTING IN BED. NO S/S OF DISTRESS OR DISCOMFORT. INTERNAL CONTROL CONSULTANT AT BEDSIDE. WILL CONTINUE TO MONITOR.
[2018-04-27 23:43] VITALS: BP_SYST 110
[2018-04-28] MEDS: 0.45% NACL 1,000 ML IV SCH ×3 (00:51→20:44)
[2018-04-28] MEDS: LEVALBUTEROL HCL 0.63 MG/3 ML VIAL.NEB INH SCH ×4 (01:44→19:54)
--- NOTE | 2018-04-28 02:40 | NUR ---
ROUNDING NOTE ADJUSTED IV MACHINE. NO NEEDS AT THIS TIME. WILL CONTINUE ZHEN MONITOR.
--- NOTE | 2018-04-28 04:20 | NUR ---
ROUNDING NOTE ADJUSTED PT IN BED. NO OTHER NEEDS. NO S/S OF DISTRESS OR DISCOMFORT. BREATHING EVEN AND UNLABORED. WILL CONTINUE TO MONITOR.
[2018-04-28] MEDS: CEFTAZIDIME/AVIBACTAM 1.25 GM in NS 100 ML IV SCH ×3 (06:08→21:02)
--- NOTE | 2018-04-28 06:12 | NUR ---
MEDICATION/ BLOOD SUGAR ADMINISTERED IV ABX PER ORDERS. BLOOD SUGAR READING OF 146, NO COVERAGE PER SLIDING SCALE. WILL CONTINUE TO MONITOR.
--- NOTE | 2018-04-28 07:20 | NUR ---
CLOSING NOTE ENDORSED CARE AND REPORT TO DAY SHIFT NURSE. PT SLEEPING IN BED AT THIS TIME. PORTACATH INTACT AND RUNNING IVF PER ORDERS. PT TOLERATING TRACH AT 99 PERCENT O2 SATURATION. G TUBE FEEDING TOLERATED WELL AT 0 RESIDUAL. CATHETER DRAINING URINE VIA GRAVITY. PT IN STABLE CONDITION. NO SIGNIFICANT CHANGES TO NOTE. ALL NEEDS MET THROUGHOUT SHIFT.
[2018-04-28 07:30] VITALS: BP_SYST 113
--- NOTE | 2018-04-28 07:45 | NUR ---
AM rounds patient resting in bed, alert to self, nonverbal, does not track, does not follow commands, assessment complete, Trach to vent tolerating vent settings well, G tube in place, no residual output at this time, abdomen is distended but soft to touch, hypoactive bowel sounds, peripheral IV line in place and intact, right chest portacath in place, infusing well, Suprapubic catheter in place draining to gravity, low air loss mattress in place, bed in lowest position, three side rails up, bed alarm on, fall, aspiration and isolation precautions in place.
[2018-04-28 08:16] VITALS: BP_SYST 113
[2018-04-28] MEDS: levETIRAcetam 500 MG TABLET GT SCH ×2 (09:25→20:42)
[2018-04-28] MEDS: LACOSAMIDE 100 MG TABLET GT SCH ×2 (09:25→20:42)
[2018-04-28] MEDS: DOCUSATE SODIUM 100 MG/10 ML UDC GT SCH (09:25)
[2018-04-28] MEDS: PHENYTOIN 100 MG/4 ML UDC (DILANTIN) GT SCH ×2 (09:25→20:41)
[2018-04-28] MEDS: CHOLECALCIFEROL (VITAMIN D3) 2,000 UNIT TABLET GT SCH (09:26)
[2018-04-28] MEDS: PANTOPRAZOLE GRANULES PACKET 40 MG GT SCH (09:26)
[2018-04-28] MEDS: PHENobarbital 30 MG TABLET GT SCH ×2 (09:26→20:41)
[2018-04-28] MEDS: ASCORBIC ACID 500 MG TABLET GT SCH ×2 (09:26→20:43)
[2018-04-28] MEDS: METOPROLOL TARTRATE 25 MG TABLET GT SCH ×2 (09:26→20:42)
[2018-04-28] MEDS: BACLOFEN 10 MG TABLET GT SCH ×3 (09:26→20:42)
[2018-04-28] MEDS: MULTIVITS,CA,MINERALS/IRON/FA 1 TABLET GT SCH (09:26)
--- NOTE | 2018-04-28 09:26 | NUR ---
Medications patient resting in bed, eyes closed, breathing is even and unlabored, no distress, no residual output from G Tube at this time, tolerated medication administration well, new tubing and IVF bag hung at this time, portacath in place and infusing well, bed in lowest position, three side rails up, bed alarm on, fall, aspiration and isolation precautions in place.
[2018-04-28] MEDS: CHLORHEXIDINE GLUCONATE 15 ML/DOSE, 480 ML MM SCH ×2 (09:27→20:43)
[2018-04-28] MEDS: BACITRACIN 1 GM OINT TP SCH ×2 (09:27→20:41)
--- NOTE | 2018-04-28 11:15 | NUR ---
Blood glucose/tube feeding patient resting in bed, no signs of distress, blood glucose checked, no insulin coverage per MD orders, new tubefeeding bag and tubing hung, no residual output from G Tube at this time, continuing to monitor, bed in lowest position, three side rails up, bed alarm on, fall, aspiration, seizure and isolation precautions in place.
[2018-04-28 12:25] VITALS: BP_SYST 110
--- NOTE | 2018-04-28 14:04 | NUR ---
Transfer of Care: Received patient from LESTER Ramos. Patient laying in bed resting. No signs of pain or discomfort. Breathing is even and unlabored with no distress noted. IV patent and intact. Portocath patent and intact. G-tube patent and intact running Pivot 1.5 @ 50 ml/hr. Trach intact and vent settings checked at bedside. Suprapubic catheter patent and intact with visible urine output. SCD's in place. Seizure pads on side rails. Safety precaution in place; bed in lowest position, wheels locked, side rails x3, bed alarm activated and call light within reach. Will continue to monitor.
--- NOTE | 2018-04-28 14:04 | NUR ---
Transfer of Care to Brigida RN, patient in stable condition.
[2018-04-28] MEDS: COLISTIMETHATE SODIUM 75 MG in NS 50 ML IV SCH (14:21)
--- NOTE | 2018-04-28 15:06 | NUR ---
Nutrition F/U Admitting Diagnosis UTI, sepsis Reviewed Pertinent Medical/Surgical Hx Medical Record Medical History Comment: PMH: MS, neurogenic bladder, chronic respiratory failure per MD notes Pt also found w/ chronic respiratory failure, dehydration, AJ per MD notes 04/25/18 Sx: repair of scrotal laceration Subjective Information Pt seen resting in bed, +trach to vent, +non-verbal, w/ TF infusing as per MD orders. Per nursing notes, pt had no residual output this morning. Pt continues to tolerate TF well. Per EMR, TF Intakes: 600 ml 04/28/18. Residuals: 5 ml 04/26/18. Abd is distended w/ hypoactive bowel sounds. I/O: (-1400 ml) per 12 hours. Current TF regimen remains appropriate. Current Diet Order/Nutrition Support Pivot 1.5 at 50 ml/hr, Free Water Flush: 150 ml Q8H via GT x2 days Patient/Significant Other Able To Verbalize Unable To Verbalize Education Provided Not Indicated Pertinent Medications colace, VIT C, SSI, theragran, VIT D-3 Pertinent Labs BG 149 H, POC BG 147 H, BUN 33 H, CRE 1.11 H, Lactic acid 3.3 H, WBC 10.1 H, H/H 9.4 L/27.3 L, Na 143 WNL (improved), K 3.7 WNL (improved) Height (Feet) 5 feet Height (Inches) 6.00 inches Weight (Pounds) 154 pounds (04/21/18) Weight (Calculated Kilograms) 69.243782 kilograms Patient Weight 69.853 kg Body Mass Index 24.85 kg/m2 %IBW [address] [place]/Adjusted Body Weight IBW: 142 lb, 65 kg Weight Status Overweight Usual Diet At Home Pivot 1.5 at 50 cc/hr x18 hours per hard chart reivew Skin Integrity Comment: Shane scale: 9; per [employer] note 04/23/18: skin is fair (-); 1. Sacral and buttocks areas have pink scar tissue: 2. G-tube jun-site: Open area with 100% red, hypergranulated tissue. 3. Right Dorsal Foot: Scar tissue over a bony prominence. Pt noted w/ bilateral hand 2+ pitting edema per nursing notes. Estimated Energy Expenditure (kcals/day) 8432-1903 kcal/day (30-35 kcal/kg CBW for sepsis) Estimated Protein Required (g/day) 105-140 gm/day (1.5-2 gm/kg CBW for sepsis) Estimated Fluid Required (l/day) 2-2.5 L/day (30-35 kcal/kg CBW for dehydration) Problem/Etiology/Signs/Symptoms Increased nutritional needs related to metabolic demands as evidenced by elevated lactic acid, and estimated nutritional requirements for sepsis. *ongoing Expected Outcomes/Goals - Monitor tolerance to EN support w/ goal of mt meeting at least 85% of estimated nutritional needs, labs trending WNL, normal GI function, and skin integrity/wt maintenance Dietitian Recommendations * Recommend continuing Pivot 1.5 at 50 ml/hr, Free Water Flush: 150 ml Q8H via GT per MD Provides: 1800 kcal/day, 113 gm protein/day, and 1361 ml free water/day Meets: 86% of lower end of estimated caloric needs and 108% of lower end of estimated protein needs Follow Up Moderate Risk: F/U in 3-5 days
--- NOTE | 2018-04-28 15:12 | NUR ---
Dietitian Recommendations * Recommend continuing Pivot 1.5 at 50 ml/hr, Free Water Flush: 150 ml Q8H via GT per MD Provides: 1800 kcal/day, 113 gm protein/day, and 1361 ml free water/day Meets: 86% of lower end of estimated caloric needs and 108% of lower end of estimated protein needs LP, RD Please refer to Nutrition F/U for details.
--- NOTE | 2018-04-28 15:17 | NUR ---
Wound Care/Skin care: Done on sacral area and right and left buttock. Dressing changed. Patient tolerated well. Cleansed area with normal saline, patted dry. Applied moisture barrier cream and covered with foam dressing.
[2018-04-28 15:21] VITALS: BP_SYST 102
--- NOTE | 2018-04-28 16:10 | NUR ---
Rounding: Patient laying in bed resting, SCD's in place. Patient repositioned for comfort. No signs of pain or discomfort. Breathing is even and unlabored with no distress noted. Vent settings checked at bedside. Patient suctioned. Safety precautions in place; bed in lowest position, wheels locked, nut grader ails x3, bed alarm activated and call light within reach. Will continue to monitor.
--- NOTE | 2018-04-28 18:42 | NUR ---
Closing Note: Patient laying in bed resting. No signs of pain or discomfort. Breathing is even and unlabored with no distress noted. IV patent and intact and saline locked. Portocath patent and intact running IV fluids per MD order. G-tube patent and intact running Pivot 1.5 @ 50 ml/hr. Trach intact and vent settings checked at bedside. Patient suctioned and repositioned. Suprapubic catheter patent and intact with visible urine output. SCD's in place. Seizure pads on side rails. Safety precaution in place; bed in lowest position, wheels locked, side rails x3, bed alarm activated and call light within reach. All needs met. Will endorse plan of care to NOC, nurse.
--- NOTE | 2018-04-28 19:30 | NUR ---
PM ASSESSMENT REPORT RECEIVED FROM AM RN. PT RECEIVED IN BED WITH EYES OPEN AROUSABLE TO VERBAL STIMULATION. PT IS AAOX1. SR ON MONITOR. PT MECHANICALLY VENTILATED VIA TRACH, VENT SETTINGS: AC 14, TV 500, FIO2 40%, PEEP 5. VSS, NO S/S OF DISTRESS NOTED. L HAND 22G TO SL, R SUBCLAVIAN PORT-A-CATH INFUSING 1/2 NS @100 CC/HR. G-TUBE RUNNING PIVOT 1.5 TUBEFEEDING @ 50 CC/HR, NO RESIDUAL NOTED. SUPRAPUBIC CATH IN PLACE DRAINING SOHA URINE TO GRAVITY. SCDs IN PLACE. HOB ELEVATED, BED IN LOWEST POSITION, CALL LIGHT IN REACH. WILL CONTINUE TO MONITOR.
[2018-04-28 20:00] VITALS: BP_SYST 112
--- NOTE | 2018-04-28 22:00 | NUR ---
RN ROUNDS PT REMAINS RESTING COMFORTABLY IN BED WITH EYES OPEN. BREATHING IS EVEN AND UNLABORED ON MECHANICAL VENTILATOR. ORAL CARE DONE. PT SUCTIONED ORALLY AND VIA TRACH, MODERATE AMOUNT OF SPUTUM NOTED. PT TOLERATED WELL. NO S/S OF DISTRESS NOTED. WILL CONTINUE TO MONITOR PT.
[2018-04-29] VITALS (8 sets, daily range): BP systolic 93–110
[2018-04-29] MEDS: INSULIN REGULAR, HUMAN 100 UNITS/ML, 10 ML VIAL (novoLIN R) SUBCUT PRN (00:14)
[2018-04-29] MEDS: ACETAMINOPHEN 325 MG TABLET GT PRN ×2 (00:15→04:27)
--- NOTE | 2018-04-29 00:15 | NUR ---
RN ROUNDS PT RESTING COMFORTABLY IN BED WITH EYES CLOSED. TEMPERATURE AT THIS TIME IS 100.4, TYLENOL GIVEN PER ORDERS AND COOLING MEASURES INITIATED. NO S/S OF DISTRESS NOTED. WILL CONTINUE TO MONITOR PT.
[2018-04-29] MEDS: LEVALBUTEROL HCL 0.63 MG/3 ML VIAL.NEB INH SCH ×4 (00:46→19:35)
--- NOTE | 2018-04-29 01:30 | NUR ---
WOUND CARE WOUND CARE DONE BY MARITA BATISTA. DRESSINGS TO [employer].
--- NOTE | 2018-04-29 01:50 | NUR ---
RN ROUNDS PT TEMPERATURE RECHECKED ORALLY, 100.2 AT THIS TIME. ICE PACKS REPLACED AND COLD TOWEL PLACED TO FOREHEAD. BREATHING IS EVEN AND UNLABORED AT THIS TIME. NO S/S OF DISTRESS NOTED. WILL CONTINUE TO MONITOR PT TEMP CLOSELY.
--- NOTE | 2018-04-29 04:20 | NUR ---
RN ROUNDS PT TEMP RECHECKED ORALLY, 100.8 AT THIS TIME. PT GIVEN SECOND DOSE OF TYLENOL PER ORDERS. COOLING MEASURES STILL IN PLACE. WATER FLUSH AND ORAL CARE ALSO DONE AT THIS TIME AND PT REPOSITIONED. NO S/S OF DISTRESS NOTED. WILL CONTINUE TO MONITOR PT.
--- NOTE | 2018-04-29 04:40 | NUR ---
PAGED Paged Dr. Jacobson, [facility] [phone]
--- NOTE | 2018-04-29 05:11 | NUR ---
2ND PAGE FOR [phone], SW EXCHANGE
--- NOTE | 2018-04-29 05:15 | NUR ---
PAGED DR. LICEA [phone], EXCHANGE
--- NOTE | 2018-04-29 05:15 | NUR ---
MD CALL BACK SPOKE WITH DR. LICEA REGARDING PTS INCREASING TEMP DESPITE TWO DOSES OF TYLENOL AND COOLING MEASURES. MD STATES TO CONTINUE WITH TYLENOL AND COOLING MEASURES AND TO MONITOR TEMP. NO NEW ORDERS RECEIVED AT THIS TIME.
--- NOTE | 2018-04-29 05:15 | NUR ---
MD LOMELI SPOKE WITH DR. GARZA REGARDING PT INCREASING TEMP. PT STATES TO CALL [facility]. Addendum: 04/29/18 at 0557 by Nikki Cameron RN STATES TO CALL [facility]
[2018-04-29] MEDS: CEFTAZIDIME/AVIBACTAM 1.25 GM in NS 100 ML IV SCH ×3 (05:26→21:53)
--- NOTE | 2018-04-29 06:28 | NUR ---
CLOSING NOTES PT RESTING COMFORTABLY IN BED, NO S/S OF DISTRESS NOTED. BREATHING IS EVEN AND UNLABORED ON MECHANICAL VENTILATOR. TEMPERATURE RECHECKED, CURRENTLY 100.0. SUBCLAVIAN PORT-A-CATH CONTINUES TO INFUSE 1/2 NS @ 100 CC/HR, L HAND IV SITE PATENT AND INTACT. GTUBE RUNNING TUBE FEEDING. YODER CATH DRAINING TO GRAVITY. WILL CONTINUE TO MONITOR AND WILL ENDORSE ALL CARE TO AM RN.
[2018-04-29 06:33] LABS: BASOPHILS % (AUTO) 0.3 % (0.0-2.0); EOSINOPHILS # (AUTO) 0.4 K/uL (0.0-0.4); EOSINOPHILS % (AUTO) 4.1 % (0.0-4.0); HEMATOCRIT 25.5 % (36-54); HEMOGLOBIN 8.4 g/dL (14.0-18.0); LYMPHOCYTES # (AUTO) 1.7 K/uL (1.0-5.5); LYMPHOCYTES % (AUTO) 17.5 % (20.5-51.5); MEAN CORPUSCULAR HEMOGLOBIN 30 pg (27-31); MEAN CORPUSCULAR HGB CONC 33 % (32-36); MEAN CORPUSCULAR VOLUME 90 fL (79.0-98.0); MONOCYTES # (AUTO) 0.7 K/uL (0.0-1.0); MONOCYTES % (AUTO) 7.7 % (1.7-9.3); NEUTROPHILS # (AUTO) 6.7 K/uL (1.8-7.7); NEUTROPHILS % (AUTO) 70.4 % (40.0-70.0); PLATELET COUNT (AUTO) 279 K/uL (130-430); RED BLOOD CELL COUNT(AUTO) 2.82 MIL/uL (4.2-6.2); RED CELL DISTRIBUTION WIDTH 14.8 % (9.0-15.0); WHITE BLOOD COUNT (AUTO) 9.5 K/uL (4.8-10.8)
[2018-04-29 06:50] LABS: ALBUMIN 1.6 g/dL (3.4-4.8); CALCIUM 7.9 mg/dL (8.4-11.0); CREATININE 0.99 mg/dL (0.55-1.30); POTASSIUM 3.1 mmol/L (3.5-5.1); TOTAL BILIRUBIN 1.7 mg/dL (0.0-1.0)
--- NOTE | 2018-04-29 08:00 | NUR ---
OPENING NOTE PATIENT ON VENT, NON-RESPONSIVE. IV INFUSING, TUBE FEEDING AT 50ML, NO RESIDUALS.
[2018-04-29] MEDS: 0.45% NACL 1,000 ML IV SCH (08:45)
[2018-04-29] MEDS: BACLOFEN 10 MG TABLET GT SCH ×3 (10:02→21:52)
[2018-04-29] MEDS: PANTOPRAZOLE GRANULES PACKET 40 MG GT SCH (10:02)
[2018-04-29] MEDS: CHOLECALCIFEROL (VITAMIN D3) 2,000 UNIT TABLET GT SCH (10:02)
[2018-04-29] MEDS: DOCUSATE SODIUM 100 MG/10 ML UDC GT SCH (10:02)
[2018-04-29] MEDS: ASCORBIC ACID 500 MG TABLET GT SCH ×2 (10:03→21:52)
[2018-04-29] MEDS: METOPROLOL TARTRATE 25 MG TABLET GT SCH ×2 (10:03→21:55)
[2018-04-29] MEDS: levETIRAcetam 500 MG TABLET GT SCH ×2 (10:03→21:52)
[2018-04-29] MEDS: LACOSAMIDE 100 MG TABLET GT SCH ×2 (10:03→21:52)
[2018-04-29] MEDS: MULTIVITS,CA,MINERALS/IRON/FA 1 TABLET GT SCH (10:03)
[2018-04-29] MEDS: PHENYTOIN 100 MG/4 ML UDC (DILANTIN) GT SCH ×2 (10:04→21:49)
[2018-04-29] MEDS: CHLORHEXIDINE GLUCONATE 15 ML/DOSE, 480 ML MM SCH ×2 (10:04→21:52)
[2018-04-29] MEDS: BACITRACIN 1 GM OINT TP SCH ×2 (10:04→21:38)
[2018-04-29] MEDS: PHENobarbital 30 MG TABLET GT SCH ×2 (10:04→21:49)
--- NOTE | 2018-04-29 10:18 | NUR ---
G TUBE NOTED TO BE CLOGGED, USED WATER AND MANUAL MANIPULATION TO DISLODGE CLOTS.
--- NOTE | 2018-04-29 12:28 | NUR ---
BG WITHIN NORMAL LIMITS, NO COVERAGE NEEDED
[2018-04-29] MEDS ORDERED: POTASSIUM CHLORIDE 20 MEQ/PKT PACKET PO ONE (12:30)
[2018-04-29] MEDS ORDERED: POTASSIUM CHLORIDE 20 MEQ/PKT PACKET GT ONE (14:45)
--- NOTE | 2018-04-29 17:20 | NUR ---
wound care performed per orders. patient cleaned, turned. wounds assessed. clean and dry.
--- NOTE | 2018-04-29 17:23 | NUR ---
BG 113, NO COVERAGE NEEDED.
--- NOTE | 2018-04-29 19:45 | NUR ---
INITIAL NOTES RECEIVED PATIENT ON BED AWAKE AND RESTING BREATHING EVEN AND UNLABORED, MAINTAINED POSITION OF COMFORT AND SAFETY, SEIZURE PADS MAINTAINED, WITH TRACH TO VENT WITH ORDERED SETTINGS OF AC-14, TV-500, FIO2-40% AND PEEP OF 5, PATIENT SUCTIONED PRN, WITH GTUBE INTACT INFUSING WELL, TOLERATING WELL WITH 5CC RESIDUALS. WITH SUPRAPUBIC CATH, INTACT NO LEAKS NOTED, DRAINING TO GRAVITY. WITH PORT-A-CATH ON THE RIGHT UPPER CHEST INTACT, CLEAN DRY, INFUSING IV FLUIDS WELL. WILL CONTINUE TO MONITOR CALL LIGHT WITHIN REACH.
--- NOTE | 2018-04-29 22:30 | NUR ---
RN ROUNDS PATIENT ON BED SLEEPING AND RESTING BREATHING EVEN AND UNLABORED, SAFETY MAINTAINED NO SEIZURE ACTIVITY NOTED, ON STABLE CONDITION, SUCTIONED PRN, ALL SCHEDULED MEDICATIONS GIVEN, TOLERATING WELL, TURNED FROM SIDE TO SIDE, WILL CONTINUE TO MONITOR, CALL LIGHT WITHIN REACH.
[2018-04-30 00:27] VITALS: BP_SYST 102
--- NOTE | 2018-04-30 00:29 | NUR ---
RN ROUNDS PATIENT SLEEPING AND RESTING, ON STABLE CONDITION, KEPT COMFORTABLE, BED BATH DONE BY SALES SERVICE PROMOTER, ORAL CARE DONE, PATIENT SUCTIONED PRN, WILL CONTINUE TO MONITOR CALL LIGHT WITHIN REACH.
--- NOTE | 2018-04-30 01:15 | NUR ---
WOUND CARE WOUND CARE DONE BY AM NURSE, DRESSINGS CLEAN DRY INTACT. WILL CONTINUE TO MONITOR
--- NOTE | 2018-04-30 02:07 | NUR ---
RN ROUNDS PATIENT ON BED SLEEPING AND RESTING ON STABLE CONDITION, TURNED FROM SIDE TO SIDE WITH PILLOW SUPPORT, NO PAIN NOTED, SUCTIONED PRN, WILL CONTINUE TO MONITOR CALL LIGHT WITHIN REACH.
[2018-04-30] MEDS: LEVALBUTEROL HCL 0.63 MG/3 ML VIAL.NEB INH SCH ×4 (02:21→19:46)
[2018-04-30] MEDS: 0.45% NACL 1,000 ML IV SCH ×2 (02:49→21:07)
--- NOTE | 2018-04-30 04:22 | NUR ---
RN ROUNDS PATIENT ON BED SLEEPING AND RESTING, ON STABLE CONDITION, NO SIGNS OF DISTRESS NOTED, WATER FLUSHES DONE, SUCTIONED PRN, TURNED FROM SIDE TO SIDE, SAFETY MAINTAINED WILL CONTINUE TO MONITOR ARIAN LIGHT WITHIN REACH.
[2018-04-30] MEDS: CEFTAZIDIME/AVIBACTAM 1.25 GM in NS 100 ML IV SCH ×3 (05:09→21:16)
--- NOTE | 2018-04-30 06:33 | NUR ---
CLOSING NOTES PATIENT ON BED SLEEPING AND RESTING, BREATHING EVEN AND UNLABORED, NO SOB NOTED, ON STABLE CONDITION, SUCTIONED PRN, TURNED FROM SIDE TO SIDE, WATER FLUSHES DONE, ORAL CARE DONE, ALL DUE MEDICATIONS GIVEN AND TOLERATED WELL. GTUBE INTACT YODER CATH INTACT DRAINING TO GRAVITY. NO SEIZURE ACTIVITY NOTED, SAFETY PRECAUTIONS IN PLACE. WILL GIVE REPORT TO AM NURSE, WILL CONTINUE TO MONITOR CALL LIGHT WITHIN REACH
[2018-04-30 07:16] LABS: CALCIUM 8.3 mg/dL (8.4-11.0); CREATININE 0.88 mg/dL (0.55-1.30); POTASSIUM 3.8 mmol/L (3.5-5.1)
[2018-04-30 07:53] LABS: BASOPHILS % (AUTO) 0.5 % (0.0-2.0); EOSINOPHILS # (AUTO) 0.4 K/uL (0.0-0.4); EOSINOPHILS % (AUTO) 4.7 % (0.0-4.0); HEMATOCRIT 26.2 % (36-54); HEMOGLOBIN 9.1 g/dL (14.0-18.0); LYMPHOCYTES # (AUTO) 1.5 K/uL (1.0-5.5); LYMPHOCYTES % (AUTO) 18.2 % (20.5-51.5); MEAN CORPUSCULAR HEMOGLOBIN 31 pg (27-31); MEAN CORPUSCULAR HGB CONC 35 % (32-36); MEAN CORPUSCULAR VOLUME 90 fL (79.0-98.0); MONOCYTES # (AUTO) 0.6 K/uL (0.0-1.0); MONOCYTES % (AUTO) 7.1 % (1.7-9.3); NEUTROPHILS # (AUTO) 5.8 K/uL (1.8-7.7); NEUTROPHILS % (AUTO) 69.5 % (40.0-70.0); PLATELET COUNT (AUTO) 296 K/uL (130-430); RED BLOOD CELL COUNT(AUTO) 2.92 MIL/uL (4.2-6.2); RED CELL DISTRIBUTION WIDTH 14.6 % (9.0-15.0); WHITE BLOOD COUNT (AUTO) 8.3 K/uL (4.8-10.8)
[2018-04-30 08:00] VITALS: BP_SYST 101
[2018-04-30 08:34] LABS: TOTAL IRON BIND. CAPACITY 209 ug/dL (250-450)
[2018-04-30] MEDS: levETIRAcetam 500 MG TABLET GT SCH ×2 (09:33→20:51)
[2018-04-30] MEDS: BACLOFEN 10 MG TABLET GT SCH ×3 (09:33→20:51)
[2018-04-30] MEDS: CHOLECALCIFEROL (VITAMIN D3) 2,000 UNIT TABLET GT SCH (09:35)
[2018-04-30] MEDS: ASCORBIC ACID 500 MG TABLET GT SCH ×2 (09:35→20:48)
[2018-04-30] MEDS: DOCUSATE SODIUM 100 MG/10 ML UDC GT SCH (09:35)
[2018-04-30] MEDS: PANTOPRAZOLE GRANULES PACKET 40 MG GT SCH (09:35)
[2018-04-30] MEDS: PHENobarbital 30 MG TABLET GT SCH ×2 (09:36→20:52)
[2018-04-30] MEDS: MULTIVITS,CA,MINERALS/IRON/FA 1 TABLET GT SCH (09:36)
[2018-04-30] MEDS: PHENYTOIN 100 MG/4 ML UDC (DILANTIN) GT SCH ×2 (09:36→20:48)
[2018-04-30] MEDS: METOPROLOL TARTRATE 25 MG TABLET GT SCH ×2 (09:39→20:51)
[2018-04-30] MEDS: BACITRACIN 1 GM OINT TP SCH ×2 (09:44→21:21)
[2018-04-30] MEDS: CHLORHEXIDINE GLUCONATE 15 ML/DOSE, 480 ML MM SCH ×2 (09:44→20:52)
[2018-04-30] MEDS: LACOSAMIDE 100 MG TABLET GT SCH ×2 (09:50→20:48)
[2018-04-30 11:17] VITALS: BP_SYST 97
[2018-04-30] MEDS: INSULIN REGULAR, HUMAN 100 UNITS/ML, 10 ML VIAL (novoLIN R) SUBCUT PRN (13:08)
[2018-04-30] MEDS: COLISTIMETHATE SODIUM 75 MG in NS 50 ML IV SCH (13:46)
[2018-04-30 15:44] VITALS: BP_SYST 128
[2018-04-30 16:16] VITALS: BP_SYST 127
--- NOTE | 2018-04-30 16:18 | NUR ---
DC Planning : informed Jody for [facility] eval. She stated, will come in for eval tomorrow. CM faxed FS and order to [place] [facility] # [phone] per request.
--- NOTE | 2018-04-30 16:27 | NUR ---
PATIENT STATUS REMAINS UNCHANGED. VENT SETTINGS, SKIN, AND SHERRON-CATH ASSESSED. NO APPARENT DISTRESS.
--- NOTE | 2018-04-30 19:36 | NUR ---
Initial note: Received handoff report from dayshift RN. Patient is awake in bed, no signs or symptoms of acute distress noted. Mechanical vent noted, patient tolerating current settings. Tubefeeding noted to patient's left abdomen g-tube. Patient tolerating current formula and pump settings, 0 ML of gastric residual noted. Luna catheter draining yellow urine noted. Safety and fall precautions in place. Contact iso precautions in place. Call light is with patient. Will continue with plan of care.
[2018-04-30 20:55] VITALS: BP_SYST 101
--- NOTE | 2018-04-30 22:01 | NUR ---
Rounds: Patient is awake in bed, does not show any signs or symptoms of acute distress. Patient tolerating mechanical vent settings. Safety, fall, contact iso, aspiration precautions in place. Will continue monitoring.
--- NOTE | 2018-05-01 00:08 | NUR ---
Blood sugar 143: Patient's blood sugar at this time is 143. No coverage required per sliding scale. Safety, fall, contact iso, aspiration precautions in place. Will continue monitoring.
[2018-05-01] MEDS: LEVALBUTEROL HCL 0.63 MG/3 ML VIAL.NEB INH SCH ×4 (01:00→19:43)
[2018-05-01 01:10] VITALS: BP_SYST 94
--- NOTE | 2018-05-01 02:05 | NUR ---
Rounds: Patient is asleep in bed, no signs or symptoms of acute distress. Provided oral care and trach suctioning. IV fluids infusing well. Tubefeeding in place. Mechanical vent settings remain unchanged. Safety, fall, contact iso, aspiration precautions in place. Will continue to monitor.
--- NOTE | 2018-05-01 04:02 | NUR ---
Rounds: Patient is awake, no signs or symptoms of acute distress noted. Oral care and trach suctioning performed. Tubefeeding formula replaced, g-tube flushed with 150 ML sterile water. Wound care performed, patient tolerated well. Safety, fall, contact iso, aspiration precautions in place. Will continue to monitor.
[2018-05-01] MEDS: CEFTAZIDIME/AVIBACTAM 1.25 GM in NS 100 ML IV SCH ×3 (05:27→21:21)
[2018-05-01] MEDS: 0.45% NACL 1,000 ML IV SCH (05:27)
--- NOTE | 2018-05-01 06:07 | NUR ---
Closing note: Patient is awake in bed, no signs or symptoms of acute distress noted. Patient remains tolerating current vent settings. IV fluids remain infusing to right upper chest port-a-cath. Tubefeeding in place, flowing to patient's left abdominal g-tube. Luna draining yellow urine to gravity. All needs met and attended to. Safety, fall, contact iso, aspiration precautions observed throughout shift. Will endorse care to dayshift RN.
[2018-05-01 08:02] VITALS: BP_SYST 94
--- NOTE | 2018-05-01 08:04 | NUR ---
Initial notes: Patient on bed eyes opening, non verbal. On [facility] Vent with setting of F1O2 40% TV 500 AC 14 Peep 5. I.V. connected to port a cath. On isolation precaution. G tube in placed. SCD on bilateral lower extremities. Safety and seizure precaution in placed. Report received from shift foreman. Addendum: 05/01/18 at 0808 by Alanna Elizabeth RN Jeremy dorman draining well by gravity.
[2018-05-01] MEDS: DOCUSATE SODIUM 100 MG/10 ML UDC GT SCH (08:55)
[2018-05-01] MEDS: PHENYTOIN 100 MG/4 ML UDC (DILANTIN) GT SCH ×2 (08:56→21:16)
[2018-05-01] MEDS: BACLOFEN 10 MG TABLET GT SCH ×3 (08:56→21:17)
[2018-05-01] MEDS: PHENobarbital 30 MG TABLET GT SCH (08:56)
[2018-05-01] MEDS: PANTOPRAZOLE GRANULES PACKET 40 MG GT SCH (08:56)
[2018-05-01] MEDS: MULTIVITS,CA,MINERALS/IRON/FA 1 TABLET GT SCH (08:57)
[2018-05-01] MEDS: ASCORBIC ACID 500 MG TABLET GT SCH ×2 (08:57→21:17)
[2018-05-01] MEDS: levETIRAcetam 500 MG TABLET GT SCH ×2 (08:57→21:17)
[2018-05-01] MEDS: CHOLECALCIFEROL (VITAMIN D3) 2,000 UNIT TABLET GT SCH (08:57)
[2018-05-01] MEDS: METOPROLOL TARTRATE 25 MG TABLET GT SCH ×2 (09:00→21:00)
--- NOTE | 2018-05-01 09:25 | NUR ---
rounds: oral suctioning provided. medication given thru gtube. tolerating well.
[2018-05-01] MEDS: CHLORHEXIDINE GLUCONATE 15 ML/DOSE, 480 ML MM SCH ×2 (11:16→21:21)
[2018-05-01] MEDS: LACOSAMIDE 100 MG TABLET GT SCH ×2 (11:17→21:17)
--- NOTE | 2018-05-01 11:28 | NUR ---
rounds: patient eyes closed. no distress noted.
[2018-05-01] MEDS: INSULIN REGULAR, HUMAN 100 UNITS/ML, 10 ML VIAL (novoLIN R) SUBCUT PRN (11:52)
[2018-05-01 12:00] VITALS: BP_SYST 97
[2018-05-01 12:07] LABS: FOLATE (FOLIC ACID) >20.0 ng/mL (>3.0)
--- NOTE | 2018-05-01 12:57 | NUR ---
rounds: patient on bed sleeping. no distress noted.
[2018-05-01] MEDS: COLISTIMETHATE SODIUM 75 MG in NS 50 ML IV SCH (13:29)
[2018-05-01 13:33] LABS: FERRITIN 517 ng/mL (30-400)
--- NOTE | 2018-05-01 13:34 | NUR ---
rounds; patient awake and non verbal. no distress noted.
--- NOTE | 2018-05-01 14:52 | NUR ---
DC Planning: Per Jody, the pt. is accepted at [facility]
[2018-05-01 16:00] VITALS: BP_SYST 94
--- NOTE | 2018-05-01 16:24 | NUR ---
rounds: suction provided. repositioned patient for comfort. no distress noted.
--- NOTE | 2018-05-01 18:41 | NUR ---
Closing notes: Patient on bed awake and non verbal. On isolation precaution. Stable[facility]. I.V. access patent on chest port a cath. Gtube in placed. Suprapubic catheter draining well with polly urine. SCD on bilateral lower extremities. Safety and seizure precaution in placed. Report will be given to cnc machinist 2nd shift.
--- NOTE | 2018-05-01 19:35 | NUR ---
OPENING NOTE RECEIVED PT AND REPORT FROM DAY SHIFT NURSE. PT IS LAYING ASLEEP IN BED. NO S/S OF DISTRESS OR DISCOMFORT. TRACH CONNECTED TO VENT, PT TOLERATING WELL AT 99 O2 SATURATION. G TUBE IS RUNNING TUBE FEEDING PER ORDERS. CATHETER DRAINING BLOOD TINGED URINE VIA GRAVITY. FALL AND SAFETY PRECAUTIONS IN PLACE. BED LOCKED IN LOWEST POSITION. BED ALARM ON. CALL LIGHT WITH PT. WILL CONTINUE TO MONITOR.
[2018-05-01 20:00] VITALS: BP_SYST 94
--- NOTE | 2018-05-01 21:17 | NUR ---
MEDICATION ADMINISTRATION ADMINISTERED MEDICATION PER ORDERS. BP MED HELD FOR DECREASED BLOOD PRESSURE. WILL CONTINUE TO MONITOR.
[2018-05-01] MEDS: BACITRACIN ZINC 15 GM TOPICAL OINTMENT TP SCH (21:21)
--- NOTE | 2018-05-01 23:03 | NUR ---
BLOOD SUGAR/ TUBE FEEDING BLOOD SUGAR READING OF 119, NO COVERAGE PER SLIDING SCALE. ADMINISTERED NEW TUBE FEEDING. NO S/S OF DISTRESS OR DISCOMFORT. WILL CONTINUE TO MONITOR.
--- NOTE | 2018-05-02 00:55 | NUR ---
ROUNDING NOTE READJUSTED PT IN BED WITH ASSISTANCE FROM CHIEF WARDEN. PROVIDED ORAL CARE. PROVIDED TRACHEAL SUCTION. NO OTHER NEEDS. WILL CONTINUE TO MONITOR.
[2018-05-02] MEDS: LEVALBUTEROL HCL 0.63 MG/3 ML VIAL.NEB INH SCH ×4 (01:13→19:05)
[2018-05-02 01:20] VITALS: BP_SYST 114
--- NOTE | 2018-05-02 02:30 | NUR ---
WOUND CARE WOUND CARE COMPLETED PER ORDERS BY WOUND CARE NURSE. PT TOLERATED WELL. NO S/S OF DISTRESS OR DISCOMFORT. PICTURES TAKEN. PT TURNED AND REPOSITIONED.
--- NOTE | 2018-05-02 04:40 | NUR ---
ROUNDING NOTE PT IS SLEEPING IN BED. NO S/S OF DISTRESS OR DISCOMFORT. CALL LIGHT WITH PT. WILL CONTINUE TO MONITOR.
--- NOTE | 2018-05-02 05:24 | NUR ---
MEDICATION ADMINISTRATION/ BLOOD SUGAR BLOOD SUGAR READING OF 115. NO COVERAGE PER SLIDING SCALE. ADMINISTERED IV ABX PER ORDERS.
[2018-05-02] MEDS: CEFTAZIDIME/AVIBACTAM 1.25 GM in NS 100 ML IV SCH ×3 (05:25→21:07)
[2018-05-02] MEDS: 0.45% NACL 1,000 ML IV SCH (05:46)
--- NOTE | 2018-05-02 05:46 | NUR ---
IVF/ PICTURE OF DRY SCAB NEAR TRACH ADMINISTERED IVF PER ORDERS. TOOK PICTURE OF DRY SCAB NEAR TRACH. WILL CONTINUE TO MONITOR.
--- NOTE | 2018-05-02 06:24 | NUR ---
CLOSING NOTE WILL ENDORSE CARE AND REPORT TO DAY SHIFT NURSE. PT IS SLEEPING IN BED AT THIS TIME. NO S/S OF DISTRESS OR DISCOMFORT. PT IN STABLE CONDITION. ALL NEEDS MET THROUGHOUT SHIFT. NO SIGNIFICANT CHANGES TO NOTE DURING SHIFT. CONTACT ISOLATION MAINTAINED. FALL AND SAFETY PRECAUTIONS MAINTAINED. WILL CONTINUE TO MONITOR.
--- NOTE | 2018-05-02 07:22 | NUR ---
Initial rounds: Patient on bed sleeping. Stable. On mech vent with setting F102 40%, TV 500 AC 14 Peep 5. On isolation precaution. I.V. access patent. G tube in placed. Supra pubic cath draining well by gravity. SCD on bilateral lower extremities. Safety and seizure precaution in placed. Report received at bedside from LESTER Martinez.
[2018-05-02 08:05] VITALS: BP_SYST 126
--- NOTE | 2018-05-02 08:30 | NUR ---
Elizabethrounds: Seen by Dr. Otto with new order.
[2018-05-02] MEDS: PANTOPRAZOLE GRANULES PACKET 40 MG GT SCH (08:56)
[2018-05-02] MEDS: PHENYTOIN 100 MG/4 ML UDC (DILANTIN) GT SCH ×2 (08:57→20:39)
[2018-05-02] MEDS: BACITRACIN ZINC 15 GM TOPICAL OINTMENT TP SCH ×2 (08:57→20:40)
[2018-05-02] MEDS: DOCUSATE SODIUM 100 MG/10 ML UDC GT SCH (08:58)
[2018-05-02] MEDS: levETIRAcetam 500 MG TABLET GT SCH ×2 (08:58→20:39)
[2018-05-02] MEDS: METOPROLOL TARTRATE 25 MG TABLET GT SCH ×2 (08:59→20:43)
[2018-05-02] MEDS: LACOSAMIDE 100 MG TABLET GT SCH ×2 (08:59→20:39)
[2018-05-02] MEDS: BACLOFEN 10 MG TABLET GT SCH ×3 (08:59→20:41)
[2018-05-02] MEDS: MULTIVITS,CA,MINERALS/IRON/FA 1 TABLET GT SCH (08:59)
[2018-05-02] MEDS: CHOLECALCIFEROL (VITAMIN D3) 2,000 UNIT TABLET GT SCH (08:59)
[2018-05-02] MEDS: ASCORBIC ACID 500 MG TABLET GT SCH ×2 (09:00→20:39)
[2018-05-02] MEDS: CHLORHEXIDINE GLUCONATE 15 ML/DOSE, 480 ML MM SCH ×2 (09:00→20:40)
--- NOTE | 2018-05-02 09:29 | NUR ---
Jose rounds: Seen by Dr. Hernandez with new order.
[2018-05-02] MEDS ORDERED: LORazepam 1 MG TABLET PO PRN (09:30)
--- NOTE | 2018-05-02 10:04 | NUR ---
rounds: patient on bed eyes open. non verbal. moving his head side to side.
--- NOTE | 2018-05-02 10:30 | NUR ---
rounds: patient repositioned, provided oral/trach suctioning and oral care.
[2018-05-02 11:45] VITALS: BP_SYST 125
[2018-05-02] MEDS: INSULIN REGULAR, HUMAN 100 UNITS/ML, 10 ML VIAL (novoLIN R) SUBCUT PRN (11:59)
--- NOTE | 2018-05-02 12:01 | NUR ---
rounds: accu check done. 157 mg/dl. 2 units regular insulin given.
[2018-05-02] MEDS: COLISTIMETHATE SODIUM 75 MG in NS 50 ML IV SCH (13:24)
--- NOTE | 2018-05-02 13:29 | NUR ---
rounds: patient sleeping. no distress noted. no changed in condition.
--- NOTE | 2018-05-02 14:32 | NUR ---
rounds: patient on bed awake and non verbal. no distress noted.
[2018-05-02 15:52] VITALS: BP_SYST 94
--- NOTE | 2018-05-02 16:27 | NUR ---
rounds: patient sleeping. no distress noted.
--- NOTE | 2018-05-02 17:42 | NUR ---
rounds: patient eye opening. moving his head side to side. appears calm.
--- NOTE | 2018-05-02 18:22 | NUR ---
Closing notes: Patient on bed resting. Stable. Needs attending. On the same [facility] vent setting. Gtube in placed. Suprapubic cath draining well by gravity. Safety and seizure precaution in placed. Report will be given to warehouse shift supervisor.
[2018-05-02 19:10] VITALS: BP_SYST 99
--- NOTE | 2018-05-02 19:10 | NUR ---
Initial Notes Received patient in bed, awake alert oriented x 1, non verbal. No s/s of any distress and no c/o pain noted. Ansley cath noted to R subclavian porthacath no infiltrate and with good blood return. Patient is quadraphlegic. Call light in reach, side rails upx4, and bed alarm on, will cont to monitor.
--- NOTE | 2018-05-02 19:10 | NUR ---
Rounds Patient is resting at this time. No s/s of any distress, no c/o pain noted.Call light in reach, will cont to monitor.
--- NOTE | 2018-05-02 21:10 | NUR ---
Rounds Patient is resting at this time. Oral suction perform. No s/s of any distress, no c/o pain noted.Call light in reach, will cont to monitor.
--- NOTE | 2018-05-02 23:10 | NUR ---
Rounds CHG bath perform with Sandra ALFARO. No s/s of any distress, no c/o pain noted.Call light in reach, will cont to monitor.
[2018-05-03] VITALS (8 sets, daily range): BP systolic 101–138
--- NOTE | 2018-05-03 01:10 | NUR ---
Rounds Patient is resting at this time. Oral care perform. No s/s of any distress, no c/o pain noted.Call light in reach, will cont to monitor.
[2018-05-03] MEDS: LEVALBUTEROL HCL 0.63 MG/3 ML VIAL.NEB INH SCH ×4 (01:36→19:30)
--- NOTE | 2018-05-03 03:10 | NUR ---
Rounds Patient is resting at this time. Oral care perform. No c/o pain and no s/s of any distress noted. Call light in reach,will cont to monitor.
[2018-05-03] MEDS: CEFTAZIDIME/AVIBACTAM 1.25 GM in NS 100 ML IV SCH (05:55)
[2018-05-03 06:41] LABS: ALBUMIN 1.8 g/dL (3.4-4.8); CALCIUM 8.7 mg/dL (8.4-11.0); CREATININE 0.92 mg/dL (0.55-1.30); POTASSIUM 3.3 mmol/L (3.5-5.1); TOTAL BILIRUBIN 1.2 mg/dL (0.0-1.0)
--- NOTE | 2018-05-03 06:50 | NUR ---
End of shift notes Patient is resting in bed at this time. No c/o pain and no s/s of any distress noted. Call light in reach, side rails up x2 and bed alarm on for safety. Will endorse to incoming nurse.
[2018-05-03 07:51] LABS: BASOPHILS # (AUTO) 0.1 K/uL (0.0-0.2); EOSINOPHILS # (AUTO) 0.3 K/uL (0.0-0.4); MONOCYTES # (AUTO) 0.9 K/uL (0.0-1.0); MONOCYTES % (AUTO) 9.4 % (1.7-9.3)
[2018-05-03 07:52] LABS: BASOPHILS % (AUTO) 0.8 % (0.0-2.0); EOSINOPHILS % (AUTO) 3.1 % (0.0-4.0); HEMATOCRIT 27.2 % (36-54); HEMOGLOBIN 9.4 g/dL (14.0-18.0); LYMPHOCYTES # (AUTO) 1.7 K/uL (1.0-5.5); LYMPHOCYTES % (AUTO) 17.8 % (20.5-51.5); MEAN CORPUSCULAR HEMOGLOBIN 31 pg (27-31); MEAN CORPUSCULAR HGB CONC 35 % (32-36); MEAN CORPUSCULAR VOLUME 91 fL (79.0-98.0); NEUTROPHILS # (AUTO) 6.8 K/uL (1.8-7.7); NEUTROPHILS % (AUTO) 68.9 % (40.0-70.0); RED BLOOD CELL COUNT(AUTO) 2.99 MIL/uL (4.2-6.2); RED CELL DISTRIBUTION WIDTH 14.5 % (9.0-15.0); WHITE BLOOD COUNT (AUTO) 9.8 K/uL (4.8-10.8)
--- NOTE | 2018-05-03 07:57 | NUR ---
INITIAL NOTE PT LAYING IN 45' ANGLE, EYES OPEN, AWAKE, NOT ABLE TO TRACK MOVEMENT WITH EYE. PT VENT TO TRACH, VENT SETTINGS AC 14, FIO2 40% TV 500 PEEP 5. NO S/S OF ACUTE DISTRESS. VSS. PT NPO, GTUBE NOTED WITH PIVOT INFUSING AT 50CC/HR, SUPRA PUBIC CATHETER NOTED DRAINING URINE TO GRAVITY. LEFT HAND IV SITE SALINE LOCKED. LEFT SUBCLAVIAN PORTACATH 2 LUMEN WITH IV ANTIBIOTIC INFUSING AT THIS TIME. EDEMA NOTED TO RIGHT HAND. ASPIRATION, SEIZURE, ISOLATION PRECAUTIONS IN PLACE, SAFETY PRECAUTIONS IN PLACE, WILL MONITOR PT CLOSELY Addendum: 05/03/18 at 0807 by Leandra Pittman RN CORRECTION RIGHT SUBCLAVIAN PORTACATH
--- NOTE | 2018-05-03 09:45 | NUR ---
ROUNDS PT LAYING IN SEMIFOWLERS IN BED, AM MEDICATIONS ADMINISTERED. PT REPOSITIONED TO OPPOSITE SIDE IN BED WITH PILLOW SUPPORT TO BACK AND BILATERAL HEELS. GTUBE FEEDING RESUMED, VENT SETTINGS NOTED, NO S/S OF ACUTE RESPIRATORY DISTRESS NOTED, WILL CONTINUE TO MONITOR PT CLOSELY
[2018-05-03 09:49] LABS: PLATELET COUNT (AUTO) 450 K/uL (130-430)
[2018-05-03] MEDS: levETIRAcetam 500 MG TABLET GT SCH (09:52)
[2018-05-03] MEDS: BACLOFEN 10 MG TABLET GT SCH ×2 (09:52→14:32)
[2018-05-03] MEDS: CHOLECALCIFEROL (VITAMIN D3) 2,000 UNIT TABLET GT SCH (09:52)
[2018-05-03] MEDS: MULTIVITS,CA,MINERALS/IRON/FA 1 TABLET GT SCH (09:52)
[2018-05-03] MEDS: ASCORBIC ACID 500 MG TABLET GT SCH (09:52)
[2018-05-03] MEDS: DOCUSATE SODIUM 100 MG/10 ML UDC GT SCH (09:52)
[2018-05-03] MEDS: PANTOPRAZOLE GRANULES PACKET 40 MG GT SCH (09:53)
[2018-05-03] MEDS: PHENYTOIN 100 MG/4 ML UDC (DILANTIN) GT SCH (09:53)
[2018-05-03] MEDS: METOPROLOL TARTRATE 25 MG TABLET GT SCH (09:54)
[2018-05-03] MEDS: CHLORHEXIDINE GLUCONATE 15 ML/DOSE, 480 ML MM SCH (09:55)
[2018-05-03] MEDS: BACITRACIN ZINC 15 GM TOPICAL OINTMENT TP SCH (09:56)
[2018-05-03] MEDS: LACOSAMIDE 100 MG TABLET GT SCH (09:58)
[2018-05-03] MEDS ORDERED: POTASSIUM CHLORIDE 20 MEQ/PKT PACKET PO ONE (11:00)
[2018-05-03] MEDS ORDERED: COMMUNICATION ORDER XX ONE (11:15)
--- NOTE | 2018-05-03 11:30 | NUR ---
WOUND CARE EVALUATION WITH WOUND WET PROCESS TECHNICIAN LEIN WOUND CARE EVALUATION AND WOUND CARE RENDERED WITH WOUND PSYCHIATRIC CNS LIEN PT TOLERATED WELL.
--- NOTE | 2018-05-03 11:30 | NUR ---
Wound Re-Evaluation: Late note for 113 secondary to patient care. Patient re-evaluated for a low Shane score of 13. Patient was awake, alert, non verbal, and received in a Shattuck Bed with an IsoFlex DMITRY mattress with low air-loss therapy initiated. Patient needs to be turned in bed. Skin is fair (-). Bilateral lower extremities have contractures. Recommend reposition patient side to side only every 2 hours with pillow support. Elevate, off-load and float bilateral heels with pillows lengthwise at all times. Offload pressure areas with pillows for pressure re-distribution. Perform skin care and monitor skin integrity Q shift. Use moisture barrier cream on moisture susceptible areas QID and PRN for soiling. Place moisture barrier cream on Suprapubic Catheter jun-site daily, and PRN. Maintain patient on a low air-loss mattress. Skin assessment: 1. Sacral area: [place] scar tissue from a wound of unknown origin that has re-opened. Site has 90% dark pink tissue, 10% light pink tissue. Measures 0.9 cm x 1.0 cm. 2. Left Buttock area: [place] scar tissue from a wound of unknown origin that has re-opened. Site has 100% pink tissue. Measures 0.6 cm x 1.0 cm. 3.Right Buttock area: [place] scar tissue from a wound of unknown origin that has re-opened. Site has 10% dark pink tissue, 90% light pink tissue. Measures 3.4 cm x 4.7 cm. Recommend: Cleanse sites with normal Saline. Place moisture barrier cream onto sites. Put Hydrogel onto any portion of sites not covered by Calmoseptine Cream. Perform site care daily, and PRN for dressing soiling or dislodgment. 2. G-tube jun-site: Open area with 100% red, hypergranulated tissue. Measures 1.5 cm x 1.3 cm. Recommend continue: Cleanse with normal Saline. Place moisture barrier cream on G-tube jun-site followed by drain sponge. Perform site care daily, and PRN for drain sponge soiling or dislodgment. 3. Right Dorsal Foot: Scar tissue over a bony prominence. Recommend continue: Cover with a foam dressing for protection. Change dressing and check site daily.
[2018-05-03] MEDS ORDERED: LORazepam 1 MG TABLET GT PRN (11:31)
[2018-05-03] MEDS ORDERED: GLUCOSE 15 GM GEL (in 37.5 GM TUBE) GT PRN ×2 (11:32)
--- NOTE | 2018-05-03 12:00 | NUR ---
BLOOD SUGAR 143, NO COVERAGE NEEDED PER SLIDING SCALE.
--- NOTE | 2018-05-03 14:30 | NUR ---
IV ANTIBIOTIC HANGED/ ORAL CARE/ GTUBE FLUSHED/ PT REPOSITIONED
[2018-05-03] MEDS: COLISTIMETHATE SODIUM 75 MG in NS 50 ML IV SCH (14:32)
--- NOTE | 2018-05-03 15:59 | NUR ---
DR GARZA MAKING ROUNDS, UPDATED ON PATIENT STATUS. WILL CARRY OUT ANY NEW ORDERS
[2018-05-03] MEDS ORDERED: POTASSIUM CHLORIDE 20 MEQ/PKT PACKET GT ONE (16:00)
--- NOTE | 2018-05-03 16:00 | NUR ---
Nutrition F/U Admitting Diagnosis UTI, sepsis Reviewed Pertinent Medical/Surgical Hx Medical Record Patient Primary RN Medical History Comment: PMH: MS, neurogenic bladder, chronic respiratory failure per MD notes Pt also found w/ chronic respiratory failure, dehydration, AJ per MD notes 04/25/18 Sx: repair of scrotal laceration Subjective Information Pt seen resting in bed, +trach to vent, +non-verbal, w/ TF held at time of RD visit. RD notified RN of held feeding; she resumed feeding as per MD orders. She also reported that pt had been tolerating TF well w/ only 5 ml residuals today. Plans for possible transfer to LTAC. Per EMR, TF Intakes: 500 ml 05/03/18. Residuals: 5 ml 05/03/18. Abd is distended w/ active bowel sounds. I/O: 700/1000 (-300 ml) per 12 hours. Current TF regimen remains appropriate. Current Diet Order/Nutrition Support Pivot 1.5 at 50 ml/hr, Free Water Flush: 250 ml every 8 hrs via GT x1 day Patient/Significant Other Able To Verbalize Unable To Verbalize Education Provided Not Indicated Pertinent Medications colace, VIT C, SSI, theragran, VIT D-3, zofran, protonix Pertinent Labs BG 143 H, POC BG 143 H, BUN 29 H, CRE 0.92 WNL (improved), Lactic acid 3.3 H, WBC 19.8 WNL (improved), H/H 9.4 L/27.2 L Height (Feet) 5 feet Height (Inches) 6.00 inches Weight (Pounds) 154 pounds (04/21/18) Weight (Calculated Kilograms) 69.067385 kilograms Patient Weight 69.853 kg Body Mass Index 24.85 kg/m2 %IBW 108 Mathews/Adjusted Body Weight IBW: 142 lb, 65 kg Weight Status Overweight Usual Diet At Home Pivot 1.5 at 50 cc/hr x18 hours per hard chart reivew Skin Integrity Comment: Shane scale: 10; per Baking Assistant note 04/23/18: skin is fair (-); 1. Sacral and buttocks areas have pink scar tissue: 2. G-tube jun-site: Open area with 100% red, hypergranulated tissue. 3. Right Dorsal Foot: Scar tissue over a bony prominence. Pt noted w/ bilateral feet: non-pitting edema; bilateral hands: pitting edema; R hand: 2+ pitting edema Estimated Energy Expenditure (kcals/day) 8916-2539 kcal/day (30-35 kcal/kg CBW for sepsis) Estimated Protein Required (g/day) 105-140 gm/day (1.5-2 gm/kg CBW for sepsis) Estimated Fluid Required (l/day) 2-2.5 L/day (30-35 kcal/kg CBW for dehydration) Problem/Etiology/Signs/Symptoms Increased nutritional needs related to metabolic demands as evidenced by elevated lactic acid, and estimated nutritional requirements for sepsis. *ongoing Expected Outcomes/Goals - Monitor tolerance to EN support w/ goal of mt meeting at least 85% of estimated nutritional needs, labs trending WNL, normal GI function, and skin integrity/wt maintenance Dietitian Recommendations * Recommend continuing Pivot 1.5 at 50 ml/hr, Free Water Flush: 250 ml every 8 hrs via GT per MD Provides: 1800 kcal/day, 113 gm protein/day, and 1661 ml free water/day Meets: 86% of lower end of estimated caloric needs and 108% of lower end of estimated protein needs Follow Up Moderate Risk: F/U in 3-5 days
--- NOTE | 2018-05-03 16:09 | NUR ---
Dietitian Recommendations * Recommend continuing Pivot 1.5 at 50 ml/hr, Free Water Flush: 250 ml every 8 hrs via GT per MD Provides: 1800 kcal/day, 113 gm protein/day, and 1661 ml free water/day Meets: 86% of lower end of estimated caloric needs and 108% of lower end of estimated protein needs LP, RD Please refer to Nutrition Assessment for details.
--- NOTE | 2018-05-03 16:32 | NUR ---
DC Planning: Pt's information has been faxed to [facility] for review ([phone]). SUPERVISOR BOARDING spoke to Mingo who will review pt's isolation status.
[2018-05-03] MEDS ORDERED: MENTHOL/ZINC OXIDE 113 GM OINT. TP PRN (16:45)
--- NOTE | 2018-05-03 16:52 | NUR ---
DC Planning: late received call from Delores/[employer] ins. and Jody/[facility]. stated the transfer to LTAC is approved , auth # [id number]. May use logistic [facility] for transfer, no auth required. dc package delivered to nursing status gave to [employer]. Jody will call nursing status with bed assignment. LESTER Mobley made aware.
[2018-05-03] MEDS ORDERED: MENTHOL/ZINC OXIDE 113 GM OINT. TP SCH (17:00)
--- NOTE | 2018-05-03 17:10 | NUR ---
Placement: Receive call from [facility] CM, regarding placement. Patient going to [facility], room [facility]. Call [phone] for report. [facility]
[2018-05-03] MEDS: INSULIN REGULAR, HUMAN 100 UNITS/ML, 10 ML VIAL (novoLIN R) SUBCUT PRN (17:17)
--- NOTE | 2018-05-03 17:41 | NUR ---
Transport: spoke with Susan at [facility]. pickup for 1999 to [address]29 to [facility]. authorization number [id number].
--- NOTE | 2018-05-03 18:17 | NUR ---
FAMILY MEMBERS CALLED AT [phone] TO NOTIFY OF PATIENT TRANSFER TO [facility], NO ANSWER. WILL CONTINUE TO ATTEMPT TO REACH FAMILY FOR TRANSFER. IONA MCKINLEY [phone] HUNTER MCKINLEY [phone]
--- NOTE | 2018-05-03 18:28 | NUR ---
CONSENT TO TRANSFER RECIEVED FROM BROTHER HUNTER MCKINLEY, TELEPHONE WITNESS BY CHARGE NURSE DL.
--- NOTE | 2018-05-03 18:38 | NUR ---
REPORT GIVEN TO FILIPE FROM [facility] AT [phone]
--- NOTE | 2018-05-03 19:30 | NUR ---
PM ASSESSMENT REPORT RECEIVED FROM DAY RN. PT RECEIVED WITH DISCHARGE ORDERS TO [facility] RM 305A. PER DAY RN REPORT WAS GIVEN TO FILIPE BATISTA AT [facility] AND TOPOGRAPHIC COMPUTATOR IS SCHEDULED FOR [id number] WITH [facility]. PT RECEIVED IN BED WITH EYES OPEN, RESPONDING TO TACTILE STIMULATION. ST ON MONITOR. PT MECHANICALLY VENTILATED VIA TRACH: SETTINGS AC 14, FIO2 40%, TV 500, PEEP 5. R SUBCLAVIAN PORT-A-CATH AND L HAND 22G BOTH INTACT AND PATENT. G TUBE IN PLACE. SUPRAPUBIC CATH DRAINING URINE TO GRAVITY. HOB ELEVATED, BED IN LOWEST POSITION, CALL LIGHT IN REACH. WILL CONTINUE TO MONITOR PT.
--- NOTE | 2018-05-03 19:33 | NUR ---
CLOSING NOTE REPORT GIVEN TO RACHEL, AT BEDSIDE. RN AWARE OF DC TO LTAC. PT LAYING IN SEMIFOWLERS, TRACH TO VENT, NO S/S OF ACUTE DISTRESS OR PAIN, VSS. ALL NEEDS ATTENDED TO THROUGHOUT SHIFT, SAFETY/ISOLATION/SEIZURE/ASPIRATION PRECAUTIONS MAINTAINED.
--- NOTE | 2018-05-03 20:13 | NUR ---
PT DISCHARGE AM [facility] HERE TO TRANSPORT PT TO [facility] VIA [facility]. PT WILL GO TO RM 305A PER DAY RN. L HAND 22G IV SITE DC'D AT THIS TIME, CATHETER INTACT, NO ACTIVE BLEEDING NOTED. REPORT GIVEN TO EMT AND ACLS NURSE. DISCHARGE PACKET AND ALL BELONGINGS SENT WITH PT. PT IN STABLE CONDITION FOR TRANSPORT.
== END 2018-05-03 20:13 | DRG 710 ==
LOC: SED 18:09 → SIC 22:15 → STU 04-23 20:16
PROVIDERS: ADMIT Family Medicine; ATTEND Family Medicine
PROC: 5A1955Z Respiratory Ventilation, Greater than 96 Consecutive Hours (ICD-10-PCS; principal; 2018-04-20)
PROC: 30233N1 Transfusion of Nonautologous Red Blood Cells into Peripheral Vein, Percutaneous Approach (ICD-10-PCS; 2018-04-22)
PROC: 0TC68ZZ Extirpation of Matter from Right Ureter, Via Natural or Artificial Opening Endoscopic (ICD-10-PCS; 2018-04-25)
PROC: 0T788DZ Dilation of Bilateral Ureters with Intraluminal Device, Via Natural or Artificial Opening Endoscopic (ICD-10-PCS; 2018-04-25)
PROC: BT141ZZ Fluoroscopy of Kidneys, Ureters and Bladder using Low Osmolar Contrast (ICD-10-PCS; 2018-04-25)
PROC: 0TCB8ZZ Extirpation of Matter from Bladder, Via Natural or Artificial Opening Endoscopic (ICD-10-PCS; 2018-04-25)
PROC: 0TC78ZZ Extirpation of Matter from Left Ureter, Via Natural or Artificial Opening Endoscopic (ICD-10-PCS; 2018-04-25)
PROC: 0VQ Male Reproductive System, Repair (ICD-10-PCS; 2018-04-25)
DX: A41.52 Sepsis due to Pseudomonas (principal); N17.0 Acute kidney failure with tubular necrosis; R65.21 Severe sepsis with septic shock; J69.0 Pneumonitis due to inhalation of food and vomit; Z99.11 Dependence on respirator [ventilator] status; G93.40 Encephalopathy, unspecified; J96.10 Chronic respiratory failure, unspecified whether with hypoxia or hypercapnia; E87.2 Acidosis; E46 Unspecified protein-calorie malnutrition; G35 Multiple sclerosis; D64.9 Anemia, unspecified; N31.9 Neuromuscular dysfunction of bladder, unspecified; N18.9 Chronic kidney disease, unspecified; N13.6 Pyonephrosis; E11.22 Type 2 diabetes mellitus with diabetic chronic kidney disease; N40.0 Benign prostatic hyperplasia without lower urinary tract symptoms; F32.9 Major depressive disorder, single episode, unspecified; E87.6 Hypokalemia; F03.90 Unspecified dementia, unspecified severity, without behavioral disturbance, psychotic disturbance, mood disturbance, and anxiety; I12.9 Hypertensive chronic kidney disease with stage 1 through stage 4 chronic kidney disease, or unspecified chronic kidney disease; N21.0 Calculus in bladder; G82.20 Paraplegia, unspecified; G20 Parkinson's disease; E87.0 Hyperosmolality and hypernatremia; E86.0 Dehydration; R56.9 Unspecified convulsions; S31.31XA Laceration without foreign body of scrotum and testes, initial encounter; X58.XXXA Exposure to other specified factors, initial encounter; Y93.89 Activity, other specified; Y92.89 Other specified places as the place of occurrence of the external cause; Y99.8 Other external cause status; Z87.440 Personal history of urinary (tract) infections; Z74.01 Bed confinement status; Z93.0 Tracheostomy status; Z93.1 Gastrostomy status; Z88.0 Allergy status to penicillin; Z88.1 Allergy status to other antibiotic agents; Z79.899 Other long term (current) drug therapy; Z68.24 Body mass index [BMI] 24.0-24.9, adult
CPT/HCPCS: 36415; 70450-TC; 71045; 74018; 76000; 80048; 80053; 80307; 81000-TC; 82140-TC; 82607; 82728; 82746; 82962; 83540-TC; 83550-TC; 83605; 83735-TC; 83880; 84100-TC; 84439; 84484; 85007; 85025; 85027; 85610-TC; 86886; 86900; 86901; 86920; 87040-TC; 87070-TC; 87081; 87086; 87186-TC; 87205-TC; 93005; 94002; 94003; 94640; 94760; 95816; 96361; 96365; 99291; C1758; C1769; C2625; G0482; J0713; J0770; J1100; J1170; J1580; J1650; J1815; J1956; J2060; J2185; J2270; J2704; J7030; J7040; J7050; J7120; J7613; J7614; P9021; P9041

== ENCOUNTER 2019-01-28 13:11 | Inpatient (IN) | payer MEDICAID, OTHER ==
[~2019-01-28] VITALS: Ht 167.6 cm; Wt 69.9 kg
[~2019-01-28 13:11] MED LIST changes: -ACIDOPHILUS PROB1 MG GT; +ALBU2.5V7 INH; +ATRMDI INH; +CHLO473M5 MM; +CHOL100038 GT; -CRAN450C GT; +LACO100T2 GT; +LANS-57 GT; -LEVA1.2527 NEB; +LEVE100S2 GT; -LOVI40 SQ; +PHEN125O3 GT; +PHEN97.22 GT; +POTA20LI4 GT; -PRO40 GT; +TYLL650 GT
[2019-01-28 13:21] VITALS: BP_SYST 103
[2019-01-28] MEDS ORDERED: NACL 0.9% 1,000 ML IV ONE (13:30)
[2019-01-28] MEDS ORDERED: metroNIDAZOLE 500 MG TABLET PO ONE (13:45)
[2019-01-28] MEDS ORDERED: metroNIDAZOLE 500 mg/NS 100 ML IV ONE (13:45)
[2019-01-28 15:01] LABS: BASOPHILS # (AUTO) 0.1 K/uL (0.0-0.2); BASOPHILS % (AUTO) 1.4 % (0.0-2.0); EOSINOPHILS # (AUTO) 0.2 K/uL (0.0-0.4); EOSINOPHILS % (AUTO) 3.3 % (0.0-4.0); HEMATOCRIT 23.1 % (36-54); HEMOGLOBIN 7.7 g/dL (14.0-18.0); LYMPHOCYTES # (AUTO) 1.2 K/uL (1.0-5.5); LYMPHOCYTES % (AUTO) 16.7 % (20.5-51.5); MEAN CORPUSCULAR HEMOGLOBIN 34 pg (27-31); MEAN CORPUSCULAR HGB CONC 33 % (32-36); MEAN CORPUSCULAR VOLUME 102 fL (79.0-98.0); MONOCYTES # (AUTO) 0.6 K/uL (0.0-1.0); MONOCYTES % (AUTO) 8.6 % (1.7-9.3); NEUTROPHILS # (AUTO) 4.9 K/uL (1.8-7.7); PLATELET COUNT (AUTO) 289 K/uL (130-430); RED BLOOD CELL COUNT(AUTO) 2.28 MIL/uL (4.2-6.2); RED CELL DISTRIBUTION WIDTH 14.7 % (9.0-15.0)
[2019-01-28 15:14] LABS: CALCIUM 9.1 mg/dL (8.4-11.0); CREATININE 1.35 mg/dL (0.55-1.30); POTASSIUM 3.8 mmol/L (3.5-5.1)
[2019-01-28 15:24] LABS: INR 0.9 (0.80-1.20); PROTHROMBIN TIME 9.7 SECS (9.5-12.5)
[2019-01-28 15:28] LABS: ALBUMIN 2.1 g/dL (3.4-4.8); TOTAL BILIRUBIN 0.3 mg/dL (0.0-1.0)
[2019-01-28] MEDS ORDERED: BACL10TA GT (15:34)
[2019-01-28] MEDS ORDERED: TYLL650 GT (15:34)
[2019-01-28] MEDS ORDERED: DEXT30DR6 EACH EYE (15:34)
[2019-01-28] MEDS ORDERED: DOCU-144 GT (15:34)
[2019-01-28] MEDS ORDERED: IPRA3AMP9 INH (15:34)
[2019-01-28] MEDS ORDERED: BISA10SU61 RC (15:34)
[2019-01-28] MEDS ORDERED: CRAN450C GT (15:34)
[2019-01-28] MEDS ORDERED: MOM GT (15:34)
[2019-01-28] MEDS ORDERED: NA P133E41 RC (15:34)
[2019-01-28] MEDS ORDERED: LOVI40 SQ (15:34)
[2019-01-28] MEDS ORDERED: LACO100T2 PO (15:34)
[2019-01-28] MEDS ORDERED: LACT10SO6 GT (15:34)
[2019-01-28] MEDS ORDERED: CHLO473M5 MM (15:34)
[2019-01-28] MEDS ORDERED: LORA-259 GT (15:34)
[2019-01-28] MEDS ORDERED: METO25TA6 GT (15:34)
[2019-01-28] MEDS ORDERED: LEVE100S GT (15:34)
[2019-01-28] MEDS ORDERED: EFFER K GT (15:34)
[2019-01-28] MEDS ORDERED: PHEN20EL5 GT (15:34)
[2019-01-28] MEDS ORDERED: VITD2000 GT (15:34)
[2019-01-28] MEDS ORDERED: PHEN100O4 GT (15:34)
[2019-01-28 17:23] LABS: BILIRUBIN,URINE NEGATIVE (NEGATIVE); BLOOD, URINE 3+ (NEGATIVE); CLARITY/URINE CLOUDY (CLEAR); COLOR,URINE RED (YELLOW); GLUCOSE,URINE NEGATIVE (NEGATIVE); KETONES,URINE NEGATIVE (NEGATIVE); LEUKOCYTE ESTERASE ,URINE 3+ (NEGATIVE); NITRITE, URINE POSITIVE (NEGATIVE); PH,URINE 7.5 (5.0-8.0); PROTEIN URINE 3+ (NEGATIVE)
[2019-01-28 17:24] LABS: BACTERIA,URINE MODERATE /HPF (None Seen); RBC,URINE >100 /HPF (0-3); WBC,URINE >100 /HPF (0-3)
[2019-01-28 17:50] VITALS: BP_SYST 104
[2019-01-28 17:57] VITALS: BP_SYST 104
[2019-01-28 18:06] VITALS: BP_SYST 109
[2019-01-28 19:00] VITALS: BP_SYST 115
[2019-01-28 20:00] VITALS: BP_SYST 115
[2019-01-28] MEDS ORDERED: LORazepam 1 MG TABLET GT PRN (22:45)
[2019-01-28] MEDS ORDERED: MILK OF MAGNESIA 30 ML UDC GT PRN (22:45)
[2019-01-28] MEDS ORDERED: NA PHOS,M-B/NA PHOS,DI-BA 118 ML (FLEET ENEMA) RC SCH (22:45)
[2019-01-28] MEDS ORDERED: BISACODYL 10 MG/SUPPOSITORY RC PRN (22:45)
[2019-01-29] MEDS ORDERED: PHENYTOIN 100 MG/4 ML UDC (DILANTIN) GT SCH
[2019-01-29] MEDS ORDERED: METOPROLOL TARTRATE 25 MG TABLET GT SCH
[2019-01-29] MEDS ORDERED: LevETIRAcetam 500 MG/5 ML UDC ORAL LIQUID GT SCH
[2019-01-29] MEDS ORDERED: LACOSAMIDE 100 MG TABLET PO SCH
[2019-01-29] MEDS ORDERED: BACLOFEN 10 MG TABLET GT SCH ×2
[2019-01-29 01:36] VITALS: BP_SYST 108
[2019-01-29] MEDS: metroNIDAZOLE 500 mg/NS 100 ML IV SCH ×3 (02:32→16:15)
[2019-01-29] MEDS ORDERED: metroNIDAZOLE 500 mg/NS 100 ML IV ONE (02:41)
[2019-01-29] MEDS: BACLOFEN 10 MG TABLET GT SCH ×3 (05:33→21:31)
[2019-01-29 06:33] LABS: BASOPHILS # (AUTO) 0.1 K/uL (0.0-0.2); BASOPHILS % (AUTO) 0.5 % (0.0-2.0); EOSINOPHILS # (AUTO) 0.2 K/uL (0.0-0.4); EOSINOPHILS % (AUTO) 1.3 % (0.0-4.0); HEMATOCRIT 29.7 % (36-54); HEMOGLOBIN 9.8 g/dL (14.0-18.0); LYMPHOCYTES # (AUTO) 0.9 K/uL (1.0-5.5); LYMPHOCYTES % (AUTO) 6.7 % (20.5-51.5); MEAN CORPUSCULAR HEMOGLOBIN 33 pg (27-31); MEAN CORPUSCULAR HGB CONC 33 % (32-36); MEAN CORPUSCULAR VOLUME 101 fL (79.0-98.0); MONOCYTES # (AUTO) 0.8 K/uL (0.0-1.0); MONOCYTES % (AUTO) 5.4 % (1.7-9.3); NEUTROPHILS # (AUTO) 12.2 K/uL (1.8-7.7); NEUTROPHILS % (AUTO) 86.1 % (40.0-70.0); PLATELET COUNT (AUTO) 339 K/uL (130-430); RED BLOOD CELL COUNT(AUTO) 2.92 MIL/uL (4.2-6.2)
[2019-01-29 07:31] LABS: WHITE BLOOD COUNT (AUTO) 14.2 K/uL (4.8-10.8)
[2019-01-29 07:33] LABS: CALCIUM 9.1 mg/dL (8.4-11.0); CREATININE 1.25 mg/dL (0.55-1.30); POTASSIUM 3.3 mmol/L (3.5-5.1)
[2019-01-29 08:00] VITALS: BP_SYST 126
[2019-01-29] MEDS ORDERED: NON-FORMULARY MEDICATION (Cranberry Fruit Concentrate (Cranberry) 450 MG) GT SCH (09:00)
[2019-01-29] MEDS: CHLORHEXIDINE GLUCONATE 15 ML/DOSE, 480 ML MM SCH ×2 (09:25→21:27)
[2019-01-29] MEDS: LACTULOSE 20 GM/30 ML UDC GT SCH (09:25)
[2019-01-29] MEDS: PHENYTOIN 100 MG/4 ML UDC (DILANTIN) GT SCH ×2 (09:26→21:29)
[2019-01-29] MEDS: LACOSAMIDE 100 MG TABLET PO SCH ×2 (09:27→21:29)
[2019-01-29] MEDS: METOPROLOL TARTRATE 25 MG TABLET GT SCH ×2 (09:27→21:31)
[2019-01-29] MEDS: CHOLECALCIFEROL (VITAMIN D3) 2,000 UNIT TABLET GT SCH ×2 (09:28→21:31)
[2019-01-29] MEDS: LevETIRAcetam 500 MG/5 ML UDC ORAL LIQUID GT SCH ×2 (09:29→21:28)
[2019-01-29] MEDS: ENOXAPARIN SODIUM 40 MG/0.4 ML SYRINGE SQ SCH (09:30)
[2019-01-29] MEDS: ACETAMINOPHEN 650 MG/20.3 ML UDC GT PRN (10:45)
[2019-01-29] MEDS ORDERED: POTASSIUM CHLORIDE 20 MEQ/PKT PACKET PO ONE (12:15)
[2019-01-29] MEDS: 0.45% NACL 1,000 ML IV SCH (12:39)
[2019-01-29 12:42] VITALS: BP_SYST 94
[2019-01-29] MEDS ORDERED: POTASSIUM CHLORIDE 20 MEQ/PKT PACKET GT ONE (12:45)
[2019-01-29] MEDS: PEG 400/HYPROMELLOSE/GLYCERIN 15 ML DROPS EACH EYE SCH ×2 (14:03→21:27)
[2019-01-29] MEDS ORDERED: LEVOFLOXACIN 500 MG/D5W 100 ML IV SCH (16:00)
[2019-01-29 16:53] VITALS: BP_SYST 112
[2019-01-29 20:00] VITALS: BP_SYST 107
[2019-01-29] MEDS: CEFEPIME 1 GM in D5W 50 ML IV SCH (21:26)
[2019-01-29 23:14] VITALS: BP_SYST 96
[2019-01-30] MEDS: metroNIDAZOLE 500 mg/NS 100 ML IV SCH ×4 (01:09→23:20)
[2019-01-30] MEDS: BACLOFEN 10 MG TABLET GT SCH ×3 (05:39→22:04)
[2019-01-30] MEDS: PEG 400/HYPROMELLOSE/GLYCERIN 15 ML DROPS EACH EYE SCH ×3 (05:39→22:00)
[2019-01-30 05:41] LABS: BASOPHILS % (AUTO) 0.6 % (0.0-2.0); EOSINOPHILS % (AUTO) 0.4 % (0.0-4.0); HEMOGLOBIN 8.2 g/dL (14.0-18.0); LYMPHOCYTES # (AUTO) 1.2 K/uL (1.0-5.5); MONOCYTES # (AUTO) 0.7 K/uL (0.0-1.0)
[2019-01-30 06:59] LABS: BASOPHILS # (AUTO) 0.1 K/uL (0.0-0.2); CALCIUM 8.7 mg/dL (8.4-11.0); CREATININE 1.49 mg/dL (0.55-1.30); HEMATOCRIT 25.1 % (36-54); LYMPHOCYTES % (AUTO) 13.7 % (20.5-51.5); MEAN CORPUSCULAR HEMOGLOBIN 34 pg (27-31); MEAN CORPUSCULAR HGB CONC 33 % (32-36); MEAN CORPUSCULAR VOLUME 102 fL (79.0-98.0); MONOCYTES % (AUTO) 8.5 % (1.7-9.3); NEUTROPHILS # (AUTO) 6.7 K/uL (1.8-7.7); NEUTROPHILS % (AUTO) 76.8 % (40.0-70.0); PLATELET COUNT (AUTO) 274 K/uL (130-430); POTASSIUM 3.7 mmol/L (3.5-5.1); RED BLOOD CELL COUNT(AUTO) 2.46 MIL/uL (4.2-6.2); RED CELL DISTRIBUTION WIDTH 14.9 % (9.0-15.0)
[2019-01-30 07:05] LABS: ALBUMIN 2.1 g/dL (3.4-4.8); TOTAL BILIRUBIN 0.3 mg/dL (0.0-1.0)
[2019-01-30 07:08] LABS: WHITE BLOOD COUNT (AUTO) 8.8 K/uL (4.8-10.8)
[2019-01-30 07:30] VITALS: BP_SYST 94
[2019-01-30 08:06] VITALS: BP_SYST 94
[2019-01-30] MEDS: PHENYTOIN 100 MG/4 ML UDC (DILANTIN) GT SCH ×2 (09:42→22:03)
[2019-01-30] MEDS: LACTULOSE 20 GM/30 ML UDC GT SCH (09:42)
[2019-01-30] MEDS: CHOLECALCIFEROL (VITAMIN D3) 2,000 UNIT TABLET GT SCH ×2 (09:43→22:02)
[2019-01-30] MEDS: METOPROLOL TARTRATE 25 MG TABLET GT SCH ×2 (09:43→22:02)
[2019-01-30] MEDS: LACOSAMIDE 100 MG TABLET PO SCH ×2 (09:43→22:04)
[2019-01-30] MEDS: CEFEPIME 1 GM in D5W 50 ML IV SCH ×2 (09:45→21:59)
[2019-01-30] MEDS: ENOXAPARIN SODIUM 40 MG/0.4 ML SYRINGE SQ SCH (09:47)
[2019-01-30] MEDS: CHLORHEXIDINE GLUCONATE 15 ML/DOSE, 480 ML MM SCH ×2 (09:49→22:01)
[2019-01-30] MEDS: LevETIRAcetam 500 MG/5 ML UDC ORAL LIQUID GT SCH ×2 (09:49→22:04)
[2019-01-30 12:13] VITALS: BP_SYST 89
[2019-01-30] MEDS: ALBUMIN HUMAN 25% 100 ML IV SCH ×2 (13:47→14:50)
[2019-01-30] MEDS: 0.45% NACL 1,000 ML IV SCH (13:48)
[2019-01-30] MEDS: DAPTOmycin 500 MG in NS 50 ML IV SCH (14:52)
[2019-01-30 16:19] VITALS: BP_SYST 96
[2019-01-30 20:00] VITALS: BP_SYST 110
[2019-01-30] MEDS: MUPIROCIN 2% TOPICAL OINTMENT 22 GM TP SCH (22:01)
[2019-01-30 23:55] VITALS: BP_SYST 105
[2019-01-31] MEDS: 0.45% NACL 1,000 ML IV SCH ×2 (00:55→09:00)
[2019-01-31] MEDS: PEG 400/HYPROMELLOSE/GLYCERIN 15 ML DROPS EACH EYE SCH ×3 (05:53→20:58)
[2019-01-31] MEDS: BACLOFEN 10 MG TABLET GT SCH ×3 (05:53→21:58)
[2019-01-31 06:05] LABS: BASOPHILS # (AUTO) 0.1 K/uL (0.0-0.2); BASOPHILS % (AUTO) 0.9 % (0.0-2.0); EOSINOPHILS # (AUTO) 0.2 K/uL (0.0-0.4); EOSINOPHILS % (AUTO) 2.8 % (0.0-4.0); HEMATOCRIT 22.9 % (36-54); HEMOGLOBIN 7.5 g/dL (14.0-18.0); LYMPHOCYTES % (AUTO) 12.8 % (20.5-51.5); MEAN CORPUSCULAR HEMOGLOBIN 34 pg (27-31); MEAN CORPUSCULAR HGB CONC 33 % (32-36); MEAN CORPUSCULAR VOLUME 103 fL (79.0-98.0); MONOCYTES # (AUTO) 0.7 K/uL (0.0-1.0); MONOCYTES % (AUTO) 8.7 % (1.7-9.3); NEUTROPHILS % (AUTO) 74.8 % (40.0-70.0); PLATELET COUNT (AUTO) 246 K/uL (130-430); RED BLOOD CELL COUNT(AUTO) 2.23 MIL/uL (4.2-6.2); RED CELL DISTRIBUTION WIDTH 15.1 % (9.0-15.0)
[2019-01-31 06:48] LABS: CALCIUM 8.9 mg/dL (8.4-11.0); CREATININE 1.39 mg/dL (0.55-1.30); POTASSIUM 3.5 mmol/L (3.5-5.1)
[2019-01-31 08:00] VITALS: BP_SYST 102
[2019-01-31] MEDS: metroNIDAZOLE 500 mg/NS 100 ML IV SCH (08:59)
[2019-01-31] MEDS: METOPROLOL TARTRATE 25 MG TABLET GT SCH ×2 (09:00→20:54)
[2019-01-31] MEDS: PHENYTOIN 100 MG/4 ML UDC (DILANTIN) GT SCH ×2 (09:01→20:51)
[2019-01-31] MEDS: LevETIRAcetam 500 MG/5 ML UDC ORAL LIQUID GT SCH ×2 (09:01→20:52)
[2019-01-31] MEDS: CHOLECALCIFEROL (VITAMIN D3) 2,000 UNIT TABLET GT SCH ×2 (09:01→20:53)
[2019-01-31] MEDS: LACOSAMIDE 100 MG TABLET PO SCH ×2 (09:01→20:53)
[2019-01-31] MEDS: LACTULOSE 20 GM/30 ML UDC GT SCH (09:01)
[2019-01-31] MEDS: CHLORHEXIDINE GLUCONATE 15 ML/DOSE, 480 ML MM SCH ×2 (09:02→20:56)
[2019-01-31] MEDS: MUPIROCIN 2% TOPICAL OINTMENT 22 GM TP SCH ×2 (09:03→20:57)
[2019-01-31] MEDS: CEFEPIME 1 GM in D5W 50 ML IV SCH (09:12)
[2019-01-31] MEDS: ENOXAPARIN SODIUM 40 MG/0.4 ML SYRINGE SQ SCH (09:13)
[2019-01-31 13:04] VITALS: BP_SYST 94
[2019-01-31] MEDS: POTASSIUM CHLORIDE 20 MEQ/PKT PACKET GT SCH ×2 (13:45→13:46)
[2019-01-31] MEDS: D5W IV SCH (13:48)
[2019-01-31] MEDS: AMIKACIN SULFATE IV SCH (13:48)
[2019-01-31] MEDS ORDERED: POTASSIUM CHLORIDE 20 MEQ/PKT PACKET ONE (13:51)
[2019-01-31] MEDS: DAPTOmycin 500 MG in NS 50 ML IV SCH (15:18)
[2019-01-31 16:49] VITALS: BP_SYST 97
[2019-01-31 17:23] VITALS: BP_SYST 97
[2019-01-31 21:00] VITALS: BP_SYST 98
[2019-02-01 01:06] VITALS: BP_SYST 100
[2019-02-01] MEDS: 0.45% NACL 1,000 ML IV SCH ×2 (03:00→13:18)
[2019-02-01] MEDS: BACLOFEN 10 MG TABLET GT SCH ×3 (06:35→21:59)
[2019-02-01] MEDS: PEG 400/HYPROMELLOSE/GLYCERIN 15 ML DROPS EACH EYE SCH ×3 (06:36→21:59)
[2019-02-01 07:08] LABS: BASOPHILS # (AUTO) 0.1 K/uL (0.0-0.2); BASOPHILS % (AUTO) 0.6 % (0.0-2.0); EOSINOPHILS # (AUTO) 0.3 K/uL (0.0-0.4); EOSINOPHILS % (AUTO) 3.5 % (0.0-4.0); HEMATOCRIT 22.3 % (36-54); HEMOGLOBIN 7.5 g/dL (14.0-18.0); LYMPHOCYTES # (AUTO) 0.8 K/uL (1.0-5.5); MEAN CORPUSCULAR HEMOGLOBIN 34 pg (27-31); MEAN CORPUSCULAR HGB CONC 34 % (32-36); MEAN CORPUSCULAR VOLUME 101 fL (79.0-98.0); MONOCYTES # (AUTO) 0.6 K/uL (0.0-1.0); MONOCYTES % (AUTO) 6.8 % (1.7-9.3); NEUTROPHILS # (AUTO) 7.4 K/uL (1.8-7.7); NEUTROPHILS % (AUTO) 80.1 % (40.0-70.0); PLATELET COUNT (AUTO) 227 K/uL (130-430); RED BLOOD CELL COUNT(AUTO) 2.19 MIL/uL (4.2-6.2); RED CELL DISTRIBUTION WIDTH 14.5 % (9.0-15.0); WHITE BLOOD COUNT (AUTO) 9.3 K/uL (4.8-10.8)
[2019-02-01 07:20] LABS: ALBUMIN 2.3 g/dL (3.4-4.8); CALCIUM 8.6 mg/dL (8.4-11.0); CREATININE 1.15 mg/dL (0.55-1.30); TOTAL BILIRUBIN 0.3 mg/dL (0.0-1.0)
[2019-02-01 07:36] LABS: TOTAL IRON BIND. CAPACITY 147 ug/dL (250-450)
[2019-02-01 07:55] VITALS: BP_SYST 99
[2019-02-01] MEDS: LACOSAMIDE 100 MG TABLET PO SCH ×2 (08:58→21:57)
[2019-02-01] MEDS: CHOLECALCIFEROL (VITAMIN D3) 2,000 UNIT TABLET GT SCH ×2 (08:58→21:57)
[2019-02-01] MEDS: LACTULOSE 20 GM/30 ML UDC GT SCH (08:59)
[2019-02-01] MEDS: PHENYTOIN 100 MG/4 ML UDC (DILANTIN) GT SCH ×2 (08:59→21:56)
[2019-02-01] MEDS: POTASSIUM CHLORIDE 20 MEQ/PKT PACKET GT SCH (08:59)
[2019-02-01] MEDS: METOPROLOL TARTRATE 25 MG TABLET GT SCH ×2 (09:00→21:57)
[2019-02-01] MEDS: LevETIRAcetam 500 MG/5 ML UDC ORAL LIQUID GT SCH ×2 (09:00→21:00)
[2019-02-01] MEDS: ENOXAPARIN SODIUM 40 MG/0.4 ML SYRINGE SQ SCH (09:01)
[2019-02-01] MEDS: CHLORHEXIDINE GLUCONATE 15 ML/DOSE, 480 ML MM SCH ×2 (09:02→21:58)
[2019-02-01] MEDS: MUPIROCIN 2% TOPICAL OINTMENT 22 GM TP SCH ×2 (09:03→21:59)
[2019-02-01 12:37] VITALS: BP_SYST 103
[2019-02-01] MEDS: DAPTOmycin 500 MG in NS 50 ML IV SCH (13:17)
[2019-02-01] MEDS ORDERED: POTASSIUM CHLORIDE 20 MEQ/PKT PACKET PO ONE ×2 (14:30→14:45)
[2019-02-01 16:45] VITALS: BP_SYST 101
[2019-02-01 20:00] VITALS: BP_SYST 103
[2019-02-01] MEDS ORDERED: SOD FERRIC GLUC COMPLEX/SUC 62.5 MG/5 ML VIAL (FERRLECIT) IV ONE (21:29)
[2019-02-01] MEDS: SOD FERRIC GLUC COMPLEX/SUC 125 MG in NS 100 ML IV SCH (21:56)
[2019-02-02] MEDS ORDERED: levETIRAcetam 500 MG TABLET PO ONE (00:15)
[2019-02-02] MEDS: D5W IV SCH (01:10)
[2019-02-02] MEDS: AMIKACIN SULFATE IV SCH (01:10)
[2019-02-02 07:00] VITALS: BP_SYST 110
[2019-02-02 08:25] LABS: BASOPHILS # (AUTO) 0.1 K/uL (0.0-0.2); BASOPHILS % (AUTO) 0.7 % (0.0-2.0); EOSINOPHILS # (AUTO) 0.3 K/uL (0.0-0.4); EOSINOPHILS % (AUTO) 3.6 % (0.0-4.0); HEMATOCRIT 31.4 % (36-54); HEMOGLOBIN 10.3 g/dL (14.0-18.0); LYMPHOCYTES % (AUTO) 11.3 % (20.5-51.5); MEAN CORPUSCULAR HEMOGLOBIN 32 pg (27-31); MEAN CORPUSCULAR HGB CONC 33 % (32-36); MEAN CORPUSCULAR VOLUME 98 fL (79.0-98.0); MONOCYTES # (AUTO) 0.6 K/uL (0.0-1.0); MONOCYTES % (AUTO) 7.2 % (1.7-9.3); NEUTROPHILS # (AUTO) 6.6 K/uL (1.8-7.7); NEUTROPHILS % (AUTO) 77.2 % (40.0-70.0); PLATELET COUNT (AUTO) 222 K/uL (130-430); RED BLOOD CELL COUNT(AUTO) 3.22 MIL/uL (4.2-6.2); RED CELL DISTRIBUTION WIDTH 17.5 % (9.0-15.0); WHITE BLOOD COUNT (AUTO) 8.6 K/uL (4.8-10.8)
[2019-02-02 08:31] LABS: CALCIUM 8.6 mg/dL (8.4-11.0); POTASSIUM 3.8 mmol/L (3.5-5.1)
[2019-02-02 08:32] LABS: CREATININE 1.04 mg/dL (0.55-1.30)
[2019-02-02 09:00] VITALS: BP_SYST 110
[2019-02-02] MEDS: LACTULOSE 20 GM/30 ML UDC GT SCH (09:48)
[2019-02-02] MEDS: PHENYTOIN 100 MG/4 ML UDC (DILANTIN) GT SCH ×2 (09:49→21:44)
[2019-02-02] MEDS: METOPROLOL TARTRATE 25 MG TABLET GT SCH ×2 (09:50→21:46)
[2019-02-02] MEDS: POTASSIUM CHLORIDE 20 MEQ/PKT PACKET GT SCH (09:51)
[2019-02-02] MEDS: CHOLECALCIFEROL (VITAMIN D3) 2,000 UNIT TABLET GT SCH ×2 (09:51→21:45)
[2019-02-02] MEDS: LACOSAMIDE 100 MG TABLET PO SCH ×2 (09:51→21:45)
[2019-02-02] MEDS: LevETIRAcetam 500 MG/5 ML UDC ORAL LIQUID GT SCH ×2 (09:53→21:44)
[2019-02-02] MEDS: MUPIROCIN 2% TOPICAL OINTMENT 22 GM TP SCH ×2 (09:56→21:47)
[2019-02-02] MEDS: CHLORHEXIDINE GLUCONATE 15 ML/DOSE, 480 ML MM SCH ×2 (09:57→21:46)
[2019-02-02] MEDS: ENOXAPARIN SODIUM 40 MG/0.4 ML SYRINGE SQ SCH (09:58)
[2019-02-02 13:16] VITALS: BP_SYST 104
[2019-02-02] MEDS: BACLOFEN 10 MG TABLET GT SCH ×2 (13:49→21:45)
[2019-02-02] MEDS: PEG 400/HYPROMELLOSE/GLYCERIN 15 ML DROPS EACH EYE SCH ×2 (13:56→21:47)
[2019-02-02] MEDS: DAPTOmycin 500 MG in NS 50 ML IV SCH (13:58)
[2019-02-02 14:57] VITALS: BP_SYST 99
[2019-02-02] MEDS: SOD FERRIC GLUC COMPLEX/SUC 125 MG in NS 100 ML IV SCH (17:17)
[2019-02-02] MEDS: 0.45% NACL 1,000 ML IV SCH (17:29)
[2019-02-02 20:49] VITALS: BP_SYST 105
[2019-02-02] MEDS: IPRATROPIUM/ALBUTEROL SULFATE 3 ML AMPUL.NEB (DUONEB) INH PRN (21:18)
[2019-02-02 23:57] VITALS: BP_SYST 112
[2019-02-03] MEDS: PEG 400/HYPROMELLOSE/GLYCERIN 15 ML DROPS EACH EYE SCH ×3 (06:18→21:43)
[2019-02-03] MEDS: BACLOFEN 10 MG TABLET GT SCH ×3 (06:18→21:40)
[2019-02-03 08:17] VITALS: BP_SYST 103
[2019-02-03] MEDS: LACTULOSE 20 GM/30 ML UDC GT SCH (09:19)
[2019-02-03] MEDS: PHENYTOIN 100 MG/4 ML UDC (DILANTIN) GT SCH ×2 (09:19→21:39)
[2019-02-03] MEDS: METOPROLOL TARTRATE 25 MG TABLET GT SCH ×2 (09:20→21:42)
[2019-02-03] MEDS: LevETIRAcetam 500 MG/5 ML UDC ORAL LIQUID GT SCH ×2 (09:20→21:40)
[2019-02-03] MEDS: CHOLECALCIFEROL (VITAMIN D3) 2,000 UNIT TABLET GT SCH ×2 (09:20→21:40)
[2019-02-03] MEDS: POTASSIUM CHLORIDE 20 MEQ/PKT PACKET GT SCH (09:21)
[2019-02-03] MEDS: CHLORHEXIDINE GLUCONATE 15 ML/DOSE, 480 ML MM SCH ×2 (09:21→21:43)
[2019-02-03] MEDS: LACOSAMIDE 100 MG TABLET PO SCH ×2 (09:21→21:41)
[2019-02-03] MEDS: MUPIROCIN 2% TOPICAL OINTMENT 22 GM TP SCH ×2 (09:22→21:43)
[2019-02-03] MEDS: ENOXAPARIN SODIUM 40 MG/0.4 ML SYRINGE SQ SCH (09:23)
[2019-02-03] MEDS ORDERED: AMIKACIN SULFATE 1,000 MG in D5W 100 ML IV SCH (11:00)
[2019-02-03 11:44] VITALS: BP_SYST 105
[2019-02-03] MEDS: AMIKACIN SULFATE 500 MG in D5W 100 ML IV SCH ×2 (11:46→18:17)
[2019-02-03] MEDS: DAPTOmycin 500 MG in NS 50 ML IV SCH (13:01)
[2019-02-03] MEDS: 0.45% NACL 1,000 ML IV SCH (14:53)
[2019-02-03] MEDS ORDERED: LACTULOSE 20 GM/30 ML UDC GT ONE (16:30)
[2019-02-03] MEDS: SOD FERRIC GLUC COMPLEX/SUC 125 MG in NS 100 ML IV SCH (18:16)
[2019-02-03 20:00] VITALS: BP_SYST 102
[2019-02-04 00:46] VITALS: BP_SYST 104
[2019-02-04] MEDS: AMIKACIN SULFATE 500 MG in D5W 100 ML IV SCH ×3 (02:15→18:02)
[2019-02-04] MEDS: IPRATROPIUM/ALBUTEROL SULFATE 3 ML AMPUL.NEB (DUONEB) INH PRN (04:30)
[2019-02-04] MEDS: PEG 400/HYPROMELLOSE/GLYCERIN 15 ML DROPS EACH EYE SCH ×3 (05:02→23:19)
[2019-02-04] MEDS: BACLOFEN 10 MG TABLET GT SCH ×3 (05:02→23:14)
[2019-02-04 08:42] VITALS: BP_SYST 105
[2019-02-04] MEDS: LACTULOSE 20 GM/30 ML UDC GT SCH ×2 (08:49)
[2019-02-04] MEDS: LACOSAMIDE 100 MG TABLET PO SCH ×2 (08:52→23:14)
[2019-02-04] MEDS: PHENYTOIN 100 MG/4 ML UDC (DILANTIN) GT SCH ×2 (08:52→23:14)
[2019-02-04] MEDS: CHOLECALCIFEROL (VITAMIN D3) 2,000 UNIT TABLET GT SCH ×2 (08:52→23:15)
[2019-02-04] MEDS: POTASSIUM CHLORIDE 20 MEQ/PKT PACKET GT SCH (08:52)
[2019-02-04] MEDS: METOPROLOL TARTRATE 25 MG TABLET GT SCH ×2 (08:53→23:17)
[2019-02-04] MEDS: LevETIRAcetam 500 MG/5 ML UDC ORAL LIQUID GT SCH ×2 (08:53→23:13)
[2019-02-04] MEDS: MUPIROCIN 2% TOPICAL OINTMENT 22 GM TP SCH (08:54)
[2019-02-04] MEDS: ENOXAPARIN SODIUM 40 MG/0.4 ML SYRINGE SQ SCH (08:54)
[2019-02-04] MEDS: CHLORHEXIDINE GLUCONATE 15 ML/DOSE, 480 ML MM SCH ×2 (08:56→23:19)
[2019-02-04] MEDS: 0.45% NACL 1,000 ML IV SCH (13:32)
[2019-02-04 13:33] VITALS: BP_SYST 118
[2019-02-04] MEDS: DAPTOmycin 500 MG in NS 50 ML IV SCH (13:34)
[2019-02-04 16:24] VITALS: BP_SYST 102
[2019-02-04] MEDS: SOD FERRIC GLUC COMPLEX/SUC 125 MG in NS 100 ML IV SCH (18:42)
[2019-02-04 20:39] VITALS: BP_SYST 106
[2019-02-04 23:11] VITALS: BP_SYST 106
[2019-02-05] VITALS (9 sets, daily range): BP systolic 80–114
[2019-02-05] MEDS: AMIKACIN SULFATE 500 MG in D5W 100 ML IV SCH ×3 (03:37→17:18)
[2019-02-05] MEDS: BACLOFEN 10 MG TABLET GT SCH ×2 (05:23→13:12)
[2019-02-05] MEDS: PEG 400/HYPROMELLOSE/GLYCERIN 15 ML DROPS EACH EYE SCH ×2 (06:04→13:13)
[2019-02-05 06:22] LABS: BASOPHILS % (AUTO) 0.7 % (0.0-2.0); EOSINOPHILS # (AUTO) 0.3 K/uL (0.0-0.4); HEMATOCRIT 26.6 % (36-54); HEMOGLOBIN 8.8 g/dL (14.0-18.0); LYMPHOCYTES # (AUTO) 0.9 K/uL (1.0-5.5); LYMPHOCYTES % (AUTO) 13.9 % (20.5-51.5); MEAN CORPUSCULAR HEMOGLOBIN 32 pg (27-31); MEAN CORPUSCULAR HGB CONC 33 % (32-36); MEAN CORPUSCULAR VOLUME 98 fL (79.0-98.0); MONOCYTES # (AUTO) 0.5 K/uL (0.0-1.0); MONOCYTES % (AUTO) 8.9 % (1.7-9.3); NEUTROPHILS # (AUTO) 4.4 K/uL (1.8-7.7); NEUTROPHILS % (AUTO) 71.5 % (40.0-70.0); PLATELET COUNT (AUTO) 159 K/uL (130-430); RED BLOOD CELL COUNT(AUTO) 2.73 MIL/uL (4.2-6.2); RED CELL DISTRIBUTION WIDTH 16.3 % (9.0-15.0); WHITE BLOOD COUNT (AUTO) 6.1 K/uL (4.8-10.8)
[2019-02-05 06:43] LABS: ALBUMIN 1.8 g/dL (3.4-4.8); CALCIUM 8.6 mg/dL (8.4-11.0); CREATININE 1.13 mg/dL (0.55-1.30); POTASSIUM 3.7 mmol/L (3.5-5.1); TOTAL BILIRUBIN 0.4 mg/dL (0.0-1.0)
[2019-02-05] MEDS: PHENYTOIN 100 MG/4 ML UDC (DILANTIN) GT SCH ×2 (08:57→20:48)
[2019-02-05] MEDS: CHLORHEXIDINE GLUCONATE 15 ML/DOSE, 480 ML MM SCH ×2 (08:58→20:52)
[2019-02-05] MEDS: LACTULOSE 20 GM/30 ML UDC GT SCH ×2 (09:00→13:08)
[2019-02-05] MEDS: ENOXAPARIN SODIUM 40 MG/0.4 ML SYRINGE SQ SCH (09:00)
[2019-02-05] MEDS: CHOLECALCIFEROL (VITAMIN D3) 2,000 UNIT TABLET GT SCH ×2 (09:00→20:42)
[2019-02-05] MEDS: METOPROLOL TARTRATE 25 MG TABLET GT SCH ×2 (09:00→20:46)
[2019-02-05] MEDS ORDERED: NS 250 ML IV ONE (09:30)
[2019-02-05 10:08] LABS: FOLATE (FOLIC ACID) >20.0 ng/mL (>3.0)
[2019-02-05 10:49] LABS: FERRITIN 1220 ng/mL (30-400)
[2019-02-05] MEDS ORDERED: 0.45% NACL 1,000 ML IV SCH (11:04)
[2019-02-05] MEDS ORDERED: METOCLOPRAMIDE HCL 10 MG/2 ML VIAL IVP PRN (11:15)
[2019-02-05] MEDS ORDERED: SEVOFLURANE 15 MIN GAS INH ONE (12:00)
[2019-02-05] MEDS ORDERED: NS IRRIG SOLN 1000 ML IR ONE (12:00)
[2019-02-05] MEDS ORDERED: NS 1000 ML IV.SOLN IV ONE (12:00)
[2019-02-05] MEDS ORDERED: ROCURONIUM BROMIDE 10 MG/ML (ZEMURON) ONE (12:00)
[2019-02-05] MEDS ORDERED: NS IRRIG SOLN 5000 ML IR ONE (12:00)
[2019-02-05] MEDS ORDERED: ONDANSETRON HCL 4 MG/2 ML VIAL ONE (12:00)
[2019-02-05] MEDS: LACOSAMIDE 100 MG TABLET PO SCH ×2 (13:08→20:42)
[2019-02-05] MEDS: POTASSIUM CHLORIDE 20 MEQ/PKT PACKET GT SCH (13:09)
[2019-02-05] MEDS: LevETIRAcetam 500 MG/5 ML UDC ORAL LIQUID GT SCH ×2 (13:10→20:42)
[2019-02-05] MEDS: DAPTOmycin 500 MG in NS 50 ML IV SCH (13:12)
[2019-02-05] MEDS ORDERED: DAPTOmycin 500 MG in NS 50 ML IV SCH (15:06)
[2019-02-05] MEDS: ALBUMIN HUMAN 25% 50 ML IV SCH ×7 (15:22→23:59)
[2019-02-05] MEDS: 0.45% NACL 1,000 ML IV SCH (15:23)
[2019-02-05] MEDS: SOD FERRIC GLUC COMPLEX/SUC 125 MG in NS 100 ML IV SCH (17:12)
[2019-02-05] MEDS: NACL 0.9% 1,000 ML IV SCH (23:18)
[2019-02-06] VITALS (32 sets, daily range): BP systolic 79–134
[2019-02-06] MEDS: PEG 400/HYPROMELLOSE/GLYCERIN 15 ML DROPS EACH EYE SCH ×4 (00:06→21:48)
[2019-02-06] MEDS: BACLOFEN 10 MG TABLET GT SCH ×4 (00:06→21:51)
[2019-02-06] MEDS: AMIKACIN SULFATE 500 MG in D5W 100 ML IV SCH (02:18)
[2019-02-06] MEDS: ACETAMINOPHEN 650 MG/20.3 ML UDC GT PRN ×2 (02:19→09:00)
[2019-02-06] MEDS: NOREPINEPHRINE BITARTRATE 4 MG in NS 246 ML IV PRN ×2 (03:15→21:47)
[2019-02-06] MEDS ORDERED: NOREPINEPHRINE 4 MG/4 ML VIAL IV ONE ×2 (03:17)
[2019-02-06 05:55] LABS: BASOPHILS # (AUTO) 0.1 K/uL (0.0-0.2); BASOPHILS % (AUTO) 0.8 % (0.0-2.0); EOSINOPHILS # (AUTO) 0.3 K/uL (0.0-0.4); HEMATOCRIT 25.9 % (36-54); HEMOGLOBIN 8.5 g/dL (14.0-18.0); LYMPHOCYTES # (AUTO) 0.6 K/uL (1.0-5.5); LYMPHOCYTES % (AUTO) 9.1 % (20.5-51.5); MEAN CORPUSCULAR HEMOGLOBIN 32 pg (27-31); MEAN CORPUSCULAR HGB CONC 33 % (32-36); MEAN CORPUSCULAR VOLUME 98 fL (79.0-98.0); MONOCYTES # (AUTO) 0.5 K/uL (0.0-1.0); MONOCYTES % (AUTO) 7.1 % (1.7-9.3); NEUTROPHILS # (AUTO) 5.6 K/uL (1.8-7.7); PLATELET COUNT (AUTO) 156 K/uL (130-430); RED BLOOD CELL COUNT(AUTO) 2.65 MIL/uL (4.2-6.2); RED CELL DISTRIBUTION WIDTH 16.5 % (9.0-15.0)
[2019-02-06 06:41] LABS: CALCIUM 8.4 mg/dL (8.4-11.0); CREATININE 1.21 mg/dL (0.55-1.30); POTASSIUM 3.5 mmol/L (3.5-5.1)
[2019-02-06 06:53] LABS: PHOSPHORUS 3.4 mg/dL (2.7-4.5)
[2019-02-06] MEDS: LACTULOSE 20 GM/30 ML UDC GT SCH ×2 (08:05→09:02)
[2019-02-06] MEDS: NACL 0.9% 1,000 ML IV SCH ×3 (08:05→21:48)
[2019-02-06] MEDS: POTASSIUM CHLORIDE 20 MEQ/PKT PACKET GT SCH (09:00)
[2019-02-06] MEDS: PHENYTOIN 100 MG/4 ML UDC (DILANTIN) GT SCH ×2 (09:01→21:50)
[2019-02-06] MEDS: LevETIRAcetam 500 MG/5 ML UDC ORAL LIQUID GT SCH ×2 (09:02→21:50)
[2019-02-06] MEDS: METOPROLOL TARTRATE 25 MG TABLET GT SCH ×2 (09:03→21:00)
[2019-02-06] MEDS: CHOLECALCIFEROL (VITAMIN D3) 2,000 UNIT TABLET GT SCH ×2 (09:03→21:51)
[2019-02-06] MEDS: LACOSAMIDE 100 MG TABLET PO SCH ×2 (09:04→21:51)
[2019-02-06] MEDS: CHLORHEXIDINE GLUCONATE 15 ML/DOSE, 480 ML MM SCH ×2 (09:04→21:55)
[2019-02-06] MEDS: ENOXAPARIN SODIUM 40 MG/0.4 ML SYRINGE SQ SCH (09:04)
[2019-02-06] MEDS ORDERED: LIDOCAINE 1%, 20 ML MDV 0 ML ONE (10:47)
[2019-02-06] MEDS: SOD FERRIC GLUC COMPLEX/SUC 125 MG in NS 100 ML IV SCH (17:50)
[2019-02-06] MEDS: metroNIDAZOLE 500 mg/NS 100 ML IV SCH (21:48)
[2019-02-07] VITALS (25 sets, daily range): BP systolic 90–125
[2019-02-07 05:10] LABS: BASOPHILS # (AUTO) 0.1 K/uL (0.0-0.2); BASOPHILS % (AUTO) 1.1 % (0.0-2.0); EOSINOPHILS # (AUTO) 0.4 K/uL (0.0-0.4); EOSINOPHILS % (AUTO) 6.5 % (0.0-4.0); HEMATOCRIT 25.5 % (36-54); HEMOGLOBIN 8.6 g/dL (14.0-18.0); LYMPHOCYTES # (AUTO) 0.7 K/uL (1.0-5.5); LYMPHOCYTES % (AUTO) 10.5 % (20.5-51.5); MEAN CORPUSCULAR HEMOGLOBIN 33 pg (27-31); MEAN CORPUSCULAR HGB CONC 34 % (32-36); MEAN CORPUSCULAR VOLUME 98 fL (79.0-98.0); MONOCYTES # (AUTO) 0.6 K/uL (0.0-1.0); MONOCYTES % (AUTO) 8.1 % (1.7-9.3); NEUTROPHILS # (AUTO) 5.1 K/uL (1.8-7.7); NEUTROPHILS % (AUTO) 73.8 % (40.0-70.0); PLATELET COUNT (AUTO) 176 K/uL (130-430); RED BLOOD CELL COUNT(AUTO) 2.61 MIL/uL (4.2-6.2); RED CELL DISTRIBUTION WIDTH 16.3 % (9.0-15.0); WHITE BLOOD COUNT (AUTO) 6.8 K/uL (4.8-10.8)
[2019-02-07 05:24] LABS: CALCIUM 8.3 mg/dL (8.4-11.0); CREATININE 1.05 mg/dL (0.55-1.30); POTASSIUM 3.2 mmol/L (3.5-5.1)
[2019-02-07 05:33] LABS: ALBUMIN 2.3 g/dL (3.4-4.8); TOTAL BILIRUBIN 0.4 mg/dL (0.0-1.0)
[2019-02-07] MEDS: PEG 400/HYPROMELLOSE/GLYCERIN 15 ML DROPS EACH EYE SCH ×2 (05:33→13:34)
[2019-02-07] MEDS: BACLOFEN 10 MG TABLET GT SCH ×2 (05:33→13:34)
[2019-02-07] MEDS: ACETAMINOPHEN 650 MG/20.3 ML UDC GT PRN ×2 (08:22→17:12)
[2019-02-07] MEDS: POTASSIUM CHLORIDE 20 MEQ/PKT PACKET GT SCH (08:23)
[2019-02-07] MEDS: LACTULOSE 20 GM/30 ML UDC GT SCH (08:23)
[2019-02-07] MEDS: PHENYTOIN 100 MG/4 ML UDC (DILANTIN) GT SCH (08:24)
[2019-02-07] MEDS: LACOSAMIDE 100 MG TABLET PO SCH (08:25)
[2019-02-07] MEDS: CHOLECALCIFEROL (VITAMIN D3) 2,000 UNIT TABLET GT SCH (08:25)
[2019-02-07] MEDS: metroNIDAZOLE 500 mg/NS 100 ML IV SCH (08:26)
[2019-02-07] MEDS: LevETIRAcetam 500 MG/5 ML UDC ORAL LIQUID GT SCH (08:27)
[2019-02-07] MEDS: METOPROLOL TARTRATE 25 MG TABLET GT SCH ×2 (08:28→08:33)
[2019-02-07] MEDS: ENOXAPARIN SODIUM 40 MG/0.4 ML SYRINGE SQ SCH (08:29)
[2019-02-07] MEDS: CHLORHEXIDINE GLUCONATE 15 ML/DOSE, 480 ML MM SCH (08:30)
[2019-02-07] MEDS ORDERED: POTASSIUM CHLORIDE 40 MEQ in NS 250 ML IV ONE (09:45)
[2019-02-07] MEDS ORDERED: AMIKACIN SULFATE 500 MG in D5W 100 ML IV SCH (11:00)
[2019-02-07] MEDS: NACL 0.9% 1,000 ML IV SCH (11:44)
[2019-02-07] MEDS ORDERED: HYDROCORTISONE SOD SUCC 100 MG/2 ML VIAL IVP SCH (14:00)
[2019-02-07] MEDS: NOREPINEPHRINE BITARTRATE 4 MG in NS 246 ML IV PRN (15:40)
[2019-02-07] MEDS: SOD FERRIC GLUC COMPLEX/SUC 125 MG in NS 100 ML IV SCH (17:20)
== END 2019-02-07 19:30 | DRG 720 ==
LOC: SED 13:11 → SMU 17:05 → STU 17:54 → SIC 02-06 01:23
PROVIDERS: ADMIT Family Medicine; ATTEND Family Medicine
PROC: 5A1955Z Respiratory Ventilation, Greater than 96 Consecutive Hours (ICD-10-PCS; principal; 2019-01-28)
PROC: 02HV33Z Insertion of Infusion Device into Superior Vena Cava, Percutaneous Approach (ICD-10-PCS; 2019-01-28)
PROC: 0TPBX0Z Removal of Drainage Device from Bladder, External Approach (ICD-10-PCS; 2019-01-28)
PROC: 30233N1 Transfusion of Nonautologous Red Blood Cells into Peripheral Vein, Percutaneous Approach (ICD-10-PCS; 2019-02-01)
PROC: 0T2BX0Z Change Drainage Device in Bladder, External Approach (ICD-10-PCS; 2019-02-05)
PROC: 0TJB8ZZ Inspection of Bladder, Via Natural or Artificial Opening Endoscopic (ICD-10-PCS; 2019-02-05)
PROC: 0T9130Z Drainage of Left Kidney with Drainage Device, Percutaneous Approach (ICD-10-PCS; 2019-02-06)
DX: A41.9 Sepsis, unspecified organism (principal); J69.0 Pneumonitis due to inhalation of food and vomit; R65.21 Severe sepsis with septic shock; Z99.11 Dependence on respirator [ventilator] status; J96.10 Chronic respiratory failure, unspecified whether with hypoxia or hypercapnia; G35 Multiple sclerosis; N17.9 Acute kidney failure, unspecified; N31.9 Neuromuscular dysfunction of bladder, unspecified; D63.8 Anemia in other chronic diseases classified elsewhere; I12.9 Hypertensive chronic kidney disease with stage 1 through stage 4 chronic kidney disease, or unspecified chronic kidney disease; N40.0 Benign prostatic hyperplasia without lower urinary tract symptoms; B96.4 Proteus (mirabilis) (morganii) as the cause of diseases classified elsewhere; D50.9 Iron deficiency anemia, unspecified; N39.0 Urinary tract infection, site not specified; B96.89 Other specified bacterial agents as the cause of diseases classified elsewhere; N13.6 Pyonephrosis; G20 Parkinson's disease; N18.9 Chronic kidney disease, unspecified; R31.0 Gross hematuria; Z86.19 Personal history of other infectious and parasitic diseases; Z87.01 Personal history of pneumonia (recurrent); Z88.1 Allergy status to other antibiotic agents; Z93.1 Gastrostomy status; Z93.6 Other artificial openings of urinary tract status; Z88.0 Allergy status to penicillin; Z79.899 Other long term (current) drug therapy
CPT/HCPCS: 36415; 36600; 71045; 76000; 76770; 80048; 80053; 80150; 81000-TC; 82607; 82728; 82746; 82803-TC; 83540-TC; 83550-TC; 83605; 83735-TC; 84100-TC; 85025; 85610-TC; 86886; 86900; 86901; 86920; 87040-TC; 87070-TC; 87075-TC; 87081; 87086; 87186-TC; 88108; 88305; 93005; 94002; 94003; 94640; 94760; 96365; 96368; 99291; C1729; C1769; C2627; G0378; J0278; J0692; J0878; J1650; J1720; J1956; J2001; J2405; J2916; J3480; J3490; J7030; J7040; J7050; J7060; J7620; P9021; P9046

== ENCOUNTER 2019-09-11 20:55 | Emergency (ER) | payer OTHER, MEDICAID ==
[~2019-09-11] VITALS: Ht 167.6 cm; Wt 86.2 kg
[~2019-09-11 20:55] MED LIST changes: -ACET325T53 GT; -ALBU2.5V7 INH; -ASCO500T20 GT; -ATRMDI INH; +BISA10SU61 RC; -CHOL100038 GT; +CRAN450C GT; +DEXT30DR6 EACH EYE; +EFFER K GT; +IPRA3AMP9 INH; -LACO100T2 GT; +LACO100T2 PO; +LACT10SO6 GT; -LANS-57 GT; +LEVE100S GT; -LEVE100S2 GT; +LORA-259 GT; +LOVI40 SQ; +MOM GT; -MULT-1184 GT; +NA P133E41 RC; +PHEN100O4 GT; -PHEN125O3 GT; +PHEN20EL5 GT; -PHEN97.22 GT; -POTA20LI4 GT; -Uti-stat GT; +VITD2000 GT
[2019-09-11 21:04] VITALS: BP_SYST 110
--- NOTE | 2019-09-11 21:04 | NUR ---
Pt BIB from [facility] for G-tube malfunction. Per EMS, G-tube has been ripped off but is still in stoma. 22F G-tube. No other injuries/complaints per patient or noted.
--- NOTE | 2019-09-11 21:39 | NUR ---
ER Dr. Bland at bedside examining patient.
--- NOTE | 2019-09-11 21:42 | NUR ---
Dr. Bland at bedside re-inserting new 22F G-tube into stoma. Pt tolerated well. Called xray for placement.
[2019-09-11 21:58] VITALS: BP_SYST 116
--- NOTE | 2019-09-11 21:59 | NUR ---
Patient given written and verbal discharge instructions and verbalizes understanding. ER MD discussed with patient the results and treatment provided. Patient in stable condition. ID arm band removed. No Rx given. Patient educated on pain management and to follow up with PMD. Pain Scale 0. Opportunity for questions provided and answered. Medication side effect fact sheet provided. Spoke with RN at facility in regards to sending patient. VSS.
[2019-09-11] MEDS ORDERED: GASTROGRAFIN 120 ML ONE (22:06)
== END 2019-09-11 21:59 | disposition home or self-care (01) ==
LOC: SED 20:55
DX: K94.23 Gastrostomy malfunction (principal); I10 Essential (primary) hypertension; Z88.0 Allergy status to penicillin; Z88.1 Allergy status to other antibiotic agents; Z79.899 Other long term (current) drug therapy
CPT/HCPCS: 43762; 74240; 99284; Q9963

== ENCOUNTER 2019-10-26 02:27 | Inpatient (IN) | payer OTHER, MEDICAID ==
[~2019-10-26] VITALS: Ht 167.6 cm; Wt 75.7 kg
[2019-10-26] VITALS (17 sets, daily range): BP systolic 87–120
--- NOTE | 2019-10-26 02:30 | NUR ---
Pt BIB EMS from [facility] with c/o fever and tachycardia. Pt A&Ox0. Pt has a tracheostomy upon arrival. Per facility, pt was tachycardic and had 102 fever prior to calling EMS. Per facility, Tylenol was given at 11 pm. Upon arrival pt is clammy. Breath sounds bilaterally clear. Will continue to monitor.
--- NOTE | 2019-10-26 02:30 | NUR ---
Placed in room 1 . Placed on media monitor, blood pressure machine and pulse oximeter. To gown for exam. Side rails up. Report given to IFTIKHAR BATISTA.
--- NOTE | 2019-10-26 02:50 | NUR ---
Radiology at bedside.
--- NOTE | 2019-10-26 03:22 | NUR ---
Attempted IV access 2 times. Unsuccessful.
--- NOTE | 2019-10-26 03:40 | NUR ---
Lab at bedside.
--- NOTE | 2019-10-26 03:42 | NUR ---
LESTER Loza at bedside attempting IV access.
[2019-10-26 03:51] LABS: BASOPHILS # (AUTO) 0.1 K/uL (0.0-0.2); BASOPHILS % (AUTO) 0.9 % (0.0-2.0); EOSINOPHILS # (AUTO) 0.1 K/uL (0.0-0.4); EOSINOPHILS % (AUTO) 0.6 % (0.0-4.0); HEMATOCRIT 41.8 % (36-54); HEMOGLOBIN 13.5 g/dL (14.0-18.0); LYMPHOCYTES # (AUTO) 1.9 K/uL (1.0-5.5); MEAN CORPUSCULAR HEMOGLOBIN 32 pg (27-31); MEAN CORPUSCULAR HGB CONC 32 % (32-36); MEAN CORPUSCULAR VOLUME 100 fL (79.0-98.0); MONOCYTES # (AUTO) 1.1 K/uL (0.0-1.0); MONOCYTES % (AUTO) 9.5 % (1.7-9.3); NEUTROPHILS # (AUTO) 8.5 K/uL (1.8-7.7); PLATELET COUNT (AUTO) 156 K/uL (130-430); RED BLOOD CELL COUNT(AUTO) 4.18 MIL/uL (4.2-6.2); RED CELL DISTRIBUTION WIDTH 15.1 % (9.0-15.0); WHITE BLOOD COUNT (AUTO) 11.6 K/uL (4.8-10.8)
--- NOTE | 2019-10-26 03:51 | NUR ---
LESTER Loza unable to obtain IV access. Per MD Sheehan, central line access will be attempted.
[2019-10-26 04:04] LABS: CALCIUM 9.3 mg/dL (8.4-11.0); CREATININE 1.57 mg/dL (0.55-1.30); POTASSIUM 3.5 mmol/L (3.5-5.1)
[2019-10-26 04:06] LABS: INR 1.1 (0.80-1.20); PROTHROMBIN TIME 10.8 SECS (9.5-12.5)
[2019-10-26 04:10] LABS: ALBUMIN 3.1 g/dL (3.4-4.8); TOTAL BILIRUBIN 0.5 mg/dL (0.0-1.0)
[2019-10-26] MEDS ORDERED: LIDOCAINE/EPI 1% 1:100000 20 ML VIAL INJ ONE (04:32)
--- NOTE | 2019-10-26 04:42 | NUR ---
MD Sheehan at bedside attempting central line.
--- NOTE | 2019-10-26 04:53 | NUR ---
Lab at bedside.
--- NOTE | 2019-10-26 05:24 | NUR ---
Central line placed in right femoral by MD Sheehan using sterile technique. Pt tolerated well.
[2019-10-26] MEDS ORDERED: FAMOTIDINE PF 20 MG/2 ML VIAL ONE ×2 (06:12→07:07)
--- NOTE | 2019-10-26 06:21 | NUR ---
Pt lying in bed with symmetrical chest rise and fall. Pt compliant on ventilator settings. No obvious or excessive sputum noted. Will continue to monitor.
[2019-10-26] MEDS ORDERED: NACL 0.9% 1,000 ML IV ONE (07:15)
--- NOTE | 2019-10-26 08:08 | NUR ---
Orders received from Dr. Jacobson via phone, entered by RN. Called for room assignment.
[2019-10-26 09:09] LABS: BILIRUBIN,URINE NEGATIVE (NEGATIVE); BLOOD, URINE 3+ (NEGATIVE); CLARITY/URINE CLOUDY (CLEAR); COLOR,URINE YELLOW (YELLOW); GLUCOSE,URINE NEGATIVE (NEGATIVE); KETONES,URINE NEGATIVE (NEGATIVE); LEUKOCYTE ESTERASE ,URINE 3+ (NEGATIVE); NITRITE, URINE POSITIVE (NEGATIVE); PH,URINE 8.5 (5.0-8.0); PROTEIN URINE 3+ (NEGATIVE); UROBILINOGEN,URINE 0.2 (0.2-1.0)
[2019-10-26 09:11] LABS: BACTERIA,URINE MODERATE /HPF (None Seen); RBC,URINE >100 /HPF (0-3); WBC,URINE >100 /HPF (0-3)
--- NOTE | 2019-10-26 09:14 | NUR ---
FULL HEAD TO TOE ASSESSMENT; PATIENT PRESENTS WITH YODER CATHETER TO SUPRAPUBIC SITE; PATENT; WOUND DRAIN TO LEFT FLANK AREA WITH SCANT EFFLUENT IN BAG; PATIENT HAS TRACHEOSTOMY AND GASTRIC FEEDING TUBE; VENTILATOR SETTINGS; VT 450, FIO2 50, PEEP 5 AND BUR 14; FEMORAL LINE THREE PORT TO RIGHT GROIN; PATIENT REMAINS NON RESPONSIVE AND FLACCID; BREATH SOUNDS CRACKLES BILATERALLY; DISPOSITION TO ICU PENDING
--- NOTE | 2019-10-26 10:14 | NUR ---
REASSESSMENT; PATIENT REMAINS SEDATE AND UNCHANGED; ICU ADMISSION PENDING
[2019-10-26] MEDS: KCL 20 mEq in D5/0.45NS 1000mL 1,000 ML IV SCH ×3 (10:17→21:20)
--- NOTE | 2019-10-26 10:37 | NUR ---
REASSESSMENT; PREPARATIONS TO ADMIT PATIENT TO ICU; [facility] AND BEDSIDE REPORT; PATIENT REMAINS SEDATE AND UNCHANGED; PATENT IV/YODER
--- NOTE | 2019-10-26 10:45 | NUR ---
1045 TRACH PT TRANSFERRED FROM ED TO ICU8. VENT SETTINGS: AC14, 450, +5, FIO2 .50 WITH CLEAR BREATHSOUNDS. PORTEX 7.0 CUFFED
--- NOTE | 2019-10-26 11:00 | NUR ---
Opening Note Patient arrived to floor via [facility], patient attached to monitor, vent, and vitals checked. Patient vitals normal, patient in no apparent distress. Patient report received via SBAR from endorsing RN
--- NOTE | 2019-10-26 11:17 | NUR ---
CONSULT FOR DR LICEA DIALED [phone] SPOKE TO LAKE
--- NOTE | 2019-10-26 11:30 | NUR ---
Nursing Note Patient repostitioned and cleaned. Wound care performed as needed, patient tolerated well
[2019-10-26] MEDS: MEROPENEM 1 GM in NS 100 ML IV SCH ×2 (11:48→17:06)
--- NOTE | 2019-10-26 12:00 | NUR ---
Nursing Note Wound care performed and wound pictures taken, patient tolerated well
[2019-10-26] MEDS ORDERED: MILK OF MAGNESIA 30 ML UDC GT PRN (15:30)
[2019-10-26] MEDS ORDERED: BISACODYL 10 MG/SUPPOSITORY RC PRN (15:30)
[2019-10-26] MEDS ORDERED: LORazepam 2 MG/ML VIAL IVP PRN (15:30)
[2019-10-26] MEDS ORDERED: IPRATROPIUM/ALBUTEROL SULFATE 3 ML AMPUL.NEB (DUONEB) INH PRN (15:30)
--- NOTE | 2019-10-26 15:30 | NUR ---
Round Dr. Butt at bedside assessing patient, physician entered orders
[2019-10-26] MEDS ORDERED: *TOBRAMYCIN PER PHARMACY XX PRN (15:45)
[2019-10-26] MEDS ORDERED: POTASSIUM CHLORIDE 20 MEQ/PKT PACKET GT ONE (16:00)
[2019-10-26] MEDS ORDERED: D5W 1,000 ML IV PRN (16:00)
[2019-10-26] MEDS ORDERED: BACLOFEN 10 MG TABLET GT ONE (16:00)
[2019-10-26] MEDS ORDERED: DOCUSATE SODIUM 100 MG/10 ML UDC GT ONE (16:00)
[2019-10-26] MEDS ORDERED: LACTULOSE 20 GM/30 ML UDC GT ONE (16:00)
[2019-10-26] MEDS ORDERED: ENOXAPARIN SODIUM 40 MG/0.4 ML SYRINGE SQ ONE (16:00)
[2019-10-26] MEDS ORDERED: GLUCOSE 15 GM GEL (in 37.5 GM TUBE) PO PRN (16:00)
[2019-10-26] MEDS ORDERED: PEG 400/HYPROMELLOSE/GLYCERIN 15 ML DROPS EACH EYE ONE (16:00)
[2019-10-26] MEDS ORDERED: DEXTROSE 50%-WATER 50 ML DISP.SYRIN IVP PRN (16:00)
--- NOTE | 2019-10-26 16:00 | NUR ---
Nursing Note Unable to print picture, pictures no longer in memory card
--- NOTE | 2019-10-26 16:00 | NUR ---
Nursing Note Dr. Linares to perform bedside EGD with PEG placement later today. Consent signed and medications administered as ordered Addendum: 10/26/19 at 1900 by Edwardo Patricia RN Disregard Note
[2019-10-26] MEDS ORDERED: LACOSAMIDE 100 MG TABLET GT ONE (16:15)
[2019-10-26] MEDS ORDERED: METOPROLOL TARTRATE 25 MG TABLET GT ONE (16:30)
[2019-10-26] MEDS ORDERED: LevETIRAcetam 500 MG/5 ML UDC ORAL LIQUID GT ONE (16:30)
[2019-10-26] MEDS ORDERED: CHLORHEXIDINE GLUCONATE 15 ML/DOSE, 480 ML MM ONE (16:30)
[2019-10-26] MEDS ORDERED: PHENYTOIN 100 MG/4 ML UDC (DILANTIN) GT ONE (16:30)
[2019-10-26] MEDS ORDERED: CHOLECALCIFEROL (VITAMIN D3) 2,000 UNIT TABLET GT ONE (16:30)
[2019-10-26] MEDS ORDERED: TOBRAMYCIN SULFATE IV ONE (18:00)
[2019-10-26] MEDS ORDERED: NS IV ONE (18:00)
--- NOTE | 2019-10-26 18:00 | NUR ---
Nursing Note Patient tubefeeding started at 20mL/hr, patient repositioned to supine position, oral care performed. Patient tolerated well
[2019-10-26] MEDS: INSULIN REGULAR, HUMAN 100 UNITS/ML, 10 ML VIAL (humuLIN R) SUBCUT PRN (18:06)
--- NOTE | 2019-10-26 18:30 | NUR ---
Nursing Note Dr. Linares performed EGD with PEG placement at bedside. Procedure was completed, patient tolerated well. Patient will be NPO until AM as ordered Addendum: 10/26/19 at 1901 by Edwardo Patricia RN Disregard Note
--- NOTE | 2019-10-26 19:00 | NUR ---
Closing Note Patient report given to nightshift RN via SBAR communication
--- NOTE | 2019-10-26 19:25 | NUR ---
PM SHIFT ASSESSMENT Pt is awake, but nonverbal. Trach to vent, tolerating current vent settings. SR noted on monitor. Suprapubic cath in place and draining to gravity. Right femoral central line in place with IVF infusing. Gtube noted and tubefeeding infusing. Skin warm and dry. Seizure pads applied to bed rails. Safety precautions in place, call light within reach. Will continue to monitor.
[2019-10-26] MEDS ORDERED: FLU VACC QS2019-20 36MOS UP/PF 60 MCG/0.5 ML SYRINGE I.M. PRN (21:00)
[2019-10-26] MEDS: METOPROLOL TARTRATE 25 MG TABLET GT SCH (21:00)
[2019-10-26] MEDS: LevETIRAcetam 500 MG/5 ML UDC ORAL LIQUID GT SCH (21:13)
[2019-10-26] MEDS: BACLOFEN 10 MG TABLET GT SCH (21:14)
[2019-10-26] MEDS: CHOLECALCIFEROL (VITAMIN D3) 2,000 UNIT TABLET GT SCH (21:14)
[2019-10-26] MEDS: LACOSAMIDE 100 MG TABLET GT SCH (21:15)
[2019-10-26] MEDS: CHLORHEXIDINE GLUCONATE 15 ML/DOSE, 480 ML MM SCH (21:17)
[2019-10-26] MEDS: PHENYTOIN 100 MG/4 ML UDC (DILANTIN) GT SCH (21:18)
[2019-10-26] MEDS: PEG 400/HYPROMELLOSE/GLYCERIN 15 ML DROPS EACH EYE SCH (21:19)
[2019-10-26] MEDS ORDERED: PHENYTOIN 100 MG/4 ML UDC (DILANTIN) ONE (21:32)
[2019-10-27] VITALS (33 sets, daily range): BP systolic 85–147
[2019-10-27] MEDS: MEROPENEM 1 GM in NS 100 ML IV SCH ×3 (00:01→16:37)
[2019-10-27] MEDS: INSULIN REGULAR, HUMAN 100 UNITS/ML, 10 ML VIAL (humuLIN R) SUBCUT PRN (00:18)
[2019-10-27] MEDS: KCL 20 mEq in D5/0.45NS 1000mL 1,000 ML IV SCH ×2 (04:49→14:16)
--- NOTE | 2019-10-27 06:00 | NUR ---
CHG bath given. Patient tolerated care well.
[2019-10-27] MEDS: TOBRAMYCIN SULFATE IV SCH ×2 (06:25→18:32)
[2019-10-27] MEDS: BACLOFEN 10 MG TABLET GT SCH ×3 (06:25→21:53)
[2019-10-27] MEDS: NS IV SCH ×2 (06:25→18:32)
[2019-10-27] MEDS: PEG 400/HYPROMELLOSE/GLYCERIN 15 ML DROPS EACH EYE SCH ×3 (06:30→21:54)
[2019-10-27 06:32] LABS: BASOPHILS # (AUTO) 0.1 K/uL (0.0-0.2); BASOPHILS % (AUTO) 0.9 % (0.0-2.0); EOSINOPHILS # (AUTO) 0.3 K/uL (0.0-0.4); HEMATOCRIT 31.7 % (36-54); HEMOGLOBIN 10.1 g/dL (14.0-18.0); LYMPHOCYTES % (AUTO) 17.6 % (20.5-51.5); MEAN CORPUSCULAR HEMOGLOBIN 32 pg (27-31); MEAN CORPUSCULAR HGB CONC 32 % (32-36); MEAN CORPUSCULAR VOLUME 101 fL (79.0-98.0); MONOCYTES # (AUTO) 0.5 K/uL (0.0-1.0); MONOCYTES % (AUTO) 8.4 % (1.7-9.3); NEUTROPHILS # (AUTO) 3.8 K/uL (1.8-7.7); NEUTROPHILS % (AUTO) 67.1 % (40.0-70.0); PLATELET COUNT (AUTO) 93 K/uL (130-430); RED BLOOD CELL COUNT(AUTO) 3.13 MIL/uL (4.2-6.2); RED CELL DISTRIBUTION WIDTH 14.6 % (9.0-15.0); WHITE BLOOD COUNT (AUTO) 5.6 K/uL (4.8-10.8)
--- NOTE | 2019-10-27 06:57 | NUR ---
Nutrition Update Shane Scale 12 noted. Pt admitted for Sepsis Diet: Glucerna 1.5 at 50ml/hr, Free Water Flush 150ml Q8H via GT BMI: 27 kg/m2 RD to follow per nutrition care standards.
--- NOTE | 2019-10-27 07:25 | NUR ---
ENDORSEMENT Pt care endorsed to dayshift RN using nursing SBAR.
--- NOTE | 2019-10-27 07:30 | NUR ---
Opening Note Patient report received from nightshift RN via SBAR communication, patient is resting in bed with eyes closed. Vital signs stable
--- NOTE | 2019-10-27 08:00 | NUR ---
Nursing Note, AM assessment Patient is lying in bed with eyes open, nonverbal. Patient is trach to vent, tolerating current ventilator settings. Patient is sinus rhythm on the monitor, no edema noted, peripheral pulses present bilaterally, Right femoral central line with IV fluids infusing, site is clean. Bowel sounds are hypoactive, Gtube present with tubefeeding noted. Suprapubic catheter is in place and draining to gravity, polly urine present. Skin is warm and dry. HOB elevated to 30 degrees, bed in lowest position, seizure pads on rails, call light within reach.
[2019-10-27] MEDS: METOPROLOL TARTRATE 25 MG TABLET GT SCH ×3 (09:00→22:44)
[2019-10-27] MEDS ORDERED: SODIUM PHOSPHATE,MONO-DIBASIC 133 ML ENEMA RC SCH (09:00)
[2019-10-27] MEDS ORDERED: NON-FORMULARY MEDICATION (Cranberry Fruit Concentrate (Cranberry) 450 MG) GT SCH (09:00)
[2019-10-27] MEDS: LACTULOSE 20 GM/30 ML UDC GT SCH (09:00)
--- NOTE | 2019-10-27 09:00 | NUR ---
Nursing Note Patient repositioned in bed, provided oral. Skin pictures taken and placed in chart. Patient tolerated well
[2019-10-27] MEDS: CHLORHEXIDINE GLUCONATE 15 ML/DOSE, 480 ML MM SCH ×2 (09:39→21:54)
[2019-10-27] MEDS: LevETIRAcetam 500 MG/5 ML UDC ORAL LIQUID GT SCH ×2 (09:40→21:53)
[2019-10-27] MEDS: DOCUSATE SODIUM 100 MG/10 ML UDC GT SCH (09:40)
[2019-10-27] MEDS: ENOXAPARIN SODIUM 40 MG/0.4 ML SYRINGE SQ SCH (09:41)
[2019-10-27] MEDS: POTASSIUM CHLORIDE 20 MEQ/PKT PACKET GT SCH (09:41)
[2019-10-27] MEDS: LACOSAMIDE 100 MG TABLET GT SCH ×2 (09:42→21:53)
[2019-10-27] MEDS: CHOLECALCIFEROL (VITAMIN D3) 2,000 UNIT TABLET GT SCH ×2 (09:42→21:54)
[2019-10-27] MEDS: PHENYTOIN 100 MG/4 ML UDC (DILANTIN) GT SCH ×2 (09:50→21:53)
--- NOTE | 2019-10-27 10:00 | NUR ---
MD Round Dr. Hughes at bedside assessing patient, physician entered orders
[2019-10-27 10:06] LABS: CALCIUM 8.2 mg/dL (8.4-11.0); CREATININE 1.22 mg/dL (0.55-1.30); POTASSIUM 3.6 mmol/L (3.5-5.1)
--- NOTE | 2019-10-27 11:00 | NUR ---
MD Round Dr. Melvin at bedside assessing patient, physician entered orders
--- NOTE | 2019-10-27 13:00 | NUR ---
Nursing Note Patient repositioned in bed and pulled up in bed, patient has no signs of distress
--- NOTE | 2019-10-27 16:00 | NUR ---
MD Round Dr. Butt at bedside assessing patient, notified of BP trends. No change in orders
--- NOTE | 2019-10-27 16:40 | NUR ---
CONSULT UROLOGY CONSULTING MD: Agustin SAWYER SPOKE TO: ROSSY DIALED:[phone] ORDERD BY: DR. GARZA
--- NOTE | 2019-10-27 17:18 | NUR ---
MD Call Dr. Wong contacted for urology consult, MAL Roche informed regarding patient condition, will receive call back regarding further orders
--- NOTE | 2019-10-27 19:20 | NUR ---
Closing Note Patient report given to nightshift RN via SBAR
--- NOTE | 2019-10-27 20:05 | NUR ---
Opening Note Pt in bed asleep. SR on the monitor. Trachto vent, tolerating settings well, no s/s of distress noted. Pt has RT femoral TLc in place running IVF. Site is C/D/I, no s/s of distress noted. Pt has G-tube in place running TF. Pt tolerating well, no residual noted. Suprapubic catheter in place draining urine to gravity. Safety rounds completed, will continue to monitor.
--- NOTE | 2019-10-27 20:25 | NUR ---
Called spoke w/ Dr. Leggett made aware of consult. Instructed to have Dr. Wong paged in the morning after 0900. No new orders received.
[2019-10-28] VITALS (33 sets, daily range): BP systolic 81–141
--- NOTE | 2019-10-28 01:05 | NUR ---
RN Round Pt had Mid line put in place. Site is C/D/I, able to flush, blood return noted. IV lines switched over to Mid line from Femoral TLC. Will continue to monitor.
[2019-10-28] MEDS: KCL 20 mEq in D5/0.45NS 1000mL 1,000 ML IV SCH ×2 (01:17→18:32)
[2019-10-28] MEDS: MEROPENEM 1 GM in NS 100 ML IV SCH ×3 (01:17→17:05)
[2019-10-28] MEDS: ACETAMINOPHEN 650 MG/20.3 ML UDC GT PRN ×2 (03:14→10:01)
--- NOTE | 2019-10-28 03:15 | NUR ---
RN Rounds Pt in bed, HR elevated, temp of 101.2 noted. PRN Medication given and ice packs applied. Will continue to monitor.
--- NOTE | 2019-10-28 04:05 | NUR ---
RN Rounds Pt temp now 100.1. Ice packs continued to be applied. HR remains elevated 100-110s. Pt received water flush, tolerating feedings well. Will continue to monitor.
[2019-10-28] MEDS: PEG 400/HYPROMELLOSE/GLYCERIN 15 ML DROPS EACH EYE SCH ×3 (05:52→21:30)
[2019-10-28] MEDS: BACLOFEN 10 MG TABLET GT SCH ×3 (05:52→21:29)
[2019-10-28] MEDS: TOBRAMYCIN SULFATE IV SCH ×2 (05:58→18:33)
[2019-10-28] MEDS: NS IV SCH ×2 (05:58→18:33)
[2019-10-28 06:26] LABS: ALBUMIN 2.3 g/dL (3.4-4.8); CALCIUM 8.2 mg/dL (8.4-11.0); CREATININE 1.09 mg/dL (0.55-1.30); POTASSIUM 4.1 mmol/L (3.5-5.1); TOTAL BILIRUBIN 0.3 mg/dL (0.0-1.0)
--- NOTE | 2019-10-28 06:39 | NUR ---
Closing Note Pt in bed attempting to sleep. ST on the monitor, Trach to vent. Tolerating settings well. BRIAN PICC line infusing IVF. Femoral Catheter in place, SL. TF running through G-tube. No residual noted.Pt has suprapubic catheter draining urine to gravity. Nephrostomy tube in place, no drainage noted. Pt temp currently @99.8. Pt safety rounds completed. Will endorse to oncoming RN.
--- NOTE | 2019-10-28 07:30 | NUR ---
Opening Note Patient report received from endorsing RN via SBAR communication
[2019-10-28] MEDS: DOCUSATE SODIUM 100 MG/10 ML UDC GT SCH (08:35)
[2019-10-28] MEDS: LACTULOSE 20 GM/30 ML UDC GT SCH (08:35)
[2019-10-28] MEDS: ENOXAPARIN SODIUM 40 MG/0.4 ML SYRINGE SQ SCH (08:50)
[2019-10-28] MEDS: POTASSIUM CHLORIDE 20 MEQ/PKT PACKET GT SCH (08:50)
[2019-10-28] MEDS: CHOLECALCIFEROL (VITAMIN D3) 2,000 UNIT TABLET GT SCH ×2 (08:52→21:29)
[2019-10-28] MEDS: LACOSAMIDE 100 MG TABLET GT SCH ×2 (08:52→21:30)
[2019-10-28] MEDS: LevETIRAcetam 500 MG/5 ML UDC ORAL LIQUID GT SCH ×2 (08:53→21:30)
[2019-10-28] MEDS: METOPROLOL TARTRATE 25 MG TABLET GT SCH ×2 (08:53→21:30)
[2019-10-28] MEDS: PHENYTOIN 100 MG/4 ML UDC (DILANTIN) GT SCH ×2 (08:53→21:29)
[2019-10-28] MEDS: CHLORHEXIDINE GLUCONATE 15 ML/DOSE, 480 ML MM SCH ×2 (08:54→21:30)
--- NOTE | 2019-10-28 09:00 | NUR ---
Nursing Note Patient repositioned in bed, oral care provided, linens changed. Patient tolerated well
--- NOTE | 2019-10-28 10:15 | NUR ---
Round Dr. Hernandez at bedside assessing patient, physician entered orders
--- NOTE | 2019-10-28 12:00 | NUR ---
MD ROUND Dr. Cornell at bedside assessing patient, made aware of BP trend, no change in orders
--- NOTE | 2019-10-28 12:05 | NUR ---
Nursing Note: vent FiO2 changed to 40% by RT, patient tolerating current vent settings
--- NOTE | 2019-10-28 12:15 | NUR ---
MD SRAVANTHI Wong, urologist consult, at bedside assessing patient. Physician replaced suprapubic catheter, entered new orders
--- NOTE | 2019-10-28 13:15 | NUR ---
Dietitian Recommendations *Recommend: adding Edis BID to EN regimen. *Continue Glucerna 1.5 at 50ml/hr, FWF 150ml Q8H via GT per MD. Provides: 1960 kcal, 104 gm protein and 1361ml free water daily. Meets: 102% of est calorie needs and 80% of upper end of est protein needs. Please see Nutritional Assessment for details. USP, RD
--- NOTE | 2019-10-28 14:00 | NUR ---
Round Dr. Jacobson at bedside assessing patient, no new orders
--- NOTE | 2019-10-28 16:10 | NUR ---
Wound Evaluation Attempted: Wound evaluation attempted, but patient is being prepped and going to a procedure.
--- NOTE | 2019-10-28 17:00 | NUR ---
Nursing Note Patient taken to CT of abdomen at 1620 as ordered by physician, patient taken on gurney, attached to filing writer, accompanied by ACLS certified RN. Patient returned to unit at 1700, patient tolerated well
--- NOTE | 2019-10-28 17:30 | NUR ---
Nursing Note: Vent FiO2 changed to 35% by RT, patient tolerating current vent settings
--- NOTE | 2019-10-28 17:40 | NUR ---
Nursing Note Patient repositioned, oral care given, linens changed, dressings applied as needed. Patient tolerated well
--- NOTE | 2019-10-28 19:14 | NUR ---
Closing Note Patient report given to nightshift RN via SBAR
--- NOTE | 2019-10-28 20:00 | NUR ---
Opening Note Pt in bed asleep. SR on the monitor. Trach to vent, tolerating settings well, no s/s of distress noted. Pt has RT femoral TLC in place SL. BRIAN MID line in place running IVF. Site is C/D/I, no s/s of distress noted. Pt has G-tube in place running TF. Pt tolerating well, no residual noted. Suprapubic catheter in place draining urine to gravity. Safety rounds completed, will continue to monitor.
--- NOTE | 2019-10-28 22:30 | NUR ---
CHG CHG bath given and linens changed. Pt tolerated well. Will continue to monitor.
[2019-10-29] VITALS (35 sets, daily range): BP systolic 82–115
--- NOTE | 2019-10-29 00:20 | NUR ---
RN Rounds Pt in bed asleep. No s/s of distress noted. Tolerating G-tube feeding well. Afebrile. Will continue to monitor.
[2019-10-29] MEDS: MEROPENEM 1 GM in NS 100 ML IV SCH ×2 (00:24→08:46)
--- NOTE | 2019-10-29 04:15 | NUR ---
RN Round Pt in bed attempting to sleep. Temp 99.3, Ice packs applied. VSS. Will continue to monitor.
[2019-10-29] MEDS: PEG 400/HYPROMELLOSE/GLYCERIN 15 ML DROPS EACH EYE SCH ×3 (05:34→21:12)
[2019-10-29] MEDS: TOBRAMYCIN SULFATE IV SCH (05:34)
[2019-10-29] MEDS: NS IV SCH (05:34)
[2019-10-29] MEDS: BACLOFEN 10 MG TABLET GT SCH ×3 (05:34→21:11)
[2019-10-29 06:17] LABS: ALBUMIN 2.2 g/dL (3.4-4.8); CALCIUM 8.4 mg/dL (8.4-11.0); CREATININE 0.93 mg/dL (0.55-1.30); POTASSIUM 4.1 mmol/L (3.5-5.1); TOTAL BILIRUBIN 0.4 mg/dL (0.0-1.0)
[2019-10-29 06:20] LABS: BASOPHILS # (AUTO) 0.1 K/uL (0.0-0.2); BASOPHILS % (AUTO) 0.9 % (0.0-2.0); EOSINOPHILS # (AUTO) 0.5 K/uL (0.0-0.4); EOSINOPHILS % (AUTO) 8.8 % (0.0-4.0); HEMATOCRIT 32.3 % (36-54); HEMOGLOBIN 10.5 g/dL (14.0-18.0); LYMPHOCYTES # (AUTO) 1.5 K/uL (1.0-5.5); MEAN CORPUSCULAR HEMOGLOBIN 33 pg (27-31); MEAN CORPUSCULAR HGB CONC 33 % (32-36); MEAN CORPUSCULAR VOLUME 100 fL (79.0-98.0); MONOCYTES # (AUTO) 0.5 K/uL (0.0-1.0); MONOCYTES % (AUTO) 8.5 % (1.7-9.3); NEUTROPHILS # (AUTO) 3.5 K/uL (1.8-7.7); NEUTROPHILS % (AUTO) 56.8 % (40.0-70.0); PLATELET COUNT (AUTO) 99 K/uL (130-430); RED BLOOD CELL COUNT(AUTO) 3.24 MIL/uL (4.2-6.2); RED CELL DISTRIBUTION WIDTH 14.4 % (9.0-15.0); WHITE BLOOD COUNT (AUTO) 6.1 K/uL (4.8-10.8)
--- NOTE | 2019-10-29 06:20 | NUR ---
Closing Note Pt in bed attempting to sleep. SR on the monitor, Trach to vent. Tolerating settings well. BRIAN Mid line infusing IVF. Femoral Catheter in place, SL. TF running through G-tube. No residual noted. Pt has suprapubic catheter draining urine to gravity. Nephrostomy tube in place, no drainage noted. Pt safety rounds completed. Will endorse to oncoming RN.
--- NOTE | 2019-10-29 07:20 | NUR ---
Opening Note Patient report received from nightshift RN via SBAR communication
[2019-10-29] MEDS: ENOXAPARIN SODIUM 40 MG/0.4 ML SYRINGE SQ SCH (08:45)
[2019-10-29] MEDS: LevETIRAcetam 500 MG/5 ML UDC ORAL LIQUID GT SCH ×2 (08:46→21:10)
[2019-10-29] MEDS: PHENYTOIN 100 MG/4 ML UDC (DILANTIN) GT SCH ×2 (08:46→21:11)
[2019-10-29] MEDS: LACOSAMIDE 100 MG TABLET GT SCH ×2 (08:46→21:11)
[2019-10-29] MEDS: POTASSIUM CHLORIDE 20 MEQ/PKT PACKET GT SCH (08:47)
[2019-10-29] MEDS: DOCUSATE SODIUM 100 MG/10 ML UDC GT SCH (08:47)
[2019-10-29] MEDS: LACTULOSE 20 GM/30 ML UDC GT SCH (08:47)
[2019-10-29] MEDS: METOPROLOL TARTRATE 25 MG TABLET GT SCH ×2 (08:48→21:11)
[2019-10-29] MEDS: CHLORHEXIDINE GLUCONATE 15 ML/DOSE, 480 ML MM SCH ×2 (08:49→21:12)
--- NOTE | 2019-10-29 09:24 | NUR ---
Nursing Note Dietary contacted regarding Edis supplement, currently not on the unit
[2019-10-29] MEDS: CHOLECALCIFEROL (VITAMIN D3) 2,000 UNIT TABLET GT SCH ×2 (09:52→21:12)
--- NOTE | 2019-10-29 10:15 | NUR ---
Round Dr. Hernandez at bedside assessing patient, physician entered orders
--- NOTE | 2019-10-29 12:30 | NUR ---
MD Round Dr. Cornell at bedside assessing patient, physician entered orders.
[2019-10-29] MEDS: KCL 20 mEq in D5/0.45NS 1000mL 1,000 ML IV SCH (14:47)
--- NOTE | 2019-10-29 15:00 | NUR ---
Nursing Note Right femoral central line removed as prescribed by judy Castaneda in place to provide pressure. Patient tolerated well
--- NOTE | 2019-10-29 17:45 | NUR ---
Nursing Note Patient's dressing changed, cleaned, linens changed, repositioned in bed.
--- NOTE | 2019-10-29 19:10 | NUR ---
Closing Note Patient report given to oncoming RN via SBAR
--- NOTE | 2019-10-29 19:30 | NUR ---
PM ASSESSMENT REPORT RECEIVED FROM NALINI RN. PT RECEIVED IN BED WITH EYES CLOSED, RESPONDING TO TACTILE STIMULATION. VSS, NO S/S OF ACUTE DISTRESS NOTED. PT TRACH TO VENT, SETTINGS: AC 14, TV 450, FIO2 35%, PEEP 5. SR ON MONITOR. BRIAN MIDLINE IN PLACE, PATENT AND INTACT, INFUSING IVF. G TUBE IN PLACE RUNNING TF. L NEPHROSTOMY TUBE IN PLACE, NO DRAINAGE NOTED. SUPRAPUBIC CATH IN PLACE DRAINING URINE TO GRAVITY. HOB ELEVATED, BED IN LOWEST POSITION, CALL LIGHT IN REACH. WILL CONTINUE TO MONITOR PT.
[2019-10-29] MEDS: COLISTIMETHATE SODIUM 150 MG VIAL INH SCH (19:56)
--- NOTE | 2019-10-29 22:35 | NUR ---
DR. GREG RIOS AT BEDSIDE TO EVALUATE PT. NO NEW ORDERS RECEIVED AT THIS TIME. WILL CONTINUE TO MONITOR PT.
[2019-10-29] MEDS: metroNIDAZOLE 500 mg/NS 100 ML IV SCH (22:56)
[2019-10-29] MEDS ORDERED: metroNIDAZOLE 500 mg/NS 100 ML IV ONE (23:05)
[2019-10-29] MEDS: INSULIN REGULAR, HUMAN 100 UNITS/ML, 10 ML VIAL (humuLIN R) SUBCUT PRN (23:26)
[2019-10-30] VITALS (36 sets, daily range): BP systolic 89–110
--- NOTE | 2019-10-30 04:30 | NUR ---
CHG CHG BATH GIVEN AT THIS TIME. PT HAD MODERATE AMOUNT OF SOFT STOOL. ASHLEY CARE PROVIDED AND LINENS CHANGED. PT TOLERATED WELL. WILL CONTINUE TO MONITOR.
[2019-10-30] MEDS: BACLOFEN 10 MG TABLET GT SCH ×3 (05:10→21:21)
[2019-10-30] MEDS: PEG 400/HYPROMELLOSE/GLYCERIN 15 ML DROPS EACH EYE SCH ×3 (05:11→21:23)
[2019-10-30 06:02] LABS: BASOPHILS % (AUTO) 0.7 % (0.0-2.0); EOSINOPHILS # (AUTO) 0.3 K/uL (0.0-0.4); EOSINOPHILS % (AUTO) 8.1 % (0.0-4.0); HEMATOCRIT 31.5 % (36-54); HEMOGLOBIN 10.3 g/dL (14.0-18.0); LYMPHOCYTES # (AUTO) 1.1 K/uL (1.0-5.5); MEAN CORPUSCULAR HEMOGLOBIN 33 pg (27-31); MEAN CORPUSCULAR HGB CONC 33 % (32-36); MEAN CORPUSCULAR VOLUME 100 fL (79.0-98.0); MONOCYTES # (AUTO) 0.3 K/uL (0.0-1.0); MONOCYTES % (AUTO) 8.9 % (1.7-9.3); NEUTROPHILS # (AUTO) 2.1 K/uL (1.8-7.7); NEUTROPHILS % (AUTO) 54.3 % (40.0-70.0); PLATELET COUNT (AUTO) 111 K/uL (130-430); RED BLOOD CELL COUNT(AUTO) 3.17 MIL/uL (4.2-6.2); RED CELL DISTRIBUTION WIDTH 14.5 % (9.0-15.0); WHITE BLOOD COUNT (AUTO) 3.9 K/uL (4.8-10.8)
[2019-10-30 06:11] LABS: ALBUMIN 2.4 g/dL (3.4-4.8); CALCIUM 8.2 mg/dL (8.4-11.0); CREATININE 0.94 mg/dL (0.55-1.30); POTASSIUM 4.3 mmol/L (3.5-5.1); TOTAL BILIRUBIN 0.2 mg/dL (0.0-1.0)
--- NOTE | 2019-10-30 07:17 | NUR ---
ENDORSEMENT BEDSIDE REPORT GIVEN TO YOUNG RN USING SBAR APPROACH.
--- NOTE | 2019-10-30 07:20 | NUR ---
Received shift report from night RN using SBAR.
--- NOTE | 2019-10-30 08:00 | NUR ---
Oral care provided. Noted white sputum. Deep tracheal suction along with oropharynx. Pt tolerated well.
[2019-10-30] MEDS: COLISTIMETHATE SODIUM 150 MG VIAL INH SCH ×2 (08:01→19:56)
--- NOTE | 2019-10-30 09:00 | NUR ---
AM ASSESSMENT Pt resting with no signs of pain or distress. Tube feeding empty. Called dietary for new Glucerna. Will continue to monitor. Luna draining yellow clear urine. Bed locked and in lowest position.
--- NOTE | 2019-10-30 09:00 | NUR ---
Edis administered with 8 oz of water.
[2019-10-30] MEDS: metroNIDAZOLE 500 mg/NS 100 ML IV SCH ×2 (09:16→21:22)
[2019-10-30] MEDS: PHENYTOIN 100 MG/4 ML UDC (DILANTIN) GT SCH ×2 (09:17→21:22)
[2019-10-30] MEDS: POTASSIUM CHLORIDE 20 MEQ/PKT PACKET GT SCH (09:17)
[2019-10-30] MEDS: METOPROLOL TARTRATE 25 MG TABLET GT SCH ×2 (09:17→21:22)
[2019-10-30] MEDS: DOCUSATE SODIUM 100 MG/10 ML UDC GT SCH (09:18)
[2019-10-30] MEDS: LACOSAMIDE 100 MG TABLET GT SCH ×2 (09:18→21:21)
[2019-10-30] MEDS: CHOLECALCIFEROL (VITAMIN D3) 2,000 UNIT TABLET GT SCH ×2 (09:18→21:22)
[2019-10-30] MEDS: LevETIRAcetam 500 MG/5 ML UDC ORAL LIQUID GT SCH ×2 (09:18→21:24)
[2019-10-30] MEDS: LACTULOSE 20 GM/30 ML UDC GT SCH (09:18)
[2019-10-30] MEDS: CHLORHEXIDINE GLUCONATE 15 ML/DOSE, 480 ML MM SCH ×2 (09:19→21:23)
[2019-10-30] MEDS: ENOXAPARIN SODIUM 40 MG/0.4 ML SYRINGE SQ SCH (09:20)
--- NOTE | 2019-10-30 10:00 | NUR ---
Pictures taken of sacrum, buttocks, and upper back. Pt had BM. Provided perineal and perianal care. Noted drainage tube in left flank area with no residual. Pt has suprapubic catheter with clear yellow urine. Pt tolerated well.
[2019-10-30] MEDS: KCL 20 mEq in D5/0.45NS 1000mL 1,000 ML IV SCH (11:09)
[2019-10-30] MEDS ORDERED: cefTRIAXone 2 GM in D5W 50 ML IV ONE (11:15)
[2019-10-30] MEDS ORDERED: metroNIDAZOLE 500 mg/NS 100 ML IV ONE (11:15)
--- NOTE | 2019-10-30 12:00 | NUR ---
Blood sugar 145, no coverage indicated.
--- NOTE | 2019-10-30 12:23 | NUR ---
Oral care provided. Noted white sputum. Deep tracheal suction along with oropharynx. Pt tolerated well.
--- NOTE | 2019-10-30 14:00 | NUR ---
Oral care provided. Pt tolerated well. Noted white thick sputum.
--- NOTE | 2019-10-30 15:18 | NUR ---
FLU VACCINE Called [facility] and confirmed with Marilyn that pt received flu shot on 09/19/19. Will update admission documentation
--- NOTE | 2019-10-30 15:55 | NUR ---
Wound Evaluation: Late note for 10/30/2019 at 1555 secondary to patient care. Wound Consult ordered for Low Shane Score. Patient evaluated for a low Shane score of 12. Patient was awake, non-verbal, non-responsive to verbal commands, and received in a Aure Bed with an IsoFlex DMITRY mattress with low air-loss therapy. Patient needs to be turned in bed. Recommend reposition patient side to side only every 2 hours with pillow support. Elevate, off-load and float bilateral heels with pillows. Offload pressure areas with pillows for pressure re-distribution. Perform skin care and monitor skin integrity Q shift. Use moisture barrier cream on moisture susceptible areas QID and PRN for soiling. Maintain patient on a low air-loss mattress. Skin assessment: 1. Sacral-Coccygeal area: Scar tissue, present on admission. 2. Left posterior proximal thigh: Scar tissue, present on admission. 3. Right posterior proximal thigh: Scar tissue, present on admission. 4. Upper back: Scar tissue, present on admission. Recommend: Cleansed involved areas with Mild soap and water. Pat dry. Apply moisture barrier cream to involved areas. Perform site care q.i.d., and as needed for soiling. Place a foam dressing over the Sacral-Coccygeal area scar tissue and change daily, and p.r.n. for dressing soiling or dislodgment.
--- NOTE | 2019-10-30 16:15 | NUR ---
Provided oral care. Pt tolerated well.
--- NOTE | 2019-10-30 18:00 | NUR ---
Blood sugar 125. No coverage insulin indicated.
--- NOTE | 2019-10-30 19:18 | NUR ---
Endorsement given to night RN using SBAR. Pt resting with no signs of pain. SR on monitor 95 bpm. Bed locked and in lowest position
--- NOTE | 2019-10-30 19:48 | NUR ---
ASSUMPTION OF CARE Received report from AM shift RN, Pt in bed with chest rise and fall noted tolerating vent settings with VSS and O2 saturation of 100%. No acute distress noted tolerating gtube feeding with minimal residual of 5mm. On contact isolation. Midline patent with good blood return. Will turn and reposition every 2 hours. Safety precaution observed ,call light within reach. Will continue to monitor Pt.
[2019-10-31] VITALS (28 sets, daily range): BP systolic 92–120
--- NOTE | 2019-10-31 | NUR ---
Pt in bed, no acute distress noted, turned and repositioned Pt. Will continue to monitor Pt.
--- NOTE | 2019-10-31 04:00 | NUR ---
Pt in bed, no acute distress noted, turned and repositioned Pt. Will continue to monitor Pt.
[2019-10-31 05:29] LABS: BASOPHILS % (AUTO) 0.8 % (0.0-2.0); EOSINOPHILS # (AUTO) 0.3 K/uL (0.0-0.4); EOSINOPHILS % (AUTO) 6.5 % (0.0-4.0); HEMATOCRIT 31.7 % (36-54); HEMOGLOBIN 10.3 g/dL (14.0-18.0); LYMPHOCYTES # (AUTO) 0.9 K/uL (1.0-5.5); LYMPHOCYTES % (AUTO) 19.4 % (20.5-51.5); MEAN CORPUSCULAR HEMOGLOBIN 32 pg (27-31); MEAN CORPUSCULAR HGB CONC 33 % (32-36); MEAN CORPUSCULAR VOLUME 98 fL (79.0-98.0); MONOCYTES # (AUTO) 0.4 K/uL (0.0-1.0); MONOCYTES % (AUTO) 7.9 % (1.7-9.3); NEUTROPHILS # (AUTO) 3.1 K/uL (1.8-7.7); NEUTROPHILS % (AUTO) 65.4 % (40.0-70.0); PLATELET COUNT (AUTO) 137 K/uL (130-430); RED BLOOD CELL COUNT(AUTO) 3.22 MIL/uL (4.2-6.2); RED CELL DISTRIBUTION WIDTH 14.6 % (9.0-15.0); WHITE BLOOD COUNT (AUTO) 4.7 K/uL (4.8-10.8)
[2019-10-31 05:39] LABS: CALCIUM 8.3 mg/dL (8.4-11.0); CREATININE 0.98 mg/dL (0.55-1.30); POTASSIUM 3.7 mmol/L (3.5-5.1)
[2019-10-31] MEDS: BACLOFEN 10 MG TABLET GT SCH ×3 (05:39→21:50)
[2019-10-31] MEDS: PEG 400/HYPROMELLOSE/GLYCERIN 15 ML DROPS EACH EYE SCH ×3 (05:40→21:51)
--- NOTE | 2019-10-31 06:39 | NUR ---
Pt in bed, no acute distress noted. IV lines and skin checked with oncoming RN. Will give report to oncoming RN.
[2019-10-31] MEDS: KCL 20 mEq in D5/0.45NS 1000mL 1,000 ML IV SCH (06:48)
--- NOTE | 2019-10-31 07:22 | NUR ---
Shift report received from night RN using SBAR bedside.
[2019-10-31] MEDS: COLISTIMETHATE SODIUM 150 MG VIAL INH SCH ×2 (07:55→20:46)
--- NOTE | 2019-10-31 08:15 | NUR ---
Pt resting with no signs of distress. Pt sinus on monitor. Noted temp of 98.9F. Glucerna running at 50cc/hr. Kcl 20 meq in D 1/2 NS @ 50cc/hr. Noted polly urine in villalobos. Seizure pads in place. Bed locked and in lowest position with call light in place.
[2019-10-31] MEDS: ENOXAPARIN SODIUM 40 MG/0.4 ML SYRINGE SQ SCH (08:34)
[2019-10-31] MEDS: LevETIRAcetam 500 MG/5 ML UDC ORAL LIQUID GT SCH ×2 (08:35→21:47)
[2019-10-31] MEDS: metroNIDAZOLE 500 mg/NS 100 ML IV SCH (08:35)
[2019-10-31] MEDS: POTASSIUM CHLORIDE 20 MEQ/PKT PACKET GT SCH (08:37)
[2019-10-31] MEDS: PHENYTOIN 100 MG/4 ML UDC (DILANTIN) GT SCH ×2 (08:37→21:46)
[2019-10-31] MEDS: LACOSAMIDE 100 MG TABLET GT SCH ×2 (08:38→21:49)
[2019-10-31] MEDS: METOPROLOL TARTRATE 25 MG TABLET GT SCH ×2 (08:38→21:50)
[2019-10-31] MEDS: LACTULOSE 20 GM/30 ML UDC GT SCH (08:38)
[2019-10-31] MEDS: CHOLECALCIFEROL (VITAMIN D3) 2,000 UNIT TABLET GT SCH ×2 (08:38→21:50)
[2019-10-31] MEDS: CHLORHEXIDINE GLUCONATE 15 ML/DOSE, 480 ML MM SCH ×2 (08:39→21:51)
--- NOTE | 2019-10-31 08:40 | NUR ---
Oral care provided. Pt tolerated well.
--- NOTE | 2019-10-31 08:45 | NUR ---
Edis provided in 8oz of water through G-tube.
[2019-10-31] MEDS: DOCUSATE SODIUM 100 MG/10 ML UDC GT SCH (08:46)
[2019-10-31] MEDS: cefTRIAXone 2 GM in D5W 50 ML IV SCH (08:52)
--- NOTE | 2019-10-31 10:00 | NUR ---
Wound care provided. Changed gown, bedding, and foam dressing. Changed dressing for supra pubic catheter and G-tube. Noted bright red stoma, cleansed with NS applied. Pt tolerated well.
--- NOTE | 2019-10-31 11:45 | NUR ---
Oral care provided. Pt tolerated well.
[2019-10-31] MEDS: INSULIN REGULAR, HUMAN 100 UNITS/ML, 10 ML VIAL (humuLIN R) SUBCUT PRN (12:04)
--- NOTE | 2019-10-31 14:30 | NUR ---
Per Dr Jacobson, pt on Telemetry status and transfer orders received.
--- NOTE | 2019-10-31 16:10 | NUR ---
Oral care provided. Pt tolerated well.
--- NOTE | 2019-10-31 16:24 | NUR ---
Nutrition F/U (short note d/t high patient load) RD reviewed pt's current EMR including diet Hx, physician notes, nursing notes, pertinent labs/meds/procedures, care trends, and care activity. Current Nutrition Support: Glucerna 1.5 at 50 ml/hr, Edis BID, Free Water Flush: 150 ml Q8h via GT x3 days Pt seen resting in bed at time of RD visit earlier today w/ TF infusing as per physician order. No s/s of intolerance per EMR. Edis was administered today per nursing notes. Current TF regimen remains adequate/appropriate. Pt is at moderate nutritional risk; RD to F/U within 3-5 days.
--- NOTE | 2019-10-31 17:50 | NUR ---
[facility] with groundwater monitoring technician without incidence. RT Sharla, with ANT Sauceda RN bedside for transfer. Placed pt in isolation immediately upon entry to room. Endorsement provided to Malu BATISTA using SBAR. Transferred all medication and placed in medication room.
--- NOTE | 2019-10-31 18:45 | NUR ---
Note Received pt from ICU via bed at 1750. Pt has trach and GT feedings. Pt was placed on isolation precautions and tele unit was placed on arrival to floor. Pt's skin intact - no scars present on mid back and sacral are. Skin intact generally all over body and extremities. No open wounds/areas noted. Pt has suprapubic catheter and right upper arm midline with 2 lumens present. IVF's infusing at this time. No redness/infiltration/swelling noted at midline site. Vital signs stable at this time. Pt next to nurses' station for close observation for needs and care. Pt has left nephrostomy tube with minimal drainage. No needs noted at this time. Call light within reach.
--- NOTE | 2019-10-31 19:30 | NUR ---
OPENING NOTES Patient is resting, eyes open, no signs of respiratory distress observed, trach intact on vent settings. IV site patent, IVF running, dressings c/d/i. G tube in tact, G tube feeding running, 0ml residual, water flushes and Edis provided throughout shift. Nephrostomy drain intact, no drainage, no odor. Suprapubic catheter intact, draining by gravity, no kinks, no loops observed. Q2H turning provided. Heels elevated. Seizure pads in place. Call light within reach, rounding provided. Bed at lowest position, bed alarm on. Will continue to monitor. Addendum: 11/01/19 at 0705 by Leann Castorena RN Contact precautions to be carried out.
--- NOTE | 2019-10-31 21:30 | NUR ---
CALLED DR. GARZA TO CONFIRM THAT PATIENT IS ON TUBE FEEDING AND NOT CCHO DIET. WILL CONTINUE TO MONITOR.
[2019-11-01] VITALS (8 sets, daily range): BP systolic 94–121
--- NOTE | 2019-11-01 02:22 | NUR ---
Perineal care provided. No signs of distress observed. Patient had a bowel movement. Will continue.
[2019-11-01] MEDS: KCL 20 mEq in D5/0.45NS 1000mL 1,000 ML IV SCH (02:38)
--- NOTE | 2019-11-01 04:05 | NUR ---
Patient is resting, no signs of distress observed. Will continue to monitor.
[2019-11-01] MEDS: BACLOFEN 10 MG TABLET GT SCH ×3 (05:59→22:04)
[2019-11-01] MEDS: PEG 400/HYPROMELLOSE/GLYCERIN 15 ML DROPS EACH EYE SCH ×3 (05:59→22:05)
--- NOTE | 2019-11-01 06:55 | NUR ---
CLOSING NOTES Patient is resting, no signs of respiratory distress observed, trach intact on vent settings. IV site patent, IVF running, dressings c/d/i. G tube in tact, G tube feeding running, 0ml residual, water flushes and Edis provided throughout shift. Nephrostomy drain intact, no drainage, no odor. Suprapubic catheter intact, draining by gravity, no kinks, no loops observed. Q2H turning provided. Heels elevated. Call light within reach, rounding provided. Bed at lowest position, bed alarm on. All needs met throughout shift. Will endorse care to oncoming shift.
[2019-11-01] MEDS: COLISTIMETHATE SODIUM 150 MG VIAL INH SCH ×2 (07:39→20:13)
--- NOTE | 2019-11-01 08:00 | NUR ---
Note Pt resting in bed with mechanical ventilation. Pt has GT feedings. Tele unit attached and intact at this time. No SOB/resp distress or pain/discomfort noted at this time. BRIAN midline intact and patent infusing IVF's well. Pt next to nurses' station for close observation for needs and care. Pt has padded side rails on bed rails for seizure precautions. No needs noted. Call light within reach.
[2019-11-01] MEDS: LACTULOSE 20 GM/30 ML UDC GT SCH (09:00)
[2019-11-01] MEDS: DOCUSATE SODIUM 100 MG/10 ML UDC GT SCH (09:00)
[2019-11-01] MEDS: PHENYTOIN 100 MG/4 ML UDC (DILANTIN) GT SCH ×2 (09:25→22:03)
[2019-11-01] MEDS: METOPROLOL TARTRATE 25 MG TABLET GT SCH ×2 (09:26→21:00)
[2019-11-01] MEDS: POTASSIUM CHLORIDE 20 MEQ/PKT PACKET GT SCH (09:26)
[2019-11-01] MEDS: LACOSAMIDE 100 MG TABLET GT SCH ×2 (09:26→22:04)
[2019-11-01] MEDS: cefTRIAXone 2 GM in D5W 50 ML IV SCH (09:27)
[2019-11-01] MEDS: CHOLECALCIFEROL (VITAMIN D3) 2,000 UNIT TABLET GT SCH ×2 (09:27→22:04)
[2019-11-01] MEDS: LevETIRAcetam 500 MG/5 ML UDC ORAL LIQUID GT SCH ×2 (09:28→22:03)
[2019-11-01] MEDS: ENOXAPARIN SODIUM 40 MG/0.4 ML SYRINGE SQ SCH (09:29)
[2019-11-01] MEDS: CHLORHEXIDINE GLUCONATE 15 ML/DOSE, 480 ML MM SCH ×2 (09:30→22:05)
--- NOTE | 2019-11-01 12:00 | NUR ---
Note Pt resting in bed - no needs noted. Pt was given hygiene care and turned q2' and PRN. Resp therapist doing breathing treatments as scheduled and PRN. Pt has no needs at this time. Call light within reach.
--- NOTE | 2019-11-01 15:00 | NUR ---
Note Pt resting in bed. Medications given through GT as scheduled and water flushes. Pt has no needs at this time. Pt observed for needs q1' and PRN - pt next to nurses' station all shift. Call light within reach.
--- NOTE | 2019-11-01 15:33 | NUR ---
Discharge Planning: DCP faxed pt referral to [facility] [place] (f [phone] p [phone]) DCP to follow up.
--- NOTE | 2019-11-01 17:55 | NUR ---
Note Pt resting in bed with GT feedings infusing and IVF's infusing through BRIAN midline. Pt on mechanical ventilator all shift. No SOB/resp distress or pain/discomfort noted. Pt was checked on q1' and PRN all shift for needs and care. Suprapubic catheter intact and draining. Left nephro tube has no drainage all shift. Tele unit attached and intact. Pt was maintained with safety and isolation precautions all shift. No needs noted at this time. Pt next to nurses' station all shift for close observation. Call light within reach.
--- NOTE | 2019-11-01 19:15 | NUR ---
change of shift.pt.presents isolation status;contact.pt.presents vent dependent status.pt.presents picc line.pt.presents g-tube.pt.presents supra-pubic cath.general status stable.respiratory status stable.call light/telephone w/in reach of the pt.
--- NOTE | 2019-11-01 20:00 | NUR ---
pt.assessed.v/s assessed;values w/in normal limits.per flacc;pt.absent facial;grimaces/body posturing.i have reviewed the vent settings;correlates to the dr's orders;pt.tolerating the vent settings.i have attended to the oral/trach care.i have attended to t the oral/trach suction.picc line intact patent iv fluids infusing.g-tube intact patent g-tube feed infusing;glucerna:@50ml/hr.pt.presents supra-pubic cath intact patent urine content present.pt presents isolation status;contact;mdro/crown ceramist;urine/sputum.pt.assessed for cleanliness.pt.repositioned /bethany light/telephone placed w/in reach of the pt.02-sat%=99%.
--- NOTE | 2019-11-01 21:00 | NUR ---
2100p medications administered;administered via the g-tube;intact patent w/out resistance.keppra/dilantin administered. i have changed the iv fluids bag.i have administered flagyl;abx;ivpb.via the picc line.i have placed the nsg/pt alert sign@hob;r/t the picc line.
--- NOTE | 2019-11-01 22:00 | NUR ---
pt.assessed.pt.assessed for cleanliness.pt.repositioned.i have attended to the oral/trach care.i have attended to the oral/trach suction. vent reviewed:pt.tolerating the vent settings.picc line intact patent iv fluids infusing.g-tube intact patent g-tube feed infusing. supra-pubic cath intact patent urine content present.call light/telephone placed w/in reach of the pt. Addendum: 11/02/19 at 0201 by Elio Sarabia RN 02-sat%=99%.
[2019-11-01] MEDS: metroNIDAZOLE 500 mg/NS 100 ML IV SCH (22:05)
--- NOTE | 2019-11-02 | NUR ---
pt.assessed.v/s assessed:values w/in normal limits.i have attended to the oral/trach care.i have attended to the oral/trach suction. picc line intact;patent iv fluids infusing.g-tube intact patent g-tube feed infusing.supra-pubic cath intact patent urine content present.pt.assessed for cleanliness.pt.repositioned.call light/telephone placed w/in reach of the pt.vent setting s review;pt.tolerating vent settings.i have assessed the blood glucose:value;123mg/dl. Addendum: 11/02/19 at 0202 by Eloi Sarabia RN o2-sat%=99%.
[2019-11-02] MEDS: KCL 20 mEq in D5/0.45NS 1000mL 1,000 ML IV SCH (00:13)
[2019-11-02 01:16] VITALS: BP_SYST 102
--- NOTE | 2019-11-02 02:00 | NUR ---
pt.assessed.pt.assessed for cleanliness.pt.repositioned.vent settings reviewed pt.tolerating the vent settings.i have attended to the oral/trach care. i have attended to the oral/trach suction.picc line intact patent iv fluids infusing.g-tube intact patent g-tube feed infusing.supra-pubic cath intact patent urine content present.%=99%.call light/.telephone placed w/in reach of the pt.
--- NOTE | 2019-11-02 04:00 | NUR ---
pt.assessed pt.assessed for cleanliness.pt.repositioned.vent reviewed.pt.tolerating the vent settings.i have attended to the oral/trach care.i have attended to the oral/trach suction.picc line intact patent;iv fluids infusing.g-tube intact patent g-tube feed infusing. supra-pubic cath intact patent urine content present.general status stable.respiratory status stable;unlabored;02-sat%=99%.call light/telephone placed w/in reach of the pt.
[2019-11-02] MEDS: BACLOFEN 10 MG TABLET GT SCH ×2 (05:57→13:05)
[2019-11-02] MEDS: PEG 400/HYPROMELLOSE/GLYCERIN 15 ML DROPS EACH EYE SCH ×2 (05:57→13:04)
[2019-11-02] MEDS: metroNIDAZOLE 500 mg/NS 100 ML IV SCH ×2 (05:58→13:05)
--- NOTE | 2019-11-02 06:13 | NUR ---
pt.assessed.pt.assessed for cleanliness.pt.cleaned.pt.repositioned.vent settings reviewed.pt.tolerating the vent settings.i have attend to the oral/trach care.i have attended to the oral/trach suction.picc line intact patent iv fluids infusing.g-tube intact patent g-tube feed infusing.supra-pubic cath intact patent urine content present.i have changed the g-tube/supra-pubic cath dsg.call light/telephone placed w/in reach of the pt. Addendum: 11/02/19 at 0623 by Elio Sarabia RN i have attended to the wound care.dsg changed.
--- NOTE | 2019-11-02 07:23 | NUR ---
Received patient and report from [facility] shift nurse. Patient in no acute distress. Sitting in bed awake. Padded side rails in place. Call light with in reach. Denies pain.
[2019-11-02 08:00] VITALS: BP_SYST 107
[2019-11-02] MEDS: COLISTIMETHATE SODIUM 150 MG VIAL INH SCH (08:52)
[2019-11-02] MEDS: cefTRIAXone 2 GM in D5W 50 ML IV SCH (09:53)
[2019-11-02] MEDS: LACTULOSE 20 GM/30 ML UDC GT SCH (09:54)
[2019-11-02] MEDS: PHENYTOIN 100 MG/4 ML UDC (DILANTIN) GT SCH (09:54)
[2019-11-02] MEDS: LACOSAMIDE 100 MG TABLET GT SCH (09:55)
[2019-11-02] MEDS: POTASSIUM CHLORIDE 20 MEQ/PKT PACKET GT SCH (09:56)
[2019-11-02] MEDS: DOCUSATE SODIUM 100 MG/10 ML UDC GT SCH (09:56)
[2019-11-02] MEDS: CHOLECALCIFEROL (VITAMIN D3) 2,000 UNIT TABLET GT SCH (09:56)
[2019-11-02] MEDS: LevETIRAcetam 500 MG/5 ML UDC ORAL LIQUID GT SCH (09:57)
[2019-11-02] MEDS: METOPROLOL TARTRATE 25 MG TABLET GT SCH (09:58)
[2019-11-02] MEDS: CHLORHEXIDINE GLUCONATE 15 ML/DOSE, 480 ML MM SCH (09:58)
[2019-11-02] MEDS: ENOXAPARIN SODIUM 40 MG/0.4 ML SYRINGE SQ SCH (09:59)
[2019-11-02] MEDS: INSULIN REGULAR, HUMAN 100 UNITS/ML, 10 ML VIAL (humuLIN R) SUBCUT PRN (12:47)
[2019-11-02 13:21] VITALS: BP_SYST 101
--- NOTE | 2019-11-02 13:39 | NUR ---
ARRANGED WITH [facility] WITH RT TO TRANSPORT PT TO [facility]. HEATER HELPER TIME IS 1600. SPOKE TO HUNTER. TEL # TO GIVE REPORT TO [facility] IS [phone].
--- NOTE | 2019-11-02 14:53 | NUR ---
Gave report for discharge to nurse Medeiros at [facility]. Informed pick pulling machine tender time is ETA. Called brother Jacob to inform of patient transfer, didn't pick pulling machine tender unable to leave message.
[2019-11-02 14:55] VITALS: BP_SYST 101
[2019-11-02 16:27] VITALS: BP_SYST 108
--- NOTE | 2019-11-02 17:05 | NUR ---
Patient picked up by [facility] and transported out of building via gurney with RT present, left at 1645. Gave verbal report to medic along with discharge summary and instructions.
== END 2019-11-02 16:47 | DRG 870 ==
LOC: SED 02:27 → SIC 08:02 → STU 10-31 18:30
PROVIDERS: ADMIT Family Medicine; ATTEND Family Medicine
PROC: 5A1955Z Respiratory Ventilation, Greater than 96 Consecutive Hours (ICD-10-PCS; principal; 2019-10-26)
PROC: 02HV33Z Insertion of Infusion Device into Superior Vena Cava, Percutaneous Approach (ICD-10-PCS; 2019-10-28)
PROC: B548ZZA Ultrasonography of Superior Vena Cava, Guidance (ICD-10-PCS; 2019-10-28)
DX: A41.9 Sepsis, unspecified organism (principal); R65.21 Severe sepsis with septic shock; G82.50 Quadriplegia, unspecified; N15.1 Renal and perinephric abscess; J15.6 Pneumonia due to other Gram-negative bacteria; J96.10 Chronic respiratory failure, unspecified whether with hypoxia or hypercapnia; N17.9 Acute kidney failure, unspecified; N12 Tubulo-interstitial nephritis, not specified as acute or chronic; E87.0 Hyperosmolality and hypernatremia; Z99.11 Dependence on respirator [ventilator] status; E86.0 Dehydration; E11.9 Type 2 diabetes mellitus without complications; F02.80 Dementia in other diseases classified elsewhere, unspecified severity, without behavioral disturbance, psychotic disturbance, mood disturbance, and anxiety; G35 Multiple sclerosis; N40.0 Benign prostatic hyperplasia without lower urinary tract symptoms; I10 Essential (primary) hypertension; G40.909 Epilepsy, unspecified, not intractable, without status epilepticus; N31.9 Neuromuscular dysfunction of bladder, unspecified; N20.0 Calculus of kidney; G20 Parkinson's disease; B96.4 Proteus (mirabilis) (morganii) as the cause of diseases classified elsewhere; Z86.19 Personal history of other infectious and parasitic diseases; Z87.440 Personal history of urinary (tract) infections; Z87.442 Personal history of urinary calculi; Z93.0 Tracheostomy status; Z93.1 Gastrostomy status; Z74.01 Bed confinement status; Z79.2 Long term (current) use of antibiotics; Z88.0 Allergy status to penicillin; Z88.1 Allergy status to other antibiotic agents; Z79.899 Other long term (current) drug therapy
CPT/HCPCS: 36415; 36600; 71045; 80048; 80053; 80200; 81000-TC; 82803-TC; 82962; 83605; 83880; 84484; 85025; 85610-TC; 87040-TC; 87070-TC; 87081; 87086; 87186-TC; 87205-TC; 93005; 94002; 94003; 94640; 94760; 96365; 99285; C1751; J0696; J0770; J1650; J1815; J1956; J2185; J3260; J3490; J7050; J7060

== ENCOUNTER 2022-05-07 20:09 | Inpatient (IN) | payer OTHER, MEDICAID ==
[~2022-05-07] VITALS: Ht 177.8 cm; Wt 64.9 kg
[2022-05-07 20:23] VITALS: BP_SYST 92
--- NOTE | 2022-05-07 20:52 | NUR ---
Dr. Wong at bedside for evaluation.
--- NOTE | 2022-05-07 21:00 | NUR ---
PT BIBA from [facility] with c/o per staff is fever. Pt is trach dependent, has G-tube in place and villalobos with 100 cc of urine. Pt is non-verbal, non-ambulatory, and only responds to physical stimuli. Pt is febrile on arrival temporal temp 102. PT is tachycardiac in the 120s. Dr. Wong made aware.
--- NOTE | 2022-05-07 21:15 | NUR ---
Performed oral stucioning on pt. O2 sat at 96% on vent.
--- NOTE | 2022-05-07 21:57 | NUR ---
COVID AND MRSA SWABS SENT TO LAB.
--- NOTE | 2022-05-07 22:05 | NUR ---
Dr. Wong at bedside to initate EJ access on pt.
[2022-05-07] MEDS ORDERED: NACL 0.9% 1,000 ML IV ONE ×3 (22:15→22:45)
[2022-05-07 22:22] LABS: CALCIUM 8.2 mg/dL (8.4-11.0); CREATININE 0.69 mg/dL (0.55-1.30); POTASSIUM 3.5 mmol/L (3.5-5.1)
[2022-05-07 22:27] LABS: BASOPHILS # (AUTO) 0.1 K/uL (0.0-0.2); BASOPHILS % (AUTO) 0.6 % (0.0-2.0); EOSINOPHILS # (AUTO) 0.2 K/uL (0.0-0.4); EOSINOPHILS % (AUTO) 1.5 % (0.0-4.0); HEMATOCRIT 35.1 % (36-54); HEMOGLOBIN 11.5 g/dL (14.0-18.0); LYMPHOCYTES # (AUTO) 1.1 K/uL (1.0-5.5); LYMPHOCYTES % (AUTO) 9.9 % (20.5-51.5); MEAN CORPUSCULAR HEMOGLOBIN 32 pg (27-31); MEAN CORPUSCULAR HGB CONC 33 % (32-36); MEAN CORPUSCULAR VOLUME 97 fL (79.0-98.0); MONOCYTES # (AUTO) 0.7 K/uL (0.0-1.0); MONOCYTES % (AUTO) 5.6 % (1.7-9.3); NEUTROPHILS # (AUTO) 9.5 K/uL (1.8-7.7); NEUTROPHILS % (AUTO) 82.4 % (40.0-70.0); PLATELET COUNT (AUTO) 252 K/uL (130-430); RED BLOOD CELL COUNT(AUTO) 3.62 MIL/uL (4.2-6.2); RED CELL DISTRIBUTION WIDTH 14.6 % (9.0-15.0); WHITE BLOOD COUNT (AUTO) 11.6 K/uL (4.8-10.8)
[2022-05-07 22:33] LABS: ALBUMIN 2.1 g/dL (3.4-4.8); C-REACTIVE PROTEIN QUANT 12.6 mg/dL (0-0.5); TOTAL BILIRUBIN 0.3 mg/dL (0.0-1.0)
[2022-05-07] MEDS ORDERED: CLINDAMYCIN 900 mg/50mL D5W 50 ML IV ONE (22:45)
[2022-05-07 23:28] LABS: CLARITY/URINE SLIGHTLY CLOUDY (CLEAR); COLOR,URINE YELLOW (YELLOW)
[2022-05-07 23:31] LABS: BILIRUBIN,URINE NEGATIVE (NEGATIVE); GLUCOSE,URINE NEGATIVE (NEGATIVE); KETONES,URINE NEGATIVE (NEGATIVE); PROTEIN URINE 2+ (NEGATIVE)
[2022-05-07 23:32] LABS: BLOOD, URINE 3+ (NEGATIVE); LEUKOCYTE ESTERASE ,URINE 3+ (NEGATIVE); NITRITE, URINE NEGATIVE (NEGATIVE); UROBILINOGEN,URINE 0.2 (0.2-1.0)
[2022-05-07 23:33] LABS: BACTERIA,URINE FEW /HPF (None Seen); MUCUS,URINE None Seen /LPF (None Seen); RBC,URINE 20-50 /HPF (0-3); WBC,URINE >100 /HPF (0-3)
--- NOTE | 2022-05-07 23:52 | NUR ---
Oral suctioning performed for PT. VSS. Safety precaution in place and connected to monitor.
[2022-05-08] MEDS ORDERED: ONDANSETRON HCL 4 MG/2 ML VIAL IVP ONE (00:15)
[2022-05-08] MEDS ORDERED: fentaNYL CITRATE/PF 100 MCG/2 ML AMP IVP ONE (00:15)
--- NOTE | 2022-05-08 00:28 | NUR ---
Oral suctioning provided to PT, VSS. O2 sat at 100% on vent. Safety precautions in place and connected to monitor.
[2022-05-08] MEDS ORDERED: ACETAMINOPHEN 650 MG/20.3 ML UDC PO PRN (00:30)
--- NOTE | 2022-05-08 00:30 | NUR ---
Admit bed requested Patient will be admitted to care of [GREG]. Admitted to [ICU] unit. Diagnosis [SEVERE SEPSIS] Inpatient (Yes or No) [YES] Observation (Yes or No) [NO] Orientation concerns or request close to nursing station (Yes or No) [NO] Covid Status [NEG] On vent or bipap [NO] Isolation requirements [NO] Needs a sitter [NO] From Home (Yes or if No enter name of facility) [[facility]] Requires Dialysis (Yes or No) [NO] Med Rec Completed (Yes of No) [NO]
[2022-05-08] MEDS ORDERED: fentaNYL CITRATE/PF 100 MCG/2 ML AMP ONE (00:37)
--- NOTE | 2022-05-08 00:42 | NUR ---
RT at bedside for deep suctioning. O2 sat at 100% on vent.
[2022-05-08] MEDS: NACL 0.9% 1,000 ML IV SCH ×4 (01:33→04:33)
--- NOTE | 2022-05-08 02:00 | NUR ---
Pt resting in bed, eyes opened. Pt VSS. Provided oral suctioning. Safety precautions in place and connected to monitor.
--- NOTE | 2022-05-08 02:18 | NUR ---
Admit bed requested Patient will be admitted to care of [DESTINEE]. Admitted to [TELE] unit. Diagnosis [SEPSIS] Inpatient (Yes or No) [YES] Observation (Yes or No) [NO] Orientation concerns or request close to nursing station (Yes or No) [NO] Covid Status [NEG] On vent or bipap [VENT] Isolation requirements [NO] Needs a sitter [NO] From Home (Yes or if No enter name of facility) [[facility]] Requires Dialysis (Yes or No) [NO] Med Rec Completed (Yes of No) [NO]
--- NOTE | 2022-05-08 04:00 | NUR ---
ADMISSION NOTES; -Pt arrived from ED dept to room 109-A as inpt telemetry dx sepsis. Pt is nonverbal, alerted to self, assisting by Tito-RN and Ashleigh-RT via a gurney. Pt has a trachea with vent machine with setting-KR=720, PEEP=5, AC=14, FIO2=45%, Portex #7, q4orw=458%. 97.2, 89, 16, 134/74. G-tube clamped- scant bleeding noted, cleaned with NS, applied new David gauze with paper tape. Pt arrived with Suprabic cath in place drains cloudy urine with protruding redness skin site, cleaned w/ NS and secured with David gauze. Multiple opened wounds buttocks with redness, white, and yellow periwound with small bleeding foul yellow drainage. Left knee opened wound with oozing bright red blood when opening to take photo, cleansed with NS, applied nonstick optifoam. Left montiel opened wound with oozing pinkish an yellow drainage, cleansed with NS, applied optifoam drsg. Angel feet redness and swollen noted. Rt hip opened wound with small bleeding noted, cleansed with NS, applied optifoam. Opened wound near rt nostril with small bleeding noted,applied pressure for 5 mins, no active bleeding noted, keep [employer]. Will order wound care consult. Angel LE free float with pillows. IV site of rt IJ #20 patent, patent, flushed well NS, no s/s any infiltration noted. Keep HOB > 30 degree entire time. Suctioned orally and via trachea with thin white secretion. Pt is on contact isolation of MRDO urine. Maintains contact isolation. Side rails x3, all safety measures in place. Cont to monitor pt.
--- NOTE | 2022-05-08 04:10 | NUR ---
Patient will be admitted to care of Dr. Jacobson. Admitted to telemetry unit. Will go to room 109A. Belongings list completed. Complete and up to date summary report printed. SBAR report given to Rut BATISTA at bedside with opportunity for questions.
[2022-05-08 04:43] VITALS: BP_SYST 139
--- NOTE | 2022-05-08 04:48 | NUR ---
CONSULTATION PAGED/CALLED Reason for Consultation: INFECTION Person Who was Notified: DARIO Consulting Physician: LEOLA DURBINMelina Tassel Making Machine Operator Specialty: PULMO Ordering Physician: GREG
[2022-05-08 05:18] VITALS: BP_SYST 139
[2022-05-08 05:20] VITALS: BP_SYST 123
[2022-05-08] MEDS ORDERED: ALENDRONATE SODIUM GT (05:20)
[2022-05-08] MEDS ORDERED: CALCIUM-VIT D GT (05:20)
[2022-05-08] MEDS ORDERED: LACTOBACILLUS GT (05:20)
[2022-05-08] MEDS ORDERED: ZINC TABLET GT (05:20)
[2022-05-08] MEDS ORDERED: ASCORBIC ACID GT (05:20)
[2022-05-08] MEDS ORDERED: POTA20PA30 GT (05:20)
[2022-05-08] MEDS ORDERED: MINERAL GT (05:20)
[2022-05-08] MEDS ORDERED: MULTIVIT GT (05:20)
[2022-05-08] MEDS ORDERED: AMIN30LI2 PO (05:20)
[2022-05-08] MEDS ORDERED: SSNOVOLOG SUBCUT (05:23)
[2022-05-08] MEDS ORDERED: ECONAZOLE 1% TP (05:32)
--- NOTE | 2022-05-08 06:33 | NUR ---
CLOSING NOTES; -Pt lying in bed. NO s/s any acute distress noted. Pt has a trachea with vent machine with setting-ZU=676, PEEP=5, AC=14, FIO2=45%, Portex #7. G-tube clamped for now. Checked G-tube for patency, no residual noted, flushed w/ free water. Suprabic cath in place with gravity drains cloudy urine. IV site of rt IJ #20 patent, drsg cdi. Keep HOB > 30 degree entire time. Pt is on contact isolation of MRDO urine. Maintains contact isolation. Side rails x3, all safety measures in place. Will endorse to next nurse to cont care.
[2022-05-08 06:54] LABS: BASOPHILS # (AUTO) 0.1 K/uL (0.0-0.2); BASOPHILS % (AUTO) 0.5 % (0.0-2.0); EOSINOPHILS # (AUTO) 0.2 K/uL (0.0-0.4); EOSINOPHILS % (AUTO) 1.6 % (0.0-4.0); HEMATOCRIT 33.1 % (36-54); HEMOGLOBIN 10.9 g/dL (14.0-18.0); LYMPHOCYTES # (AUTO) 1.3 K/uL (1.0-5.5); LYMPHOCYTES % (AUTO) 12.6 % (20.5-51.5); MEAN CORPUSCULAR HEMOGLOBIN 32 pg (27-31); MEAN CORPUSCULAR HGB CONC 33 % (32-36); MEAN CORPUSCULAR VOLUME 99 fL (79.0-98.0); MONOCYTES # (AUTO) 0.8 K/uL (0.0-1.0); MONOCYTES % (AUTO) 7.1 % (1.7-9.3); NEUTROPHILS # (AUTO) 8.3 K/uL (1.8-7.7); NEUTROPHILS % (AUTO) 78.2 % (40.0-70.0); PLATELET COUNT (AUTO) 195 K/uL (130-430); RED BLOOD CELL COUNT(AUTO) 3.36 MIL/uL (4.2-6.2); WHITE BLOOD COUNT (AUTO) 10.7 K/uL (4.8-10.8)
[2022-05-08 07:29] LABS: CALCIUM 7.3 mg/dL (8.4-11.0); CREATININE 0.69 mg/dL (0.55-1.30)
[2022-05-08 07:43] LABS: ALBUMIN 1.8 g/dL (3.4-4.8); TOTAL BILIRUBIN 0.3 mg/dL (0.0-1.0)
[2022-05-08 08:00] VITALS: BP_SYST 115
[2022-05-08] MEDS ORDERED: D5W IV SCH (09:00)
[2022-05-08] MEDS ORDERED: DOXYCYCLINE HYCLATE IV SCH (09:00)
[2022-05-08 09:17] LABS: POTASSIUM 2.9 mmol/L (3.5-5.1)
[2022-05-08] MEDS: MEROPENEM 500 MG in NS 50 ML IV SCH ×2 (09:20→22:48)
[2022-05-08] MEDS ORDERED: IPRATROPIUM/ALBUTEROL SULFATE 3 ML AMPUL.NEB (DUONEB) INH PRN (11:00)
[2022-05-08] MEDS ORDERED: POTASSIUM CHLORIDE 20 MEQ/PKT PACKET PO ONE (11:00)
[2022-05-08] MEDS ORDERED: ACETAMINOPHEN 650 MG/20.3 ML UDC GT PRN ×2 (11:00→12:00)
[2022-05-08] MEDS ORDERED: KCL 40 mEq in 100 mL (PREMIX) 100 ML IV ONE (11:00)
[2022-05-08] MEDS ORDERED: POTASSIUM CHLORIDE 20 MEQ/PKT PACKET GT ONE (11:00)
[2022-05-08] MEDS ORDERED: DOXYCYCLINE HYCLATE 100 MG in D5W 100 ML IV ONE (11:15)
[2022-05-08] MEDS ORDERED: INSULIN REGULAR, HUMAN 100 UNITS/ML, 10 ML VIAL (humuLIN R) SUBCUT PRN (11:15)
[2022-05-08] MEDS ORDERED: LORazepam 2 MG/ML VIAL IVP PRN (11:15)
[2022-05-08] MEDS ORDERED: LevETIRAcetam 500 MG/5 ML UDC ORAL LIQUID GT ONE (11:30)
[2022-05-08 11:46] VITALS: BP_SYST 108
[2022-05-08] MEDS ORDERED: CALCIUM CARBONATE/VITAMIN D3 1 TAB TABLET GT ONE (12:30)
[2022-05-08] MEDS ORDERED: ASCO250T22 PO (12:45)
[2022-05-08] MEDS ORDERED: PHEN125O3 PO (12:48)
[2022-05-08] MEDS ORDERED: ALEN70TA3 PO (12:49)
[2022-05-08] MEDS ORDERED: CALC1CAP19 PO (12:51)
[2022-05-08] MEDS ORDERED: LACT1TAB14 PO (12:55)
[2022-05-08] MEDS ORDERED: MULT-1189 PO (12:56)
[2022-05-08] MEDS ORDERED: ZINC220T4 PO (12:58)
[2022-05-08] MEDS ORDERED: ZINC50TA15 PO (12:58)
[2022-05-08] MEDS ORDERED: LACTOBACILLUS RHAMNOSUS GG 1 CAP CAPSULE GT ONE (13:00)
[2022-05-08] MEDS ORDERED: CHOLECALCIFEROL (VITAMIN D3) 2,000 UNIT TABLET GT ONE (13:00)
[2022-05-08] MEDS ORDERED: LACTULOSE 20 GM/30 ML UDC GT ONE (13:00)
[2022-05-08] MEDS: KCL 20 mEq in 0.45% NS 1000 mL 1,000 ML IV SCH ×2 (13:00→21:15)
[2022-05-08] MEDS ORDERED: POTASSIUM CHLORIDE 40 MEQ in NS 250 ML IV ONE (13:00)
[2022-05-08] MEDS ORDERED: ASCORBIC ACID 500 MG TABLET GT ONE (13:00)
[2022-05-08] MEDS ORDERED: MULTIVITAMINS TAB 1 TABLET GT ONE (13:00)
[2022-05-08] MEDS ORDERED: METOPROLOL TARTRATE 25 MG TABLET GT ONE (13:00)
[2022-05-08] MEDS ORDERED: LACOSAMIDE 100 MG TABLET GT ONE (13:00)
[2022-05-08] MEDS ORDERED: PHENYTOIN 100 MG/4 ML UDC (DILANTIN) GT ONE (13:00)
[2022-05-08] MEDS: BACLOFEN 10 MG TABLET GT SCH ×2 (13:04→21:05)
[2022-05-08] MEDS ORDERED: NON-FORMULARY MEDICATION (Amino Acids/Protein Hydrolys (Pro-Stat Liquid) 30 ML) PO SCH (15:00)
[2022-05-08 17:15] VITALS: BP_SYST 112
[2022-05-08] MEDS ORDERED: DOXYCYCLINE HYCLATE 100 MG in D5W 100 ML IV SCH (21:00)
[2022-05-08] MEDS: LACTOBACILLUS RHAMNOSUS GG 1 CAP CAPSULE GT SCH (21:06)
[2022-05-08] MEDS: METOPROLOL TARTRATE 25 MG TABLET GT SCH (21:06)
[2022-05-08] MEDS: PHENYTOIN 100 MG/4 ML UDC (DILANTIN) GT SCH (21:07)
[2022-05-08] MEDS: CHOLECALCIFEROL (VITAMIN D3) 2,000 UNIT TABLET GT SCH (21:07)
[2022-05-08] MEDS: ASCORBIC ACID 500 MG TABLET GT SCH (21:07)
[2022-05-08] MEDS: ENOXAPARIN SODIUM 40 MG/0.4 ML SYRINGE SUBCUT SCH (21:08)
[2022-05-08] MEDS: CHLORHEXIDINE GLUC 0.12% 15 ML MOUTHWASH UDC MM SCH (21:09)
[2022-05-08] MEDS: LevETIRAcetam 500 MG/5 ML UDC ORAL LIQUID GT SCH (21:09)
[2022-05-08] MEDS: LACOSAMIDE 100 MG TABLET GT SCH (21:29)
[2022-05-08] MEDS ORDERED: MEROPENEM 500 MG VIAL IV ONE (22:38)
[2022-05-09 01:05] VITALS: BP_SYST 112
[2022-05-09] MEDS: BACLOFEN 10 MG TABLET GT SCH ×3 (05:45→22:28)
[2022-05-09] MEDS: KCL 20 mEq in 0.45% NS 1000 mL 1,000 ML IV SCH ×2 (05:45→16:59)
[2022-05-09 06:50] LABS: BASOPHILS # (AUTO) 0.1 K/uL (0.0-0.2); BASOPHILS % (AUTO) 0.8 % (0.0-2.0); EOSINOPHILS # (AUTO) 0.2 K/uL (0.0-0.4); EOSINOPHILS % (AUTO) 2.4 % (0.0-4.0); HEMATOCRIT 33.6 % (36-54); HEMOGLOBIN 11.2 g/dL (14.0-18.0); LYMPHOCYTES # (AUTO) 1.1 K/uL (1.0-5.5); LYMPHOCYTES % (AUTO) 16.2 % (20.5-51.5); MEAN CORPUSCULAR HEMOGLOBIN 33 pg (27-31); MEAN CORPUSCULAR HGB CONC 33 % (32-36); MEAN CORPUSCULAR VOLUME 98 fL (79.0-98.0); MONOCYTES # (AUTO) 0.4 K/uL (0.0-1.0); NEUTROPHILS # (AUTO) 4.9 K/uL (1.8-7.7); NEUTROPHILS % (AUTO) 74.6 % (40.0-70.0); PLATELET COUNT (AUTO) 208 K/uL (130-430); RED BLOOD CELL COUNT(AUTO) 3.42 MIL/uL (4.2-6.2); RED CELL DISTRIBUTION WIDTH 14.9 % (9.0-15.0); WHITE BLOOD COUNT (AUTO) 6.6 K/uL (4.8-10.8)
[2022-05-09] MEDS ORDERED: ALENDRONATE GT SCH (07:00)
--- NOTE | 2022-05-09 07:20 | NUR ---
rt notes 0720 titrated fio2 to 40%, pt saturating 99%. will cont to monitor pt. LESTER crowell aware.
[2022-05-09 08:00] VITALS: BP_SYST 115
--- NOTE | 2022-05-09 08:30 | NUR ---
Recd pt non-verbal, trach to vent with AC mode and sats 99%, HOB at 30'. Tube feeding infusing per md order. Supra-pubic cath in place with yellow clear urine. Am assessment done and charted. Right EJ with IVF at 100ml/hr. Pt had small bm, perineal care provided, wound care done of sacral and bilateral hips done per md order. Pt tolerated well. Suctioned pt with min amt of secretions. continue to monitor pt closely.
[2022-05-09 09:07] LABS: CALCIUM 8.5 mg/dL (8.4-11.0); CREATININE 0.7 mg/dL (0.55-1.30)
[2022-05-09] MEDS: PHENYTOIN 100 MG/4 ML UDC (DILANTIN) GT SCH ×2 (09:19→22:26)
[2022-05-09] MEDS: DOCUSATE SODIUM 100 MG/10 ML UDC GT SCH (09:19)
[2022-05-09] MEDS: LACTOBACILLUS RHAMNOSUS GG 1 CAP CAPSULE GT SCH ×2 (09:19→22:27)
[2022-05-09] MEDS: LevETIRAcetam 500 MG/5 ML UDC ORAL LIQUID GT SCH ×2 (09:20→22:26)
[2022-05-09] MEDS: POTASSIUM CHLORIDE 20 MEQ/PKT PACKET GT SCH (09:20)
[2022-05-09] MEDS: LACTULOSE 20 GM/30 ML UDC GT SCH (09:20)
[2022-05-09] MEDS: METOPROLOL TARTRATE 25 MG TABLET GT SCH ×2 (09:21→22:28)
[2022-05-09] MEDS: MULTIVITAMINS TAB 1 TABLET GT SCH (09:21)
[2022-05-09] MEDS: CALCIUM CARBONATE/VITAMIN D3 1 TAB TABLET GT SCH (09:21)
[2022-05-09] MEDS: ASCORBIC ACID 500 MG TABLET GT SCH ×2 (09:22→22:27)
[2022-05-09] MEDS: CHOLECALCIFEROL (VITAMIN D3) 2,000 UNIT TABLET GT SCH ×2 (09:22→22:27)
[2022-05-09] MEDS: CHLORHEXIDINE GLUC 0.12% 15 ML MOUTHWASH UDC MM SCH ×2 (09:22→22:26)
[2022-05-09] MEDS: LACOSAMIDE 100 MG TABLET GT SCH ×2 (09:35→23:13)
--- NOTE | 2022-05-09 10:30 | NUR ---
Turned to aid in comfort. All needs anticipated and met.
[2022-05-09] MEDS: MEROPENEM 500 MG in NS 50 ML IV SCH ×2 (11:09→23:39)
[2022-05-09 11:29] VITALS: BP_SYST 109
--- NOTE | 2022-05-09 13:00 | NUR ---
Dr Jacobson at the bedside, assessed pt and reviewed lab results.
[2022-05-09 15:33] VITALS: BP_SYST 110
--- NOTE | 2022-05-09 16:00 | NUR ---
Turned pt to aid in comfort. Trach suctioned and kept clear of secretions.
[2022-05-09] MEDS: CRANBERRY 450 MG GT SCH (16:59)
[2022-05-09 20:00] VITALS: BP_SYST 103
[2022-05-09] MEDS: ENOXAPARIN SODIUM 40 MG/0.4 ML SYRINGE SUBCUT SCH (22:26)
[2022-05-09] MEDS ORDERED: MEROPENEM 500 MG VIAL IV ONE (23:10)
[2022-05-10] VITALS: BP_SYST 100; BP_SYST 103
[2022-05-10] MEDS: KCL 20 mEq in 0.45% NS 1000 mL 1,000 ML IV SCH ×3 (05:40→23:15)
[2022-05-10] MEDS: BACLOFEN 10 MG TABLET GT SCH ×3 (06:39→23:13)
--- NOTE | 2022-05-10 07:27 | NUR ---
rt notes 0727 titrated fio2 to 35%, pt saturating 98%. will cont to monitor pt
[2022-05-10] MEDS: ECONAZOLE NITRATE 1% TP SCH ×2 (09:00→21:00)
[2022-05-10] MEDS: CRANBERRY 450 MG GT SCH (09:00)
[2022-05-10] MEDS: LevETIRAcetam 500 MG/5 ML UDC ORAL LIQUID GT SCH ×2 (10:05→21:26)
[2022-05-10] MEDS: CHLORHEXIDINE GLUC 0.12% 15 ML MOUTHWASH UDC MM SCH ×2 (10:05→21:27)
[2022-05-10] MEDS: MULTIVITAMINS TAB 1 TABLET GT SCH (10:06)
[2022-05-10] MEDS: LACTULOSE 20 GM/30 ML UDC GT SCH (10:06)
[2022-05-10] MEDS: POTASSIUM CHLORIDE 20 MEQ/PKT PACKET GT SCH (10:06)
[2022-05-10] MEDS: PHENYTOIN 100 MG/4 ML UDC (DILANTIN) GT SCH ×2 (10:06→21:26)
[2022-05-10] MEDS: DOCUSATE SODIUM 100 MG/10 ML UDC GT SCH (10:06)
[2022-05-10] MEDS: LACTOBACILLUS RHAMNOSUS GG 1 CAP CAPSULE GT SCH ×2 (10:06→21:28)
[2022-05-10] MEDS: ASCORBIC ACID 500 MG TABLET GT SCH ×2 (10:07→21:27)
[2022-05-10] MEDS: METOPROLOL TARTRATE 25 MG TABLET GT SCH ×2 (10:08→21:28)
[2022-05-10] MEDS: CHOLECALCIFEROL (VITAMIN D3) 2,000 UNIT TABLET GT SCH ×2 (10:09→21:31)
[2022-05-10] MEDS: CALCIUM CARBONATE/VITAMIN D3 1 TAB TABLET GT SCH (10:11)
[2022-05-10] MEDS: MEROPENEM 500 MG in NS 50 ML IV SCH ×2 (10:46→21:30)
[2022-05-10 11:31] VITALS: BP_SYST 100
[2022-05-10] MEDS: LACOSAMIDE 100 MG TABLET GT SCH ×2 (12:40→23:15)
[2022-05-10 15:32] VITALS: BP_SYST 110
[2022-05-10 20:34] VITALS: BP_SYST 110
[2022-05-10] MEDS: ENOXAPARIN SODIUM 40 MG/0.4 ML SYRINGE SUBCUT SCH (21:27)
[2022-05-11 01:31] VITALS: BP_SYST 98
[2022-05-11] MEDS: KCL 20 mEq in 0.45% NS 1000 mL 1,000 ML IV SCH (04:10)
[2022-05-11] MEDS: BACLOFEN 10 MG TABLET GT SCH ×2 (06:45→14:35)
[2022-05-11 08:00] VITALS: BP_SYST 110
[2022-05-11 08:14] VITALS: BP_SYST 98
[2022-05-11] MEDS: LACOSAMIDE 100 MG TABLET GT SCH (08:47)
[2022-05-11] MEDS: LevETIRAcetam 500 MG/5 ML UDC ORAL LIQUID GT SCH (08:48)
[2022-05-11] MEDS: PHENYTOIN 100 MG/4 ML UDC (DILANTIN) GT SCH (08:48)
[2022-05-11] MEDS: MEROPENEM 500 MG in NS 50 ML IV SCH (08:48)
[2022-05-11] MEDS: POTASSIUM CHLORIDE 20 MEQ/PKT PACKET GT SCH (08:49)
[2022-05-11] MEDS: LACTULOSE 20 GM/30 ML UDC GT SCH (08:49)
[2022-05-11] MEDS: ECONAZOLE NITRATE 1% TP SCH (08:49)
[2022-05-11] MEDS: CALCIUM CARBONATE/VITAMIN D3 1 TAB TABLET GT SCH (08:49)
[2022-05-11] MEDS: DOCUSATE SODIUM 100 MG/10 ML UDC GT SCH (08:50)
[2022-05-11] MEDS: LACTOBACILLUS RHAMNOSUS GG 1 CAP CAPSULE GT SCH (08:50)
[2022-05-11] MEDS: ASCORBIC ACID 500 MG TABLET GT SCH (08:50)
[2022-05-11] MEDS: MULTIVITAMINS TAB 1 TABLET GT SCH (08:50)
[2022-05-11] MEDS: CHOLECALCIFEROL (VITAMIN D3) 2,000 UNIT TABLET GT SCH (08:52)
[2022-05-11] MEDS: CHLORHEXIDINE GLUC 0.12% 15 ML MOUTHWASH UDC MM SCH (08:53)
--- NOTE | 2022-05-11 12:28 | NUR ---
Discharge Planning: DCP faxed pt referral to [facility] [phone] pt accepted to RM [facility], pending final discharge. DCP to follow up
[2022-05-11 12:44] VITALS: BP_SYST 101
--- NOTE | 2022-05-11 14:21 | NUR ---
Patient accepted at [facility] Room 45-Number for report [phone]. Ambulance transport by [facility] at 3:30PM. Spoke w/ brother,Jacob, he agreed to transport to [facility].
[2022-05-11] MEDS: METOPROLOL TARTRATE 25 MG TABLET GT SCH (14:34)
== END 2022-05-11 15:55 | DRG 871 ==
LOC: SED 20:09 → SIC 05-08 00:18 → STU 05-08 03:27
PROVIDERS: ADMIT Family Medicine; ATTEND Family Medicine
PROC: 5A1945Z Respiratory Ventilation, 24-96 Consecutive Hours (ICD-10-PCS; principal; 2022-05-07)
DX: A41.9 Sepsis, unspecified organism (principal); E43 Unspecified severe protein-calorie malnutrition; J18.9 Pneumonia, unspecified organism; R53.2 Functional quadriplegia; N39.0 Urinary tract infection, site not specified; J96.11 Chronic respiratory failure with hypoxia; E11.9 Type 2 diabetes mellitus without complications; E86.0 Dehydration; Z93.0 Tracheostomy status; Z20.822 Contact with and (suspected) exposure to COVID-19; G35 Multiple sclerosis; R65.20 Severe sepsis without septic shock; G40.909 Epilepsy, unspecified, not intractable, without status epilepticus; Z88.0 Allergy status to penicillin; Z88.8 Allergy status to other drugs, medicaments and biological substances; Z79.899 Other long term (current) drug therapy; Z68.20 Body mass index [BMI] 20.0-20.9, adult
CPT/HCPCS: 36415; 71045; 80048; 80053; 81000; 82962; 83605; 83735; 85025; 86140; 87081; 87086; 94002; 94003; 94640; 94760; 96361; 96365; 96367; 96375; 99291; G0378; J1650; J1815; J1956; J2185; J2405; J3010; J3480; J3490; J7050; J7060

== ENCOUNTER 2023-12-05 21:53 | Inpatient (IN) | payer OTHER ==
[~2023-12-05] VITALS: Ht 175.3 cm; Wt 70.3 kg
[~2023-12-05 21:53] MED LIST changes: +ALEN70TA84 PO; +AMIN30LI2 PO; +ASCO250T22 PO; -BISA10SU61 RC; +CALC1CAP19 PO; -DEXT30DR6 EACH EYE; +ECONAZOLE 1% TP; -EFFER K GT; +LACT1TAB14 PO; -LORA-259 GT; -LOVI40 SQ; -MOM GT; +MULT-1189 PO; -NA P133E41 RC; -PHEN100O4 GT; +PHEN125O3 PO; +PHEN20EL20 GT; -PHEN20EL5 GT; +POTA20PA30 GT; +SSNOVOLOG SUBCUT; +ZINC220T4 PO
[2023-12-05 21:55] VITALS: BP_SYST 98; PULSE 133; RESP 28; TEMP 98.5; O2SAT 98
[2023-12-05] MEDS ORDERED: MEROPENEM 500 MG VIAL IV ONE (22:27)
[2023-12-05] MEDS: NS 1000 ML IV.SOLN IV ONE (22:29)
[2023-12-05] MEDS: MEROPENEM 1 GM in NS 100 ML IV ONE (22:31)
[2023-12-05 22:40] LABS: BASOPHILS # (AUTO) 0.1 K/uL (0.0-0.2); BASOPHILS % (AUTO) 0.9 % (0.0-2.0); EOSINOPHILS # (AUTO) 0.2 K/uL (0.0-0.4); EOSINOPHILS % (AUTO) 1.8 % (0.0-4.0); HEMATOCRIT 26.3 % (36-54); HEMOGLOBIN 8.4 g/dL (14.0-18.0); LYMPHOCYTES # (AUTO) 1.1 K/uL (1.0-5.5); LYMPHOCYTES % (AUTO) 9.5 % (20.5-51.5); MEAN CORPUSCULAR HEMOGLOBIN 30 pg (27-31); MEAN CORPUSCULAR HGB CONC 32 % (32-36); MEAN CORPUSCULAR VOLUME 93 fL (79.0-98.0); MONOCYTES # (AUTO) 0.7 K/uL (0.0-1.0); NEUTROPHILS # (AUTO) 9.3 K/uL (1.8-7.7); NEUTROPHILS % (AUTO) 81.8 % (40.0-70.0); PLATELET COUNT (AUTO) 274 K/uL (130-430); RED BLOOD CELL COUNT(AUTO) 2.85 MIL/uL (4.2-6.2); WHITE BLOOD COUNT (AUTO) 11.4 K/uL (4.8-10.8)
[2023-12-05 23:00] LABS: ANION GAP 9 (5-15); CALCIUM 9.3 mg/dL (8.4-11.0); CARBON DIOXIDE 34 mmol/L (23-29); CHLORIDE 106 mmol/L (98-107); GFR AFRICAN AMERICAN 81 mL/min (>90); GLUCOSE 180 mg/dL (74-106); POTASSIUM 4.4 mmol/L (3.5-5.1); SODIUM SERUM 149 mmol/L (136-145); UREA NITROGEN, BLOOD 54 mg/dL (8-21)
[2023-12-05 23:01] LABS: GFR NON AFRICAN-AMERICAN 67 mL/min (>90)
[2023-12-05 23:07] LABS: ALANINE AMINOTRANSFERASE 22 U/L (12-78); ALBUMIN 1.9 g/dL (3.4-4.8); ASPARTATE AMINOTRANSFERASE 29 U/L (10-37); BILIRUBIN,DIRECT 0.1 mg/dL (0.0-0.3); TOTAL BILIRUBIN 0.3 mg/dL (0.0-1.0); TOTAL PROTEIN, SERUM 8.6 g/dL (6.4-8.3)
[2023-12-05 23:16] LABS: ANISOCYTOSIS 1+; OVALOCYTES FEW
[2023-12-05 23:17] LABS: INR 0.9 (0.80-1.20); PROTHROMBIN TIME 9.8 SECS (9.5-12.5)
[2023-12-06] VITALS (25 sets, daily range): BP systolic 75–129; PULSE 95–136; RESP 15–25; TEMP 98.6–101.9; O2SAT 95–98
[2023-12-06 00:21] LABS: BILIRUBIN,URINE NEGATIVE (NEGATIVE); BLOOD, URINE 3+ (NEGATIVE); CLARITY/URINE CLOUDY (CLEAR); COLOR,URINE YELLOW (YELLOW); GLUCOSE,URINE NEGATIVE (NEGATIVE); KETONES,URINE NEGATIVE (NEGATIVE); LEUKOCYTE ESTERASE ,URINE 3+ (NEGATIVE); NITRITE, URINE NEGATIVE (NEGATIVE); PROTEIN URINE 2+ (NEGATIVE); UROBILINOGEN,URINE 0.2 (0.2-1.0)
[2023-12-06 00:37] LABS: RBC,URINE 80-100 /HPF (0-3); WBC,URINE >100 /HPF (0-3)
[2023-12-06 00:38] LABS: BACTERIA,URINE MANY /HPF (None Seen)
[2023-12-06] MEDS: ACETAMINOPHEN 325 MG TABLET GT PRN (02:00)
[2023-12-06] MEDS: metroNIDAZOLE 500 mg/NS 100 ML IV SCH ×2 (02:00→13:48)
[2023-12-06] MEDS ORDERED: FER300L PO (04:17)
[2023-12-06] MEDS ORDERED: FLUO15GE TP (04:21)
[2023-12-06] MEDS ORDERED: NIZCR60 TP (04:22)
[2023-12-06] MEDS: NACL 0.9% 1,000 ML IV SCH (07:25)
[2023-12-06] MEDS ORDERED: IPRATROPIUM/ALBUTEROL SULFATE 3 ML AMPUL.NEB (DUONEB) INH PRN (11:30)
[2023-12-06] MEDS: MEROPENEM 500 MG in NS 50 ML IV SCH (15:00)
[2023-12-06] MEDS: ALBUMIN HUMAN 25% 50 ML IV SCH (18:07)
[2023-12-06] MEDS: ACETAMINOPHEN 650 MG/20.3 ML UDC GT PRN (18:14)
[2023-12-06] MEDS: INSULIN REGULAR, HUMAN 100 UNITS/ML, 3 ML VIAL (humuLIN R) SUBCUT PRN (18:39)
[2023-12-06] MEDS: KETOCONAZOLE 2%, 60 GM TOPICAL CREAM. (NIZORAL) TP SCH (20:54)
[2023-12-06] MEDS: LevETIRAcetam 500 MG/5 ML UDC ORAL LIQUID GT SCH (20:54)
[2023-12-06] MEDS: CHLORHEXIDINE GLUC 0.12% 15 ML MOUTHWASH UDC MM SCH (20:54)
[2023-12-06] MEDS: FERROUS SULFATE 300 MG/5 ML UDC PO SCH (20:58)
[2023-12-06] MEDS: METOPROLOL TARTRATE 25 MG TABLET GT SCH (20:58)
[2023-12-06] MEDS: ENOXAPARIN SODIUM 40 MG/0.4 ML SYRINGE SUBCUT SCH (20:59)
[2023-12-06] MEDS: CHOLECALCIFEROL (VITAMIN D3) 2,000 UNIT TABLET PO SCH (20:59)
[2023-12-06] MEDS: NACL 0.9% 500 ML IV ONE (22:42)
[2023-12-06] MEDS: NOREPINEPHRINE 4 MG/4 ML VIAL IV ONE (22:54)
[2023-12-06] MEDS: NOREPINEPHRINE BITARTRATE 8 MG in D5W 242 ML IV PRN (22:56)
[2023-12-07] VITALS (36 sets, daily range): BP systolic 11–138; PULSE 84–105; RESP 15–25; TEMP 97–99; O2SAT 94–100
[2023-12-07 04:53] LABS: BASOPHILS % (AUTO) 0.6 % (0.0-2.0); EOSINOPHILS # (AUTO) 0.2 K/uL (0.0-0.4); EOSINOPHILS % (AUTO) 3.1 % (0.0-4.0); HEMATOCRIT 27.5 % (36-54); HEMOGLOBIN 8.9 g/dL (14.0-18.0); LYMPHOCYTES # (AUTO) 0.9 K/uL (1.0-5.5); LYMPHOCYTES % (AUTO) 12.2 % (20.5-51.5); MEAN CORPUSCULAR HEMOGLOBIN 30 pg (27-31); MEAN CORPUSCULAR HGB CONC 32 % (32-36); MEAN CORPUSCULAR VOLUME 93 fL (79.0-98.0); MONOCYTES # (AUTO) 0.6 K/uL (0.0-1.0); MONOCYTES % (AUTO) 8.1 % (1.7-9.3); NEUTROPHILS # (AUTO) 5.8 K/uL (1.8-7.7); PLATELET COUNT (AUTO) 205 K/uL (130-430); RED BLOOD CELL COUNT(AUTO) 2.96 MIL/uL (4.2-6.2); WHITE BLOOD COUNT (AUTO) 7.7 K/uL (4.8-10.8)
[2023-12-07 06:11] LABS: CREATININE 1.02 mg/dL (0.55-1.30)
[2023-12-07 07:34] LABS: TOTAL IRON BIND. CAPACITY 176 ug/dL (250-450)
[2023-12-07] MEDS: DOCUSATE SODIUM 100 MG/10 ML UDC PO SCH (09:41)
[2023-12-07] MEDS ORDERED: AMIN960L13 GT (11:13)
[2023-12-07] MEDS ORDERED: FERR220S9 GT (11:13)
[2023-12-07] MEDS ORDERED: SIME80TA15 PO (11:13)
[2023-12-07] MEDS ORDERED: ALBU2.5V7 INH ×2 (11:13)
[2023-12-07] MEDS ORDERED: CHOL100062 GT (11:13)
[2023-12-07] MEDS ORDERED: METO-442 PO (11:13)
[2023-12-07] MEDS ORDERED: ASCO500S10 GT (11:13)
[2023-12-07] MEDS ORDERED: LACO10SO3 PO (11:13)
[2023-12-07] MEDS ORDERED: CALC-1085 GT (11:13)
[2023-12-07] MEDS ORDERED: OXIC30CR3 TP (11:13)
[2023-12-07] MEDS ORDERED: PHEN97.22 GT (11:13)
[2023-12-07] MEDS ORDERED: MOM GT (11:13)
[2023-12-07] MEDS ORDERED: CHOLECALCIFEROL (VITAMIN D3) 2,000 UNIT TABLET PO SCH (15:32)
[2023-12-07] MEDS: POTASSIUM CHLORIDE 20 MEQ/PKT PACKET GT ONE (16:10)
[2023-12-07] MEDS: KCL 20 mEq in 0.45% NS 1000 mL 1,000 ML IV SCH (20:17)
[2023-12-07] MEDS: METOPROLOL TARTRATE 50 MG TABLET GT SCH (21:37)
[2023-12-08] VITALS (36 sets, daily range): BP systolic 105–133; PULSE 89–121; RESP 14–26; TEMP 98.7–101.4; O2SAT 98–100
[2023-12-08 05:16] LABS: CALCIUM 7.6 mg/dL (8.4-11.0); CREATININE 0.86 mg/dL (0.55-1.30); POTASSIUM 3.7 mmol/L (3.5-5.1)
[2023-12-08 05:18] LABS: BASOPHILS % (AUTO) 0.7 % (0.0-2.0); EOSINOPHILS # (AUTO) 0.3 K/uL (0.0-0.4); EOSINOPHILS % (AUTO) 4.7 % (0.0-4.0); HEMATOCRIT 25.7 % (36-54); HEMOGLOBIN 8.3 g/dL (14.0-18.0); LYMPHOCYTES # (AUTO) 0.5 K/uL (1.0-5.5); LYMPHOCYTES % (AUTO) 9.5 % (20.5-51.5); MEAN CORPUSCULAR HEMOGLOBIN 30 pg (27-31); MEAN CORPUSCULAR HGB CONC 33 % (32-36); MEAN CORPUSCULAR VOLUME 93 fL (79.0-98.0); MONOCYTES # (AUTO) 0.4 K/uL (0.0-1.0); MONOCYTES % (AUTO) 7.5 % (1.7-9.3); NEUTROPHILS # (AUTO) 4.2 K/uL (1.8-7.7); NEUTROPHILS % (AUTO) 77.6 % (40.0-70.0); PLATELET COUNT (AUTO) 148 K/uL (130-430); RED BLOOD CELL COUNT(AUTO) 2.76 MIL/uL (4.2-6.2); RED CELL DISTRIBUTION WIDTH 23.7 % (9.0-15.0); WHITE BLOOD COUNT (AUTO) 5.4 K/uL (4.8-10.8)
[2023-12-08] MEDS: FERROUS SULFATE 300 MG/5 ML UDC PO SCH (08:37)
[2023-12-08] MEDS: CHOLECALCIFEROL (VITAMIN D3) 2,000 UNIT TABLET PO SCH (08:39)
[2023-12-08] MEDS ORDERED: MENTHOL/ZINC OXIDE 113 GM OINT. TP PRN (12:00)
[2023-12-08] MEDS: CEFIDEROCOL SULFATE TOSYLATE 1 GM in NS 100 ML IV SCH (15:53)
[2023-12-09] VITALS (35 sets, daily range): BP systolic 92–158; PULSE 100–122; RESP 16–24; TEMP 99–101.3; O2SAT 96–100
[2023-12-09 06:07] LABS: EOSINOPHILS # (AUTO) 0.2 K/uL (0.0-0.4); EOSINOPHILS % (AUTO) 4.8 % (0.0-4.0); LYMPHOCYTES # (AUTO) 0.8 K/uL (1.0-5.5); LYMPHOCYTES % (AUTO) 16.7 % (20.5-51.5); MEAN CORPUSCULAR HEMOGLOBIN 30 pg (27-31); MEAN CORPUSCULAR HGB CONC 32 % (32-36); MEAN CORPUSCULAR VOLUME 93 fL (79.0-98.0); MONOCYTES # (AUTO) 0.5 K/uL (0.0-1.0); MONOCYTES % (AUTO) 9.9 % (1.7-9.3); NEUTROPHILS # (AUTO) 3.2 K/uL (1.8-7.7); NEUTROPHILS % (AUTO) 67.6 % (40.0-70.0); PLATELET COUNT (AUTO) 137 K/uL (130-430); RED CELL DISTRIBUTION WIDTH 23.8 % (9.0-15.0); WHITE BLOOD COUNT (AUTO) 4.7 K/uL (4.8-10.8)
[2023-12-09 06:27] LABS: ALBUMIN 1.5 g/dL (3.4-4.8); CALCIUM 7.4 mg/dL (8.4-11.0); CREATININE 0.75 mg/dL (0.55-1.30); POTASSIUM 3.8 mmol/L (3.5-5.1); TOTAL BILIRUBIN 0.4 mg/dL (0.0-1.0); TOTAL PROTEIN, SERUM 6.6 g/dL (6.4-8.3)
[2023-12-09 06:48] LABS: HEMOGLOBIN 6.9 g/dL (14.0-18.0)
[2023-12-09 06:49] LABS: HEMATOCRIT 21.3 % (36-54)
[2023-12-09 09:33] LABS: BASOPHILS % (AUTO) 1.1 % (0.0-2.0); EOSINOPHILS # (AUTO) 0.2 K/uL (0.0-0.4); EOSINOPHILS % (AUTO) 3.8 % (0.0-4.0); HEMATOCRIT 23.3 % (36-54); HEMOGLOBIN 7.6 g/dL (14.0-18.0); LYMPHOCYTES # (AUTO) 0.8 K/uL (1.0-5.5); LYMPHOCYTES % (AUTO) 17.6 % (20.5-51.5); MEAN CORPUSCULAR HEMOGLOBIN 30 pg (27-31); MEAN CORPUSCULAR HGB CONC 33 % (32-36); MEAN CORPUSCULAR VOLUME 93 fL (79.0-98.0); MONOCYTES # (AUTO) 0.5 K/uL (0.0-1.0); MONOCYTES % (AUTO) 9.8 % (1.7-9.3); NEUTROPHILS # (AUTO) 3.1 K/uL (1.8-7.7); NEUTROPHILS % (AUTO) 67.7 % (40.0-70.0); PLATELET COUNT (AUTO) 129 K/uL (130-430); RED BLOOD CELL COUNT(AUTO) 2.52 MIL/uL (4.2-6.2); WHITE BLOOD COUNT (AUTO) 4.6 K/uL (4.8-10.8)
[2023-12-09 09:54] LABS: CALCIUM 7.3 mg/dL (8.4-11.0); CREATININE 0.79 mg/dL (0.55-1.30); POTASSIUM 3.8 mmol/L (3.5-5.1)
[2023-12-09] MEDS: GENTAMICIN SULFATE 350 MG in NS 100 ML IV SCH (18:22)
[2023-12-10] VITALS (24 sets, daily range): BP systolic 79–127; PULSE 77–113; RESP 16–22; TEMP 97.4–101.2; O2SAT 97–100
[2023-12-10] MEDS: LevETIRAcetam 500 MG/5 ML UDC ORAL LIQUID ONE ×2 (22:24→22:25)
[2023-12-11] VITALS (23 sets, daily range): BP systolic 103–117; PULSE 97–109; RESP 14–18; TEMP 97.2–103.3; O2SAT 99–100
[2023-12-11] MEDS: GENTAMICIN SULFATE 350 MG in NS 100 ML IV SCH (18:32)
[2023-12-12] VITALS (20 sets, daily range): BP systolic 108–136; PULSE 89–107; RESP 16–20; TEMP 96.7–101.8; O2SAT 98–100
[2023-12-12 05:17] LABS: BASOPHILS # (AUTO) 0.1 K/uL (0.0-0.2); BASOPHILS % (AUTO) 0.9 % (0.0-2.0); EOSINOPHILS # (AUTO) 0.2 K/uL (0.0-0.4); EOSINOPHILS % (AUTO) 3.3 % (0.0-4.0); LYMPHOCYTES % (AUTO) 14.8 % (20.5-51.5); MEAN CORPUSCULAR HEMOGLOBIN 31 pg (27-31); MEAN CORPUSCULAR HGB CONC 33 % (32-36); MEAN CORPUSCULAR VOLUME 93 fL (79.0-98.0); MONOCYTES # (AUTO) 0.5 K/uL (0.0-1.0); MONOCYTES % (AUTO) 6.7 % (1.7-9.3); NEUTROPHILS # (AUTO) 5.1 K/uL (1.8-7.7); NEUTROPHILS % (AUTO) 74.3 % (40.0-70.0); PLATELET COUNT (AUTO) 127 K/uL (130-430); RED BLOOD CELL COUNT(AUTO) 2.07 MIL/uL (4.2-6.2); WHITE BLOOD COUNT (AUTO) 6.9 K/uL (4.8-10.8)
[2023-12-12 05:45] LABS: CALCIUM 7.8 mg/dL (8.4-11.0); CREATININE 0.71 mg/dL (0.55-1.30); POTASSIUM 3.9 mmol/L (3.5-5.1)
[2023-12-12 09:04] LABS: HEMATOCRIT 19.1 % (36-54); HEMOGLOBIN 6.4 g/dL (14.0-18.0)
[2023-12-12] MEDS: 0.45% NACL 1,000 ML IV SCH (11:50)
[2023-12-13] VITALS (15 sets, daily range): BP systolic 114–125; PULSE 87–109; RESP 16–18; TEMP 97.8–100.2; O2SAT 97–100
[2023-12-13 05:30] LABS: BASOPHILS # (AUTO) 0.1 K/uL (0.0-0.2); BASOPHILS % (AUTO) 0.6 % (0.0-2.0); EOSINOPHILS # (AUTO) 0.3 K/uL (0.0-0.4); EOSINOPHILS % (AUTO) 2.7 % (0.0-4.0); HEMATOCRIT 32.1 % (36-54); HEMOGLOBIN 10.7 g/dL (14.0-18.0); LYMPHOCYTES % (AUTO) 8.4 % (20.5-51.5); MEAN CORPUSCULAR HEMOGLOBIN 31 pg (27-31); MEAN CORPUSCULAR HGB CONC 33 % (32-36); MEAN CORPUSCULAR VOLUME 92 fL (79.0-98.0); MONOCYTES # (AUTO) 0.7 K/uL (0.0-1.0); MONOCYTES % (AUTO) 5.9 % (1.7-9.3); NEUTROPHILS # (AUTO) 9.7 K/uL (1.8-7.7); NEUTROPHILS % (AUTO) 82.4 % (40.0-70.0); PLATELET COUNT (AUTO) 181 K/uL (130-430); RED BLOOD CELL COUNT(AUTO) 3.48 MIL/uL (4.2-6.2); RED CELL DISTRIBUTION WIDTH 19.8 % (9.0-15.0); WHITE BLOOD COUNT (AUTO) 11.8 K/uL (4.8-10.8)
[2023-12-13 05:56] LABS: CALCIUM 8.2 mg/dL (8.4-11.0); CREATININE 0.7 mg/dL (0.55-1.30); POTASSIUM 3.5 mmol/L (3.5-5.1)
== END 2023-12-13 19:41 | DRG 870 ==
LOC: SED 21:53 → SIC 12-06 00:37 → STU 12-10 12:00
PROVIDERS: ADMIT Family Medicine; ATTEND Family Medicine
PROC: 5A1955Z Respiratory Ventilation, Greater than 96 Consecutive Hours (ICD-10-PCS; principal; 2023-12-06)
PROC: 05HY33Z Insertion of Infusion Device into Upper Vein, Percutaneous Approach (ICD-10-PCS; 2023-12-06)
PROC: 30233N1 Transfusion of Nonautologous Red Blood Cells into Peripheral Vein, Percutaneous Approach (ICD-10-PCS; 2023-12-12)
DX: A41.51 Sepsis due to Escherichia coli [E. coli] (principal); R65.21 Severe sepsis with septic shock; J96.21 Acute and chronic respiratory failure with hypoxia; J15.1 Pneumonia due to Pseudomonas; Z99.11 Dependence on respirator [ventilator] status; N39.0 Urinary tract infection, site not specified; N17.9 Acute kidney failure, unspecified; I95.9 Hypotension, unspecified; I10 Essential (primary) hypertension; G40.909 Epilepsy, unspecified, not intractable, without status epilepticus; E88.09 Other disorders of plasma-protein metabolism, not elsewhere classified; E86.0 Dehydration; D64.9 Anemia, unspecified; G35 Multiple sclerosis; Z79.899 Other long term (current) drug therapy; B96.20 Unspecified Escherichia coli [E. coli] as the cause of diseases classified elsewhere; Z93.0 Tracheostomy status
CPT/HCPCS: 36415; 71045; 80048; 80053; 80076; 80170; 81000; 81001; 81015; 82948; 83540; 83550; 83605; 83735; 84484; 85025; 85610; 85730; 86886; 86900; 86901; 86920; 87040; 87070; 87081; 87086; 87186; 87205; 93005; 94003; 94640; 94760; 96365; 99291; J0699; J1580; J1650; J1815; J2185; J3480; J3490; J7060; P9021; P9046

== ENCOUNTER 2024-02-20 13:47 | Inpatient (IN) | payer OTHER ==
[2024-02-20] VITALS (7 sets, daily range): BP systolic 74–111; PULSE 104–118; RESP 17–22; TEMP 100–100.4; O2SAT 98–100
[~2024-02-20] VITALS: Ht 162.6 cm; Wt 83.9 kg
[~2024-02-20 13:47] MED LIST changes: +ALBU2.5V7 INH; -ALEN70TA84 PO; -AMIN30LI2 PO; +AMIN960L13 GT; -ASCO250T22 PO; +ASCO500S10 GT; -BACL10TA GT; +CALC-1085 GT; -CALC1CAP19 PO; +CHOL100062 GT; -ECONAZOLE 1% TP; +FERR220S9 GT; +FLUO15GE TP; -IPRA3AMP9 INH; -LACO100T2 PO; +LACO10SO3 PO; +METO-442 PO; -METO25TA6 GT; +MOM GT; +NIZCR60 TP; +OXIC30CR3 TP; -PHEN20EL20 GT; +PHEN97.22 GT; -POTA20PA30 GT; +SIME80TA15 PO; -VITD2000 GT
[2024-02-20] MEDS: NACL 0.9% 1,000 ML IV ONE ×2 (14:21→15:14)
[2024-02-20] MEDS: ACETAMINOPHEN 500 MG TABLET GT ONE (14:33)
[2024-02-20] MEDS ORDERED: INSU100I28 (14:33)
[2024-02-20 15:00] LABS: BASOPHILS % (AUTO) 0.6 % (0.0-2.0); EOSINOPHILS # (AUTO) 0.1 K/uL (0.0-0.4); HEMATOCRIT 25.6 % (36-54); HEMOGLOBIN 8.9 g/dL (14.0-18.0); LYMPHOCYTES % (AUTO) 11.1 % (20.5-51.5); MEAN CORPUSCULAR HEMOGLOBIN 33 pg (27-31); MEAN CORPUSCULAR HGB CONC 35 % (32-36); MEAN CORPUSCULAR VOLUME 95 fL (79.0-98.0); MONOCYTES # (AUTO) 0.8 K/uL (0.0-1.0); NEUTROPHILS # (AUTO) 6.7 K/uL (1.8-7.7); NEUTROPHILS % (AUTO) 78.3 % (40.0-70.0); PLATELET COUNT (AUTO) 214 K/uL (130-430); RED BLOOD CELL COUNT(AUTO) 2.69 MIL/uL (4.2-6.2); RED CELL DISTRIBUTION WIDTH 15.2 % (9.0-15.0); WHITE BLOOD COUNT (AUTO) 8.6 K/uL (4.8-10.8)
[2024-02-20 15:06] LABS: INFLUENZA TYPE A Negative (NEGATIVE); INFLUENZA TYPE B NEGATIVE (NEGATIVE)
[2024-02-20 15:17] LABS: INR 1.1 (0.80-1.20); PROTHROMBIN TIME 11.4 SECS (9.5-12.5)
[2024-02-20 15:22] LABS: ANION GAP 16 (5-15); ASPARTATE AMINOTRANSFERASE 27 U/L (10-37); CALCIUM 7.6 mg/dL (8.4-11.0); CARBON DIOXIDE 28 mmol/L (23-29); CREATININE 3.57 mg/dL (0.55-1.30); GFR AFRICAN AMERICAN 23 mL/min (>90); GLUCOSE 181 mg/dL (74-106); PHENYTOIN (DILANTIN) 4.8 ug/mL (10.0-20.0); SODIUM SERUM 126 mmol/L (136-145); TOTAL BILIRUBIN 1.4 mg/dL (0.0-1.0); TOTAL PROTEIN, SERUM 7.4 g/dL (6.4-8.3); UREA NITROGEN, BLOOD 71 mg/dL (8-21)
[2024-02-20] MEDS: FAMOTIDINE PF 20 MG/2 ML VIAL IVP ONE (15:26)
[2024-02-20] MEDS: PANTOPRAZOLE SODIUM 40 MG/VIAL (PROTONIX) IVP ONE (15:26)
[2024-02-20 15:27] LABS: ABG O2 SAT% ESTIMATE 96.2 % (94.0-100.0); BLOOD GAS BASE EXCESS 3.6 mmol/L (-3.0-3.0); BLOOD GAS HCO3 28.7 mmol/L (21.0-27.0); BLOOD GAS PCO2 44.9 mmHg (32.0-45.0); BLOOD GAS PH 7.423 (7.350-7.450); BLOOD GAS PO2 81.6 mmHg (75.0-100.0)
[2024-02-20 15:28] LABS: ALLEN'S TEST POSITIVE (P)
[2024-02-20 15:28] LABS: CHLORIDE 82 mmol/L (98-107); GFR NON AFRICAN-AMERICAN 19 mL/min (>90)
[2024-02-20 15:39] LABS: ALANINE AMINOTRANSFERASE 19 U/L (12-78)
[2024-02-20 16:23] LABS: BILIRUBIN,URINE NEGATIVE (NEGATIVE); BLOOD, URINE 3+ (NEGATIVE); CLARITY/URINE TURBID (CLEAR); GLUCOSE,URINE NEGATIVE (NEGATIVE); KETONES,URINE NEGATIVE (NEGATIVE); LEUKOCYTE ESTERASE ,URINE 3+ (NEGATIVE); NITRITE, URINE NEGATIVE (NEGATIVE); PROTEIN URINE 3+ (NEGATIVE); UROBILINOGEN,URINE 0.2 (0.2-1.0)
[2024-02-20 16:47] LABS: COLOR,URINE AMBER (YELLOW)
[2024-02-20 16:49] LABS: BACTERIA,URINE MANY /HPF (None Seen); MUCUS,URINE None Seen /LPF (None Seen); RBC,URINE 20-50 /HPF (0-3); WBC,URINE >100 /HPF (0-3)
[2024-02-20 16:50] LABS: URINE AMORPHOUS PHOSPHATES 3+ /HPF (None Seen)
[2024-02-20] MEDS: NS 500 ML IV ONE (17:13)
[2024-02-20] MEDS: POTASSIUM CHLORIDE 20 MEQ TABLET.ER GT ONE (17:18)
[2024-02-20] MEDS ORDERED: ALBUTEROL SULFATE 0.083% 2.5 MG/3 ML VIAL.NEB INH SCH (18:00)
[2024-02-20] MEDS ORDERED: LORazepam 2 MG/ML VIAL IVP PRN ×2 (18:15→18:45)
[2024-02-20] MEDS: NOREPINEPHRINE BITARTRATE 4 MG in NS 246 ML IV PRN (18:20)
[2024-02-20] MEDS: KCL 20 mEq in D5NS 1000 mL 1,000 ML IV SCH (18:21)
[2024-02-20] MEDS ORDERED: ACETAMINOPHEN 650 MG/20.3 ML UDC GT PRN (18:45)
[2024-02-20] MEDS ORDERED: LACOSAMIDE 100 MG PO SCH (21:00)
[2024-02-20] MEDS ORDERED: PHENYTOIN PO SCH (21:00)
[2024-02-20] MEDS ORDERED: PHENOBARBITAL 97.2 MG GT SCH (21:00)
[2024-02-20] MEDS ORDERED: LACOSAMIDE 100 MG TABLET PO SCH (21:00)
[2024-02-20] MEDS ORDERED: LACTOBACILLUS RHAMNOSUS GG 1 CAP CAPSULE PO SCH (21:00)
[2024-02-20] MEDS ORDERED: NON-FORMULARY MEDICATION (Lactobacillus Acidophilus (Acidophilus) 1 TAB) PO SCH (21:00)
[2024-02-20] MEDS: PHENYTOIN 100 MG/4 ML UDC (DILANTIN) GT SCH (21:43)
[2024-02-20] MEDS: PHENobarbital 30 MG TABLET GT SCH (21:43)
[2024-02-20] MEDS: PANTOPRAZOLE SODIUM 40 MG/VIAL (PROTONIX) IVP SCH (21:44)
[2024-02-20] MEDS: LACOSAMIDE 100 MG TABLET GT SCH (21:44)
[2024-02-20] MEDS: LACTOBACILLUS RHAMNOSUS GG 1 CAP CAPSULE GT SCH (21:45)
[2024-02-20] MEDS: MEROPENEM 500 MG in NS 50 ML IV SCH (21:48)
[2024-02-20] MEDS: CHLORHEXIDINE GLUC 0.12% 15 ML MOUTHWASH UDC MM SCH (22:03)
[2024-02-20] MEDS: KETOCONAZOLE 2%, 60 GM TOPICAL CREAM. (NIZORAL) TP SCH (22:03)
[2024-02-20] MEDS: levETIRAcetam 500 MG IV PREMIX 100 ML IV SCH (22:06)
[2024-02-20] MEDS: metroNIDAZOLE 500 mg/NS 100 ML IV SCH (22:06)
[2024-02-21] VITALS (39 sets, daily range): BP systolic 89–127; PULSE 103–132; RESP 17–23; TEMP 98.8–102.7; O2SAT 98–100
[2024-02-21] MEDS: INSULIN REGULAR, HUMAN 100 UNITS/ML, 3 ML VIAL (humuLIN R) SUBCUT PRN (03:12)
[2024-02-21 04:49] LABS: BASOPHILS % (AUTO) 0.1 % (0.0-2.0); EOSINOPHILS # (AUTO) 0.1 K/uL (0.0-0.4); EOSINOPHILS % (AUTO) 1.5 % (0.0-4.0); HEMATOCRIT 26.8 % (36-54); HEMOGLOBIN 8.9 g/dL (14.0-18.0); LYMPHOCYTES # (AUTO) 0.5 K/uL (1.0-5.5); LYMPHOCYTES % (AUTO) 5.4 % (20.5-51.5); MEAN CORPUSCULAR HEMOGLOBIN 32 pg (27-31); MEAN CORPUSCULAR HGB CONC 33 % (32-36); MEAN CORPUSCULAR VOLUME 97 fL (79.0-98.0); MONOCYTES # (AUTO) 1.4 K/uL (0.0-1.0); NEUTROPHILS # (AUTO) 7.7 K/uL (1.8-7.7); PLATELET COUNT (AUTO) 202 K/uL (130-430); RED BLOOD CELL COUNT(AUTO) 2.76 MIL/uL (4.2-6.2); RED CELL DISTRIBUTION WIDTH 15.5 % (9.0-15.0); WHITE BLOOD COUNT (AUTO) 9.8 K/uL (4.8-10.8)
[2024-02-21 05:12] LABS: ALBUMIN 1.7 g/dL (3.4-4.8); CREATININE 2.99 mg/dL (0.55-1.30); POTASSIUM 3.5 mmol/L (3.5-5.1); TOTAL BILIRUBIN 1.1 mg/dL (0.0-1.0); TOTAL PROTEIN, SERUM 6.8 g/dL (6.4-8.3)
[2024-02-21 05:27] LABS: TOTAL IRON BIND. CAPACITY 146 ug/dL (250-450)
[2024-02-21 05:40] LABS: CALCIUM 6.5 mg/dL (8.4-11.0)
[2024-02-21] MEDS: ACETAMINOPHEN 650 MG/20.3 ML UDC GT PRN (10:09)
[2024-02-21] MEDS: CALCIUM GLUC 2 GM/100ML-NACL 100 ML IV ONE (10:32)
[2024-02-21] MEDS ORDERED: MENTHOL/ZINC OXIDE 113 GM OINT. TP PRN (16:00)
[2024-02-21] MEDS: ALBUMIN HUMAN 25% 50 ML IV SCH (17:02)
[2024-02-21] MEDS: metroNIDAZOLE 500 MG TABLET GT ONE (17:05)
[2024-02-21] MEDS: metroNIDAZOLE 500 MG TABLET GT SCH (22:31)
[2024-02-22] VITALS (30 sets, daily range): BP systolic 100–119; PULSE 92–124; RESP 16–22; TEMP 98.6–101; O2SAT 19–100
[2024-02-22 04:53] LABS: BASOPHILS % (AUTO) 0.3 % (0.0-2.0); EOSINOPHILS # (AUTO) 0.1 K/uL (0.0-0.4); EOSINOPHILS % (AUTO) 1.3 % (0.0-4.0); HEMOGLOBIN 7.1 g/dL (14.0-18.0); LYMPHOCYTES # (AUTO) 0.5 K/uL (1.0-5.5); LYMPHOCYTES % (AUTO) 4.2 % (20.5-51.5); MEAN CORPUSCULAR HEMOGLOBIN 33 pg (27-31); MEAN CORPUSCULAR HGB CONC 33 % (32-36); MEAN CORPUSCULAR VOLUME 98 fL (79.0-98.0); MONOCYTES # (AUTO) 0.9 K/uL (0.0-1.0); MONOCYTES % (AUTO) 7.9 % (1.7-9.3); NEUTROPHILS # (AUTO) 9.3 K/uL (1.8-7.7); NEUTROPHILS % (AUTO) 86.3 % (40.0-70.0); PLATELET COUNT (AUTO) 179 K/uL (130-430); RED BLOOD CELL COUNT(AUTO) 2.18 MIL/uL (4.2-6.2); RED CELL DISTRIBUTION WIDTH 15.5 % (9.0-15.0); WHITE BLOOD COUNT (AUTO) 10.8 K/uL (4.8-10.8)
[2024-02-22 05:19] LABS: ALBUMIN 1.9 g/dL (3.4-4.8); BILIRUBIN,DIRECT 0.4 mg/dL (0.0-0.3); CREATININE 2.5 mg/dL (0.55-1.30); POTASSIUM 3.4 mmol/L (3.5-5.1); TOTAL BILIRUBIN 0.7 mg/dL (0.0-1.0); TOTAL PROTEIN, SERUM 6.4 g/dL (6.4-8.3)
[2024-02-22 05:28] LABS: HEMATOCRIT 21.3 % (36-54)
[2024-02-22 05:45] LABS: CALCIUM 6.2 mg/dL (8.4-11.0)
[2024-02-22] MEDS ORDERED: *PPN PER PHARMACY XX PRN (15:30)
[2024-02-22] MEDS: CALCIUM GLUC 2 GM/100ML-NACL 100 ML IV ONE (18:45)
[2024-02-23] VITALS (36 sets, daily range): BP systolic 101–143; PULSE 98–117; RESP 14–21; TEMP 97.5–99.5; O2SAT 99–100
[2024-02-23 04:56] LABS: BASOPHILS % (AUTO) 0.3 % (0.0-2.0); EOSINOPHILS # (AUTO) 0.2 K/uL (0.0-0.4); EOSINOPHILS % (AUTO) 1.3 % (0.0-4.0); HEMATOCRIT 27.5 % (36-54); LYMPHOCYTES # (AUTO) 0.5 K/uL (1.0-5.5); LYMPHOCYTES % (AUTO) 3.3 % (20.5-51.5); MEAN CORPUSCULAR HEMOGLOBIN 31 pg (27-31); MEAN CORPUSCULAR HGB CONC 33 % (32-36); MEAN CORPUSCULAR VOLUME 95 fL (79.0-98.0); MONOCYTES # (AUTO) 0.9 K/uL (0.0-1.0); MONOCYTES % (AUTO) 5.7 % (1.7-9.3); NEUTROPHILS % (AUTO) 89.4 % (40.0-70.0); PLATELET COUNT (AUTO) 197 K/uL (130-430); RED BLOOD CELL COUNT(AUTO) 2.89 MIL/uL (4.2-6.2); RED CELL DISTRIBUTION WIDTH 16.8 % (9.0-15.0); WHITE BLOOD COUNT (AUTO) 15.6 K/uL (4.8-10.8)
[2024-02-23 05:34] LABS: ALBUMIN 1.7 g/dL (3.4-4.8); CREATININE 2.3 mg/dL (0.55-1.30); PHOSPHORUS 2.1 mg/dL (2.7-4.5); POTASSIUM 3.4 mmol/L (3.5-5.1); TOTAL BILIRUBIN 0.6 mg/dL (0.0-1.0); TOTAL PROTEIN, SERUM 6.4 g/dL (6.4-8.3)
[2024-02-23 05:47] LABS: CALCIUM 6.6 mg/dL (8.4-11.0)
[2024-02-23] MEDS: CALCIUM GLUC 1 GM/100ML-NACL 100 ML IV ONE (06:44)
[2024-02-23] MEDS: FLUCONAZOLE 200 mg/ NS 100 ML IV SCH (11:37)
[2024-02-23] MEDS: CEFTAZIDIME/AVIBACTAM 0.94 GM in NS 100 ML IV SCH (20:45)
[2024-02-23] MEDS: TPN PERIPHERAL IV SCH (21:41)
[2024-02-23] MEDS: K PHOS IV SCH (21:41)
[2024-02-23] MEDS: [UNRECOGNIZED DRUG - OTHER] IV SCH (21:41)
[2024-02-23] MEDS: SODIUM ACETATE IV SCH (21:41)
[2024-02-24] VITALS (34 sets, daily range): BP systolic 96–139; PULSE 98–119; RESP 15–24; TEMP 98–99; O2SAT 97–100
[2024-02-24 05:47] LABS: BASOPHILS % (AUTO) 0.3 % (0.0-2.0); EOSINOPHILS # (AUTO) 0.2 K/uL (0.0-0.4); EOSINOPHILS % (AUTO) 1.1 % (0.0-4.0); HEMATOCRIT 28.1 % (36-54); LYMPHOCYTES # (AUTO) 0.5 K/uL (1.0-5.5); LYMPHOCYTES % (AUTO) 3.5 % (20.5-51.5); MEAN CORPUSCULAR HEMOGLOBIN 31 pg (27-31); MEAN CORPUSCULAR HGB CONC 32 % (32-36); MEAN CORPUSCULAR VOLUME 97 fL (79.0-98.0); MONOCYTES # (AUTO) 0.6 K/uL (0.0-1.0); MONOCYTES % (AUTO) 4.2 % (1.7-9.3); NEUTROPHILS # (AUTO) 13.4 K/uL (1.8-7.7); NEUTROPHILS % (AUTO) 90.9 % (40.0-70.0); PLATELET COUNT (AUTO) 180 K/uL (130-430); RED BLOOD CELL COUNT(AUTO) 2.89 MIL/uL (4.2-6.2); RED CELL DISTRIBUTION WIDTH 17.5 % (9.0-15.0); WHITE BLOOD COUNT (AUTO) 14.7 K/uL (4.8-10.8)
[2024-02-24 05:52] LABS: ALBUMIN 1.4 g/dL (3.4-4.8); CREATININE 2.14 mg/dL (0.55-1.30); PHOSPHORUS 3.9 mg/dL (2.7-4.5); TOTAL BILIRUBIN 0.4 mg/dL (0.0-1.0); TOTAL PROTEIN, SERUM 5.9 g/dL (6.4-8.3)
[2024-02-24 05:56] LABS: CALCIUM 6.3 mg/dL (8.4-11.0)
[2024-02-24] MEDS: CALCIUM GLUC 1 GM/100ML-NACL 100 ML IV ONE (08:51)
[2024-02-24] MEDS: ALBUMIN HUMAN 25% 50 ML IV SCH (12:53)
[2024-02-24] MEDS: 0.45% NACL 1,000 ML IV SCH (13:21)
[2024-02-24] MEDS: SODIUM ACETATE IV SCH (21:22)
[2024-02-24] MEDS: TPN PERIPHERAL IV SCH (21:22)
[2024-02-24] MEDS: [UNRECOGNIZED DRUG - OTHER] IV SCH (21:22)
[2024-02-24] MEDS: K PHOS IV SCH (21:22)
[2024-02-25] VITALS (34 sets, daily range): BP systolic 103–120; PULSE 100–116; RESP 16–23; TEMP 97.9–99.2; O2SAT 90–100
[2024-02-25 06:28] LABS: BASOPHILS # (AUTO) 0.1 K/uL (0.0-0.2); BASOPHILS % (AUTO) 0.4 % (0.0-2.0); EOSINOPHILS # (AUTO) 0.1 K/uL (0.0-0.4); EOSINOPHILS % (AUTO) 0.9 % (0.0-4.0); HEMATOCRIT 27.3 % (36-54); HEMOGLOBIN 8.8 g/dL (14.0-18.0); LYMPHOCYTES # (AUTO) 0.5 K/uL (1.0-5.5); LYMPHOCYTES % (AUTO) 3.7 % (20.5-51.5); MEAN CORPUSCULAR HEMOGLOBIN 31 pg (27-31); MEAN CORPUSCULAR HGB CONC 32 % (32-36); MEAN CORPUSCULAR VOLUME 98 fL (79.0-98.0); MONOCYTES # (AUTO) 0.6 K/uL (0.0-1.0); MONOCYTES % (AUTO) 4.1 % (1.7-9.3); NEUTROPHILS # (AUTO) 13.1 K/uL (1.8-7.7); NEUTROPHILS % (AUTO) 90.9 % (40.0-70.0); PLATELET COUNT (AUTO) 184 K/uL (130-430); RED CELL DISTRIBUTION WIDTH 17.2 % (9.0-15.0); WHITE BLOOD COUNT (AUTO) 14.4 K/uL (4.8-10.8)
[2024-02-25 06:46] LABS: ALBUMIN 1.8 g/dL (3.4-4.8); CREATININE 2.07 mg/dL (0.55-1.30); PHOSPHORUS 3.2 mg/dL (2.7-4.5); POTASSIUM 3.2 mmol/L (3.5-5.1); TOTAL BILIRUBIN 0.5 mg/dL (0.0-1.0)
[2024-02-25 06:55] LABS: CALCIUM 6.6 mg/dL (8.4-11.0)
[2024-02-25] MEDS: K PHOS IV SCH (20:33)
[2024-02-25] MEDS: POTASSIUM ACETATE IV SCH (20:33)
[2024-02-25] MEDS: [UNRECOGNIZED DRUG - OTHER] IV SCH (20:33)
[2024-02-25] MEDS: TPN PERIPHERAL IV SCH (20:33)
[2024-02-26] VITALS (19 sets, daily range): BP systolic 97–138; PULSE 95–116; RESP 16–20; TEMP 98.1–99; O2SAT 94–100
[2024-02-26 04:34] LABS: BASOPHILS % (AUTO) 0.2 % (0.0-2.0); EOSINOPHILS # (AUTO) 0.2 K/uL (0.0-0.4); EOSINOPHILS % (AUTO) 0.9 % (0.0-4.0); HEMATOCRIT 29.2 % (36-54); HEMOGLOBIN 9.4 g/dL (14.0-18.0); LYMPHOCYTES # (AUTO) 0.9 K/uL (1.0-5.5); LYMPHOCYTES % (AUTO) 5.2 % (20.5-51.5); MEAN CORPUSCULAR HEMOGLOBIN 32 pg (27-31); MEAN CORPUSCULAR HGB CONC 32 % (32-36); MEAN CORPUSCULAR VOLUME 98 fL (79.0-98.0); MONOCYTES # (AUTO) 0.7 K/uL (0.0-1.0); MONOCYTES % (AUTO) 4.2 % (1.7-9.3); NEUTROPHILS % (AUTO) 89.5 % (40.0-70.0); PLATELET COUNT (AUTO) 205 K/uL (130-430); RED BLOOD CELL COUNT(AUTO) 2.99 MIL/uL (4.2-6.2); RED CELL DISTRIBUTION WIDTH 17.2 % (9.0-15.0); WHITE BLOOD COUNT (AUTO) 17.9 K/uL (4.8-10.8)
[2024-02-26 05:07] LABS: ALBUMIN 1.7 g/dL (3.4-4.8); CREATININE 2.12 mg/dL (0.55-1.30); PHOSPHORUS 4.4 mg/dL (2.7-4.5); POTASSIUM 3.5 mmol/L (3.5-5.1); TOTAL BILIRUBIN 0.5 mg/dL (0.0-1.0); TOTAL PROTEIN, SERUM 6.3 g/dL (6.4-8.3)
[2024-02-26] MEDS: ALBUTEROL SULFATE 0.083% 2.5 MG/3 ML VIAL.NEB INH PRN (09:28)
[2024-02-26] MEDS ORDERED: POTASSIUM ACETATE IV SCH (11:45)
[2024-02-26] MEDS ORDERED: [UNRECOGNIZED DRUG - OTHER] IV SCH (11:45)
[2024-02-26] MEDS ORDERED: K PHOS IV SCH (11:45)
[2024-02-26] MEDS ORDERED: TPN PERIPHERAL IV SCH (11:45)
[2024-02-26] MEDS: TPN PERIPHERAL IV SCH (22:43)
[2024-02-26] MEDS: [UNRECOGNIZED DRUG - OTHER] IV SCH (22:43)
[2024-02-26] MEDS: K PHOS IV SCH (22:43)
[2024-02-26] MEDS: POTASSIUM ACETATE IV SCH (22:43)
[2024-02-27] VITALS (16 sets, daily range): BP systolic 126–135; PULSE 102–117; RESP 16–20; TEMP 97.3–98.2; O2SAT 97–100
[2024-02-27 04:42] LABS: BASOPHILS % (AUTO) 0.3 % (0.0-2.0); EOSINOPHILS # (AUTO) 0.1 K/uL (0.0-0.4); EOSINOPHILS % (AUTO) 0.7 % (0.0-4.0); HEMATOCRIT 28.3 % (36-54); HEMOGLOBIN 9.2 g/dL (14.0-18.0); LYMPHOCYTES # (AUTO) 0.6 K/uL (1.0-5.5); MEAN CORPUSCULAR HEMOGLOBIN 32 pg (27-31); MEAN CORPUSCULAR HGB CONC 33 % (32-36); MEAN CORPUSCULAR VOLUME 97 fL (79.0-98.0); MONOCYTES # (AUTO) 0.7 K/uL (0.0-1.0); MONOCYTES % (AUTO) 4.2 % (1.7-9.3); NEUTROPHILS # (AUTO) 14.1 K/uL (1.8-7.7); NEUTROPHILS % (AUTO) 90.8 % (40.0-70.0); PLATELET COUNT (AUTO) 201 K/uL (130-430); RED BLOOD CELL COUNT(AUTO) 2.91 MIL/uL (4.2-6.2); RED CELL DISTRIBUTION WIDTH 16.9 % (9.0-15.0); WHITE BLOOD COUNT (AUTO) 15.5 K/uL (4.8-10.8)
[2024-02-27 05:14] LABS: ALBUMIN 1.4 g/dL (3.4-4.8); CALCIUM 7.5 mg/dL (8.4-11.0); CREATININE 2.13 mg/dL (0.55-1.30); POTASSIUM 3.6 mmol/L (3.5-5.1); TOTAL BILIRUBIN 0.5 mg/dL (0.0-1.0); TOTAL PROTEIN, SERUM 5.9 g/dL (6.4-8.3)
[2024-02-27] MEDS: MAGNESIUM SULFATE IV SCH (23:14)
[2024-02-27] MEDS: POTASSIUM ACETATE IV SCH (23:14)
[2024-02-27] MEDS: TPN PERIPHERAL IV SCH (23:14)
[2024-02-27] MEDS: [UNRECOGNIZED DRUG - OTHER] IV SCH (23:14)
[2024-02-28] VITALS (17 sets, daily range): BP systolic 112–135; PULSE 99–126; RESP 17–20; TEMP 97.6–99.7; O2SAT 95–99
[2024-02-28 04:33] LABS: BASOPHILS % (AUTO) 0.2 % (0.0-2.0); EOSINOPHILS # (AUTO) 0.1 K/uL (0.0-0.4); EOSINOPHILS % (AUTO) 0.8 % (0.0-4.0); HEMATOCRIT 25.8 % (36-54); HEMOGLOBIN 8.3 g/dL (14.0-18.0); LYMPHOCYTES # (AUTO) 0.7 K/uL (1.0-5.5); LYMPHOCYTES % (AUTO) 5.1 % (20.5-51.5); MEAN CORPUSCULAR HEMOGLOBIN 31 pg (27-31); MEAN CORPUSCULAR HGB CONC 32 % (32-36); MEAN CORPUSCULAR VOLUME 97 fL (79.0-98.0); MONOCYTES # (AUTO) 0.6 K/uL (0.0-1.0); MONOCYTES % (AUTO) 4.3 % (1.7-9.3); NEUTROPHILS # (AUTO) 12.5 K/uL (1.8-7.7); NEUTROPHILS % (AUTO) 89.6 % (40.0-70.0); PLATELET COUNT (AUTO) 188 K/uL (130-430); RED BLOOD CELL COUNT(AUTO) 2.66 MIL/uL (4.2-6.2); RED CELL DISTRIBUTION WIDTH 17.2 % (9.0-15.0)
[2024-02-28 05:25] LABS: ALBUMIN 1.3 g/dL (3.4-4.8); CALCIUM 7.8 mg/dL (8.4-11.0); CREATININE 2.1 mg/dL (0.55-1.30); PHOSPHORUS 4.8 mg/dL (2.7-4.5); POTASSIUM 3.8 mmol/L (3.5-5.1); TOTAL BILIRUBIN 0.5 mg/dL (0.0-1.0)
[2024-02-28] MEDS ORDERED: POTASSIUM ACETATE IV SCH (09:00)
[2024-02-28] MEDS ORDERED: TPN PERIPHERAL IV SCH (09:00)
[2024-02-28] MEDS ORDERED: [UNRECOGNIZED DRUG - OTHER] IV SCH (09:00)
[2024-02-28] MEDS ORDERED: MAGNESIUM SULFATE IV SCH (09:00)
[2024-02-28] MEDS: MINERAL OIL 30 ML UDC PO SCH (09:22)
[2024-02-28] MEDS: ALBUMIN HUMAN 25% 50 ML IV SCH (14:45)
[2024-02-28] MEDS: POTASSIUM ACETATE IV SCH (21:18)
[2024-02-28] MEDS: TPN PERIPHERAL IV SCH (21:18)
[2024-02-28] MEDS: MAGNESIUM SULFATE IV SCH (21:18)
[2024-02-28] MEDS: [UNRECOGNIZED DRUG - OTHER] IV SCH (21:18)
[2024-02-29] VITALS (17 sets, daily range): BP systolic 115–119; PULSE 93–114; RESP 16–17; TEMP 97.8–98.6; O2SAT 95–99
[2024-02-29 04:37] LABS: BASOPHILS % (AUTO) 0.2 % (0.0-2.0); EOSINOPHILS # (AUTO) 0.1 K/uL (0.0-0.4); EOSINOPHILS % (AUTO) 0.8 % (0.0-4.0); HEMATOCRIT 22.9 % (36-54); HEMOGLOBIN 7.3 g/dL (14.0-18.0); LYMPHOCYTES # (AUTO) 0.8 K/uL (1.0-5.5); LYMPHOCYTES % (AUTO) 6.8 % (20.5-51.5); MEAN CORPUSCULAR HEMOGLOBIN 31 pg (27-31); MEAN CORPUSCULAR HGB CONC 32 % (32-36); MEAN CORPUSCULAR VOLUME 97 fL (79.0-98.0); MONOCYTES # (AUTO) 0.5 K/uL (0.0-1.0); MONOCYTES % (AUTO) 4.2 % (1.7-9.3); NEUTROPHILS # (AUTO) 10.1 K/uL (1.8-7.7); PLATELET COUNT (AUTO) 148 K/uL (130-430); RED BLOOD CELL COUNT(AUTO) 2.37 MIL/uL (4.2-6.2); RED CELL DISTRIBUTION WIDTH 16.4 % (9.0-15.0); WHITE BLOOD COUNT (AUTO) 11.4 K/uL (4.8-10.8)
[2024-02-29 05:05] LABS: ALBUMIN 1.5 g/dL (3.4-4.8); CALCIUM 8.1 mg/dL (8.4-11.0); CREATININE 2.04 mg/dL (0.55-1.30); PHOSPHORUS 3.9 mg/dL (2.7-4.5); POTASSIUM 3.8 mmol/L (3.5-5.1); TOTAL BILIRUBIN 0.5 mg/dL (0.0-1.0)
[2024-02-29] MEDS: TPN PERIPHERAL IV SCH (22:00)
[2024-02-29] MEDS: SODIUM ACETATE IV SCH (22:00)
[2024-02-29] MEDS: [UNRECOGNIZED DRUG - OTHER] IV SCH (22:00)
[2024-02-29] MEDS: POTASSIUM ACETATE IV SCH (22:00)
[2024-03-01] VITALS (19 sets, daily range): BP systolic 120–148; PULSE 80–115; RESP 14–20; TEMP 97.7–98.4; O2SAT 98–100
[2024-03-01 07:20] LABS: BASOPHILS % (AUTO) 0.3 % (0.0-2.0); EOSINOPHILS # (AUTO) 0.1 K/uL (0.0-0.4); EOSINOPHILS % (AUTO) 1.3 % (0.0-4.0); HEMOGLOBIN 7.8 g/dL (14.0-18.0); LYMPHOCYTES # (AUTO) 0.5 K/uL (1.0-5.5); LYMPHOCYTES % (AUTO) 4.4 % (20.5-51.5); MEAN CORPUSCULAR HEMOGLOBIN 31 pg (27-31); MEAN CORPUSCULAR HGB CONC 32 % (32-36); MEAN CORPUSCULAR VOLUME 96 fL (79.0-98.0); MONOCYTES # (AUTO) 0.5 K/uL (0.0-1.0); MONOCYTES % (AUTO) 4.5 % (1.7-9.3); NEUTROPHILS % (AUTO) 89.5 % (40.0-70.0); PLATELET COUNT (AUTO) 166 K/uL (130-430); RED BLOOD CELL COUNT(AUTO) 2.49 MIL/uL (4.2-6.2); RED CELL DISTRIBUTION WIDTH 16.3 % (9.0-15.0); WHITE BLOOD COUNT (AUTO) 11.2 K/uL (4.8-10.8)
[2024-03-01 07:21] LABS: ALBUMIN 1.5 g/dL (3.4-4.8); CALCIUM 8.5 mg/dL (8.4-11.0); CREATININE 2.06 mg/dL (0.55-1.30); PHOSPHORUS 4.1 mg/dL (2.7-4.5); TOTAL BILIRUBIN 0.6 mg/dL (0.0-1.0); TOTAL PROTEIN, SERUM 6.4 g/dL (6.4-8.3)
[2024-03-01] MEDS: METOCLOPRAMIDE HCL 10 MG/2 ML VIAL IVP SCH (17:34)
[2024-03-01] MEDS: SODIUM ACETATE IV SCH (20:56)
[2024-03-01] MEDS: [UNRECOGNIZED DRUG - OTHER] IV SCH (20:56)
[2024-03-01] MEDS: POTASSIUM ACETATE IV SCH (20:56)
[2024-03-01] MEDS: TPN PERIPHERAL IV SCH (20:56)
[2024-03-02] VITALS (17 sets, daily range): BP systolic 117–147; PULSE 89–119; RESP 14–20; TEMP 97.8–98.8; O2SAT 98–100
[2024-03-02 06:45] LABS: BASOPHILS % (AUTO) 0.3 % (0.0-2.0); EOSINOPHILS # (AUTO) 0.1 K/uL (0.0-0.4); EOSINOPHILS % (AUTO) 1.2 % (0.0-4.0); HEMATOCRIT 24.4 % (36-54); HEMOGLOBIN 8.1 g/dL (14.0-18.0); LYMPHOCYTES # (AUTO) 0.5 K/uL (1.0-5.5); LYMPHOCYTES % (AUTO) 5.1 % (20.5-51.5); MEAN CORPUSCULAR HEMOGLOBIN 32 pg (27-31); MEAN CORPUSCULAR HGB CONC 33 % (32-36); MEAN CORPUSCULAR VOLUME 96 fL (79.0-98.0); MONOCYTES # (AUTO) 0.5 K/uL (0.0-1.0); MONOCYTES % (AUTO) 4.7 % (1.7-9.3); NEUTROPHILS # (AUTO) 9.1 K/uL (1.8-7.7); NEUTROPHILS % (AUTO) 88.7 % (40.0-70.0); PLATELET COUNT (AUTO) 164 K/uL (130-430); RED BLOOD CELL COUNT(AUTO) 2.56 MIL/uL (4.2-6.2); RED CELL DISTRIBUTION WIDTH 16.1 % (9.0-15.0); WHITE BLOOD COUNT (AUTO) 10.2 K/uL (4.8-10.8)
[2024-03-02 07:02] LABS: ALBUMIN 1.5 g/dL (3.4-4.8); CALCIUM 8.6 mg/dL (8.4-11.0); CREATININE 1.89 mg/dL (0.55-1.30); PHOSPHORUS 3.2 mg/dL (2.7-4.5); POTASSIUM 3.7 mmol/L (3.5-5.1); TOTAL BILIRUBIN 0.6 mg/dL (0.0-1.0); TOTAL PROTEIN, SERUM 6.7 g/dL (6.4-8.3)
[2024-03-02] MEDS ORDERED: [UNRECOGNIZED DRUG - OTHER] IV SCH ×2 (07:45→21:00)
[2024-03-02] MEDS ORDERED: POTASSIUM ACETATE IV SCH ×2 (07:45→21:00)
[2024-03-02] MEDS ORDERED: TPN PERIPHERAL IV SCH ×2 (07:45→21:00)
[2024-03-02] MEDS ORDERED: SODIUM ACETATE IV SCH ×2 (07:45→21:00)
[2024-03-02] MEDS ORDERED: *TPN PER PHARMACY XX PRN (11:15)
[2024-03-03] VITALS (19 sets, daily range): BP systolic 119–131; PULSE 105–117; RESP 14–20; TEMP 97.6–99.3; O2SAT 99–100
[2024-03-03 06:14] LABS: BASOPHILS % (AUTO) 0.2 % (0.0-2.0); EOSINOPHILS # (AUTO) 0.2 K/uL (0.0-0.4); EOSINOPHILS % (AUTO) 1.4 % (0.0-4.0); HEMATOCRIT 24.3 % (36-54); HEMOGLOBIN 7.8 g/dL (14.0-18.0); LYMPHOCYTES # (AUTO) 0.6 K/uL (1.0-5.5); LYMPHOCYTES % (AUTO) 5.4 % (20.5-51.5); MEAN CORPUSCULAR HEMOGLOBIN 31 pg (27-31); MEAN CORPUSCULAR HGB CONC 32 % (32-36); MEAN CORPUSCULAR VOLUME 96 fL (79.0-98.0); MONOCYTES # (AUTO) 0.6 K/uL (0.0-1.0); MONOCYTES % (AUTO) 5.2 % (1.7-9.3); NEUTROPHILS # (AUTO) 9.8 K/uL (1.8-7.7); NEUTROPHILS % (AUTO) 87.8 % (40.0-70.0); PLATELET COUNT (AUTO) 184 K/uL (130-430); RED BLOOD CELL COUNT(AUTO) 2.53 MIL/uL (4.2-6.2); WHITE BLOOD COUNT (AUTO) 11.1 K/uL (4.8-10.8)
[2024-03-03 06:44] LABS: ALBUMIN 1.5 g/dL (3.4-4.8); CREATININE 1.74 mg/dL (0.55-1.30); POTASSIUM 3.8 mmol/L (3.5-5.1); TOTAL BILIRUBIN 0.5 mg/dL (0.0-1.0); TOTAL PROTEIN, SERUM 6.9 g/dL (6.4-8.3)
[2024-03-04] VITALS (13 sets, daily range): BP systolic 130–149; PULSE 95–123; RESP 14–16; TEMP 97.7–101.3; O2SAT 95–99
[2024-03-04 05:41] LABS: BASOPHILS % (AUTO) 0.3 % (0.0-2.0); EOSINOPHILS # (AUTO) 0.2 K/uL (0.0-0.4); HEMATOCRIT 25.2 % (36-54); HEMOGLOBIN 8.2 g/dL (14.0-18.0); LYMPHOCYTES # (AUTO) 0.6 K/uL (1.0-5.5); LYMPHOCYTES % (AUTO) 6.9 % (20.5-51.5); MEAN CORPUSCULAR HEMOGLOBIN 31 pg (27-31); MEAN CORPUSCULAR HGB CONC 33 % (32-36); MEAN CORPUSCULAR VOLUME 96 fL (79.0-98.0); MONOCYTES # (AUTO) 0.6 K/uL (0.0-1.0); MONOCYTES % (AUTO) 6.1 % (1.7-9.3); NEUTROPHILS # (AUTO) 7.9 K/uL (1.8-7.7); NEUTROPHILS % (AUTO) 84.7 % (40.0-70.0); PLATELET COUNT (AUTO) 207 K/uL (130-430); RED BLOOD CELL COUNT(AUTO) 2.63 MIL/uL (4.2-6.2); RED CELL DISTRIBUTION WIDTH 16.3 % (9.0-15.0); WHITE BLOOD COUNT (AUTO) 9.3 K/uL (4.8-10.8)
[2024-03-04 06:10] LABS: CREATININE 1.76 mg/dL (0.55-1.30); POTASSIUM 4.1 mmol/L (3.5-5.1)
[2024-03-04] MEDS: MINERAL OIL 133 ML ENEMA RC ONE (13:15)
[2024-03-04] MEDS ORDERED: LevETIRAcetam 500 MG/5 ML UDC ORAL LIQUID GT SCH (21:00)
== END 2024-03-04 19:02 | DRG 870 ==
LOC: SED 13:47 → UNDOADMIN 17:07 → SIC 17:07 → STU 02-26 16:26
PROVIDERS: ADMIT Family Medicine; ATTEND Family Medicine
PROC: 5A1955Z Respiratory Ventilation, Greater than 96 Consecutive Hours (ICD-10-PCS; principal; 2024-02-20)
PROC: 30233N1 Transfusion of Nonautologous Red Blood Cells into Peripheral Vein, Percutaneous Approach (ICD-10-PCS; 2024-02-22)
DX: A41.9 Sepsis, unspecified organism (principal); K85.90 Acute pancreatitis without necrosis or infection, unspecified; R65.21 Severe sepsis with septic shock; J96.20 Acute and chronic respiratory failure, unspecified whether with hypoxia or hypercapnia; J15.69 Pneumonia due to other Gram-negative bacteria; G82.50 Quadriplegia, unspecified; N39.0 Urinary tract infection, site not specified; E87.1 Hypo-osmolality and hyponatremia; N17.9 Acute kidney failure, unspecified; K56.7 Ileus, unspecified; Z99.11 Dependence on respirator [ventilator] status; Z20.822 Contact with and (suspected) exposure to COVID-19; K94.29 Other complications of gastrostomy; D50.9 Iron deficiency anemia, unspecified; Z66 Do not resuscitate; G20.A1 Parkinson's disease without dyskinesia, without mention of fluctuations; E86.0 Dehydration; E11.9 Type 2 diabetes mellitus without complications; G35 Multiple sclerosis; E88.09 Other disorders of plasma-protein metabolism, not elsewhere classified; N28.89 Other specified disorders of kidney and ureter; I10 Essential (primary) hypertension; N40.0 Benign prostatic hyperplasia without lower urinary tract symptoms; Y83.8 Other surgical procedures as the cause of abnormal reaction of the patient, or of later complication, without mention of misadventure at the time of the procedure; Z79.51 Long term (current) use of inhaled steroids; Z79.899 Other long term (current) drug therapy
CPT/HCPCS: 36415; 36600; 71045; 74018; 76700; 80048; 80053; 80076; 80185; 81000; 81001; 81015; 82150; 82787; 82800-TC; 82803; 82948; 83540; 83550; 83605; 83690; 83735; 84100; 84478; 84484; 85025; 85610; 85730; 86038; 86886; 86900; 86901; 86920; 87040; 87070; 87081; 87086; 87186; 87205; 93005; 94003; 94070; 94640; 94760; 96361; 96365; 96375; 99291; C9113; G0378; J0713; J1450; J1815; J1953; J1956; J2185; J2765; J3475; J3490; J7050; P9021; P9046